=== PATIENT | male | born 1990 | race Caucasian/White ===

== ENCOUNTER 2019-09-25 18:31 | Emergency (ER) | payer MEDICAID, SELFPAY ==
[2019-09-25 19:00] VITALS: BP 118/85; PULSE 101; RESP 18; TEMP 36.9; O2SAT 97; BMI 33.3
[2019-09-25 20:00] LABS: Basophils # 0.1 10^3/uL (0.0-0.1); Basophils % 0.6 %; Eosinophils # 0.1 10^3/uL (0.0-0.8); Eosinophils % 1.3 %; Hematocrit 46.6 % (42.0-52.0); Hemoglobin 15.3 g/dL (11.7-16.6); Lymphocytes # 3.3 10^3/uL (0.8-4.8); Lymphocytes % 38.6 %; Mean Corpuscular HGB Conc 32.8 g/dL (30.0-36.0); Mean Corpuscular Hemoglobin 29.9 pg (28.0-34.0); Mean Platelet Volume 9.2 fL (7.4-10.4); Monocytes # 1.3 10^3/uL (0.2-0.9); Monocytes % 15.9 %; Neutrophils # 3.7 10^3/uL (1.8-7.7); Neutrophils % 43.2 %; Nucleated Red Blood Cells % 0 %; Platelet Count 278 10^3/cmm (130-400); Red Blood Count 5.12 10^6/uL (4.1-5.3); Red Cell Distribution Width 12.5 % (12.1-15.1); White Blood Count 8.4 10^3/uL (4.0-10.0)
[2019-09-25 20:17] LABS: Alanine Aminotransferase 39 U/L (0-41); Alkaline Phosphatase 86 IU/L (40-130); Anion Gap 18.5 (5-19); Aspartate Amino Transferase 22 U/L (0-40); Blood Urea Nitrogen 16 mg/dL (6-20); Calcium 9.8 mg/Dl (8.6-10.0); Carbon Dioxide 27 mmol/L (22-29); Chloride 94 mmol/L (98-107); Globulin 3.3 g/dL (1.3-4.6); Glomerular Filtration Rate 88.3 mL/min (90-130); Glucose 104 mg/dL (74-109); Lipase 59 U/L (13-60); Potassium 3.5 mmol/L (3.5-5.1); Sodium 136 mmol/L (136-145); Total Bilirubin 0.4 mg/dL (0.15-1.2); Total Protein 8.3 g/dL (6.6-8.7)
[2019-09-25 21:11] VITALS: BP 117/90; PULSE 103; RESP 18; O2SAT 95
[2019-09-25 21:30] VITALS: BP 119/90; PULSE 103; RESP 18; O2SAT 95
--- NOTE | 2019-09-25 21:33 | ED_ITS ---
Entered by Josette Aldana, acting as scribe for Eileen Adair MD Sep 25, 2019 18:31 HPI - Abdominal Pain General: Chief Complaint: Abdominal Pain Stated Complaint: abd pain Time Seen by Provider: 09/25/19 21:29 Source: patient and family Mode of arrival: ambulatory History of Present Illness: HPI narrative: 28 y/o male presents to the ED with complaint of abd pain. Pt states he has had an umbilical hernia for 3 months. Tonight he strained while getting into the car and felt a pop in his bel lybutton . Pt denies any previous abd sx. MD elicited complaint: abdominal pain Onset (ago): hour(s) Pain Consistency: constant Location: Periumbilical Severity: moderate Exacerbating factors: movement Relieving factors: nothing Associated Symptoms: Denies chills, diarrhea, fever(s), nausea and vomiting Review of Systems Const: Denies: fever or chills Eyes: Denies: change in vision ENMT: Denies: throat pain or mouth pain Card: Denies: chest pain Resp: Denies: shortness of breath GI: Reports: abdominal pain; Denies: nausea, vomiting or diarrhea Musc: Denies: back pain or joint pain Skin/Breast: Denies: rash Neuro: Denies: headache or behavioral changes Psych: Denies: depression Endo: Denies: excessive urination Henrik/Lymph: Denies: easy bruising All/Imm: Denies: hives PFSH ED PFSH: Statuses (acute, chronic, etc) shown below reflect problem list status as previously entered and may not be historically accurate Social History Smoking and tobacco status: never smoked Physical Exam Const: COMMON NORMALS: no apparent distress, oriented x3 and healthy appearing HENMT: COMMON NORMALS: normocephalic and external nose normal HEAD & SCALP: normocephalic NOSE: external nose normal Eye: COMMON NORMALS: PERRL PUPIL: Yes PERRL Neck/C-Spine: COMMON NORMALS: full ROM and no lymphadenopathy Chest: COMMONS NORMALS: inspection of chest normal Resp: COMMON NORMALS: normal respiratory effort, no use of accessory muscles and clear to auscultation bilaterally AUSCULTATION: clear to auscultation bilaterally Cardio: COMMON NORMALS: regular rate and regular rhythm RATE: regular rate RHYTHM: regular rhythm GI: COMMON NORMALS: negative for non-tender (pain with palpation) PALPATION: Yes guarding GI image (male): 1. umbilical pain Back/Pelvis: THORACIC SPINE/UPPER BACK: Yes normal to inspection Extremity: COMMON NORMALS: normal to inspection, full ROM and normal capillary refill Neuro: COMMON NORMALS: oriented x3 Psych: COMMON NORMALS: mental status grossly normal and cooperative Skin: COMMON NORMALS: no rashes or lesions noted GENERAL SKIN EXAM: no rashes or lesions noted Procedures Intubation Mg Given: 20 Mg Given: 200 Course Vital Signs: Vital signs: Vital Signs Temperature 99.3 F 09/25/19 23:17 Pulse Rate 98 09/25/19 23:17 Respiratory Rate 18 09/25/19 23:17 Blood Pressure 144/84 09/25/19 23:17 Pulse Oximetry 97 09/25/19 23:17 MDM - Abdominal Pain MDM Narrative: Medical decision making narrative: Patient presents with abdominal pain likely from his hernia site. He has no signs of strangulation of bowel and CT scan and lab work is normal. Patient's pain is improved at discharge and he is stable for discharge. He is to follow-up with Dr. Lema as scheduled on the . He is to return to the ER if worsening. Lab Data: Labs: Lab Results 09/25/19 09/25/19 Range/Units 19:30 19:30 WBC 8.4 (4.0-10.0) 10^3/ uL RBC 5.12 (4.1-5.3) 10^6/u L Hgb 15.3 (11.7-16.6) g/dL Hct 46.6 (42.0-52.0) % MCV 91.0 (80-94) fL MCH 29.9 (28.0-34.0) pg MCHC 32.8 (30.0-36.0) g/dL RDW 12.5 (12.1-15.1) % Plt Count 278 (130-400) 10^3/c mm MPV 9.2 (7.4-10.4) fL Neut % (Auto) 43.2 % Lymph % (Auto) 38.6 % Hood % (Auto) 15.9 % Eos % (Auto) 1.3 % Baso % (Auto) 0.6 % Neut # (Auto) 3.7 (1.8-7.7) 10^3/u L Lymph # (Auto) 3.3 (0.8-4.8) 10^3/u L Hood # (Auto) 1.3 H (0.2-0.9) 10^3/u L Eos # (Auto) 0.1 (0.0-0.8) 10^3/u L Baso # (Auto) 0.1 (0.0-0.1) 10^3/u L Nucleated RBC % (a uto) 0 % Nucleated RBCs # 0.0 /100WBC Sodium 136 (136-145) mmol/L Potassium 3.5 (3.5-5.1) mmol/L Chloride 94 L (98-107) mmol/L Carbon Dioxide 27 (22-29) mmol/L Anion Gap 18.5 (5-19) BUN 16 (6-20) mg/dL Creatinine 1.0 (0.7-1.2) mg/dL GFR Calculation 88.3 L (90-130) mL/min Glucose 104 (74-109) mg/dL Calcium 9.8 (8.6-10.0) mg/Dl Total Bilirubin 0.4 (0.15-1.2) mg/dL AST 22 (0-40) U/L ALT 39 (0-41) U/L Alkaline Phosphata se 86 (40-130) IU/L Total Protein 8.3 (6.6-8.7) g/dL Albumin 5.0 (3.5-5.2) g/dL Globulin 3.3 (1.3-4.6) g/dL Lipase 59 (13-60) U/L Imaging Data ^: CT Abd/Pel: Radiologist's impression: Ordering Physician: Eileen Adair MD Date of Service: 09/25/19 Procedure(s): CT abdomen pelvis w con* [id number] Accession Number(s): [id number] cc: Eileen Adair MD PROCEDURE INFORMATION: Exam: CT Abdomen And Pelvis With Contrast Exam date and time: 09/25/2019 9:43 PM Age: 28 years old Clinical indication: Abdominal pain; Periumbilical; Patient HX: Dx with umbilical hernia x 2 days; Additional info: Abd pain TECHNIQUE: Imaging protocol: Computed tomography of the abdomen and pelvis with intravenous contrast. Total DLP: 1703.1 mGy-cm Radiation optimization: All CT scans at this facility use at least one of these dose optimization techniques: automated exposure control; mA and/or kV adjustment per patient size (includes targeted exams where dose is matched to clinical indication); or iterative reconstruction. Contrast material: OMNI 300; Contrast volume: 95 ml; Contrast route: IV; COMPARISON: No relevant prior studies available. FINDINGS: Lungs: The lung bases are clear. Liver: There is fatty infiltration of the liver. Gallbladder and bile ducts: No definite gallbladder abnormality by CT. No biliary tree dilation. Pancreas: Unremarkable. Spleen: Unremarkable. Adrenals: Unremarkable. Kidneys and ureters: Possible very small left intrarenal calculus. No hydronephrosis of either kidney. No visible ureteral calculus. Stomach and bowel: A few proximal small bowel loops are fluid-filled and borderline prominent in size, including the distal duodenum. However, the overall appearance is not suggestive of significant small bowel obstruction at this time. This appearance could be secondary to some form of gastroenteritis. Please correlate clinically. If there is clinical suspicion for small bowel obstruction, follow-up may be helpful to exclude progression. There are no CT findings to strongly suggest diverticulitis. Appendix: The appendix is upper limit of normal in size with diameter of about 6 mm. However, there are no surrounding inflammatory changes to suggest appendicitis at this time. If appendicitis is in the differential diagnosis, follow-up scanning may be useful, as clinically directed. Appropriate clinical follow up warranted. Intraperitoneal space: No free air, or ascites. Vasculature: No evidence for abdominal aortic aneurysm. Lymph nodes: A few borderline prominent inguinal lymph nodes bilaterally. Bladder: Unremarkable as visualized. Reproductive: Essentially unremarkable for age. Bones/joints: No significant acute finding. Soft tissues: There is an umbilical region ventral hernia measuring 25 x 20 mm in diameter. There is no bowel present within the hernia. Mild increased attenuation in the fat within the hernia, which could represent edema/inflammation. This might indicate evidence for incarceration of the hernia. Please correlate clinically for pain in this region. CT/CT abdomen pelvis w con* [id number] IMPRESSION: 1. 25 x 20 mm umbilical hernia measuring, containing no bowel. Mild increased attenuation in the fat within the hernia. This might indicate evidence for incarceration of the hernia. 2. A few proximal small bowel loops are fluid-filled and borderline prominent in size, see above discussion. This appearance could be secondary to some form of gastroenteritis. 3. Borderline size of the appendix, without other suspicious findings. Please see detailed discussion above. 4. No free intraperitoneal air. 5. Other findings discussed above. Discharge Plan Discharge Patient Disposition: Home, Self-Care Clinical Impression: Hernia Abdominal pain Qualifiers: Abdominal location: generalized Qualified Code(s): R10.84 - Generalized abdominal pain Condition: Stable Prescriptions: New EC-Naprosyn 500 mg tablet,delayed release (DR/EC) 500 mg PO BID PRN (Reason: pain) Qty: 20 RF: 0 No Action lisinopril 10 mg Tablet 10 mg PO DAILY RF: 0 hydrochlorothiazide 25 mg Tablet 25 mg PO QAM RF: 0 ranitidine HCl 150 mg Tablet 150 mg PO DAILY RF: 0 Flexeril 10 mg TID RF: 0 Discharge Orders: Discharge Order (Routine); Ordered 09/25/19 Ordered By: Eileen Adair Referrals: Jack Lema MD [Physician] - 4-7 days Mitch Jimenez MD [Family Provider] - 4-7 days Discharge Diet: Advance as tolerated Discharge Activity: Resume usual activity Patient Instructions: Naproxen (By mouth), Abdominal Pain (ED) Discharge Date/Time: 09/25/19 23:26 Coding Level of Care Code ED Gut Dropper for Chg Fwd Exam Problem Focused The documentation recorded by the Jovan maravilla Ashley, accurately reflects the service I personally performed and the decisions made by Mana galicia Korby, MD Sep 25, 2019 18:31
[2019-09-25 21:55] VITALS: RESP 18
[2019-09-25] MEDS: morphine 4 mg/mL SDV 1 mL IVP (21:55)
[2019-09-25] MEDS: ondansetron 2 mg/ML SDV 2 mL 4 MG IVP (21:55)
[2019-09-25] MEDS: sodium chloride 0.9% 1,000 ML 999 ML IV (21:56)
[2019-09-25] MEDS: iohexol 300 mg/mL 100 mL Btl 95 ML IV (22:25)
[2019-09-25 23:17] VITALS: BP 144/84; PULSE 98; RESP 18; TEMP 37.4; O2SAT 97
--- NOTE | 2019-09-26 10:28 | DCPLANNER ---
brokerage office manager had message that patient is to follow up with Dr. Lema. brokerage office manager called patient to ask patient if he would like for wrapper caser to make that follow up appointment for patient. Patient stated that they already had an appointment scheduled for 10.07.[address] Lema, and that it can not be moved up at this time, patient is put on a cancellation list.
== END 2019-09-25 23:26 | disposition home or self-care (01) ==
PROVIDERS: Emergency Provider Emergency Medicine; Family Provider Family Medicine
DX: K46.9 Unspecified abdominal hernia without obstruction or gangrene (principal)
CPT/HCPCS: 36415; 74177; 80053; 83690; 85025; 96360; 96374; 96375; 99282; J2270; J2405; J7030; Q9967

== ENCOUNTER 2019-12-10 15:18 | Outpatient (CLI) | payer MEDICAID, SELFPAY ==
--- NOTE | 2019-12-10 | XR_ITS ---
WS: [id number] Chest 2 views, 12/10/2019 Clinical Data: DRY COUGH FOR A FEW MONTHS Comparison: PA and lateral chest, 02/20/2019 Findings: No nodules, masses or effusions are seen. The heart is normal. The pulmonary vascularity is not increased. No pneumonia or pneumothorax is seen. XR/XR chest 2V* [id number] Impression: Negative chest.
== END 2019-12-10 15:19 | disposition home or self-care (01) ==
PROVIDERS: Family Provider Family Medicine; PCP Family Medicine; Visit Provider Family Medicine
DX: Z76.89 Persons encountering health services in other specified circumstances (principal)

== ENCOUNTER 2020-03-11 03:00 | Emergency (ER) | payer MEDICAID, SELFPAY ==
[2020-03-11 03:07] VITALS: BP 140/93; PULSE 90; RESP 20; TEMP 36.4; O2SAT 97; BMI 33.0
--- NOTE | 2020-03-11 03:23 | W.ED.BACK ---
HPI - Back Pain/Injury General: Chief Complaint: Back Pain/Injury Stated Complaint: back pain Time Seen by Provider: 03/11/20 03:03 Source: patient Mode of arrival: ambulatory Limitations: no limitations History of Present Illness: HPI Narrative: 29-year-old male states he had left flank pain for the last 5 to 6 hours. Patient states his pain is sharp in nature and rates it an 8 out of 10. He states he is also had difficulty urinating. He denies any worsening or improving factors. He denies any vomiting or diarrhea. Associated symptoms: Deny abdominal pain, chills, fever(s), nausea or vomiting Review of Systems Const: Denies: fever(s), chills, body aches or change in appetite Eyes: Denies: blurry vision or eye discomfort ENMT: Denies: throat pain or dental pain Card: Denies: chest pain Resp: Denies: dyspnea GI: Denies: abdominal pain, nausea, vomiting or diarrhea : Reports: flank pain Musc: Denies: neck pain or back pain Skin/Breast: Denies: rash Neuro: Denies: headache(s) Psych: Denies: depression Henrik/Lymph: Denies: easy bruising All/Imm: Denies: urticaria PFSH ED PFSH: Social History Smoking and tobacco status: former smoker Physical Exam Const: COMMON NORMALS: no acute distress, patient oriented x3 and healthy appearing HENMT: COMMON NORMALS: normocephalic and atraumatic HEAD & SCALP: normocephalic and atraumatic Eye: COMMON NORMALS: Equal, round and reactive pupils present and EOMs intact bilaterally PUPIL: Yes Equal, round and reactive pupils present Neck/C-Spine: COMMON NORMALS: full ROM and supple Chest: COMMONS NORMALS: normal inspection of the chest and normal palpation of entire chest wall Resp: COMMON NORMALS: normal respiratory effort, No retractions, No use of accessory muscles and clear to auscultation bilaterally AUSCULTATION: clear to auscultation bilaterally Cardio: COMMON NORMALS: regular rate, regular rhythm and No murmurs present (Cardio) RATE: regular rate RHYTHM: regular rhythm GI: COMMON NORMALS: Normal to inspection, nondistended, normoactive bowel sounds present, Soft to palpation, non-tender and no masses PALPATION: Yes Soft to palpation Extremity: COMMON NORMALS: normal to inspection and full ROM Neuro: COMMON NORMALS: patient oriented x3, moves all extremities and no focal motor deficits Psych: COMMON NORMALS: mental status grossly normal, Normal thought process present and cooperative THOUGHT PROCESS: Normal thought process present Skin: COMMON NORMALS: no rashes or lesions noted and no wounds GENERAL SKIN EXAM: no rashes or lesions noted Course Vital Signs: Vital signs: Vital Signs Temperature 97.5 F L 03/11/20 03:07 Pulse Rate 81 03/11/20 05:22 Respiratory Rate 20 H 03/11/20 05:22 Blood Pressure 135/85 03/11/20 05:22 Pulse Oximetry 98 03/11/20 05:22 MDM - Back Pain/Injury MDM Narrative: Medical decision making narrative: Patient presents here with a kidney stone. Kidney stone is 2 mm and should pass on its own. Patient's pain is improved and he is stable for discharge. We will discharge him on [place] and he is to follow-up with Dr. Fine. Patient is return if worsening. Lab Data: Labs: Lab Results 03/11/20 Range/Units 03:30 Urine Color Yellow (Yellow) Urine Appearance Sl hazy (CLEAR) Urine pH 5 (5-7) Ur Specific Gravit y 1.030 (1.005-1.030) Urine Protein Neg (Negative) Urine Glucose (UA) Norm (Normal) Urine Ketones Negative (Negative) Urine Blood 3+ H (Negative) Urine Nitrate Negative (Negative) Urine Bilirubin Neg (NEGATIVE) Urine Urobilinogen Norm (Negative) mg/dL Ur Leukocyte Gini ase Negative (Negative) Urine RBC 15-25 H (0-2) /hpf Urine WBC 0-4 H (0-5) /hpf Ur Squamous Epith Cells 0-4 H (0-5) Urine Bacteria 1+ H (NONE) Urine Mucus 1+ Imaging Data^: CT Abd/Pel: Radiologist's impression: [address] [place] [address] CT Scan Report Signed Patient: Dominic Cazares Unit #: [id number] : 1990 Age/Sex: 29 / M ADM Date: 03/11/20 Loc: ER Room/Bed: Attending Dr: Ordering Provider/Ordering MD: Eileen Adair MD Date of Service: 03/11/20 Procedure(s): CT kidney stone 32509 Accession Number(s): [id number] Report Number: [id number] PROCEDURE INFORMATION: Exam: CT Abdomen And Pelvis Without Contrast Exam date and time: 03/11/2020 3:49 AM Age: 29 years old Clinical indication: Abdominal pain; Flank; Left; Prior surgery; Surgery date: 1-6 months; Surgery type: Hernia repair; Additional info: Flank pain TECHNIQUE: Imaging protocol: Computed tomography of the abdomen and pelvis without contrast. Radiation optimization: All CT scans at this facility use at least one of these dose optimization techniques: automated exposure control; mA and/or kV adjustment per patient size (includes targeted exams where dose is matched to clinical indication); or iterative reconstruction. COMPARISON: No relevant prior studies available. RADIATION DOSE METRICS: Total DLP (mGy-cm): 2239.63 FINDINGS: Lungs: The lung bases are clear. Liver: There is fatty infiltration of the liver. The liver appears somewhat enlarged, with right lobe length of 21 cm. No definite/significant focal hepatic abnormality. Gallbladder and bile ducts: No definite gallbladder abnormality by CT. No biliary tree dilation. Pancreas: Unremarkable. Spleen: Unremarkable. Adrenals: Unremarkable. Kidneys and ureters: Possible very small left intrarenal calculus. Mild left hydronephrosis and hydroureter. There is a 2-3 mm distal left ureteral calculus, about 1 cm from the UVJ. The right kidney appears essentially unremarkable. Stomach and bowel: There are no CT findings to strongly suggest diverticulitis. Appendix: The appendix is visualized and appears normal. Intraperitoneal space: No free air, ascites, or bowel distention. Vasculature: No evidence for abdominal aortic aneurysm. Lymph nodes: No retroperitoneal adenopathy. Bladder: Limited evaluation of the urinary bladder, as the bladder is essentially empty. Reproductive: Essentially unremarkable for age. Bones/joints: No significant acute finding. Soft tissues: No significant acute finding. CT/CT kidney stone [id number] IMPRESSION: 1. 2-3 mm distal left ureteral calculus, details above. 2. Mild left hydronephrosis and hydroureter. 3. No diverticulitis. 4. No free air or bowel distention. 5. Other findings discussed above. Discharge Plan Discharge Patient Disposition: Home, Self-Care Clinical Impression: Kidney stone Condition: Stable Prescriptions: New [place] 5-325 mg tablet 1 tab PO Q6H PRN (Reason: pain) Qty: 14 RF: 0 ondansetron 4 mg tablet,disintegrating 4 mg PO Q6H PRN (Reason: nausea and vomiting) Qty: 14 RF: 0 Flomax 0.4 mg capsule 0.4 mg PO DAILY Qty: 4 RF: 0 No Action lisinopril 10 mg Tablet 10 mg PO DAILY RF: 0 hydrochlorothiazide 25 mg Tablet 25 mg PO QAM RF: 0 ranitidine HCl 150 mg Tablet 150 mg PO DAILY RF: 0 Flexeril 10 mg TID RF: 0 EC-Naprosyn 500 mg tablet,delayed release (DR/EC) 500 mg PO BID PRN (Reason: pain) Qty: 20 RF: 0 Discharge Orders: Discharge Order (Routine); Ordered 03/11/20 Ordered By: Eileen Adair Referrals: Shamar Fine MD [Physician] - 1-3 days Mitch Jimenez MD [Primary Care Provider] - Discharge Diet: Advance as tolerated Discharge Activity: Resume usual activity Patient Instructions: Kidney Stones (ED) Coding Level of Care Code ED Sports Statistician for Chg Fwd Exam Comprehensive
[2020-03-11] MEDS: ondansetron 2 mg/ML SDV 2 mL 4 MG IVP (03:38)
[2020-03-11 03:39] VITALS: RESP 19
[2020-03-11] MEDS: morphine 4 mg/mL SDV 1 mL IVP (03:39)
[2020-03-11] MEDS: sodium chloride 0.9% 1,000 ML 999 ML IV (03:41)
[2020-03-11 04:19] VITALS: RESP 18
[2020-03-11] MEDS: ketorolac 30 mg/mL INJ IVP (04:19)
[2020-03-11] MEDS: HYDROmorphone 1 mg/mL INJ 1 mL IVP (04:19)
[2020-03-11 04:20] LABS: Add Urine Culture? Yes; Add Urine Microscopic? YES; Bacteria Urine 1+; Bilirubin Urine Neg (NEGATIVE); Blood Urine 3+ (Negative); Glucose Urine UA Norm (Normal); Ketones Urine Negative (Negative); Leukocyte Esterase Urine Negative (Negative); Mucus Urine 1+; Nitrate Urine Negative (Negative); Protein Urine Neg (Negative); RBC Urine 15-25 /hpf (0-2); Squamous Epithelial Cell Urine 0-4 (0-5); Urine Appearance SL Hazy (CLEAR); Urine Color Yellow (Yellow); Urobilinogen Urine Norm (Negative); WBC Urine 0-4 /hpf (0-5); pH Urine 5 (5-7)
[2020-03-11 04:24] VITALS: BP 149/94; PULSE 82; RESP 18; O2SAT 98
[2020-03-11 05:22] VITALS: BP 135/85; PULSE 81; RESP 20; O2SAT 98
[2020-03-11] MEDS: HYDROcodone-acetaminophen 7.5-325 mg Tablet 1 TAB PO (05:28)
--- NOTE | 2020-03-11 12:49 | DCPLANNER ---
brood station manager had message to schedule a follow up appointment for patient with Dr. Fine. brood station manager called the office of Dr. Fine, spoke with Francesca. brood station manager gave clinic patients information, was told that it would be printed and reviewed. Clinic will call patient with appointment informatiom.
--- NOTE | 2020-03-12 14:06 | DCPLANNER ---
Patient had a follow up appointment for patient with Dr. Fine scheduled for 03.12.20. Patient did attend the appointment.
== END 2020-03-11 05:44 | disposition home or self-care (01) ==
PROVIDERS: Emergency Provider Emergency Medicine; PCP Family Medicine
DX: N20.0 Calculus of kidney (principal); Z87.891 Personal history of nicotine dependence
CPT/HCPCS: 12345; 74176; 81001; 87086; 96361; 96374; 96375; 99283; J1170; J1885; J2270; J2405; J7030

== ENCOUNTER 2020-03-12 08:47 | Outpatient (CLI) | payer MEDICAID, SELFPAY ==
--- NOTE | 2020-03-12 09:30 | XRR_ITS ---
PROCEDURE INFORMATION: Exam: XR Abdomen, 1 View Exam date and time: 03/12/2020 9:01 AM Age: 29 years old Clinical indication: Other: Left flank pain x a few days; Additional info: Stone. HX of stone. C/O left flank pain x a few days TECHNIQUE: Imaging protocol: XR of the abdomen. Views: Frontal supine view of the abdomen. 1 View. COMPARISON: CT kidney stone [id number] 03/11/2020 3:43 AM FINDINGS: Gastrointestinal tract: bowel gas pattern is nonspecific. Air filled large bowel including distal rectal gas. Moderate amount stool throughout the large bowel. Organs: No calcifications are seen overlying the renal outlines or the expected course of the right or left ureters. No suspicious calcifications within the pelvis. Bones/joints: Unremarkable. XR/XR KUB [id number] IMPRESSION: 1. Bowel gas pattern is nonspecific. Air filled large bowel including distal rectal gas. 2. Moderate amount stool throughout the large bowel.
== END 2020-03-12 08:48 | disposition home or self-care (01) ==
LOC: RAD 08:49
PROVIDERS: PCP Family Medicine; Visit Provider Urology
DX: N20.0 Calculus of kidney (principal)
CPT/HCPCS: 74018; 81001

== ENCOUNTER 2020-03-26 07:56 | Outpatient (CLI) | payer MEDICAID, SELFPAY ==
--- NOTE | 2020-03-26 08:15 | XRR_ITS ---
PROCEDURE INFORMATION: Exam: XR Abdomen, 1 View Exam date and time: 03/26/2020 8:15 AM Age: 29 years old Clinical indication: Condition or disease; Kidney or ureter condition; Calculus (stone) in ureter; Patient HX: Follow up stones TECHNIQUE: Imaging protocol: XR of the abdomen. Views: Frontal supine view of the abdomen. 1 View. COMPARISON: CR XR KUB [id number] 03/12/2020 8:54 AM FINDINGS: Gastrointestinal tract: The bowel gas pattern is nonspecific. Air filled large bowel including distal rectal gas. Organs: No calcifications are seen overlying the renal outlines or the expected course of the right or left ureters. No suspicious calcifications within the pelvis. Bones/joints: Unremarkable. XR/XR KUB [id number] IMPRESSION: The bowel gas pattern is nonspecific. Air filled large bowel including distal rectal gas.
== END 2020-03-26 07:57 | disposition home or self-care (01) ==
LOC: RAD 07:57
PROVIDERS: PCP Family Medicine; Visit Provider Urology
DX: N20.1 Calculus of ureter (principal)
CPT/HCPCS: 74018; 81001

== ENCOUNTER 2020-08-25 13:06 | Emergency (ER) | payer MEDICAID, SELFPAY ==
[2020-08-25 13:08] VITALS: BP 137/76; PULSE 98; RESP 16; TEMP 36.4; O2SAT 96; BMI 32.7
--- NOTE | 2020-08-25 13:09 | XR_ITS ---
WS: [id number] XR acute abdomen series [id number] REASON FOR EXAM: swallowed metal shavings FINDINGS: CHEST: The heart and mediastinum are within normal limits. No active pulmonary parenchymal or pleural disease is noted. The bony thorax is intact. No metallic foreign body identified in the airways or within the lung parenchyma or along the course of the esophagus. ABDOMEN: Unremarkable bowel gas pattern with. No free air or retroperitoneal air. No significant calcification. No metallic foreign body identified. XR/XR acute abdomen series [id number] IMPRESSION: No significant abnormality identified.
--- NOTE | 2020-08-25 13:09 | XR_ITS ---
WS: [id number] XR soft tissue neck [id number] REASON FOR EXAM: swallowed metal shavings FINDINGS: Normal cervical spine. No soft tissue abnormality, specifically no radiopaque foreign body is identified in the soft tissues of the neck. XR/XR soft tissue neck [id number] IMPRESSION: No significant abnormality.
--- NOTE | 2020-08-25 13:17 | ED_ITS ---
HPI - Abdominal Pain General: Chief Complaint: Abdominal Pain Stated Complaint: SWALLOWED METAL SHAVINGS Time Seen by Provider: 08/25/20 13:09 History of Present Illness: HPI narrative: Patient states he ate a [place] restaurant last night and there was metal on the food. He has a picture to show me of metal on the food. He said he showed the manager agriculture the food he had a metal and then he went home and started some develop some pain. Went to the [employer] place today and he said they showed him a sponge that had metal shavings on it that from cleaning dishes. And he said he went to the dentist because he had a cut in his tongue and they told him it is going to heal naturally. But he says his stomach is hurting now. MD elicited complaint: abdominal pain Onset (ago): day(s) Pain Consistency: constant Location: Other (Generalized and) Severity: mild Quality: cramping Migration to: no migration Exacerbating factors: nothing Associated Symptoms: Denies chills, fever(s), nausea and vomiting Review of Systems Const: Denies: fever(s), chills or body aches Eyes: Denies: change in vision or blurry vision ENMT: Reports: other; Denies: throat pain or nasal congestion Card: Denies: chest pain or dyspnea on exertion Resp: Denies: dyspnea, productive cough or non-productive cough GI: Reports: abdominal pain; Denies: nausea or vomiting : Denies: difficulty urinating Musc: Denies: extremity pain Skin/Breast: Denies: rash Neuro: Denies: headache(s) Psych: Denies: anxiety or depression Henrik/Lymph: Denies: easy bruising PFS ED PFSH: Medical History Left ureteral calculus Family History Mother , 46 Diabetes Cancer CAD (coronary artery disease) Hypertension Father Cancer CAD (coronary artery disease) Hypertension Diabetes Social History (Updated 03/26/20 @ 08:47 by Gloria Amado LPN) Smoking and tobacco status: former smoker Alcohol intake: current Alcohol intake frequency: holidays/special occasions only Marital status: Current occupational status: disabled History of recent travel: No Physical Exam Const: COMMON NORMALS: no acute distress, average body habitus and patient oriented x3 HENMT: COMMON NORMALS: normocephalic HEAD & SCALP: normal to inspection and normocephalic FACE & SINUS: normal facial exam OTHER: Has what appears to be a canker sore under the tongue on the left side near the tip Eye: COMMON NORMALS: conjunctivae normal GENERAL EYE: appearance normal, both eyes and all related structures CONJUNCTIVA: Yes conjunctivae normal Neck/C-Spine: COMMON NORMALS: no JVD Chest: COMMONS NORMALS: normal inspection of the chest Resp: COMMON NORMALS: normal respiratory effort and clear to auscultation bilaterally AUSCULTATION: clear to auscultation bilaterally Cardio: COMMON NORMALS: no JVD, regular rate and regular rhythm RATE: regular rate RHYTHM: regular rhythm GI: COMMON NORMALS: Normal to inspection, nondistended, normoactive bowel sounds present Extremity: COMMON NORMALS: normal to inspection and full ROM Neuro: COMMON NORMALS: patient oriented x3 Course Vital Signs: Vital signs: Vital Signs Temperature 97.5 F L 08/25/20 13:08 Pulse Rate 98 08/25/20 13:08 Respiratory Rate 16 08/25/20 13:08 Blood Pressure 137/76 08/25/20 13:08 Pulse Oximetry 96 08/25/20 13:08 Discharge Plan Discharge Prescriptions: No Action hydrocodone-acetaminophen 10-325 mg tablet 1 tab PO Q8H PRNRF: 0 losartan 25 mg tablet 25 mg PO DAILY RF: 0 famotidine 40 mg tablet 40 mg PO DAILY RF: 0 sildenafil 100 mg tablet 100 mg PO DAILY PRNRF: 0 hydrochlorothiazide 25 mg Tablet 25 mg PO QAM RF: 0 ondansetron 4 mg tablet,disintegrating 4 mg PO Q6H PRN (Reason: nausea and vomiting) Qty: 14 RF: 0 Coding Level of Care Code ED Appeals Manager for Chg Fwd Exam Comprehensive
== END 2020-08-25 13:55 | disposition home or self-care (01) ==
PROVIDERS: Emergency Provider Nurse Practitioner Family; PCP Family Medicine
DX: R10.84 Generalized abdominal pain (principal); Z87.891 Personal history of nicotine dependence; Z79.891 Long term (current) use of opiate analgesic
CPT/HCPCS: 12345; 70360; 74022; 99281; 99283

== ENCOUNTER 2020-08-25 18:20 | Emergency (ER) | payer MEDICAID, SELFPAY ==
[2020-08-25 18:23] VITALS: BP 157/88; PULSE 88; RESP 18; TEMP 36.5; O2SAT 97; BMI 33.0
--- NOTE | 2020-08-25 18:32 | CTR_ITS ---
PROCEDURE INFORMATION: Exam: CT Abdomen And Pelvis Without Contrast Exam date and time: 08/25/2020 6:59 PM Age: 29 years old Clinical indication: Other: Possible ingestion of metal shavings; Prior surgery; Surgery type: Hernia; Additional info: Swallowed metal shavings, abd pain TECHNIQUE: Imaging protocol: Computed tomography of the abdomen and pelvis without contrast. Radiation optimization: All CT scans at this facility use at least one of these dose optimization techniques: automated exposure control; mA and/or kV adjustment per patient size (includes targeted exams where dose is matched to clinical indication); or iterative reconstruction. COMPARISON: CT kidney stone [id number] 03/11/2020 3:43 AM RADIATION DOSE METRICS: Total DLP (mGy-cm): 1780.26 FINDINGS: Lungs: Limited assessment of the lung bases fails to reveal evidence for active cardiopulmonary process. Liver: Marked diffuse fatty infiltration of the liver with hepatomegaly. Gallbladder and bile ducts: Hepatization of the gallbladder. No visible form cholelithiasis. Pancreas: Normal. No ductal dilation. Spleen: Normal. No splenomegaly. Adrenal glands: Normal. No mass. Kidneys and ureters: No hydronephrosis or perinephric fluid. Potential very tiny nonobstructing calyceal nephrolithiasis foci superior pole left kidney measuring under 2 mm. Stomach and bowel: Assessment of the hollow viscus fails to reveal evidence of active or acute pathology. Nonobstructed bowel pattern. No visible acute diverticulitis. No visible adynamic or reactive ileus. Appendix: The appendix is visualized and appears noninflamed. Intraperitoneal space: No visible evidence of mesenteric lymphadenitis or active mesenteritis/panniculitis. Vasculature: The abdominal aorta is nonaneurysmal. Minimal arterial sclerotic disease. Lymph nodes: No current visible evidence of active mesenteric or retroperitoneal lymphadenopathy. Urinary bladder: Unremarkable as visualized. Reproductive: Unremarkable as visualized. Bones/joints: No visible active or acute osseous pathology. Soft tissues: Unremarkable. Other findings: Obesity. CT/CT abdomen pelvis wo con [id number] IMPRESSION: 1. Currently no visible evidence of active or acute abdominal or pelvic pathologic process. 2. Diffuse fatty infiltration of the liver with hepatomegaly. 3. Hepatization of the gallbladder. 4. Potential very tiny focus of nephrolithiasis left kidney under 2 mm. 5. No definitive evidence of ingested foreign body. COMMENTS: Consistent with the [employer]'s Incidental Findings Committee white paper (J Am Krystian Radiol 2018): Any incidental renal lesion less than 1 cm or classified as too small to characterize, or any incidental cystic renal lesion characterized as simple-appearing, is likely benign. No follow-up imaging is recommended for these lesions per consensus recommendations based on imaging criteria. Radiation Dose CTDIVOL = (mGy): DLP = 1780.26 (mGy-cm)
--- NOTE | 2020-08-25 18:57 | ED_ITS ---
HPI - General Adult General: Chief complaint: General Medical Stated complaint: DR TOLD HIM HE NEEDS A CT SCAN Time Seen by Provider: 08/25/20 18:46 Source: patient Mode of arrival: ambulatory Limitations: no limitations History of Present Illness: HPI narrative: 29-year-old male states that he has eaten a restaurant last night and noticed metal shavings on his food. States th at it was from a stool scrub. He seen here earlier today and had x-rays that were normal. He states he has had some pain and wants a CAT scan to make sure he did not swallow anything. Associated symptoms: Deny chest pain, dyspnea, headache(s) or rash Review of Systems Const: Denies: fever(s), chills, body aches or change in appetite Eyes: Denies: blurry vision or eye discomfort ENMT: Denies: throat pain or dental pain Card: Denies: chest pain Resp: Denies: dyspnea GI: Reports: abdominal pain : Denies: dysuria Musc: Denies: neck pain or back pain Skin/Breast: Denies: rash Neuro: Denies: headache(s) Psych: Denies: depression Henrik/Lymph: Denies: easy bruising All/Imm: Denies: urticaria PFSH ED PFSH: Medical History (Updated 08/25/20 @ 19:31 by Eileen Adair MD) Left ureteral calculus Family History Mother , 46 Diabetes Cancer CAD (coronary artery disease) Hypertension Father Cancer CAD (coronary artery disease) Hypertension Diabetes Social History (Updated 03/26/20 @ 08:47 by Gloria Amado LPN) Smoking and tobacco status: former smoker Alcohol intake: current Alcohol intake frequency: holidays/special occasions only Marital status: Current occupational status: disabled History of recent travel: No Physical Exam Const: COMMON NORMALS: no acute distress, patient oriented x3 and healthy appearing HENMT: COMMON NORMALS: normocephalic and atraumatic HEAD & SCALP: normocephalic and atraumatic Eye: COMMON NORMALS: Equal, round and reactive pupils present and EOMs intact bilaterally PUPIL: Yes Equal, round and reactive pupils present Neck/C-Spine: COMMON NORMALS: full ROM and supple Chest: COMMONS NORMALS: normal inspection of the chest and normal palpation of entire chest wall Resp: COMMON NORMALS: normal respiratory effort, No retractions, No use of accessory muscles and clear to auscultation bilaterally AUSCULTATION: clear to auscultation bilaterally Cardio: COMMON NORMALS: regular rate, regular rhythm and No murmurs present (Cardio) RATE: regular rate RHYTHM: regular rhythm GI: COMMON NORMALS: Normal to inspection, nondistended, normoactive bowel sounds present, Soft to palpation, non-tender and no masses PALPATION: Yes Soft to palpation Extremity: COMMON NORMALS: normal to inspection and full ROM Neuro: COMMON NORMALS: patient oriented x3, moves all extremities and no focal motor deficits Psych: COMMON NORMALS: mental status grossly normal, Normal thought process present and cooperative THOUGHT PROCESS: Normal thought process present Skin: COMMON NORMALS: no rashes or lesions noted and no wounds GENERAL SKIN EXAM: no rashes or lesions noted Course Vital Signs: Vital signs: Vital Signs Temperature 97.7 F 08/25/20 18:23 Pulse Rate 88 08/25/20 18:23 Respiratory Rate 18 08/25/20 18:23 Blood Pressure 157/88 08/25/20 18:23 Pulse Oximetry 97 08/25/20 18:23 MDM - General Adult MDM Narrative: Medical decision making narrative: Patient presents here with abdominal pain mainly concerned that he swallowed metal shavings from his stool scrub at a restaurant. CT scan here is normal. He had x-ray of his neck chest abdomen earlier it was normal as well. He is stable for discharge. Imaging Data^: CT Abd/Pel: Attestation: I personally reviewed and interpreted this imaging study as follows: Radiologist's impression: [address] [address] [address] Scan Report Signed Patient: Dominic Cazares Unit #: [id number] : 1990 Age/Sex: 29 / M ADM Date: 08/25/20 Loc: ER Room/Bed: Attending Dr: Ordering Provider/Ordering MD: Alma Rosa Peterson Date of Service: 08/25/20 Procedure(s): CT abdomen pelvis [facility] [address] Accession Number(s): [id number] Report Number: [id number] PROCEDURE INFORMATION: Exam: CT Abdomen And Pelvis Without Contrast Exam date and time: 08/25/2020 6:59 PM Age: 29 years old Clinical indication: Other: Possible ingestion of metal shavings; Prior surgery; Surgery type: Hernia; Additional info: Swallowed metal shavings, abd pain TECHNIQUE: Imaging protocol: Computed tomography of the abdomen and pelvis without contrast. Radiation optimization: All CT scans at this facility use at least one of these dose optimization techniques: automated exposure control; mA and/or kV adjustment per patient size (includes targeted exams where dose is matched to clinical indication); or iterative reconstruction. COMPARISON: CT kidney stone [id number] 03/11/2020 3:43 AM RADIATION DOSE METRICS: Total DLP (mGy-cm): 1780.26 FINDINGS: Lungs: Limited assessment of the lung bases fails to reveal evidence for active cardiopulmonary process. Liver: Marked diffuse fatty infiltration of the liver with hepatomegaly. Gallbladder and bile ducts: Hepatization of the gallbladder. No visible form cholelithiasis. Pancreas: Normal. No ductal dilation. Spleen: Normal. No splenomegaly. Adrenal glands: Normal. No mass. Kidneys and ureters: No hydronephrosis or perinephric fluid. Potential very tiny nonobstructing calyceal nephrolithiasis foci superior pole left kidney measuring under 2 mm. Stomach and bowel: Assessment of the hollow viscus fails to reveal evidence of active or acute pathology. Nonobstructed bowel pattern. No visible acute diverticulitis. No visible adynamic or reactive ileus. Appendix: The appendix is visualized and appears noninflamed. Intraperitoneal space: No visible evidence of mesenteric lymphadenitis or active mesenteritis/panniculitis. Vasculature: The abdominal aorta is nonaneurysmal. Minimal arterial sclerotic disease. Lymph nodes: No current visible evidence of active mesenteric or retroperitoneal lymphadenopathy. Urinary bladder: Unremarkable as visualized. Reproductive: Unremarkable as visualized. Bones/joints: No visible active or acute osseous pathology. Soft tissues: Unremarkable. Other findings: Obesity. CT/CT abdomen pelvis wo con [id number] IMPRESSION: 1. Currently no visible evidence of active or acute abdominal or pelvic pathologic process. 2. Diffuse fatty infiltration of the liver with hepatomegaly. 3. Hepatization of the gallbladder. 4. Potential very tiny focus of nephrolithiasis left kidney under 2 mm. 5. No definitive evidence of ingested foreign body. COMMENTS: Consistent with the [employer]'s Incidental Findings Committee white paper (J Am Krystian Radiol 2018): Any incidental renal lesion less than 1 cm or classified as too small to characterize, or any incidental cystic renal lesion characterized as simple-appearing, is likely benign. No follow-up imaging is recommended for these lesions per consensus recommendations based on imaging criteria. Discharge Plan Discharge Patient Disposition: Home Clinical Impression: Abdominal pain Qualifiers: Abdominal location: generalized Qualified Code(s): R10.84 - Generalized abdominal pain Condition: Stable Prescriptions: No Action hydrocodone-acetaminophen 10-325 mg tablet 1 tab PO Q8H PRNRF: 0 losartan 25 mg tablet 25 mg PO DAILY RF: 0 famotidine 40 mg tablet 40 mg PO DAILY RF: 0 sildenafil 100 mg tablet 100 mg PO DAILY PRNRF: 0 hydrochlorothiazide 25 mg Tablet 25 mg PO QAM RF: 0 ondansetron 4 mg tablet,disintegrating 4 mg PO Q6H PRN (Reason: nausea and vomiting) Qty: 14 RF: 0 Discharge Orders: Discharge ED (Routine); Ordered 08/25/20 Ordered By: Eileen Adair Referrals: Mitch Jimenez MD [Primary Care Provider] - 1-3 days Discharge Diet: Advance as tolerated Discharge Activity: Resume usual activity Patient Instructions: Abdominal Pain (ED) Coding Level of Care Code ED Rigging Helper for Chg Fwd Exam Comprehensive
[2020-08-25 19:37] VITALS: BP 126/86; PULSE 94; RESP 14; O2SAT 97
== END 2020-08-25 19:37 | disposition home or self-care (01) ==
PROVIDERS: Emergency Provider Emergency Medicine; PCP Family Medicine
DX: R10.84 Generalized abdominal pain (principal); Z87.891 Personal history of nicotine dependence; Z79.891 Long term (current) use of opiate analgesic
CPT/HCPCS: 12345; 74176; 99281; 99282

== ENCOUNTER → 2021-01-23 16:59 | Outpatient (BNVA) | payer MEDICAID, SELFPAY | PROVIDERS: PCP Family Medicine; Visit Provider Nurse Practitioner | DX: J02.9 Acute pharyngitis, unspecified (principal); J06.9 Acute upper respiratory infection, unspecified | CPT/HCPCS: 87880 ==

== ENCOUNTER 2021-03-13 21:08 | Emergency (ER) | payer MEDICAID, SELFPAY ==
[2021-03-13 21:43] VITALS: BP 121/77; PULSE 100; RESP 28; TEMP 37; O2SAT 96; BMI 33.7
--- NOTE | 2021-03-13 22:02 | XRR_ITS ---
PROCEDURE INFORMATION: Exam: XR Chest Exam date and time: 03/13/2021 10:02 PM Age: 30 years old Clinical indication: Cough and dyspnea; Patient HX: Covid + TECHNIQUE: Imaging protocol: XR of the chest. Views: 1 view. COMPARISON: CR XR chest 2V* [id number] 12/10/2019 3:48 PM FINDINGS: Lungs: Hypoinflated, clear lungs. Pleural spaces: Unremarkable. No pleural effusion. No pneumothorax. Heart/Mediastinum: Unremarkable. No cardiomegaly. Bones/joints: No acute fracture. XR/XR chest 1V portable [id number] IMPRESSION: Hypoinflated, clear lungs.
[2021-03-13 22:58] LABS: Add Urine Microscopic? YES; Bilirubin Urine 1+ (Negative); Blood Urine Neg (Negative); Glucose Urine UA Norm (Normal); Ketones Urine Negative (Negative); Leukocyte Esterase Urine Negative (Negative); Nitrate Urine Negative (Negative); Protein Urine Trace (Negative); Urine Appearance Clear (CLEAR); Urine Color Yellow (Yellow); Urobilinogen Urine 1 mg/dL (Negative); pH Urine 5 (5-7)
[2021-03-13 22:59] LABS: Add Urine Culture? No; Bacteria Urine TRACE /hpf; Mucus Urine 3+ /hpf; RBC Urine 0-4 /hpf (0-2); Squamous Epithelial Cell Urine 0-4 /hpf (0-5); WBC Urine 0-4 /hpf (0-5)
[2021-03-13] MEDS: sodium chloride 0.9% 1,000 ML 999 ML IV (23:04)
[2021-03-13] MEDS: HYDROmorphone 1 mg/mL INJ 1 mL IVP (23:06)
[2021-03-13] MEDS: ondansetron 2 mg/ML SDV 2 mL 4 MG IVP (23:06)
[2021-03-13 23:09] LABS: Basophils % 0.4 %; Eosinophils % 0.1 %; Hematocrit 50.1 % (42.0-52.0); Hemoglobin 16.7 g/dL (11.7-16.6); Lymphocytes % 27.3 %; Mean Corpuscular HGB Conc 33.3 g/dL (30.0-36.0); Mean Corpuscular Hemoglobin 29.5 pg (28.0-34.0); Mean Corpuscular Volume 88.4 fL (80-94); Mean Platelet Volume 9.6 fL (7.4-10.4); Monocytes # 0.8 10^3/uL (0.2-0.9); Monocytes % 11.4 %; Neutrophils # 4.42 10^3/uL (1.8-7.7); Neutrophils % 60.5 %; Nucleated Red Blood Cells % 0 %; Platelet Count 213 10^3/cmm (130-400); Red Blood Count 5.67 10^6/uL (4.1-5.3); Red Cell Distribution Width 12.9 % (12.1-15.1); White Blood Count 7.3 10^3/uL (4.0-10.0)
[2021-03-13 23:29] LABS: Alanine Aminotransferase 56 U/L (0-41); Albumin Level 4.6 g/dL (3.5-5.2); Alkaline Phosphatase 82 IU/L (40-130); Anion Gap 18.8 (5-19); Aspartate Amino Transferase 34 U/L (0-40); Blood Urea Nitrogen 18 mg/dL (6-20); C Reactive Protein 9.3 mg/L (0.0-4.9); Calcium 9.3 mg/dL (8.5-10.5); Carbon Dioxide 26 mmol/L (22-29); Chloride 97 mmol/L (98-107); Globulin 3.1 g/dL (1.3-4.6); Glomerular Filtration Rate 78.1 mL/min (90-130); Glucose 109 mg/dL (65-115); Osmolality Calculated 288 mOsm/kg (285-295); Potassium 3.8 mmol/L (3.5-5.1); Sodium 138 mmol/L (136-145); Total Bilirubin 0.3 mg/dL (0.15-1.2); Total Protein 7.7 g/dL (6.6-8.7)
[2021-03-13 23:35] LABS: Procalcitonin 0.15 ng/mL (0-0.5)
[2021-03-14 00:32] VITALS: BP 117/64; PULSE 92; RESP 18; TEMP 36.7; O2SAT 95
[2021-03-14 00:55] VITALS: BP 117/64; PULSE 92; RESP 18; TEMP 36.7; O2SAT 95
--- NOTE | 2021-03-14 05:29 | W.ED.BACK ---
HPI - Back Pain/Injury General: Chief Complaint: Back Pain/Injury Stated Complaint: COVID (+), PAIN UP BACK OF NECK, SOB Time Seen by Provider: 03/13/21 21:38 History of Present Illness: HPI Narrative: 30-year-old male who was diagnosed with COVID-19 3 days prior to arrival here. He presents with headache, back pain (he has chronic back pain) and cough with shortness of breath. He states the pain runs from the base of his head down into his back. He denies any neck stiffness, pain with neck or head movement, or other symptoms. He states that he nearly passed out at home due to the back pain he was having. MD elicited complaint: back pain Pertinent past history: prior back pain Onset (ago): hour(s) Timing: constant and progressively worsening Severity: severe Similar Symptoms Previously: Yes Quality: stabbing Location: lumbar spine and thoracic spine Radiation: none Exacerbating factors: movement and coughing/sneezing Relieving factors: none Associated symptoms: Reports chills, fever(s), myalgias and nausea; Deny abdominal pain, tingling/numbness/burning or vomiting Review of Systems Const: Reports: fever(s) and chills Eyes: Denies: change in vision Card: Denies: chest pain or palpitations Resp: Denies: dyspnea or productive cough GI: Reports: nausea; Denies: abdominal pain or vomiting [facility] ED PFSH: Medical History (Updated 03/14/21 @ 00:09 by Tino Martinez DO) Left ureteral calculus Family History Mother , 46 Diabetes Cancer CAD (coronary artery disease) Hypertension Father Cancer CAD (coronary artery disease) Hypertension Diabetes Social History Smoking and tobacco status: former smoker Alcohol intake: current Alcohol intake frequency: holidays/special occasions only Marital status: Current occupational status: disabled History of recent travel: No Physical Exam Const: GENERAL APPEARANCE: cooperative, well developed, anxious and ill appearing ORIENTATION/CONSCIOUSNESS: Yes oriented to person, Yes oriented to place and Yes oriented to time HENMT: COMMON NORMALS: normocephalic and Normal external nose present HEAD & SCALP: normocephalic FACE & SINUS: normal facial exam NOSE: Normal external nose present and No nasal discharge present Eye: COMMON NORMALS: Equal, round and reactive pupils present, EOMs intact bilaterally and conjunctivae normal EYELID: eyelids normal CONJUNCTIVA: Yes conjunctivae normal PUPIL: Yes Equal, round and reactive pupils present Neck/C-Spine: COMMON NORMALS: full ROM and no meningeal signs GENERAL: No tracheal deviation CERVICAL SPINE: Yes normal cervical lordosis and No Cervical spine tenderness Chest: COMMONS NORMALS: normal inspection of the chest CHEST: No tenderness Resp: COMMON NORMALS: clear to auscultation bilaterally EFFORT & INSPECTION: No tachypneic, No respiratory distress, No retractions, No uses accessory muscles and No tracheal deviation AUSCULTATION: clear to auscultation bilaterally, no rhonchi, no wheezes and lung sounds not diminished Cardio: COMMON NORMALS: regular rate and regular rhythm RATE: regular rate RHYTHM: regular rhythm HEART SOUNDS: no murmurs PERIPHERAL PULSES: radial pulses present GI: INSPECTION: No abdominal distension AUSCULTATION: No Hyperactive bowel sounds present and No Hypoactive bowel sounds present PALPATION: No Guarding due to palpation present (GI) and No Rigid due to palpation PERCUSSION: no dullness to percussion and no tympanic to percussion : COMMON NORMALS: Yes no CVA tenderness BLADDER/KIDNEY EXAM: Yes no CVA tenderness Back/Pelvis: COMMON NORMALS: no CVA tenderness Neuro: SENSORIUM/ORIENTATION: Yes oriented to person, Yes oriented to place and Yes oriented to time MENINGEAL SIGNS: Yes no meningeal signs Psych: COMMON NORMALS: mental status grossly normal Skin: COMMON NORMALS: no rashes or lesions noted GENERAL SKIN EXAM: no rashes or lesions noted Course Vital Signs: Vital signs: Vital Signs Temperature 98.1 F 03/14/21 00:55 Pulse Rate 92 03/14/21 00:55 Respiratory Rate 18 03/14/21 00:55 Blood Pressure 117/64 03/14/21 00:55 Pulse Oximetry 95 03/14/21 00:55 MDM - Back Pain/Injury MDM Narrative: Medical decision making narrative: Laboratory is benign. Patient feels better after fluid and pain medication. He has no meningeal signs. Chest x-ray was clear. He will be allowed home. Lab Data: Labs: Lab Results 06/26/21 06/26/21 06/26/21 Range/Units 22:46 22:55 22:55 WBC 7.3 (4.0-10.0) 10^3/ uL RBC 5.67 H (4.1-5.3) 10^6/u L Hgb 16.7 H (11.7-16.6) g/dL Hct 50.1 (42.0-52.0) % MCV 88.4 (80-94) fL MCH 29.5 (28.0-34.0) pg MCHC 33.3 (30.0-36.0) g/dL RDW 12.9 (12.1-15.1) % Plt Count 213 (130-400) 10^3/c mm MPV 9.6 (7.4-10.4) fL Neut % (Auto) 60.5 % Lymph % (Auto) 27.3 % [place] % (Auto) 11.4 % Eos % (Auto) 0.1 % Baso % (Auto) 0.4 % Neut # (Auto) 4.42 (1.8-7.7) 10^3/u L Lymph # (Auto) 2.0 (0.8-4.8) 10^3/u L [place] # (Auto) 0.8 (0.2-0.9) 10^3/u L Eos # (Auto) 0.0 (0.0-0.8) 10^3/u L Baso # (Auto) 0.0 (0.0-0.1) 10^3/u L Nucleated RBC % (a uto) 0 % Nucleated RBCs # 0.0 /100WBC Sodium 138 (136-145) mmol/L Potassium 3.8 (3.5-5.1) mmol/L Chloride 97 L (98-107) mmol/L Carbon Dioxide 26 (22-29) mmol/L Anion Gap 18.8 (5-19) BUN 18 (6-20) mg/dL Creatinine 1.1 (0.7-1.2) mg/dL GFR Calculation 78.1 L (90-130) mL/min Glucose 109 (65-115) mg/dL Calculated Osmolal ity 288 (285-295) mOsm/k g Calcium 9.3 (8.5-10.5) mg/dL Total Bilirubin 0.3 (0.15-1.2) mg/dL AST 34 (0-40) U/L ALT 56 H (0-41) U/L Alkaline Phosphata se 82 (40-130) IU/L C-Reactive Protein 9.3 H (0.0-4.9) mg/L Total Protein 7.7 (6.6-8.7) g/dL Albumin 4.6 (3.5-5.2) g/dL Globulin 3.1 (1.3-4.6) g/dL Procalcitonin 0.15 (0-0.5) ng/mL Urine Color Yellow (Yellow) Urine Appearance Clear (CLEAR) Urine pH 5 (5-7) Ur Specific Gravit y 1.020 (1.005-1.030) Urine Protein Trace (Negative) Urine Glucose (UA) Norm (Normal) Urine Ketones Negative (Negative) Urine Blood Neg (Negative) Urine Nitrate Negative (Negative) Urine Bilirubin 1+ H (Negative) Urine Urobilinogen 1 H (Negative) mg/dL Ur Leukocyte Gini ase Negative (Negative) Urine RBC 0-4 H (0-2) /hpf Urine WBC 0-4 H (0-5) /hpf Ur Squamous Epith Cells 0-4 H (0-5) /hpf Amorphous Sediment Not Reportable Urine Bacteria Trace (NONE) /hpf Urine Mucus 3+ /hpf Discharge Plan Discharge Patient Disposition: Home Clinical Impression: COVID-19 Back pain Qualifiers: Back pain location: low back pain Chronicity: acute Back pain laterality: unspecified Sciatica presence: without sciatica Qualified Code(s): M54.5 - Low back pain Condition: Stable Prescriptions: No Action hydrocodone-acetaminophen 10-325 mg tablet 1 tab PO Q8H PRNRF: 0 losartan 25 mg tablet 25 mg PO DAILY RF: 0 famotidine 40 mg tablet 40 mg PO DAILY RF: 0 sildenafil 100 mg tablet 100 mg PO DAILY PRNRF: 0 doxycycline hyclate 100 mg capsule 100 mg PO BID 7 Days Qty: 14 RF: 0 hydrochlorothiazide 25 mg Tablet 25 mg PO QAM RF: 0 ondansetron 4 mg tablet,disintegrating 4 mg PO Q6H PRN (Reason: nausea and vomiting) Qty: 14 RF: 0 Discharge Orders: Discharge ED (Routine); Ordered 03/14/21 Ordered By: Tino Martinez Referrals: Mitch Jimenez MD [Primary Care Provider] - 4-7 days Discharge Diet: Advance as tolerated Discharge Activity: Limit activity as instructed Patient Instructions: Acute Low Back Pain (ED), Viral Syndrome (ED) Activity Restrictions/Additional Instructions: Turn for inability to control fever, vomiting liquids or medications, mental status changes, significant shortness of breath, other concerning symptoms. Coding Level of Care Code ED Recruiting Operations Consultant for Vernell Mccormack
== END 2021-03-14 00:56 | disposition home or self-care (01) ==
PROVIDERS: Emergency Provider Emergency Medicine; PCP Family Medicine
DX: U07.1 COVID-19 (principal); M54.5 Low back pain; Z87.891 Personal history of nicotine dependence
CPT/HCPCS: 71045; 80053; 81001; 84145; 85025; 86140; 96361; 96374; 96375; 99283; J1170; J2405; J7030

== ENCOUNTER 2021-03-17 11:07 | Outpatient (CLI) | payer MEDICAID, SELFPAY ==
[2021-03-17 11:34] LABS: D Dimer 1.21 ug/mIFEU (0-0.59)
== END 2021-03-17 11:08 | disposition home or self-care (01) ==
PROVIDERS: PCP Family Medicine; Visit Provider Family Medicine
DX: R06.00 Dyspnea, unspecified (principal)
CPT/HCPCS: 85378

== ENCOUNTER 2021-03-17 15:26 | Outpatient (CLI) | payer MEDICAID, SELFPAY ==
--- NOTE | 2021-03-17 | CT_ITS ---
WS: [id number] CT CHEST ANGIOGRAPHY WITH REFORMATS HISTORY: ELEVATED D-DIMER TECHNIQUE: Contiguous axial images are obtained through the chest during arterial injection of intrav enous contrast. Images are reconstructed to evaluate the pulmonary arteries. MIP imaging also reviewe d. All CT scans at [facility] use at least one of these dose optimization techniques: aut omated exposure control; mA and/or kV adjustment per patient size (includes targeted exams where dose is matched to clinical indication); or iterative reconstruction. CONTRAST: Omnipaque 300; 180 mL IV. DLP: 1262.58 mGycm COMPARISON: None available. Peripheral opacification of the pulmonary arteries. Centrally no pulmonary embolism. Normal-sized aor ta. Enlarged mediastinal and hilar reactive lymph nodes measuring up to 1.2 cm in diameter. Multifoca l areas of pulmonary opacification. Groundglass opacification and more focal consolidations bilateral ly. No pleural effusion. Mild enlargement of the LEFT heart chambers. Severe hepatic steatosis and hepatomegaly. Entire liver is not imaged. No adrenal mass. No destructiv e bone lesions. CT/CT angio chest PE protcl [id number] IMPRESSION: 1. Limited opacification of the pulmonary arteries. 2. No central pulmonary embolism. 3. Multilobar pulmonary consolidations and groundglass areas of pneumonitis. Notified Mitch Jimenez MD at 03/17/2021 4:07 PM.
[2021-03-17] MEDS: iohexol 350 mg/mL 100 mL Btl IV ×2 (16:05)
== END 2021-03-17 15:27 | disposition home or self-care (01) ==
PROVIDERS: PCP Family Medicine; Visit Provider Family Medicine
DX: R79.89 Other specified abnormal findings of blood chemistry (principal)
CPT/HCPCS: 71275; Q9967

== ENCOUNTER 2021-03-25 07:57 | Outpatient (CLI) | payer MEDICAID, SELFPAY ==
--- NOTE | 2021-03-25 07:45 | XR_ITS ---
WS: [id number] KUB, AP view, 03/25/2021 Clinical Data: URETERAL CALCULUS Comparison: Acute abdomen, 08/25/2020. Findings: No abnormal intraabdominal masses or calcifications are seen. There is no dilatated small bowel or ev idence of obstruction. There is fecal material in the ascending colon and the rectum. XR/XR KUB [id number] Impression: Negative KUB.
== END 2021-03-25 07:58 | disposition home or self-care (01) ==
LOC: RAD 08:05
PROVIDERS: PCP Family Medicine; Visit Provider Urology
DX: N20.1 Calculus of ureter (principal)
CPT/HCPCS: 74018; 81003

== ENCOUNTER 2021-05-04 11:09 | Outpatient (CLI) | payer MEDICAID, SELFPAY ==
--- NOTE | 2021-05-04 | US_ITS ---
WS: [id number] ULTRASOUND ABDOMEN LIMITED CLINICAL INFORMATION: RUQ PAIN COMPARISON: None. FINDINGS: Liver Size: Enlarged Craniocaudal length: 18.3 cm. Echogenicity: Coarse and dense Surface nodularity: None. Mass (size and location): None. Bile ducts Intrahepatic ducts: Normal. Common bile duct diameter: 3.7 mm. Gallbladder Normal. Gallstones: None. Gallbladder sludge: None. Gallbladder wall thickening: None. Pericholecystic fluid: None. Sonographic Philippe sign: Absent. Pancreas Not well seen Right kidney: Normal. Hydronephrosis: None. Size: 10.6 cm x 5.7 cm x 5.7 cm. Abdominal aorta and IVC Visualized portions are normal. Ascites: None. US/US liver [id number] IMPRESSION: 1. Hepatomegaly with diffuse fatty infiltration. 2. Normal gallbladder. 3. Normal common bile duct. 4. No hydronephrosis in right kidney.
== END 2021-05-04 11:10 | disposition home or self-care (01) ==
LOC: RADOUTREAD 11:12
PROVIDERS: PCP Family Medicine; Visit Provider Nurse Practitioner Family
DX: R10.11 Right upper quadrant pain (principal); R16.0 Hepatomegaly, not elsewhere classified; K76.0 Fatty (change of) liver, not elsewhere classified
CPT/HCPCS: 76705

== ENCOUNTER 2021-05-28 12:32 | Outpatient (CLI) | payer MEDICAID, SELFPAY ==
--- NOTE | 2021-05-28 | CT_ITS ---
WS: [id number] CT ABDOMEN AND PELVIS WITH CONTRAST HISTORY: RUQ PAIN TECHNIQUE: Imaging performed of the abdomen and pelvis with IV contrast. Single phase imaging of the abdomen. Coronal and sagittal reformats are submitted. All CT scans at [facility] use at [address] one of these dose optimization techniques: automated exposure control; mA and/or kV adjustment per patient size (includes targeted exams where dose is matched to clinical indication); or iterative re construction. IV CONTRAST: Omnipaque 300; 95 mL IV. Oral contrast: No DLP: 1193.94 mGycm COMPARISON: 08/25/2020 Lower thorax: Lung bases are clear. Mild enlarged heart. No hiatal hernia. Liver/biliary system: Moderate hepatomegaly and hepatic steatosis. No mass or bile duct dilatation. P ortal vein is patent. Gallbladder: Normal. No gallstones or wall thickening. No pericholecystic fluid. Pancreas: Normal size pancreas and pancreatic duct. No adjacent inflammation. Spleen: Normal size spleen. No mass or infarct. Adrenal glands: Normal. Right kidney: Normal. Left kidney: Normal. Aorta: Normal. Lymphadenopathy: None. Free fluid: None. GI tract: Unremarkable. Abdominal wall: Fat-containing umbilical hernia. Pelvis: No free fluid or adenopathy within the pelvis. Bones: Stable mixed sclerotic and lytic focus in the RIGHT femoral neck unchanged since 08/25/2020. Pr obably representing atypical bone island. CT/CT abdomen pelvis w con* [id number] IMPRESSION: 1. Moderate hepatomegaly and hepatic steatosis. 2. No ascites or adenopathy. 3. Normal appendix. 4. Small fat-containing umbilical hernia.
[2021-05-28] MEDS: iohexol 300 mg/mL 100 mL Btl IV (13:27)
== END 2021-05-28 12:33 | disposition home or self-care (01) ==
LOC: RADWPI 12:34
PROVIDERS: PCP Family Medicine; Visit Provider Nurse Practitioner Family
DX: R10.11 Right upper quadrant pain (principal); R16.0 Hepatomegaly, not elsewhere classified; K76.0 Fatty (change of) liver, not elsewhere classified; K42.9 Umbilical hernia without obstruction or gangrene
CPT/HCPCS: 74177; Q9967

== ENCOUNTER → 2021-06-08 11:25 | Outpatient (BNVA) | payer MEDICAID, SELFPAY | PROVIDERS: PCP Family Medicine; Visit Provider Specialist | DX: G43.011 Migraine without aura, intractable, with status migrainosus (principal); M54.9 Dorsalgia, unspecified; G89.29 Other chronic pain; K75.81 Nonalcoholic steatohepatitis (NASH); E66.9 Obesity, unspecified; Z68.34 Body mass index [BMI] 34.0-34.9, adult | CPT/HCPCS: 99204 ==

== ENCOUNTER 2021-06-22 15:50 | Outpatient (CLI) | payer MEDICAID, SELFPAY ==
--- NOTE | 2021-06-22 16:45 | MR_ITS ---
WS: [id number] MRA ANGIOGRAPHY [place] HISTORY: R51.9 - Headache, unspecified COMPARISON: None available. TECHNIQUE: 3-D MR angiography is performed of the [place]. All images are reviewed including source images. Distal vertebral and basilar arteries are intact with no significant stenosis or plaque. Posterior ce rebral arteries are normal course and caliber. Posterior communicating arteries are both patent. Intracranial portion of the internal carotid arteries are normal course and caliber. No significant a therosclerosis, stenosis or aneurysm identified. Middle and anterior cerebral arteries are both paten t with no significant disease. Anterior communicating artery is also normal. MR/MR angio head wo con [id number] IMPRESSION: Normal MRA [place].
--- NOTE | 2021-06-22 16:45 | MR_ITS ---
WS: [id number] MRI BRAIN WITHOUT CONTRAST HISTORY: G43.711 - Chronic migraine without aura, intractable. COMPARISON: None available. TECHNIQUE: Diffusion imaging, multiplanar T1, T2 and FLAIR imaging obtained. No evidence for acute infarct or hemorrhage. Cedillo-white matter differentiation is normal. No remote or acute infarcts are volume loss. Ventricles and extra-axial spaces are normal. No inferior displacement of cerebellar tonsils. The sella turcica and pituitary gland are unremarkabl e. Dural venous sinuses and [place] demonstrate no abnormality on this unenhanced studies. Paranasal sinuses: Mild mucoperiosteal thickening in the sinuses. No air-fluid levels. Mastoid air cells: Normal. Calvarium and scalp: Intact. MR/MR head wo con* [id number] IMPRESSION: 1. Unremarkable noncontrast MRI brain. 2. No prior infarcts or hemorrhage.
== END 2021-06-22 15:51 | disposition home or self-care (01) ==
LOC: RADSHAW 15:54
PROVIDERS: PCP Family Medicine; Visit Provider Specialist
DX: G43.711 Chronic migraine without aura, intractable, with status migrainosus (principal); G89.29 Other chronic pain
CPT/HCPCS: 70544; 70551

== ENCOUNTER 2021-07-06 08:01 | Outpatient (CLI) | payer MEDICAID, SELFPAY ==
[2021-07-06 08:11] VITALS: BMI 32.8
--- NOTE | 2021-07-06 08:16 | ECG_ITS ---
[facility] Test Date: 2021-07-06 Pat Name: Dominic Cazares Department: Room: Gender: Male Loom Starter: : 1990 Requested By: Mitch Childers Order Number: [id number] Kim MD: Meghan Patel M.D. Interpretive Statements NAME OF STUDY: LEXISCAN SESTAMIBI STRESS TEST INDICATION: Exertional Chest Pain, PROCEDURE: At the baseline, the EKG revealed normal sinus rhythm with incomplete right bundle branch block pattern. Some nonspecific T wave changes. The baseline blood pressure was 123/71 mm Hg with a heart rate of 62 beats/min. Lexiscan was infused over a period of 20 seconds. A total of 0.4 milligrams of Lexiscan was infused. The stress phase was continued for a total of 5 minutes. Heart rate at the end of the stress phase was 84 with a blood pressure 110/62. The EKG at the peak infusion revealed no significant changes. Sestamibi was injected 20 seconds after the Lexiscan infusion. Blood pressure at the end of the recovery phase was 112/78 with a heart rate of 68 per minute. CONCLUSION: 1. No significant EKG changes with the LexiScan infusion 2. No LexiScan induced chest pain or cardiac arrhythmia 3. Normal blood pressure and heart rate response 4. Sestamibi/sestamibi perfusion scan pending; see separate report. Electronically Signed On 07-08-2021 23:18:21 CDT by Meghan Patel M.D. [id number]
--- NOTE | 2021-07-06 08:18 | NMCV_ITS ---
NM maryjane perf SPECT r/s* [id number] Dominic Cazares Age: 30 Gender: M : 1990 Exam Date: 07/06/2021 08:47 Ordering Phys: Mitch Jimenez MD Technologist: PEARL Han Exam Location: [facility] Indications: EXERTIONAL CHEST PAIN STRESS TEST Please [facility] for [facility] IMAGE PROTOCOL Rest/Stress 1 Lexiscan Day Radiopharmaceutical Dose (mCi) Administration Site Administered by Rest: Tc-99m 10.9 IV PEARL Gaines Sestamibi Stress:Tc-99m 33.0 IV PEARL Gaines Sestamibi Rest: 06-Jul-2021 60 Discovery 630 Stress: 06-Jul-2021 30 Discovery 630 0.4mg Lexiscan. Supine position only as patient was unable to lay prone. SPECT RESULTS Technical Quality: Good Raw Data Analysis: Normal Image Corrections: No attenuation or motion correction applied Summed Stress Score: 12 Summed Rest Score: 1 Summed Difference Score: 12 PERFUSION FINDINGS Moderate area of decreases uptake was noted in the mid and apical anterior, mid anterolateral regions with a significant reversibility. Moderate area of moderately decreased tracer uptake also was noted in the basal and mid inferolateral, mid and apical inferior and LV apex with significant reversibility FUNCTIONAL RESULTS (calculated via Gated SPECT) Stress Image LV EF (%): 69 Stress EDV (mL):132 TID: 0.93 Stress ESV (mL):41 FUNCTIONAL FINDINGS: Segmental wall motion analysis revealing no gross wall motion normalities. IMPRESSIONS 1. Myocardial perfusion imaging revealing moderate areas of reversible defects in the anterior, anterolateral, inferior and inferolateral regions suggestive of ischemia in the distribution of all the 3 coronary arteries. 2. Normal LV ejection fraction 69%. 3. LV wall motion analysis revealing no gross wall motion abnormalities. 4. Normal LV volume. No similar previous studies are available for comparison. Dr. Haley was informed about this finding Dr Meghan Patel MD [facility] (Electronically Signed) Final Date: 06 July 2021 17:37 S
[2021-07-06] MEDS: regadenoson 0.4 Mg/5 ml Syringe IVP (09:30)
[2021-07-06] MEDS: aminophylline 25 mg/mL SDV 10 mL IVP (09:30)
[2021-07-06 09:53] VITALS: BP 112/78; PULSE 71
== END 2021-07-06 08:02 | disposition home or self-care (01) ==
LOC: CDL 08:02
PROVIDERS: PCP Family Medicine; Visit Provider Family Medicine
DX: R07.89 Other chest pain (principal)
CPT/HCPCS: 78452; 93017; A9500; J0280; J2785

== ENCOUNTER → 2021-08-05 12:11 | Outpatient (BNVA) | payer MEDICAID, SELFPAY | PROVIDERS: PCP Family Medicine; Visit Provider Specialist | DX: G43.711 Chronic migraine without aura, intractable, with status migrainosus (principal); M54.9 Dorsalgia, unspecified; G89.29 Other chronic pain; K75.81 Nonalcoholic steatohepatitis (NASH); E66.9 Obesity, unspecified; Z68.33 Body mass index [BMI] 33.0-33.9, adult; R94.39 Abnormal result of other cardiovascular function study; F32.A Depression, unspecified | CPT/HCPCS: 99214 ==

== ENCOUNTER → 2021-08-19 14:20 | Outpatient (BNVA) | payer MEDICAID, SELFPAY | PROVIDERS: PCP Family Medicine; Visit Provider Internal Medicine Cardiovascular Disease | DX: R06.02 Shortness of breath (principal) | CPT/HCPCS: 80048; 85025; 85610; 86850; 86900; 87635 ==

== ENCOUNTER 2021-08-20 12:39 | Outpatient (CLI) | payer MEDICAID, SELFPAY ==
--- NOTE | 2021-08-20 12:45 | USCV_ITS ---
Dominic Cazares Age: 30 Gender: M : 1990 Exam Date: 08/20/2021 12:50 Ordering Phys: Meghan Patel MD ([email or web address]) Technologist: HYUN [place] [facility]ication: DYPSNEA BP: 124 / 60 HR: 88 Rhythm: Sinus Technical Quality: Technically difficult study MEASUREMENTS (Male / Female) Normal Values 2D ECHO LV Diastolic Diameter PLAX 5.6 cm 4.2 - 5.9 / 3.9 - 5.3 cm LV Systolic Diameter PLAX 4.4 cm IVS Diastolic Thickness 1.0 cm 0.6 - 1.0 / 0.6 - 0.9 cm IVS Systolic Thickness 1.8 cm LVPW Diastolic Thickness 1.3 cm 0.6 - 1.0 / 0.6 - 0.9 cm LVPW Systolic Thickness 1.6 cm RV Chamber Size 2.9 cm LVOT Diameter 2.0 cm LV Ejection Fraction 2D Teich 43.0 % LV Ejection Fraction MOD 2C 44.7 % LV Ejection Fraction 2C AL 44.5 % LA Diameter 2.8 cm LA Width 2.6 cm LA Height 4.0 cm RA Width 2.9 cm RA Height 4.0 cm Aorta at Sinotubular Diameter 2.5 cm M-MODE Aortic Annulus Diameter 2.7 cm LA Ao Ratio MM 1.0 MV E Point Septal Separation 1.2 cm DOPPLER AV Peak Velocity 105.0 cm/s LVOT Peak Velocity 102.0 cm/s AV Area Cont Eq vti 2.9 cm squared AV Area Cont Eq pk 3.1 cm squared MV Area PHT 3.1 cm squared Mitral E to A Ratio 1.0 MV E' Velocity 36.5 cm/s Mitral E to MV E' Ratio 6.8 Mitral E to LV E' Lateral Ratio 6.5 Mitral E to LV E' Septal Ratio 7.2 TR Peak Velocity 325.0 cm/s TR Peak Gradient 42.3 mmHg TV Peak E Velocity 49.0 cm/s PV Peak Velocity 104.0 cm/s RV Acceleration Time 0.1 s RV Ejection Time 0.3 s RV AcT/ET 0.5 FINDINGS Left Ventricle Possibly normal LV size with borderline low normal ejection fraction of around 50%. Segmental wall motion analysis difficult because of poor ultrasonic window Right Ventricle The right ventricle is normal in size and function. Right Atrium The right atrium is normal in size. Left Atrium The left atrium is normal in size. Mitral Valve No gross abnormalities noted Aortic Valve No gross abnormalities noted Tricuspid Valve No gross abnormalities noted Pulmonic Valve Pulmonic valve not well visualized. Pericardium Normal pericardium without effusion. Aorta Normal ascending aorta dimension. CONCLUSIONS Possibly normal LV size with borderline low normal ejection fraction of around 50%. Segmental wall motion analysis difficult because of poor ultrasonic window. Possibly normal chamber sizes. No gross structural abnormalities were noted in the valves There is no pericardial effusion. There are no intracardiac masses. No previous study is available for comparison. Dr Meghan Patel MD [facility] (Electronically Signed) Final Date: 20 August 2021 14:29 S
== END 2021-08-20 12:40 | disposition home or self-care (01) ==
PROVIDERS: PCP Family Medicine; Visit Provider Internal Medicine Cardiovascular Disease
DX: R06.00 Dyspnea, unspecified (principal); R06.02 Shortness of breath
CPT/HCPCS: 93306

== ENCOUNTER 2021-08-25 07:24 | Outpatient (CLI) | payer MEDICAID, SELFPAY ==
[2021-08-25] VITALS (13 sets, daily range): BP systolic 101–132; BP diastolic 64–79; PULSE 63–92; RESP 16–20; TEMP 36.5; O2SAT 92–97; BMI 33.3
--- NOTE | 2021-08-25 07:30 | XACV_ITS ---
Ht: 178 cm Wt: 105 kg BSA: 2.31 m2 Gender: Male : 1990 Any Known Allergies: Penicillins Exam Priority: Routine Procedure(s): Procedure Description: Diagnostic procedure Procedure Description: Left Heart Catheterization Procedure Description: Left ventriculography Procedure Description: Coronary Angiography Jorge ROBERTS; Diagnostic Cath Status: Elective Diagnostic Findings * The left main is a medium caliber vessel with no significant stenotic lesions. * The left anterior descending artery is a medium caliber vessel which appears to wrap around the LV apex. No significant stenotic lesions were noted. * The left circumflex artery is a codominant vessel with no significant stenotic lesions. * The right coronary artery is a codominant vessel with no significant stenotic lesions. Conclusions 1. This is a 30-year-old white male with history of hypertension, dyslipidemia, erectile dysfunction, presented with complaints of chest pain off and on for the last 2 years. He started having increasing episodes of chest pain after the COVID-19 infection. He also developed pulmonary embolism. He had a myocardial perfusion imaging which he was found to be abnormal. He had areas of reversible defect in the distribution of all 3 coronary arteries. In view of his abnormal myocardial perfusion imaging, multiple risk factors for coronary disease and worsening symptoms, in order to further evaluate his coronary status, a cardiac catheterization was recommended. Patient underwent left heart catheterization with left and right coronary angiogram and LV angiogram today. The findings are as follows.. 2. Patient was found to have essentially normal coronary arteries. The right coronary artery was found to be codominant. LVEDP was 16 to 22 mmHg. LV ejection fraction was within normal limits. LV ejection fraction 55%.. Recommendations * Continue current medical management and risk factor modification. Diagnostic RX Recommendation: medical therapy and/or counseling Ventriculography Ejection Fraction: 55.0 % Left Ventriculography Findings: * The LV gram was performed in the OSEGUERA position. LV cavity appears to be normal size. LV ejection fraction was around 55%. No filling defects were noted. No significant mitral valve prolapse or mitral regurgitation. The LVEDP was 16 mmHg which went up to 22 mmHg after the LV angiogram. Pressures Phase:Rest AO : 83 / 74 ( 78 ) @ 7:50:00 AM 87 / 79 ( 81 ) @ 7:53:00 AM 120 / 80 ( 97 ) @ 8:01:00 AM LV : 123 / -1 / 16 @ 7:57:00 AM 156 / 30 / 52 @ 7:58:00 AM 127 / 3 / 23 @ 8:01:00 AM 128 / 1 / 22 @ 8:01:00 AM Valves Phase:DefaultPhase AV : 9.0 @ 10:09:59 AM AV Mean Gradient: 20.0 @ 10:09:59 AM Clinical Evaluation EBL: 5mL-10mL Procedural Details Procedure Consent Obtained. Pre-Procedure Time Out. Identified patient by full name and date of as verbalized by the patient/guarantor. Does the consent match the physician's order: Yes. Accurate & Complete Informed Consent: Yes. Inpatient/Outpatient History & Physical on Chart: Yes. If H&P is completed, is and addenduem needed: N/A; If yes, is the addendum complete: N/A. Visualize and Verify Site with Patient/Guarantor: N/A. Relevant Radiology Images available: Yes. Pre-op teaching completed and patient verbalized understanding. The risks, benefits, and alternatives of sedation and/or procedure were discussed by physician. The patient agrees to continue. Procedure started. Correct patient, site and procedure confirmed by cath team. PERRLA. Strong, equal hand feed mill supervisor bilaterally. Lungs clear x 5 lobes. IV Site on Arrival: 20 gauge in the right anticubital. IV Fluids: 0.9% NaCl at KVO. 0 mL infused prior to yard labor supervisor. Pre Procedural Pulses: bilateral dorsalis pedis was 3+. Pre Procedural Pulses: bilateral posterior tibial was 3+. Pre Procedural Pulses: bilateral radial was 3+. Oxygen started at 2liters/min via nasal canula. right groin was prepped with chloroprep then draped in the usual sterile fashion. right radial was prepped with chloroprep then draped in the usual sterile fashion. Physician notified. Baseline sample Acquired. HR: 63 BPM. Equipment: 6F - Radial. Cardiac Cath Pack. ACIST Manifold Kit Model BT 2000. Heparinized Saline (2 units/mL), 1000 mL bag. Physician arrived. Physician scrubbed in. Immediate Pre-Procedure Time Out. Correct Patient: Yes; Correct Procedure: Yes; Correct Site: Yes; Correct Patient Position: Yes; Correct Supplies: Yes; Dried Flammable Prep: Yes; Blood Products Available: No;. Lidocaine 1% infiltrated to the right radial. Arterial access obtained. A 5 taiwanese Stephen catheter in over wire. Catheter out. A 5 taiwanese TIG catheter in over wire. Multiple views taken of left coronary artery. Catheter out. A 5 taiwanese JR4 catheter in over wire. Multiple views taken of right coronary artery. Catheter out. A 5 taiwanese Angled Pig catheter in over wire. EDP Sample taken: LV 123/-2,16; HR: 88 BPM; SpO2: 93%. LV gram performed in OSEGUERA @ 10 mL/second for a total of 30 mL. EDP Sample taken: LV 156/30,52; HR: 84 BPM; SpO2: 93%. Pullback taken: LV Off; AO Off; Mean: , Peak to Peak: , SEP: ; HR: 94 BPM; SpO2: 92%. EDP Sample taken: LV 127/3,23; HR: 80 BPM; SpO2: 95%. Pullback taken: LV 128/1,22; AO 120/80(97); Mean: 20mmHg, Peak to Peak: 9mmHg, SEP: 7sec/min; HR: 82 BPM; SpO2: 95%. Catheter out. TR band placed. Hemostasis obtained. A TR Band was successful obtaining hemostatsis at the Right Radial artery insertion site. Post Procedure: Pulses reassessed and unchanged. PERRLA. Strong, equal hand feed mill supervisor bilaterally. No VTE prophylaxis required. Contrast type used: Visipaque 320 mgI/mL, 500 mL bottle. [id number]. Post-op diagnosis: normal arteries/ high edp - lv dysfunction. Complications: none. Estimated blood loss: 5mL-10mL. Responsiveness - Normal response to verbal stimuli; alert and orientedKARI. Airway - Unaffected, no intervention required; spontaneous ventilation. Circulation: W/N/L, pulses unchanged. Nausea/Vomiting: No. Procedure completed. Patient transferred by wheelchair to 1st floor. Medication's Wasted: Nitro = 49.8 mg. Medication's Wasted: Lidocaine 1% = 18 mL. Medication's Wasted: Heparin = 1000 units. Total IV fluids: 300 mL. Fluoro: 7:10. [facility] Clinical Fraility Score: 3: Managing Well. Kelp Gatherer Indications: Worsening Angina. Chest Pain Symptom Assessment: Atypical Angina. Cardiovascular Instability: No. Vital chart was stopped. Access Site Site: Right Radial artery Sheath Size: 6 Fr Hemostasis Method: TR Band Hemostasis Success: Successful Procedure Medications Start: 9:38 AM Stop: 9:38 AM Medication: Versed Amount: 2 mg Route: I.V. Start: 9:38 AM Stop: 9:38 AM Medication: Fentanyl Amount: 25 mcg Route: I.V. Start: 9:40 AM Stop: 9:40 AM Medication: Fentanyl Amount: 25 mcg Route: I.V. Start: 9:41 AM Stop: 9:41 AM Medication: 0.9% Saline Amount: 250 ml Route: I.V. bolus Start: 9:42 AM Stop: 9:42 AM Medication: Verapamil Amount: 5 mg Route: I.A. Start: 9:43 AM Stop: 9:43 AM Medication: Nitrogylcerin Amount: 200 mcg Route: I.A. Start: 9:48 AM Stop: 9:48 AM Medication: Versed Amount: 1 mg Route: I.V. I, the attending physician, have reviewed and verified all procedure medications. Yes, all medications given per verbal order History/Risk Factors Hypertension: Yes Dyslipidemia: Yes Peripheral Arterial Disease (PAD): No Obesity: No Renal Disease: No Prior Interventions PCI: No CABG: No Valve Surgery: No Report Signatures Finalized by Dr Meghan Patel MD [facility] on 08/25/2021 06:15 PM
[2021-08-25] MEDS: diphenhydrAMINE 50 mg Capsule PO (07:53)
--- NOTE | 2021-08-25 09:31 | W.PM.OPSUD ---
Surgery/Procedure H&P Update DATE OF PROCEDURE: August 25, 2021 DATE H&P PERFORMED: 08/19/21 H&P UPDATE INFORMATION: I have reviewed H&P completed within last 30 days, I have examined patient prior to procedure, No changes to prior documentation and Changes to prior documentation as noted here PREOP DIAGNOSIS: ASHD PRIMARY INDICATION FOR PROCEDURE: Chest pain with abnormal myocardial perfusion imaging/ PE PLANNED PROCEDURE: Operation Date: 08/25/21 08:30 Proposed Procedures p Cardiac Catheterization(Left) - Meghan Patel MD PATIENT REASSESSED PRIOR TO SEDATION, WITH NO CHANGE NOTED: Yes PHYSICAL EXAM: alert, clear to auscultation bilaterally and regular rate & rhythm AIRWAY EVAL/ANESTHESIA PLAN: normal airway, see other exam findings, ASA III, Monitored Anesthesia, Local Anesthesia, Risks, benefits & alternatives of sedation and/or procedure discussed and Patient agrees to continue as planned
--- NOTE | 2021-08-25 10:10 | PC.NURSE ---
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 pt alert and oriented x3. pt complains of no pain. tr band in place on right wrist with distal pulse palpable. dry and intact with no hematoma noted. pt educated on restrictions of wrist and acknowledged understanding. pt to be monitored per protocol. will continue to educate on restrictions throughout recovery.
== END 2021-08-25 13:10 | disposition home or self-care (01) ==
PROVIDERS: PCP Family Medicine; Visit Provider Internal Medicine Cardiovascular Disease
DX: R94.39 Abnormal result of other cardiovascular function study (principal); R06.02 Shortness of breath; I10 Essential (primary) hypertension; E78.00 Pure hypercholesterolemia, unspecified; R07.9 Chest pain, unspecified; Z86.16 Personal history of COVID-19; Z86.711 Personal history of pulmonary embolism
CPT/HCPCS: 36415; 93452; C1769; C1887; C1894; J1644; J2250; J3010; J3490; J7030; Q0163; Q9967

== ENCOUNTER → 2021-09-02 11:46 | Outpatient (BNVA) | payer MEDICAID, SELFPAY | PROVIDERS: PCP Family Medicine; Visit Provider Nurse Practitioner Family | DX: R07.89 Other chest pain (principal); R94.39 Abnormal result of other cardiovascular function study; Z86.711 Personal history of pulmonary embolism | CPT/HCPCS: 80048; 85379 ==

== ENCOUNTER 2021-10-06 09:21 | Outpatient (CLI) | payer MEDICAID, SELFPAY ==
--- NOTE | 2021-10-06 10:05 | NM_ITS ---
WS: [id number] NUCLEAR MEDICINE HIDA SCAN WITH GALLBLADDER EJECTION FRACTION HISTORY: RUQ PAIN COMPARISON: 05/04/2021 gallbladder ultrasound. TECHNIQUE: The patient was intravenously injected with 8.2 mCi of TC99m Mebrofenin. Immediate imaging over the right upper quadrant was followed by 5 minute image and additional images for a total of 60 minutes. Normal uptake of radiotracer throughout the liver. Activity identified in the gallbladder at 50 minutes and minimally distended by 60 minutes. Activity in the proximal small bowel was seen by 10 minutes. Good washout of the radiotracer from the liver by 60 minutes. The patient then drank 8 ounces of Ensure Plus. Ejection fraction at 60 minutes was 0%. Normal GB eje ction fraction is 35-75%. Post fatty meal symptoms: None. NM/NM hepatobiliary w phar* [id number] IMPRESSION: 1. Abnormal gallbladder ejection fracture. Gallbladder does not distend well w ith radionuclide at 60 minutes and there is no ejection fraction, consider gal lbladder dyskinesia. Chronic cholecystitis should be considered. 2. Patent common bile duct.
== END 2021-10-06 09:22 | disposition home or self-care (01) ==
PROVIDERS: PCP Family Medicine; Visit Provider Family Medicine
DX: R10.11 Right upper quadrant pain (principal)
CPT/HCPCS: 78227; A9537

== ENCOUNTER → 2021-10-11 09:14 | Outpatient (BNVA) | payer MEDICAID, SELFPAY | PROVIDERS: PCP Family Medicine; Visit Provider Specialist | DX: G43.711 Chronic migraine without aura, intractable, with status migrainosus (principal); F32.A Depression, unspecified; Z71.85 Encounter for immunization safety counseling; F40.231 Fear of injections and transfusions | CPT/HCPCS: 99213; 99214 ==

== ENCOUNTER 2021-10-12 12:35 | Emergency (ER) | payer MEDICAID, SELFPAY ==
[2021-10-12 12:38] VITALS: BP 141/85; PULSE 88; RESP 16; TEMP 36.7; O2SAT 100; BMI 33.7
--- NOTE | 2021-10-12 12:41 | XR_ITS ---
WS: [id number] Portable AP upright chest, 10/12/2021 Clinical Data: chest pain Comparison: PA and lateral chest, 03/17/2021. Findings: No nodules, masses or effusions are seen. The heart is normal. The pulmonary vascularity is not increased. No pneumothorax is seen. There is minimal patchy opacity over the lateral aspect of t he left diaphragm which could represent pneumonia and/or atelectasis. XR/XR chest 1V portable [id number] Impression: Minimal patchy opacity over lateral aspect the left diaphragm in the left lower lobe which could represent pneumonia. Recommend repeat chest x-ray in one to 2 days.
--- NOTE | 2021-10-12 12:41 | ECG_ITS ---
[facility] Test Date: 2021-10-12 Pat Name: Dominic Cazares Department: Room: Gender: Male Sericulture Teacher: : 1990 Requested By: Leelee Silva Order Number: [id number] Kim MD: Christy Landrum M.D. Measurements Intervals [place] Rate: 78 P: 18 SC: 146 QRS: 55 QRSD: 99 T: 32 QT: 364 QTc: 416 Interpretive Statements SINUS RHYTHM INCOMPLETE RIGHT BUNDLE BRANCH BLOCK [90+ ms QRS DURATION, TERMINAL R IN V1/V2, 40+ ms S IN I/aVL/V4/V5/V6] No previous ECG available for comparison Electronically Signed On 10-12-2021 17:20:29 LINE SERVER by Christy Landrum M.D. [id number]
--- NOTE | 2021-10-12 14:41 | ECG_ITS ---
[facility] Test Date: 2021-10-12 Pat Name: Dominic Cazares Department: Room: Gender: Male Perinatal Specialist: : 1990 Requested By: Leelee Silva Order Number: [id number] Kim MD: Christy Landrum M.D. Measurements Intervals [place] Rate: 94 P: 22 TX: 124 QRS: 76 QRSD: 100 T: 23 QT: 352 QTc: 442 Interpretive Statements SINUS RHYTHM INCOMPLETE RIGHT BUNDLE BRANCH BLOCK [90+ ms QRS DURATION, TERMINAL R IN V1/V2, 40+ ms S IN I/aVL/V4/V5/V6] Compared to ECG 10/12/2021 12:47:47 No significant changes Electronically Signed On 10-12-2021 22:08:05 TOXICOLOGIST by Christy Landrum M.D. [id number]
== END 2021-10-12 15:19 | disposition left against medical advice (07) ==
PROVIDERS: Emergency Provider Family Medicine; PCP Family Medicine
DX: Z53.21 Procedure and treatment not carried out due to patient leaving prior to being seen by health care provider (principal)
CPT/HCPCS: 71045; 93005

== ENCOUNTER 2021-10-12 16:51 | Emergency (ER) | payer MEDICAID, SELFPAY ==
[2021-10-12 16:53] VITALS: BP 153/78; PULSE 100; RESP 16; TEMP 36.9; O2SAT 95; BMI 33.7
--- NOTE | 2021-10-12 17:34 | CTR_ITS ---
PROCEDURE INFORMATION: Exam: CTA Chest With Contrast Exam date and time: 10/12/2021 5:34 PM Age: 31 years old Clinical indication: Sternal or substernal pain; Patient HX: C/O cp w inspiration; Additional info: Chest pain TECHNIQUE: Imaging protocol: Computed tomographic angiography of the chest with contrast. 3D rendering (Not supervised by radiologist): MIP and/or 3D reconstructed images were created by the technologist. Radiation optimization: All CT scans at this facility use at least one of these dose optimization techniques: automated exposure control; mA and/or kV adjustment per patient size (includes targeted exams where dose is matched to clinical indication); or iterative reconstruction. Contrast material: OMNI 350; Contrast volume: 61 ml; Contrast route: INTRAVENOUS (IV); COMPARISON: CT angio chest PE protcl [id number] 03/18/2021 9:35 AM RADIATION DOSE METRICS: Total DLP (mGy-cm): 546.39 FINDINGS: Pulmonary arteries: Normal. No pulmonary emboli. Aorta: Unremarkable. No aortic aneurysm. No aortic dissection. Lungs: Unremarkable. No consolidation. No masses. Pleural spaces: Unremarkable. No pneumothorax. No pleural effusion. Heart: Unremarkable. No cardiomegaly. No pericardial effusion. Lymph nodes: Several prominent nonspecific mediastinal lymph nodes measuring 6.8 mm. Liver: Hepatic steatosis. Bones/joints: Unremarkable. No acute fracture. Soft tissues: Unremarkable. CT/CT angio chest PE protcl [id number] IMPRESSION: Negative for pulmonary embolus or airspace infiltrate.
--- NOTE | 2021-10-12 17:35 | ED_ITS ---
Documented by User: Tonio Nascimento DO 10/13/21 07:17 HPI - Chest Pain General: Chief Complaint: Chest Pain Stated Complaint: Chest Pain Time Seen by Provider: 10/12/21 17:27 Source: patient Mode of arrival: ambulatory History of Present Illness: HPI narrative: 31-year-old male presents emergency room with complaint of chest pain began earlier today he came to emergency room get a chest x-ray but his symptoms seem to resolve so he left he made contact after the chest x-ray there is a question of pneumonia on the chest x-ray so he returned. He states having chest disc omfort gets worse when he takes a deep breath even any any inspiration all irritated. Chest x-ray done earlier today did show pneumonia. He also has a history of a PE that occurred shortly after COVID-19 infection in February and March of this past summer. He has no known history of coronary artery disease no radiation of the pain. He has not noted anything anything that relieves the pain other than time the only thing that exacerbates it is inspiration. MD complaint: chest pain Pertinent past history: other (Previous pulmonary embolism) Onset (ago): hour(s) Timing of current episode: episodic Prior episodes: Yes Onset: during rest Pain location: substernal Pain radiation: none Severity: moderate Quality: sharp Relieving factors: nothing Exacerbating factors: inspiration Context: recent illness (COVID with pulmonary embolism in February in March 2021) Associated symptoms: Deny abdominal pain, dyspnea, fever(s), nausea or vomiting Review of Systems Const: Denies: fever(s), chills, body aches, change in appetite, fatigue or malaise ENMT: Denies: throat pain, ear or mastoid pain, nasal discharge or nasal congestion Card: Denies: chest pain, edema, dyspnea on exertion or orthopnea Resp: Denies: dyspnea, productive cough or non-productive cough GI: Denies: abdominal pain, nausea, vomiting, hematemesis, coffee ground emesis, diarrhea, constipation, bloating, hematochezia or melena : Denies: flank pain, dysuria, urinary frequency or urinary urgency Skin/Breast: Denies: rash or pruritus PFSH ED PFSH: Medical History ADHD Anxiety COVID Erectile dysfunction Gastroenteritis GERD (gastroesophageal reflux disease) H/O coronary angiogram Hypercholesterolemia Hypertension Left ureteral calculus Pulmonary embolism Surgical History H/O hernia repair H/O neck surgery BIOPSY OF NECK SWOLLEN LYMPH NODE History of umbilical hernia repair Hx of tonsillectomy Family History Mother , 46 Diabetes Cancer CAD (coronary artery disease) Hypertension Father Cancer CAD (coronary artery disease) Hypertension Diabetes Family/Other Anesthesia complication CAD (coronary artery disease) Chronic kidney disease (CKD) Dementia Diabetes Lung disease Stroke Suicide Other Hyperlipidemia Seizure Denies family history of Clotting disorder Bleeding disorder Social History Alcohol intake: current Alcohol intake frequency: holidays/special occasions only Marital status: Current occupational status: disabled History of recent travel: No Physical Exam Const: COMMON NORMALS: no acute distress GENERAL APPEARANCE: cooperative and comfortable ORIENTATION/CONSCIOUSNESS: Yes awake, Yes oriented to person, Yes oriented to place and Yes oriented to time HENMT: COMMON NORMALS: normocephalic, atraumatic and hearing grossly normal bilaterally HEAD & SCALP: normocephalic and atraumatic Neck/C-Spine: COMMON NORMALS: no JVD Resp: COMMON NORMALS: normal respiratory effort, No retractions, No use of accessory muscles and clear to auscultation bilaterally AUSCULTATION: clear to auscultation bilaterally Cardio: COMMON NORMALS: no JVD, regular rate, regular rhythm and No murmurs present (Cardio) RATE: regular rate RHYTHM: regular rhythm GI: COMMON NORMALS: Soft to palpation and No hepatosplenomegaly present AUSCULTATION: Yes normoactive bowel sounds PALPATION: Yes Soft to palpation, No Tenderness to palpation present (GI), No Guarding due to palpation present (GI) and Yes No hepatosplenomegaly present Extremity: COMMON NORMALS: normal to inspection, capillary refill normal, no clubbing, cyanosis or edema, no calf tenderness and no pedal edema Neuro: SENSORIUM/ORIENTATION: Yes oriented to person, Yes oriented to place and Yes oriented to time Skin: COMMON NORMALS: no rashes or lesions noted GENERAL SKIN EXAM: no rashes or lesions noted Course Vital Signs: Vital signs: Vital Signs Temperature 98.4 F 10/12/21 16:53 Pulse Rate 78 10/12/21 20:32 Respiratory Rate 20 H 10/12/21 20:32 Blood Pressure 127/82 10/12/21 20:32 Pulse Oximetry 94 10/12/21 20:32 MDM - Chest Pain MDM Narrative Medical decision making narrative: Care turned over to Dr. Adair at change of see his note final diagnosis and disposition. CTA of the chest is pending Patient presents for chest pains atypical in nature likely pleuritic in nature CT shows no pneumonia or pulmonary rhythm troponins are normal patient is stable for discharge follow-up PCP and return if worsening. Differential Diagnosis Cardiac arrest differential diagnosis: Likely acute massive pulmonary embolism and acute myocardial infarction Medical Records Attestation: I reviewed the patient's medical records. Lab Data Attestation: I reviewed the patient's lab results. Result diagrams: 10/12/21 18:35 10/12/21 18:35 Labs: Radiology Impressions Chest CTA 10/12/21 17:34 IMPRESSION: Negative for pulmonary embolus or airspace infiltrate. Laboratory Results WBC 11.9 10^3/uL (4.0-10.0) H 10/12/21 18:35 RBC 5.44 10^6/uL (4.1-5.3) H 10/12/21 18:35 Hgb 16.4 g/dL (11.7-16.6) 10/12/21 18:35 Hct 49.5 % (42.0-52.0) 10/12/21 18:35 MCV 91.0 fl (80-94) 10/12/21 18:35 MCH 30.1 pg (28.0-34.0) 10/12/21 18:35 MCHC 33.1 g/dL (30.0-36.0) 10/12/21 18:35 RDW 12.3 % (12.1-15.1) 10/12/21 18:35 Plt Count 305 10^3/cmm (130-400) 10/12/21 18:35 MPV 9.2 fL (7.4-10.4) 10/12/21 18:35 Neut % (Auto) 61.2 % 10/12/21 18:35 Lymph % (Auto) 27.7 % 10/12/21 18:35 [place] % (Auto) 8.3 % 10/12/21 18:35 Eos % (Auto) 1.8 % 10/12/21 18:35 Baso % (Auto) 0.6 % 10/12/21 18:35 Neut # (Auto) 7.26 10^3/uL (1.8-7.7) 10/12/21 18:35 Lymph # (Auto) 3.3 10^3/uL (0.8-4.8) 10/12/21 18:35 [place] # (Auto) 1.0 10^3/uL (0.2-0.9) H 10/12/21 18:35 Eos # (Auto) 0.2 10^3/uL (0.0-0.8) 10/12/21 18:35 Baso # (Auto) 0.1 10^3/uL (0.0-0.1) 10/12/21 18:35 Nucleated RBC % (auto) 0 % 10/12/21 18:35 Nucleated RBCs # 0.0 /100WBC 10/12/21 18:35 Sodium 142 mmol/L (136-145) 10/12/21 18:35 Potassium 3.6 mmol/L (3.5-5.1) 10/12/21 18:35 Chloride 104 mmol/L (98-107) 10/12/21 18:35 Carbon Dioxide 22 mmol/L (22-29) 10/12/21 18:35 Anion Gap 19.6 (5-19) H 10/12/21 18:35 BUN 12 mg/dL (6-20) 10/12/21 18:35 Creatinine 0.7 mg/dL (0.7-1.2) 10/12/21 18:35 GFR Calculation 130.7 mL/min (90-130) H 10/12/21 18:35 Glucose 120 mg/dL (65-115) H 10/12/21 18:35 Calculated Osmolality 295 mOsm/kg (285-295) 10/12/21 18:35 Calcium 10.3 mg/dL (8.5-10.5) 10/12/21 18:35 Total Bilirubin 0.2 mg/dL (0.15-1.2) 10/12/21 18:35 AST 16 U/L (0-40) 10/12/21 18:35 ALT 32 U/L (0-41) 10/12/21 18:35 Alkaline Phosphatase 92 IU/L (40-130) 10/12/21 18:35 Troponin T Baseline 6 ng/L (0-15) 10/12/21 18:35 Troponin T 120 Minute 6.00 ng/L (0-15) 10/12/21 19:45 Delta Troponin T 0 ABS# (0-10) 10/12/21 19:45 Total Protein 7.5 g/dL (6.6-8.7) 10/12/21 18:35 Albumin 5.0 g/dL (3.5-5.2) 10/12/21 18:35 Globulin 2.5 g/dL (1.3-4.6) 10/12/21 18:35 Urine Color Yellow (Yellow) 10/12/21 18:15 Urine Appearance Clear (CLEAR) 10/12/21 18:15 Urine pH 5 (5-7) 10/12/21 18:15 Ur Specific [place] 1.025 (1.005-1.030) 10/12/21 18:15 Urine Protein Neg (Negative) 10/12/21 18:15 Urine Glucose (UA) Norm (Normal) 10/12/21 18:15 Urine Ketones Negative (Negative) 10/12/21 18:15 Urine Blood Neg (Negative) 10/12/21 18:15 Urine Nitrate Negative (Negative) 10/12/21 18:15 Urine Bilirubin Neg (Negative) 10/12/21 18:15 Urine Urobilinogen Neg mg/dL (Negative) 10/12/21 18:15 Ur Leukocyte Esterase Negative (Negative) 10/12/21 18:15 Discharge Plan Discharge Patient Disposition: Home Clinical Impression: Chest pain Condition: Stable Prescriptions: New Naprosyn 500 mg tablet 500 mg PO BID PRN (Reason: pain) Qty: 20 0RF No Action hydrocodone-acetaminophen 10-325 mg tablet 1 tab PO Q8H PRN (Reason: Moderate Pain (Scale Score 5-6)) 0RF sildenafil 100 mg tablet 100 mg PO DAILY PRN (Reason: Erectile Dysfunction) 0RF Rx Instructions: administer 30 minutes to 4 hours before activity nitroglycerin 0.3 mg tablet, sublingual 0.3 mg sublingual Q5M PRN (Reason: Chest Pain) 0RF Rx Instructions: do not exceed 3 doses per episode metoprolol tartrate 25 mg tablet 25 mg PO DAILY 0RF Eliquis 5 mg tablet 5 mg PO DAILY 0RF Hold Instructions: Resume on 08/26/21. May restart Eliquis on 08/26/2020 1 in the morning around 10 albuterol sulfate [ProAir HFA] 90 mcg/actuation HFA aerosol inhaler 2 puff inhalation Q6H PRN (Reason: Shortness Of Breath) 0RF venlafaxine [Effexor XR] 150 mg capsule,extended release 24hr 150 mg PO DAILY Qty: 30 3RF Emgality Pen 120 mg/mL pen injector 120 mg SUBCUT ONCE Qty: 1 2RF Rx Instructions: once monthly Emgality Pen 120 mg/mL pen injector 240 mg SUBCUT ONCE Qty: 1 0RF Rx Instructions: loading dose bupropion HCl [Wellbutrin SR] 150 mg tablet sustained-release 12 hr 150 mg PO DAILY Qty: 30 3RF sumatriptan succinate [Imitrex] 100 mg tablet See Rx Instructions PO .COMPLEX Qty: 9 3RF Rx Instructions: take 1 tab at onset of headache; if no relief, may repeat 1 tab after at least 2 hrs; max = 2 tabs/24 hrs PO pantoprazole [Protonix] 40 mg tablet,delayed release (DR/EC) 40 mg PO BID 30 Days Qty: 60 0RF Discharge Orders: Discharge ED (Routine); Ordered 10/12/21 Ordered By: Eileen Adair Referrals: Mitch Jimenez MD [Primary Care Provider] - 1-3 days Discharge Diet: Advance as tolerated Discharge Activity: Resume usual activity Patient Instructions: Chest Pain (ED) Coding Level of Care Code ED [employer] 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 Documented by User: Eileen Adair MD 10/12/21 20:23 HPI - Chest Pain General: Chief Complaint: Chest Pain Stated Complaint: Chest Pain Time Seen by Provider: 10/12/21 17:27 PFSH ED PFSH: Medical History ADHD Anxiety COVID Erectile dysfunction Gastroenteritis GERD (gastroesophageal reflux disease) H/O coronary angiogram Hypercholesterolemia Hypertension Left ureteral calculus Pulmonary embolism Surgical History H/O hernia repair H/O neck surgery BIOPSY OF NECK SWOLLEN LYMPH NODE History of umbilical hernia repair Hx of tonsillectomy Family History Mother , 46 Diabetes Cancer CAD (coronary artery disease) Hypertension Father Cancer CAD (coronary artery disease) Hypertension Diabetes Family/Other Anesthesia complication CAD (coronary artery disease) Chronic kidney disease (CKD) Dementia Diabetes Lung disease Stroke Suicide Other Hyperlipidemia Seizure Denies family history of Clotting disorder Bleeding disorder Social History Alcohol intake: current Alcohol intake frequency: holidays/special occasions only Marital status: Current occupational status: disabled History of recent travel: No Course Vital Signs: Vital signs: Vital Signs Temperature 98.4 F 10/12/21 16:53 Pulse Rate 78 10/12/21 20:32 Respiratory Rate 20 H 10/12/21 20:32 Blood Pressure 127/82 10/12/21 20:32 Pulse Oximetry 94 10/12/21 20:32 MDM - Chest Pain MDM Narrative Medical decision making narrative: Patient presents for chest pains atypical in nature likely pleuritic in nature CT shows no pneumonia or pulmonary rhythm troponins are normal patient is stable for discharge follow-up PCP and return if worsening. Lab Data Result diagrams: 10/12/21 18:35 10/12/21 18:35 Labs: Radiology Impressions Chest CTA 10/12/21 17:34 IMPRESSION: Negative for pulmonary embolus or airspace infiltrate. Laboratory Results WBC 11.9 10^3/uL (4.0-10.0) H 10/12/21 18:35 RBC 5.44 10^6/uL (4.1-5.3) H 10/12/21 18:35 Hgb 16.4 g/dL (11.7-16.6) 10/12/21 18:35 Hct 49.5 % (42.0-52.0) 10/12/21 18:35 MCV 91.0 fl (80-94) 10/12/21 18:35 MCH 30.1 pg (28.0-34.0) 10/12/21 18: MCHC 33.1 g/dL (30.0-36.0) 10/12/21 18:35 RDW 12.3 % (12.1-15.1) 10/12/21 18:35 Plt Count 305 10^3/cmm (130-400) 10/12/21 18: MPV 9.2 fL (7.4-10.4) 10/12/21 18:35 Neut % (Auto) 61.2 % 10/12/21 18:35 Lymph % (Auto) 27.7 % 10/12/21 18:35 [place] % (Auto) 8.3 % 10/12/21 18:35 Eos % (Auto) 1.8 % 10/12/21 18:35 Baso % (Auto) 0.6 % 10/12/21 18: Neut # (Auto) 7.26 10^3/uL (1.8-7.7) 10/12/21 18:35 Lymph # (Auto) 3.3 10^3/uL (0.8-4.8) 10/12/21 18:35 [place] # (Auto) 1.0 10^3/uL (0.2-0.9) H 10/12/21 18:35 Eos # (Auto) 0.2 10^3/uL (0.0-0.8) 10/12/21 18: Baso # (Auto) 0.1 10^3/uL (0.0-0.1) 10/12/21 18:35 Nucleated RBC % (auto) 0 % 10/12/21 18:35 Nucleated RBCs # 0.0 /100WBC 10/12/21 18:35 Sodium 142 mmol/L (136-145) 10/12/21 18:35 Potassium 3.6 mmol/L (3.5-5.1) 10/12/21 18:35 Chloride 104 mmol/L (98-107) 10/12/21 18:35 Carbon Dioxide 22 mmol/L (22-29) 10/12/21 18:35 Anion Gap 19.6 (5-19) H 10/12/21 18:35 BUN 12 mg/dL (6-20) 10/12/21 18:35 Creatinine 0.7 mg/dL (0.7-1.2) 10/12/21 18:35 GFR Calculation 130.7 mL/min (90-130) H 10/12/21 18:35 Glucose 120 mg/dL (65-115) H 10/12/21 18:35 Calculated Osmolality 295 mOsm/kg (285-295) 10/12/21 18:35 Calcium 10.3 mg/dL (8.5-10.5) 10/12/21 18:35 Total Bilirubin 0.2 mg/dL (0.15-1.2) 10/12/21 18:35 AST 16 U/L (0-40) 10/12/21 18:35 ALT 32 U/L (0-41) 10/12/21 18:35 Alkaline Phosphatase 92 IU/L (40-130) 10/12/21 18:35 Troponin T Baseline 6 ng/L (0-15) 10/12/21 18:35 Troponin T 120 Minute 6.00 ng/L (0-15) 10/12/21 19:45 Delta Troponin T 0 ABS# (0-10) 10/12/21 19:45 Total Protein 7.5 g/dL (6.6-8.7) 10/12/21 18:35 Albumin 5.0 g/dL (3.5-5.2) 10/12/21 18:35 Globulin 2.5 g/dL (1.3-4.6) 10/12/21 18:35 Urine Color Yellow (Yellow) 10/12/21 18:15 Urine Appearance Clear (CLEAR) 10/12/21 18:15 Urine pH 5 (5-7) 10/12/21 18:15 Ur Specific [place] 1.025 (1.005-1.030) 10/12/21 18:15 Urine Protein Neg (Negative) 10/12/21 18:15 Urine Glucose (UA) Norm (Normal) 10/12/21 18:15 Urine Ketones Negative (Negative) 10/12/21 18:15 Urine Blood Neg (Negative) 10/12/21 18:15 Urine Nitrate Negative (Negative) 10/12/21 18: Urine Bilirubin Neg (Negative) 10/12/21 18:15 Urine Urobilinogen Neg mg/dL (Negative) 10/12/21 18:15 Ur Leukocyte Esterase Negative (Negative) 10/12/21 18:[address] Chest: Radiologist's impression: Negative for pulmonary embolus or airspace infiltrate. EKG Data EKG 1: EKG interpretation date: 10/12/21 EKG interpretation time: 19:48 Interpretation: nsr hr [address] or t wave abnormalities qrs 105 qtc 389 Discharge Plan Discharge Patient Disposition: Home Clinical Impression: Chest pain Condition: Stable Prescriptions: New Naprosyn 500 mg tablet 500 mg PO BID PRN (Reason: pain) Qty: 20 0RF No Action hydrocodone-acetaminophen 10-325 mg tablet 1 tab PO Q8H PRN (Reason: Moderate Pain (Scale Score 5-6)) 0RF sildenafil 100 mg tablet 100 mg PO DAILY PRN (Reason: Erectile Dysfunction) 0RF Rx Instructions: administer 30 minutes to 4 hours before activity nitroglycerin 0.3 mg tablet, sublingual 0.3 mg sublingual Q5M PRN (Reason: Chest Pain) 0RF Rx Instructions: do not exceed 3 doses per episode metoprolol tartrate 25 mg tablet 25 mg PO DAILY 0RF Eliquis 5 mg tablet 5 mg PO DAILY 0RF Hold Instructions: Resume on 08/26/21. May restart Eliquis on 08/26/2020 1 in the morning around 10 albuterol sulfate [ProAir HFA] 90 mcg/actuation HFA aerosol inhaler 2 puff inhalation Q6H PRN (Reason: Shortness Of Breath) 0RF venlafaxine [Effexor XR] 150 mg capsule,extended release 24hr 150 mg PO DAILY Qty: 30 3RF Emgality Pen 120 mg/mL pen injector 120 mg SUBCUT ONCE Qty: 1 2RF Rx Instructions: once monthly Emgality Pen 120 mg/mL pen injector 240 mg SUBCUT ONCE Qty: 1 0RF Rx Instructions: loading dose bupropion HCl [Wellbutrin SR] 150 mg tablet sustained-release 12 hr 150 mg PO DAILY Qty: 30 3RF sumatriptan succinate [Imitrex] 100 mg tablet See Rx Instructions PO .COMPLEX Qty: 9 3RF Rx Instructions: take 1 tab at onset of headache; if no relief, may repeat 1 tab after at least 2 hrs; max = 2 tabs/24 hrs PO pantoprazole [Protonix] 40 mg tablet,delayed release (DR/EC) 40 mg PO BID 30 Days Qty: 60 0RF Discharge Orders: Discharge ED (Routine); Ordered 10/12/21 Ordered By: Eileen Adair Referrals: Mitch Jimenez MD [Primary Care Provider] - 1-3 days Discharge Diet: Advance as tolerated Discharge Activity: Resume usual activity Patient Instructions: Chest Pain (ED) Coding Level of Care Code ED [employer] [place] 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
--- NOTE | 2021-10-12 18:34 | PC.NURSE ---
PT PLACED ON CONTINUOUS SPO2, NIBP, AND CM.
[2021-10-12 18:40] LABS: Basophils # 0.1 10^3/uL (0.0-0.1); Basophils % 0.6 %; Eosinophils # 0.2 10^3/uL (0.0-0.8); Eosinophils % 1.8 %; Hematocrit 49.5 % (42.0-52.0); Hemoglobin 16.4 g/dL (11.7-16.6); Lymphocytes # 3.3 10^3/uL (0.8-4.8); Lymphocytes % 27.7 %; Mean Corpuscular HGB Conc 33.1 g/dL (30.0-36.0); Mean Corpuscular Hemoglobin 30.1 pg (28.0-34.0); Mean Platelet Volume 9.2 fL (7.4-10.4); Monocytes % 8.3 %; Neutrophils # 7.26 10^3/uL (1.8-7.7); Neutrophils % 61.2 %; Nucleated Red Blood Cells % 0 %; Platelet Count 305 10^3/cmm (130-400); Red Blood Count 5.44 10^6/uL (4.1-5.3); Red Cell Distribution Width 12.3 % (12.1-15.1); White Blood Count 11.9 10^3/uL (4.0-10.0)
[2021-10-12] MEDS: iohexol 350 mg/mL 100 mL Btl IV (18:46)
[2021-10-12 18:47] LABS: Add Urine Microscopic? NO; Charge for UA Resulting for Rev
[2021-10-12 18:51] LABS: Urine Color Yellow (Yellow)
[2021-10-12 18:52] LABS: Bilirubin Urine Neg (Negative); Blood Urine Neg (Negative); Glucose Urine UA Norm (Normal); Ketones Urine Negative (Negative); Leukocyte Esterase Urine Negative (Negative); Nitrate Urine Negative (Negative); Protein Urine Neg (Negative); Specific Gravity, Urine 1.025 (1.005-1.030); Urine Appearance Clear (CLEAR); Urobilinogen Urine Neg (Negative); pH Urine 5 (5-7)
--- NOTE | 2021-10-12 19:06 | PC.NURSE ---
REPORT GIVEN TO STEPHAN Looney RN ASSUMED CARE.
[2021-10-12 19:07] LABS: Troponin(5th) Baseline 6 ng/L (0-15)
[2021-10-12 19:09] LABS: Alanine Aminotransferase 32 U/L (0-41); Alkaline Phosphatase 92 IU/L (40-130); Anion Gap 19.6 (5-19); Aspartate Amino Transferase 16 U/L (0-40); Blood Urea Nitrogen 12 mg/dL (6-20); Calcium 10.3 mg/dL (8.5-10.5); Carbon Dioxide 22 mmol/L (22-29); Chloride 104 mmol/L (98-107); Globulin 2.5 g/dL (1.3-4.6); Glomerular Filtration Rate 130.7 mL/min (90-130); Glucose 120 mg/dL (65-115); Osmolality Calculated 295 mOsm/kg (285-295); Potassium 3.6 mmol/L (3.5-5.1); Sodium 142 mmol/L (136-145); Total Bilirubin 0.2 mg/dL (0.15-1.2); Total Protein 7.5 g/dL (6.6-8.7)
[2021-10-12 20:22] LABS: Troponin 5 2HR Delta 0 ABS# (0-10)
[2021-10-12 20:32] VITALS: BP 127/82; PULSE 78; RESP 20; O2SAT 94
--- NOTE | 2021-10-12 23:34 | ECG_ITS ---
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 Measurements Intervals [place] Rate: 81 P: 10 DC: 135 QRS: 74 QRSD: 105 T: 18 QT: 351 QTc: 410 Interpretive Statements SINUS RHYTHM INCOMPLETE RIGHT BUNDLE BRANCH BLOCK [90+ ms QRS DURATION, TERMINAL R IN V1/V2, 40+ ms S IN I/aVL/V4/V5/V6] Compared to ECG 10/12/2021 16:57:49 No significant changes Electronically Signed On 10-12-2021 22:05:02 HOUSE CARPENTER by Christy Landrum M.D. [email or web address] [email or web address] county [id number]
== END 2021-10-12 20:33 | disposition home or self-care (01) ==
PROVIDERS: Family Medicine; Emergency Provider Emergency Medicine; PCP Family Medicine
DX: R07.9 Chest pain, unspecified (principal); Z79.01 Long term (current) use of anticoagulants; I10 Essential (primary) hypertension; Z86.711 Personal history of pulmonary embolism
CPT/HCPCS: 71275; 80053; 81003; 84484; 85025; 93005; 99283; Q9967

== ENCOUNTER → 2021-10-18 10:49 | Outpatient (BNVA) | payer MEDICAID, SELFPAY | PROVIDERS: PCP Family Medicine; Visit Provider Surgery | DX: K42.9 Umbilical hernia without obstruction or gangrene (principal); Z20.822 Contact with and (suspected) exposure to COVID-19 | CPT/HCPCS: 87635 ==

== ENCOUNTER → 2021-10-27 13:59 | Outpatient (BNVA) | payer MEDICAID, SELFPAY | PROVIDERS: PCP Family Medicine; Visit Provider Surgery | DX: Z20.822 Contact with and (suspected) exposure to COVID-19 (principal) | CPT/HCPCS: 87635 ==

== ENCOUNTER 2021-11-01 05:53 | Day surgery (SDC) | payer MEDICAID, SELFPAY ==
[2021-11-01] VITALS (18 sets, daily range): BP systolic 116–165; BP diastolic 74–111; PULSE 76–112; RESP 14–30; TEMP 36.2–36.8; O2SAT 89–97; BMI 33.0
[2021-11-01] MEDS: sodium chloride 0.9% 1,000 ML 30 ML IV (06:23)
--- NOTE | 2021-11-01 06:53 | P.HP_ITS ---
Same Day Surgery H&P Indication for Procedure/HPI DATE OF PROCEDURE: November 01, 2021 CHIEF COMPLAINT/INDICATIONFOR SURGICAL PROCEDURE: lap amandeep/hernia repair PREOP DIAGNOSIS: umbilical hernia, biliary dyskinesia PLANNED PROCEDURE: Operation Date: 11/01/21 07:00 Proposed Procedures p Laparoscopic poss Open Cholecystectomy [id number] K42.9 K82.8(Not Applicable) - Cortez Monroe MD s Umbilical Hernia Repair w/ Mesh(Not Applicable) - Cortez Monroe MD Medications/Allergies* Home Medications Medication Instructions Recorded Confirmed Type hydrocodone 10 mg-acetaminophen 1 tab PO Q8H PRN 03/26/20 11/01/21 History 325 mg tablet albuterol sulfate 90 mcg/actuation 2 puff INHALATION Q6H PRN 03/25/21 10/20/21 History aerosol inhaler (ProAir HFA) metoprolol tartrate 25 mg tablet 25 mg PO DAILY 06/08/21 11/01/21 History nitroglycerin 0.3 mg sublingual 0.3 mg SUBLINGUAL Q5M PRN 06/08/21 11/01/21 History tablet Allergies/Adverse Reactions Allergy/AdvReac Type Severity Reaction Status Date / Time crab Allergy ALGY-Hives Verified 11/01/21 06:27 doxycycline Allergy RASH Verified 11/01/21 06:27 mushroom Allergy ALGY-Hives Verified 11/01/21 06:27 Penicillins Allergy ALGY-Rash Verified 11/01/21 06:27 Current Medications: Generic Name Dose Route Start Last Admin Trade Name Freq PRN Reason Stop Dose Admin Sodium Chloride 1,000 mls @ 30 mls/hr 11/01/21 06:00 11/01/21 06:23 Sodium Chloride 0.9% IV 11/02/21 05:59 30 mls/hr .Q24H KASEY Administration Pertinent History/Comorbid Conditions* Medical History (Updated 10/20/21 @ 00:01 by ) ADHD Anxiety COVID Erectile dysfunction Gastroenteritis GERD (gastroesophageal reflux disease) H/O coronary angiogram Hypercholesterolemia Hypertension Left ureteral calculus Pulmonary embolism Surgical History (Updated 09/28/21 @ 13:23 by Cortez Monroe MD) H/O hernia repair H/O neck surgery BIOPSY OF NECK SWOLLEN LYMPH NODE History of umbilical hernia repair Hx of tonsillectomy Family History (Updated 07/14/21 @ 15:05 by Margot Shane, RN) Mother, 46 Diabetes Mother Father Family/Other CAD (coronary artery disease) Mother Father Family/Other Dementia Family/Other Hyperlipidemia Chronic kidney disease (CKD) Family/Other Seizure Suicide Family/Other Anesthesia complication Family/Other Lung disease Family/Other Cancer Mother Father Hypertension Mother Father Stroke Family/Other Denies family history of Clotting disorder Bleeding disorder Social History Alcohol intake: current Alcohol intake frequency: holidays/special occasions only Marital status: Current occupational status: disabled History of recent travel: No Pertinent Exam Findings alert, oriented x 3 and regular rate & rhythm Recommendations Surgery/Procedure today Coding Level of Care Code 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
--- NOTE | 2021-11-01 06:55 | ANES.PREANE2 ---
Pre-Anesthetic Assessment Height/Weight: Height 1.78 m Weight 104.326 kg Temp Pulse Resp BP Pulse Ox 98.2 F 76 18 162/100 97 11/01/21 06:35 11/01/21 06:35 11/01/21 06:35 11/01/21 06:35 11/01/21 06:35 Preop Diagnosis: umbilical hernia, biliary dyskinesia Operation Date: 11/01/21 07:00 Proposed Procedures p Laparoscopic poss Open Cholecystectomy 11507 [id number] K42.9 K82.8(Not Applicable) - Cortez Monroe MD s Umbilical Hernia Repair w/ Mesh(Not Applicable) - Cortez Monroe MD Familial anesthetic complications: None Was Beta Wei taken within 24 hours: Yes Was Clonidine taken within 24 hours: N/A Last intake: Intake Last Liquid Date 10/31/21 Last Liquid Time 18:30 Last Solid Date 10/31/21 Last Solid Time 18:30 Social No alcohol and No tobacco Exam alert, oriented x 3, clear to auscultation bilaterally and regular rate & rhythm Airway Submandibular: within normal limits Cervical ROM: within normal limits Mallampati: Class III Dentition: full CV/HEM Hypertension GI Gastroesophageal Reflux Disease Metabolic Morbid Obesity Anesthetic Plan ASA status: 2 Anesthesia: General Risk of > 500 ml blood loss (7ml/kg in children): No Medications/Allergies Home Medications Medication Instructions Recorded Confirmed Last Taken Type hydrocodone 10 mg-acetaminophen 1 tab PO Q8H PRN 03/26/20 11/01/21 10/31/21 History 325 mg tablet albuterol sulfate 90 mcg/actuation 2 puff INHALATION Q6H PRN 03/25/21 10/20/21 10/29/21 History aerosol inhaler (ProAir HFA) metoprolol tartrate 25 mg tablet 25 mg PO DAILY 06/08/21 11/01/21 10/31/21 History nitroglycerin 0.3 mg sublingual 0.3 mg SUBLINGUAL Q5M PRN 06/08/21 11/01/21 Unknown History tablet pantoprazole 40 mg tablet,delayed 40 mg PO BID 30 Days #60 tab 09/28/21 11/01/21 Unknown Rx release (Protonix) bupropion HCl 150 mg tablet,12 hr 150 mg PO DAILY #30 tab 10/11/21 11/01/21 10/31/21 Rx sustained-release (Wellbutrin SR) Allergies Allergy/AdvReac Type Severity Reaction Status Date / Time crab Allergy ALGY-Hives Verified 11/01/21 06:27 doxycycline Allergy RASH Verified 11/01/21 06:27 mushroom Allergy ALGY-Hives Verified 11/01/21 06:27 Penicillins Allergy ALGY-Rash Verified 11/01/21 06:27 Current Medications Generic Name Dose Route Start Last Admin Trade Name Freq PRN Reason Stop Dose Admin Sodium Chloride 1,000 mls @ 30 mls/hr 11/01/21 06:00 11/01/21 06:23 Sodium Chloride 0.9% IV 11/02/21 05:59 30 mls/hr .Q24H KASEY Administration PFSH Anesthesia Medical History ADHD Anxiety COVID Erectile dysfunction Gastroenteritis GERD (gastroesophageal reflux disease) H/O coronary angiogram Hypercholesterolemia Hypertension Left ureteral calculus Pulmonary embolism Surgical History H/O hernia repair H/O neck surgery BIOPSY OF NECK SWOLLEN LYMPH NODE History of umbilical hernia repair Hx of tonsillectomy Family History Mother , 46 Diabetes Cancer CAD (coronary artery disease) Hypertension Father Cancer CAD (coronary artery disease) Hypertension Diabetes Family/Other Anesthesia complication CAD (coronary artery disease) Chronic kidney disease (CKD) Dementia Diabetes Lung disease Stroke Suicide Other Hyperlipidemia Seizure Denies family history of Clotting disorder Bleeding disorder Social History Alcohol intake: current Alcohol intake frequency: holidays/special occasions only Marital status: Current occupational status: disabled History of recent travel: No Data Anesthesia Cardiac Studies: Echocardiogram 08/20/21 Sestamibi Stress Test (Cardiology) 07/06/21 Holter Monitor 05/31/21
[2021-11-01] MEDS: ciprofloxacin 400 MG/200 ML PREMIX 200 MG IV (07:00)
--- NOTE | 2021-11-01 08:31 | PM.OP ---
Operative Report Date of procedure: November 01, 2021 Pre-op diagnosis: 1. Biliary dyskinesia 2. Recurrent umbilical hernia Post-op diagnosis: 1. Biliary dyskinesia 2. Recurrent umbilical hernia measuring 2 cm Procedure done: 1. Laparoscopic cholecystectomy 2. Open repair of recurrent umbilical hernia 3. Implantation of ultraPro mesh measuring 4 x 4 cm has an onlay mesh 4. Intraoperative cholangiogram using fluorescent indocyanine green Pathology: Gallbladder Surgeon: Cortez Monroe Anesthesia: General Condition: stable Disposition: PACU Procedure: The patient was taken to the operating room and was intubated under general anesthesia. Patient had been injected with indocyanine green prior to surgery for cholangiogram. After the antibiotic had been administered, the abdomen was prepped and draped in a sterile manner. Using a #15 blade, a 2 cm supraumbilical incision was made over the existing scar from prior hernia repair and using an open Thalia technique the peritoneal cavity was entered. A 10 millimeter port was placed and 15 millimeters of pneumoperitoneum was created. A 10 millimeter, 30 degrees scope was introduced. Three 5 millimeter ports were placed in the epigastric, midclavicular and the anterior axillary line two fingerbreadths below the costal margin on the right side under the direct visualization. Ratcheted forceps were introduced into the lateral most port and was used to retract the fundus of the gallbladder cephalad and using forceps the infundibulum of the gallbladder was retracted laterally. Using L-hook cautery the peritoneum overlying the Calot's triangle was opened medially and laterally until the cystic duct and the cystic artery were skeletonized. Dissection was carried along the body of the gallbladder and after ensuring critical view of safety, 4 clips applied on the cystic duct and cut leaving, 3 clips on the remaining portion of the duct. The cystic artery was small and was divided with electrocautery. The rest of the gallbladder was dissected off the liver using L-hook cautery. There was no bleeding or bile leaking noted from the gallbladder fossa and the clips appeared to be in place. An EndoCatch bag was introduced to remove the gallbladder. All the ports were removed under direct visualization and there was no bleeding noted from the port sites. The subcutaneous tissue was freed around the hernia defect which measured about 2 cm. The wound was copiously irrigated with saline. The fascia was approximated to close the recurrent umbilical hernia using interrupted 0 Vicryl suture. A 4 x 4 centimeter piece of ultrapro mesh was placed as an onlay mesh and sutured using 0 Vicryl sutures. The subcutaneous tissue was approximated using 3-0 Vicryl sutures. The skin at all four ports were closed using 4-0 Monocryl and Dermabond. A total of 10 millimeters of 0.5% Marcaine was infiltrated around the port sites. The patient was stable throughout the procedure.
[2021-11-01] MEDS: fentaNYL 50 mcg/mL INJ 2mL IVP (09:18)
[2021-11-01] MEDS: HYDROcodone-acetaminophen 5-325 mg Tablet 1 TAB PO (09:57)
--- NOTE | 2021-11-01 15:47 | ANE.PACU2 ---
Inpatient post-anesthesia follow up: Airway intact: Yes Vital signs: Temperature 97.3 F Pulse Rate 102 Respiratory Rate 18 Blood Pressure 125/76 Pulse Oximetry 94 Oxygen Delivery Me thod Room Air Oxygen Flow Rate 3 Fraction of Inspir ed Oxygen Hydration adequate: Yes Nausea and vomiting: No Pain level: 1 Mental status: Baseline
== END 2021-11-01 10:40 | disposition home or self-care (01) ==
PROVIDERS: PCP Family Medicine; Visit Provider Surgery
PROC: 0FT44ZZ Resection of Gallbladder, Percutaneous Endoscopic Approach (ICD-10-PCS; CPT 47562; principal; 2021-11-01 07:00)
PROC: (CPT 47562; 2021-11-01 07:00)
DX: K81.1 Chronic cholecystitis (principal); K82.8 Other specified diseases of gallbladder; K42.9 Umbilical hernia without obstruction or gangrene; I10 Essential (primary) hypertension; K21.9 Gastro-esophageal reflux disease without esophagitis; E66.01 Morbid (severe) obesity due to excess calories; Z68.33 Body mass index [BMI] 33.0-33.9, adult; F90.9 Attention-deficit hyperactivity disorder, unspecified type; F41.9 Anxiety disorder, unspecified; Z86.16 Personal history of COVID-19; E78.00 Pure hypercholesterolemia, unspecified; Z86.711 Personal history of pulmonary embolism
CPT/HCPCS: 47562; 49585; 88304; J0744; J1100; J1170; J1200; J2250; J2370; J2405; J2704; J2710; J3010; J3490; J7030

== ENCOUNTER 2021-12-02 18:47 | Emergency (ER) | payer MEDICAID, SELFPAY ==
[2021-12-02 18:55] VITALS: BP 125/80; PULSE 84; RESP 20; TEMP 36.6; O2SAT 97; BMI 33.0
--- NOTE | 2021-12-02 19:01 | W.ED.BACK ---
HPI - Back Pain/Injury General: Chief Complaint: Back Pain/Injury Stated Complaint: back pain states he has kidney stones Time Seen by Provider: 12/02/21 19:00 PFSH ED PFSH: Medical History ADHD Anxiety COVID Erectile dysfunction Gastroenteritis GERD (gastroesophageal reflux disease) H/O coronary angiogram Hypercholesterolemia Hypertension Left ureteral calculus Pulmonary embolism Surgical History H/O hernia repair H/O neck surgery BIOPSY OF NECK SWOLLEN LYMPH NODE History of umbilical hernia repair 2019 History of umbilical hernia repair (11/01/21) Recurrent repaired with with ultrapro mesh Hx of tonsillectomy Status post laparoscopic cholecystectomy (11/01/21) Family History Mother , 46 Diabetes Cancer CAD (coronary artery disease) Hypertension Father Cancer CAD (coronary artery disease) Hypertension Diabetes Family/Other Anesthesia complication CAD (coronary artery disease) Chronic kidney disease (CKD) Dementia Diabetes Lung disease Stroke Suicide Other Hyperlipidemia Seizure Denies family history of Clotting disorder Bleeding disorder Social History Smoking and tobacco status: never smoked Alcohol intake: current Alcohol intake frequency: holidays/special occasions only Marital status: Current occupational status: disabled History of recent travel: No Course Vital Signs: Vital signs: Vital Signs Temperature 97.8 F 12/02/21 18:55 Pulse Rate 84 12/02/21 18:55 Respiratory Rate 20 H 12/02/21 18:55 Blood Pressure 125/80 12/02/21 18:55 Pulse Oximetry 97 12/02/21 18:55 Discharge Plan Discharge Condition: Stable Prescriptions: No Action hydrocodone-acetaminophen 10-325 mg tablet 1 tab PO Q8H PRN (Reason: Moderate Pain (Scale Score 5-6)) 0RF nitroglycerin 0.3 mg tablet, sublingual 0.3 mg sublingual Q5M PRN (Reason: Chest Pain) 0RF Rx Instructions: do not exceed 3 doses per episode metoprolol tartrate 25 mg tablet 25 mg PO DAILY 0RF albuterol sulfate [ProAir HFA] 90 mcg/actuation HFA aerosol inhaler 2 puff inhalation Q6H PRN (Reason: Shortness Of Breath) 0RF bupropion HCl [Wellbutrin SR] 150 mg tablet sustained-release 12 hr 150 mg PO DAILY Qty: 30 3RF pantoprazole [Protonix] 40 mg tablet,delayed release (DR/EC) 40 mg PO BID 30 Days Qty: 60 0RF ketorolac 10 mg tablet 10 mg PO TID PRN (Reason: pain) 5 Days Qty: 20 0RF Referrals: Mitch Jimenez MD [Primary Care Provider] - Coding Level of Care Code ED [employer] 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
--- NOTE | 2021-12-02 19:23 | ED_ITS ---
HPI - Male Genitourinary General: Chief complaint: Back Pain/Injury Stated complaint: back pain states he has kidney stones Time Seen by Provider: 12/02/21 19:00 Source: patient Mode of arrival: ambulatory Limitations: no limitations History of Present Illness: Patient is a very nice 31-year-old male who presents to ED today with complaint of severe left-sided flank pain. Patient tells me around noon today he began developing sharp intense pain to his genitals and shortly after began developing left flank pain. Patient does have a history of nephro/ureterolithiasis and states his pain today feels identical. He is having difficulty with urination. He feels nauseous but has not had any episodes of emesis. No fevers. MD Complaint: other (flank pain, difficulty with urination) Onset (ago): hour(s) Duration: constant Location: left flank Severity: severe Quality: sharp Relieving factors: none Exacerbating factors: urination Associated symptoms: Reports no associated symptoms and nausea; Deny hematuria or vomiting Review of Systems Const: Denies: fever(s), chills, body aches, fatigue or malaise Card: Denies: chest pain Resp: Denies: dyspnea GI: Reports: nausea; Denies: abdominal pain, vomiting or diarrhea : Reports: flank pain, difficulty urinating and urinary hesitancy; Denies: urinary dribbling or hematuria Musc: Reports: back pain (L flank); Denies: neck pain, extremity pain or joint pain Skin/Breast: Denies: rash Neuro: Denies: headache(s), numbness in extremities, weakness in extremities or sensory changes PFS ED PFSH: Medical History ADHD Anxiety COVID Erectile dysfunction Gastroenteritis GERD (gastroesophageal reflux disease) H/O coronary angiogram Hypercholesterolemia Hypertension Left ureteral calculus Pulmonary embolism Surgical History H/O hernia repair H/O neck surgery BIOPSY OF NECK SWOLLEN LYMPH NODE History of umbilical hernia repair 2019 History of umbilical hernia repair (11/01/21) Recurrent repaired with with ultrapro mesh Hx of tonsillectomy Status post laparoscopic cholecystectomy (11/01/21) Family History Mother , 46 Diabetes Cancer CAD (coronary artery disease) Hypertension Father Cancer CAD (coronary artery disease) Hypertension Diabetes Family/Other Anesthesia complication CAD (coronary artery disease) Chronic kidney disease (CKD) Dementia Diabetes Lung disease Stroke Suicide Other Hyperlipidemia Seizure Denies family history of Clotting disorder Bleeding disorder Social History Smoking and tobacco status: never smoked Alcohol intake: current Alcohol intake frequency: holidays/special occasions only Marital status: Current occupational status: disabled History of recent travel: No Physical Exam Const: COMMON NORMALS: patient oriented x3, no limitations and alert GENERAL APPEARANCE: cooperative and in distress (appears uncomfortable secondary to pain) NUTRITIONAL APPEARANCE: overweight HENMT: COMMON NORMALS: normocephalic and atraumatic HEAD & SCALP: normal to inspection, normocephalic and atraumatic Chest: COMMONS NORMALS: normal inspection of the chest and normal palpation of entire chest wall Resp: COMMON NORMALS: normal respiratory effort and clear to auscultation bilaterally AUSCULTATION: clear to auscultation bilaterally Cardio: COMMON NORMALS: regular rate and regular rhythm RATE: regular rate RHYTHM: regular rhythm GI: COMMON NORMALS: Normal to inspection, nondistended, normoactive bowel sounds present, Soft to palpation, No hepatosplenomegaly present and no masses INSPECTION: Yes normal to inspection AUSCULTATION: Yes normoactive bowel sounds PALPATION: Yes Soft to palpation, Yes Tenderness to palpation present (GI) (L side of abdomen; mild periumbilical tenderness-no redness), Yes No h epatosplenomegaly present and Yes Other GI palpation findings present (recent lap amandeep and umbilical hernia repair) : BLADDER/KIDNEY EXAM: Yes CVA tenderness on the left Back/Pelvis: COMMON NORMALS: thoracic and lumbar spine normal to inspection, no thoracic nor lumbar tenderness and thoraco-lumbar ROM normal GENERAL BACK: Yes CVA tenderness PELVIS: Yes buttocks normal SACROILIAC JOINTS: Yes SI joints normal Extremity: COMMON NORMALS: normal to inspection GENERAL: Yes normal exam except as noted Neuro: GEE COMA SCALE: document GCS findings Gee coma scale eye opening: Spontaneous Gee coma scale verbal response: Orientated Gee coma scale motor response: Obey commands [place] coma scale total score: 15 COMMON NORMALS: patient oriented x3, moves all extremities, no focal motor deficits, no sensory deficits noted and gait normal SENSORIUM/ORIENTATION: Yes alert Skin: COMMON NORMALS: no rashes or lesions noted GENERAL SKIN EXAM: no rashes or lesions noted Course Consultations: Consultation #1: Dr. Sands-recommends antibiotics and follow-up with Dr. Monroe; recommends giving patient return to ED precautions Vital Signs: Vital signs: Vital Signs Temperature 97.8 F 12/02/21 18:55 Pulse Rate 84 12/02/21 18:55 Respiratory Rate 16 12/02/21 19:36 Blood Pressure 125/80 12/02/21 18:55 Pulse Oximetry 97 12/02/21 18:55 MDM - Male Medical Decision Making Patient a 31-year-old male here for left-sided flank pain and genital pain that he states is consistent with previous kidney/ureter stones. Patient is c ompletely pain free following IV medications. CT scan showing a small 2.5 mm left UVJ stone. Patient has a normal white count. Urine shows no evidence for infection. CT scan did mention a 2.0 small umbilical abscess. Patient did undergo a laparoscopic cholecystectomy and umbilical hernia repair by Dr. Monroe approximately a month ago. Patient states about 3 days ago he was getting up from a seated position and felt like he tore something near his umbilicus. This most likely is how the small fluid collection originated nevertheless radiologist called an abscess so I did speak with Dr. Sands who is on-call for general surgery who recommended antibiotics and following up with Dr. Ama brito. He will also follow-up with Dr. Fine regarding the stone. He will be placed on Flomax for this. He normally takes hydrocodone daily for chronic back pain. Recommended he continue this. Patient states he has leftover Zofran at home he feels comfortable taking. Strict return to ED precautions given regarding both conditions. Lab Data : 12/02/21 19:15 12/02/21 20:00 Radiology Impressions Abdomen/Pelvis CT 12/02/21 19:23 IMPRESSION: 1. Left UVJ 2.5 mm renal stone and mild left hydronephrosis. 2. Small umbilical abscess. 3. Mild hepatomegaly and hepatic steatosis. Laboratory Results WBC 11.1 10^3/uL (4.0-10.0) H 12/02/21 19:15 RBC 4.93 10^6/uL (4.1-5.3) 12/02/21 19:15 Hgb 14.8 g/dL (11.7-16.6) 12/02/21 19:15 Hct 45.0 % (42.0-52.0) 12/02/21 19:15 MCV 91.3 fl (80-94) 12/02/21 19:15 MCH 30.0 pg (28.0-34.0) 12/02/21 19:15 MCHC 32.9 g/dL (30.0-36.0) 12/02/21 19:15 RDW 12.4 % (12.1-15.1) 12/02/21 19:15 Plt Count 245 10^3/cmm (130-400) 12/02/21 19:15 MPV 9.7 fL (7.4-10.4) 12/02/21 19:15 Neut % (Auto) 74.2 % 12/02/21 19:15 Lymph % (Auto) 17.9 % 12/02/21 19:15 [place] % (Auto) 5.8 % 12/02/21 19:15 Eos % (Auto) 1.2 % 12/02/21 19:15 Baso % (Auto) 0.6 % 12/02/21 19:15 Neut # (Auto) 8.25 10^3/uL (1.8-7.7) H 12/02/21 19:15 Lymph # (Auto) 2.0 10^3/uL (0.8-4.8) 12/02/21 19:15 [place] # (Auto) 0.7 10^3/uL (0.2-0.9) 12/02/21 19:15 Eos # (Auto) 0.1 10^3/uL (0.0-0.8) 12/02/21 19:15 Baso # (Auto) 0.1 10^3/uL (0.0-0.1) 12/02/21 19:15 Nucleated RBC % (auto) 0 % 12/02/21 19:15 Nucleated RBCs # 0.0 /100WBC 12/02/21 19:15 Sodium 142 mmol/L (136-145) 12/02/21 20:00 Potassium 3.7 mmol/L (3.5-5.1) 12/02/21 20:00 Chloride 107 mmol/L (98-107) 12/02/21 20:00 Carbon Dioxide 21 mmol/L (22-29) L 12/02/21 20:00 Anion Gap 17.7 (5-19) 12/02/21 20:00 BUN 12 mg/dL (6-20) 12/02/21 20:00 Creatinine 0.8 mg/dL (0.7-1.2) 12/02/21 20:00 GFR Calculation 112.0 mL/min (90-130) 12/02/21 20:00 Glucose 106 mg/dL (65-115) 12/02/21 20:00 Calculated Osmolality 294 mOsm/kg (285-295) 12/02/21 20:00 Calcium 9.2 mg/dL (8.5-10.5) 12/02/21 20:00 Total Bilirubin 0.2 mg/dL (0.15-1.2) 12/02/21 20:00 AST 20 U/L (0-40) 12/02/21 20:00 ALT 40 U/L (0-41) 12/02/21 20:00 Alkaline Phosphatase 89 IU/L (40-130) 12/02/21 20:00 Total Protein 7.5 g/dL (6.6-8.7) 12/02/21 20:00 Albumin 4.6 g/dL (3.5-5.2) 12/02/21 20:00 Globulin 2.9 g/dL (1.3-4.6) 12/02/21 20:00 Urine Color Yellow (Yellow) 12/02/21 19:19 Urine Appearance Clear (CLEAR) 12/02/21 19:19 Urine pH 5 (5-7) 12/02/21 19:19 Ur Specific [place] 1.020 (1.005-1.030) 12/02/21 19:19 Urine Protein Neg (Negative) 12/02/21 19:19 Urine Glucose (UA) Norm (Normal) 12/02/21 19:19 Urine Ketones Negative (Negative) 12/02/21 19:19 Urine Blood 2+ (Negative) H 12/02/21 19:19 Urine Nitrate Negative (Negative) 12/02/21 19:19 Urine Bilirubin Neg (Negative) 12/02/21 19:19 Urine Urobilinogen Neg mg/dL (Negative) 12/02/21 19:19 Ur Leukocyte Esterase Negative (Negative) 12/02/21 19:19 Urine RBC 5-10 /hpf (0-2) H 12/02/21 19:19 Urine WBC None /hpf (0-5) 12/02/21 19:19 Ur Squamous Epith Cells None /hpf (0-5) 12/02/21 19:19 Amorphous Sediment Not Reportable 12/02/21 19:19 Urine Bacteria None /hpf (NONE) 12/02/21 19:19 Urine Mucus 2+ /hpf 12/02/21 19:19 Discharge Plan Discharge Patient Disposition: Home Clinical Impression: Calculus of ureterovesical junction (UVJ), Abscess of umbilicus Condition: Stable Prescriptions: New Flomax 0.4 mg capsule 0.4 mg PO DAILY Qty: 10 0RF clindamycin HCl 300 mg capsule 300 mg PO Q6H 7 Days Qty: 28 0RF No Action hydrocodone-acetaminophen 10-325 mg tablet 1 tab PO Q8H PRN (Reason: Moderate Pain (Scale Score 5-6)) 0RF nitroglycerin 0.3 mg tablet, sublingual 0.3 mg sublingual Q5M PRN (Reason: Chest Pain) 0RF Rx Instructions: do not exceed 3 doses per episode metoprolol tartrate 25 mg tablet 25 mg PO DAILY 0RF albuterol sulfate [ProAir HFA] 90 mcg/actuation HFA aerosol inhaler 2 puff inhalation Q6H PRN (Reason: Shortness Of Breath) 0RF bupropion HCl [Wellbutrin SR] 150 mg tablet sustained-release 12 hr 150 mg PO DAILY Qty: 30 3RF pantoprazole [Protonix] 40 mg tablet,delayed release (DR/EC) 40 mg PO BID 30 Days Qty: 60 0RF ketorolac 10 mg tablet 10 mg PO TID PRN (Reason: pain) 5 Days Qty: 20 0RF Discharge Orders: Discharge ED (Routine); Ordered 12/02/21 Ordered By: Leelee Silva Referrals: Shamar Fine MD [Physician] - Mitch Jimenez MD [Primary Care Provider] - Patient Instructions: Ureteral Stones (ED) Coding Level of Care Code ED [employer] Claims Aide for Chg Fwd Exam Comprehensive
--- NOTE | 2021-12-02 19:23 | CTR_ITS ---
PROCEDURE INFORMATION: Exam: CT Abdomen And Pelvis Without Contrast Exam date and time: 12/02/2021 7:33 PM Age: 31 years old Clinical indication: Abdominal pain; Flank; Left; Prior surgery; Surgery date: <1 month; Surgery type: Gb and hernia x 1 month ago. ; Additional info: L flank pain TECHNIQUE: Imaging protocol: Computed tomography of the abdomen and pelvis without contrast. Radiation optimization: All CT scans at this facility use at least one of these dose optimization techniques: automated exposure control; mA and/or kV adjustment per patient size (includes targeted exams where dose is matched to clinical indication); or iterative reconstruction. COMPARISON: CT abdomen pelvis w con* [id number] 05/28/2021 1:24 PM RADIATION DOSE METRICS: Total DLP (mGy-cm): 1796.92 FINDINGS: Liver: The liver is mildly enlarged and demonstrates fatty infiltration changes. No mass. Gallbladder and bile ducts: The gallbladder has been removed. No biliary ductal dilatation. Pancreas: Normal. No ductal dilation. Spleen: Normal. No splenomegaly. Adrenal glands: Normal. No mass. Kidneys and ureters: Tiny renal stones are seen in the left kidney. A 2.5 mm renal stone is present at the left UVJ. Mild left hydronephrosis is appreciated. Stomach and bowel: Unremarkable. No obstruction. No mucosal thickening. Appendix: The appendix is normal. Intraperitoneal space: Unremarkable. No free air. No significant fluid collection. Vasculature: Unremarkable. No abdominal aortic aneurysm. Lymph nodes: Unremarkable. No enlarged lymph nodes. Urinary bladder: Unremarkable as visualized. Reproductive: Unremarkable as visualized. Bones/joints: Unremarkable. No acute fracture. Soft tissues: A small 2 cm fluid collection is seen at the umbilicus. Mild surrounding fat stranding is noted. CT/CT kidney stone [id number] IMPRESSION: 1. Left UVJ 2.5 mm renal stone and mild left hydronephrosis. 2. Small umbilical abscess. 3. Mild hepatomegaly and hepatic steatosis.
[2021-12-02 19:24] LABS: Basophils # 0.1 10^3/uL (0.0-0.1); Basophils % 0.6 %; Eosinophils # 0.1 10^3/uL (0.0-0.8); Eosinophils % 1.2 %; Hemoglobin 14.8 g/dL (11.7-16.6); Lymphocytes % 17.9 %; Mean Corpuscular HGB Conc 32.9 g/dL (30.0-36.0); Mean Corpuscular Volume 91.3 fl (80-94); Mean Platelet Volume 9.7 fL (7.4-10.4); Monocytes # 0.7 10^3/uL (0.2-0.9); Monocytes % 5.8 %; Neutrophils # 8.25 10^3/uL (1.8-7.7); Neutrophils % 74.2 %; Nucleated Red Blood Cells % 0 %; Platelet Count 245 10^3/cmm (130-400); Red Blood Count 4.93 10^6/uL (4.1-5.3); Red Cell Distribution Width 12.4 % (12.1-15.1); White Blood Count 11.1 10^3/uL (4.0-10.0)
[2021-12-02 19:36] VITALS: RESP 16
[2021-12-02] MEDS: ondansetron 2 mg/ML SDV 2 mL 4 MG IVP (19:36)
[2021-12-02] MEDS: morphine 4 mg/mL SDV 1 mL IVP (19:36)
[2021-12-02] MEDS: sodium chloride 0.9% 1,000 ML 999 ML IV (19:38)
[2021-12-02 19:43] LABS: Urine Appearance Clear (CLEAR); Urine Color Yellow (Yellow); pH Urine 5 (5-7)
[2021-12-02 19:44] LABS: Add Urine Culture? No; Add Urine Microscopic? YES; Bilirubin Urine Neg (Negative); Blood Urine 2+ (Negative); Glucose Urine UA Norm (Normal); Ketones Urine Negative (Negative); Leukocyte Esterase Urine Negative (Negative); Mucus Urine 2+ /hpf; Nitrate Urine Negative (Negative); Protein Urine Neg (Negative); Urobilinogen Urine Neg (Negative)
[2021-12-02] MEDS: ketorolac 30 mg/mL INJ IVP (20:23)
--- NOTE | 2021-12-02 20:24 | PC.NURSE ---
Toradol was given IVP by TATIANA Gray.
[2021-12-02 20:38] LABS: Alanine Aminotransferase 40 U/L (0-41); Albumin Level 4.6 g/dL (3.5-5.2); Alkaline Phosphatase 89 IU/L (40-130); Anion Gap 17.7 (5-19); Aspartate Amino Transferase 20 U/L (0-40); Blood Urea Nitrogen 12 mg/dL (6-20); Calcium 9.2 mg/dL (8.5-10.5); Carbon Dioxide 21 mmol/L (22-29); Chloride 107 mmol/L (98-107); Creatinine Clr Calc Pharmacy 160.3695; Globulin 2.9 g/dL (1.3-4.6); Glucose 106 mg/dL (65-115); Osmolality Calculated 294 mOsm/kg (285-295); Potassium 3.7 mmol/L (3.5-5.1); Sodium 142 mmol/L (136-145); Total Bilirubin 0.2 mg/dL (0.15-1.2); Total Protein 7.5 g/dL (6.6-8.7)
--- NOTE | 2021-12-06 12:22 | DCPLANNER ---
Addendum entered by Clarisa Pena 12/07/21 07:55: Patient has a follow up appointment scheduled for Tuesday, December 14, 2021 at 1:[address] Monroe at [facility] General Surgery. Clinic will call patient with appointment information. Original Note: care transition manager had message to schedule a follow up appointment for patient with general surgery. care transition manager emailed patients information to both Ana and Eneida at [facility] General Surgery. Patients information will be printed and reviewed. Clinic will call patient with appointment information.
--- NOTE | 2021-12-06 12:58 | DCPLANNER ---
Addendum entered by Clarisa Pena 12/24/21 08:41: Patient had a follow up appointment scheduled with Dr. barton on 12.08.21 - patient did attend appointment. Addendum entered by Clarisa Pena 12/16/21 09:17: Patient had a follow up appointment scheduled for 12.14.[address] Monroe at general surgery - patient did attend appointment. Addendum entered by Clarisa Pena 12/07/21 07:41: Patient has a follow up appointment scheduled for Wednesday, December 08, 2021 at 1:[address] Barton. Clinic will call patient with appointment information. Original Note: water/wastewater project manager had message to schedule a follow up appointment for patient with Dr. Barton. water/wastewater project manager emailed patients information to Timothy Ma and Gloria in the office of Dr. Barton. Patients information will be printed and reviewed. Clinic will call patient [facility] appointment information.
== END 2021-12-02 21:36 | disposition home or self-care (01) ==
PROVIDERS: Emergency Provider Physician Assistant; PCP Family Medicine
DX: N20.1 Calculus of ureter (principal); L02.216 Cutaneous abscess of umbilicus; I10 Essential (primary) hypertension; Z86.711 Personal history of pulmonary embolism
CPT/HCPCS: 74176; 80053; 81001; 85025; 96361; 96374; 96375; 99283; J1885; J2270; J2405; J7030

== ENCOUNTER 2021-12-06 02:41 | Emergency (ER) | payer MEDICAID, SELFPAY ==
[2021-12-06] VITALS (7 sets, daily range): BP systolic 108–183; BP diastolic 62–97; PULSE 100–119; RESP 15–21; TEMP 36.1; O2SAT 94–98; BMI 33.7
--- NOTE | 2021-12-06 02:46 | XRR_ITS ---
PROCEDURE INFORMATION: Exam: XR Chest Exam date and time: 12/06/2021 2:34 AM Age: 31 years old Clinical indication: Shortness of breath; Patient HX: SOB w R flank pain TECHNIQUE: Imaging protocol: XR of the chest. Views: 1 view. COMPARISON: CR XR chest 1V portable [id number] 10/12/2021 12:51 PM FINDINGS: Lungs: A shallow breath is been obtained with some crowding of the pulmonary vasculature seen as result. Pleural spaces: Unremarkable. No pleural effusion. No pneumothorax. Heart/Mediastinum: Unremarkable. No cardiomegaly. Bones/joints: Unremarkable. XR/XR chest 1V portable [id number] IMPRESSION: There are no acute chest findings.
--- NOTE | 2021-12-06 02:48 | W.ED.ABDPA2 ---
HPI - Abdominal Pain General: Chief Complaint: Back Pain/Injury Stated Complaint: kidney stone pain Time Seen by Provider: 12/06/21 02:44 Source: patient Mode of arrival: ambulatory Limitations: no limitations History of Present Illness: 31-year-old male states that he started having right-sided abdominal and flank pain that began roughly 12 hours ago. States pains been sharp in nature and rates it a 9 out of 10. Does have a history of a kidney stone had a kidney stone last week to the left side. States this feels like his previous kidney stones he had nausea vomiting as well. Has had some dyspnea denies any chest pain. Denies any fever. Associated Symptoms: Denies chills, diarrhea, fever(s), nausea and vomiting Review of Systems Const: Denies: fever(s), chills, body aches or change in appetite Eyes: Denies: blurry vision or eye discomfort ENMT: Denies: throat pain or dental pain Card: Denies: chest pain Resp: Reports: dyspnea GI: Denies: abdominal pain, nausea, vomiting or diarrhea : Reports: flank pain Musc: Denies: neck pain or back pain Skin/Breast: Denies: rash Neuro: Denies: headache(s) Psych: Denies: depression Henrik/Lymph: Denies: easy bruising All/Imm: Denies: urticaria PFSH ED PFSH: Medical History ADHD Anxiety COVID Erectile dysfunction Gastroenteritis GERD (gastroesophageal reflux disease) H/O coronary angiogram Hypercholesterolemia Hypertension Left ureteral calculus Pulmonary embolism Surgical History H/O hernia repair H/O neck surgery BIOPSY OF NECK SWOLLEN LYMPH NODE History of umbilical hernia repair 2019 History of umbilical hernia repair (11/01/21) Recurrent repaired with with ultrapro mesh Hx of tonsillectomy Status post laparoscopic cholecystectomy (11/01/21) Family History Mother , 46 Diabetes Cancer CAD (coronary artery disease) Hypertension Father Cancer CAD (coronary artery disease) Hypertension Diabetes Family/Other Anesthesia complication CAD (coronary artery disease) Chronic kidney disease (CKD) Dementia Diabetes Lung disease Stroke Suicide Other Hyperlipidemia Seizure Denies family history of Clotting disorder Bleeding disorder Social History Smoking and tobacco status: never smoked Alcohol intake: current Alcohol intake frequency: holidays/special occasions only Marital status: Current occupational status: disabled History of recent travel: No Physical Exam Const: COMMON NORMALS: no acute distress, patient oriented x3 and healthy appearing HENMT: COMMON NORMALS: normocephalic and atraumatic HEAD & SCALP: normocephalic and atraumatic Eye: COMMON NORMALS: Equal, round and reactive pupils present and EOMs intact bilaterally PUPIL: Yes Equal, round and reactive pupils present Neck/C-Spine: COMMON NORMALS: full ROM and supple Chest: COMMONS NORMALS: normal inspection of the chest and normal palpation of entire chest wall Resp: COMMON NORMALS: normal respiratory effort, No retractions, No use of accessory muscles and clear to auscultation bilaterally AUSCULTATION: clear to auscultation bilaterally Cardio: COMMON NORMALS: regular rate, regular rhythm and No murmurs present (Cardio) RATE: regular rate RHYTHM: regular rhythm GI: COMMON NORMALS: Normal to inspection, nondistended, normoactive bowel sounds present, Soft to palpation, non-tender and no masses PALPATION: Yes Soft to palpation Extremity: COMMON NORMALS: normal to inspection and full ROM Neuro: COMMON NORMALS: patient oriented x3, moves all extremities and no focal motor deficits Psych: COMMON NORMALS: mental status grossly normal, Normal thought process present and cooperative THOUGHT PROCESS: Normal thought process present Skin: COMMON NORMALS: no rashes or lesions noted and no wounds GENERAL SKIN EXAM: no rashes or lesions noted Course Vital Signs: Vital signs: Vital Signs Temperature 97.0 F L 12/06/21 02:45 Pulse Rate 100 12/06/21 04:02 Respiratory Rate 18 12/06/21 04:02 Blood Pressure 108/62 12/06/21 04:02 Pulse Oximetry 97 12/06/21 04:02 MDM - Abdominal Pain Medical Decision Making Patient presents with right flank pain patient also has some right chest wall pain he has no midline back pain he does have a leukocytosis here he is not been taking the clindamycin he was prescribed today for umbiliciss abscess we will switch him over to Bactrim he is afebrile here patient CT scans here are normal of his chest and abdomen he has no spinal pain no signs of epidural abscess he is return if worsening he understands agrees to plan. Lab Data : 12/06/21 03:04 12/06/21 03:04 Labs/Radiology: Radiology Impressions Chest X-Ray 12/06/21 02:46 IMPRESSION: There are no acute chest findings. Chest/Abdomen/Pelvis CT 12/06/21 03:19 IMPRESSION: No acute findings. IMPRESSION: 1. There are nondilated fluid-filled small and large bowel loops seen compatible with diffuse ileus. 2. Fatty infiltration of the liver 3. Normal appendix 4. No evidence for ureteral obstruction Laboratory Results WBC 17.5 10^3/uL (4.0-10.0) H 12/06/21 03:04 RBC 5.51 10^6/uL (4.1-5.3) H 12/06/21 03:04 Hgb 16.3 g/dL (11.7-16.6) 12/06/21 03:04 Hct 49.6 % (42.0-52.0) 12/06/21 03:04 MCV 90.0 fl (80-94) 12/06/21 03:04 MCH 29.6 pg (28.0-34.0) 12/06/21 03:04 MCHC 32.9 g/dL (30.0-36.0) 12/06/21 03:04 RDW 12.5 % (12.1-15.1) 12/06/21 03:04 Plt Count 241 10^3/cmm (130-400) 12/06/21 03:04 MPV 9.7 fL (7.4-10.4) 12/06/21 03:04 Neut % (Auto) 93.6 % 12/06/21 03:04 Lymph % (Auto) 2.0 % 12/06/21 03:04 Charlton % (Auto) 3.7 % 12/06/21 03:04 Eos % (Auto) 0.1 % 12/06/21 03:04 Baso % (Auto) 0.3 % 12/06/21 03:04 Neut # (Auto) 16.35 10^3/uL (1.8-7.7) H 12/06/21 03:04 Lymph # (Auto) 0.4 10^3/uL (0.8-4.8) L 12/06/21 03:04 Charlton # (Auto) 0.6 10^3/uL (0.2-0.9) 12/06/21 03:04 Eos # (Auto) 0.0 10^3/uL (0.0-0.8) 12/06/21 03:04 Baso # (Auto) 0.1 10^3/uL (0.0-0.1) 12/06/21 03:04 Nucleated RBC % (auto) 0 % 12/06/21 03:04 Nucleated RBCs # 0.0 /100WBC 12/06/21 03:04 Sodium 135 mmol/L (136-145) L 12/06/21 03:04 Potassium 3.9 mmol/L (3.5-5.1) 12/06/21 03:04 Chloride 97 mmol/L (98-107) L 12/06/21 03:04 Carbon Dioxide 24 mmol/L (22-29) 12/06/21 03:04 Anion Gap 17.9 (5-19) 12/06/21 03:04 BUN 15 mg/dL (6-20) 12/06/21 03:04 Creatinine 0.9 mg/dL (0.7-1.2) 12/06/21 03:04 GFR Calculation 97.8 mL/min (90-130) 12/06/21 03:04 Glucose 158 mg/dL (65-115) H 12/06/21 03:04 Calculated Osmolality 284 mOsm/kg (285-295) L 12/06/21 03:04 Calcium 10.3 mg/dL (8.5-10.5) 12/06/21 03:04 Total Bilirubin 0.6 mg/dL (0.15-1.2) 12/06/21 03:04 AST 19 U/L (0-40) 12/06/21 03:04 ALT 50 U/L (0-41) H 12/06/21 03:04 Alkaline Phosphatase 104 IU/L (40-130) 12/06/21 03:04 Total Protein 8.4 g/dL (6.6-8.7) 12/06/21 03:04 Albumin 5.4 g/dL (3.5-5.2) H 12/06/21 03:04 Globulin 3.0 g/dL (1.3-4.6) 12/06/21 03:04 Lipase 17 U/L (13-60) 12/06/21 03:04 Urine Color Yellow (Yellow) 12/06/21 03:59 Urine Appearance Clear (CLEAR) 12/06/21 03:59 Urine pH 5 (5-7) 12/06/21 03:59 Ur Specific [place] 1.015 (1.005-1.030) 12/06/21 03:59 Urine Protein Trace (Negative) 12/06/21 03:59 Urine Glucose (UA) Norm (Normal) 12/06/21 03:59 Urine Ketones Negative (Negative) 12/06/21 03:59 Urine Blood Neg (Negative) 12/06/21 03:59 Urine Nitrate Negative (Negative) 12/06/21 03:59 Urine Bilirubin Neg (Negative) 12/06/21 03:59 Urine Urobilinogen Norm mg/dL (Negative) 12/06/21 03:59 Ur Leukocyte Esterase Negative (Negative) 12/06/21 03:59 Urine RBC 0-4 /hpf (0-2) H 12/06/21 03:59 Urine WBC 0-4 /hpf (0-5) H 12/06/21 03:59 Ur Squamous Epith Cells 0-4 /hpf (0-5) H 12/06/21 03:59 Amorphous Sediment Not Reportable 12/06/21 03:59 Urine Bacteria Trace /hpf (NONE) 12/06/21 03:59 Urine Mucus 3+ /hpf 12/06/21 03:59 Discharge Plan Discharge Patient Disposition: Home Clinical Impression: Right flank pain Condition: Stable Prescriptions: New Bactrim DS 800-160 mg tablet 1 tab PO BID 10 Days Qty: 20 0RF No Action hydrocodone-acetaminophen 10-325 mg tablet 1 tab PO Q8H PRN (Reason: Moderate Pain (Scale Score 5-6)) 0RF nitroglycerin 0.3 mg tablet, sublingual 0.3 mg sublingual Q5M PRN (Reason: Chest Pain) 0RF Rx Instructions: do not exceed 3 doses per episode metoprolol tartrate 25 mg tablet 25 mg PO DAILY 0RF albuterol sulfate [ProAir HFA] 90 mcg/actuation HFA aerosol inhaler 2 puff inhalation Q6H PRN (Reason: Shortness Of Breath) 0RF bupropion HCl [Wellbutrin SR] 150 mg tablet sustained-release 12 hr 150 mg PO DAILY Qty: 30 3RF pantoprazole [Protonix] 40 mg tablet,delayed release (DR/EC) 40 mg PO BID 30 Days Qty: 60 0RF ketorolac 10 mg tablet 10 mg PO TID PRN (Reason: pain) 5 Days Qty: 20 0RF Flomax 0.4 mg capsule 0.4 mg PO DAILY Qty: 10 0RF clindamycin HCl 300 mg capsule 300 mg PO Q6H 7 Days Qty: 28 0RF Discharge Orders: Discharge ED (Routine); Ordered 12/06/21 Ordered By: Eileen Adair Referrals: Mitch Jimenez MD [Primary Care Provider] - 1-3 days Discharge Diet: Advance as tolerated Discharge Activity: Resume usual activity Patient Instructions: Flank Pain (ED) Coding Level of Care Code ED Loading Machine Operator for Chg Fwd Exam Comprehensive
[2021-12-06] MEDS: HYDROmorphone 1 mg/mL INJ 1 mL 0.5 MG IVP (03:10)
[2021-12-06] MEDS: ondansetron 2 mg/ML SDV 2 mL 4 MG IVP (03:11)
[2021-12-06] MEDS: sodium chloride 0.9% 1,000 ML 999 ML IV (03:14)
[2021-12-06 03:16] LABS: Basophils # 0.1 10^3/uL (0.0-0.1); Basophils % 0.3 %; Eosinophils % 0.1 %; Hematocrit 49.6 % (42.0-52.0); Hemoglobin 16.3 g/dL (11.7-16.6); Lymphocytes # 0.4 10^3/uL (0.8-4.8); Mean Corpuscular HGB Conc 32.9 g/dL (30.0-36.0); Mean Corpuscular Hemoglobin 29.6 pg (28.0-34.0); Mean Platelet Volume 9.7 fL (7.4-10.4); Monocytes # 0.6 10^3/uL (0.2-0.9); Monocytes % 3.7 %; Neutrophils # 16.35 10^3/uL (1.8-7.7); Neutrophils % 93.6 %; Nucleated Red Blood Cells % 0 %; Platelet Count 241 10^3/cmm (130-400); Red Blood Count 5.51 10^6/uL (4.1-5.3); Red Cell Distribution Width 12.5 % (12.1-15.1); White Blood Count 17.5 10^3/uL (4.0-10.0)
--- NOTE | 2021-12-06 03:19 | CTR_ITS ---
PROCEDURE INFORMATION: Exam: CTA Chest With Contrast Exam date and time: 12/06/2021 3:27 AM Age: 31 years old Clinical indication: Abdominal pain; Right; Prior surgery; Surgery date: 1-6 months; Surgery type: Gb, hernia; Patient HX: C/O R flank psin and SOB TECHNIQUE: Imaging protocol: Computed tomographic angiography of the chest with contrast. 3D rendering (Not supervised by radiologist): MIP and/or 3D reconstructed images were created by the technologist. Radiation optimization: All CT scans at this facility use at least one of these dose optimization techniques: automated exposure control; mA and/or kV adjustment per patient size (includes targeted exams where dose is matched to clinical indication); or iterative reconstruction. Contrast material: OMNI 350; Contrast volume: 95 ml; Contrast route: INTRAVENOUS (IV); COMPARISON: CT angio chest PE protcl [id number] 10/12/2021 7:22 PM RADIATION DOSE METRICS: Total DLP (mGy-cm): 1779.18 FINDINGS: Pulmonary arteries: Normal. No pulmonary emboli. Aorta: Unremarkable. No aortic aneurysm. No aortic dissection. Lungs: Unremarkable. No consolidation. No masses. Pleural spaces: Unremarkable. No pneumothorax. No pleural effusion. Heart: Unremarkable. No cardiomegaly. No pericardial effusion. Lymph nodes: Unremarkable. No enlarged lymph nodes. Bones/joints: Unremarkable. No acute fracture. Soft tissues: Unremarkable. PROCEDURE INFORMATION: Exam: CT Abdomen And Pelvis With Contrast Exam date and time: 12/06/2021 3:27 AM Age: 31 years old Clinical indication: Abdominal pain; Right; Prior surgery; Surgery date: 1-6 months; Surgery type: Gb, hernia; Patient HX: C/O R flank psin and SOB TECHNIQUE: Imaging protocol: Computed tomography of the abdomen and pelvis with contrast. Radiation optimization: All CT scans at this facility use at least one of these dose optimization techniques: automated exposure control; mA and/or kV adjustment per patient size (includes targeted exams where dose is matched to clinical indication); or iterative reconstruction. Contrast material: OMNI 350; Contrast volume: 95 ml; Contrast route: INTRAVENOUS (IV); COMPARISON: CT angio chest PE protcl [id number] 10/12/2021 7:22 PM RADIATION DOSE METRICS: Total DLP (mGy-cm): 1779.18 FINDINGS: Liver: There is hypoattenuation of the hepatic parenchyma compatible with fatty infiltration. Gallbladder and bile ducts: Status post cholecystectomy. Pancreas: Normal. No ductal dilation. Spleen: Normal. No splenomegaly. Adrenal glands: Normal. No mass. Kidneys and ureters: Normal. No hydronephrosis. Stomach and bowel: There are nondilated fluid-filled small bowel loops present and nondilated fluid-filled ascending , transverse and sigmoid colon seen, findings that suggest diffuse ileus. Appendix: The appendix is visualized and is normal in configuration. Intraperitoneal space: Unremarkable. No free air. No significant fluid collection. Vasculature: Unremarkable. No abdominal aortic aneurysm. Lymph nodes: Unremarkable. No enlarged lymph nodes. Urinary bladder: Unremarkable as visualized. Reproductive: Unremarkable as visualized. Bones/joints: Unremarkable. No acute fracture. Soft tissues: Unremarkable. CT/CT angio chest w abd pel w con IMPRESSION: No acute findings. IMPRESSION: 1. There are nondilated fluid-filled small and large bowel loops seen compatible with diffuse ileus. 2. Fatty infiltration of the liver 3. Normal appendix 4. No evidence for ureteral obstruction
[2021-12-06] MEDS: iohexol 350 mg/mL 100 mL Btl IV (03:38)
[2021-12-06 03:44] LABS: Alanine Aminotransferase 50 U/L (0-41); Albumin Level 5.4 g/dL (3.5-5.2); Alkaline Phosphatase 104 IU/L (40-130); Anion Gap 17.9 (5-19); Aspartate Amino Transferase 19 U/L (0-40); Blood Urea Nitrogen 15 mg/dL (6-20); Calcium 10.3 mg/dL (8.5-10.5); Carbon Dioxide 24 mmol/L (22-29); Chloride 97 mmol/L (98-107); Glomerular Filtration Rate 97.8 mL/min (90-130); Glucose 158 mg/dL (65-115); Lipase 17 U/L (13-60); Osmolality Calculated 284 mOsm/kg (285-295); Potassium 3.9 mmol/L (3.5-5.1); Sodium 135 mmol/L (136-145); Total Bilirubin 0.6 mg/dL (0.15-1.2); Total Protein 8.4 g/dL (6.6-8.7)
[2021-12-06 04:13] LABS: Add Urine Microscopic? YES; Bilirubin Urine Neg (Negative); Blood Urine Neg (Negative); Glucose Urine UA Norm (Normal); Ketones Urine Negative (Negative); Leukocyte Esterase Urine Negative (Negative); Nitrate Urine Negative (Negative); Protein Urine Trace (Negative); Specific Gravity, Urine 1.015 (1.005-1.030); Urine Appearance Clear (CLEAR); Urine Color Yellow (Yellow); Urobilinogen Urine Norm (Negative); pH Urine 5 (5-7)
[2021-12-06 04:15] LABS: Add Urine Culture? No; Bacteria Urine TRACE /hpf; Mucus Urine 3+ /hpf; RBC Urine 0-4 /hpf (0-2); Squamous Epithelial Cell Urine 0-4 /hpf (0-5); WBC Urine 0-4 /hpf (0-5)
[2021-12-06] MEDS: HYDROmorphone 1 mg/mL INJ 1 mL IVP (05:05)
== END 2021-12-06 05:18 | disposition home or self-care (01) ==
PROVIDERS: Emergency Provider Emergency Medicine; PCP Family Medicine
DX: R10.9 Unspecified abdominal pain (principal); I10 Essential (primary) hypertension; Z86.711 Personal history of pulmonary embolism; Z87.442 Personal history of urinary calculi
CPT/HCPCS: 71045; 71275; 74177; 80053; 81001; 83690; 85025; 96361; 96374; 96375; 96376; 99284; J1170; J2405; J7030; Q9967

== ENCOUNTER 2021-12-08 11:26 | Outpatient (CLI) | payer MEDICAID, SELFPAY ==
--- NOTE | 2021-12-08 11:32 | XRR_ITS ---
PROCEDURE INFORMATION: Exam: XR Abdomen Exam date and time: 12/08/2021 11:35 AM Age: 31 years old Clinical indication: Condition or disease; Kidney or ureter condition; Calculus (stone) in ureter; Prior surgery; Surgery type: Gb, hernia; Additional info: Ureteral calculus, kub @ [facility] on 12/08/21 @ 11:45. Appt to follow TECHNIQUE: Imaging protocol: XR of the abdomen. Views: Frontal supine view of the abdomen. 1 View. COMPARISON: CT kidney stone [id number] 12/02/2021 7:33 PM FINDINGS: Gastrointestinal tract: Normal. No bowel dilation. Organs: No calcifications are seen in the projection of the kidneys ureters or urinary bladder. Bones/joints: Unremarkable. XR/XR KUB [id number] IMPRESSION: No significant abnormality.
== END 2021-12-08 11:27 | disposition home or self-care (01) ==
LOC: RAD 11:29
PROVIDERS: PCP Family Medicine; Visit Provider Nurse Practitioner Family
DX: N20.1 Calculus of ureter (principal)
CPT/HCPCS: 74018; 81003

== ENCOUNTER → 2022-04-07 07:36 | Outpatient (BNVA) | payer MEDICAID, SELFPAY | PROVIDERS: PCP Family Medicine; Visit Provider Specialist | DX: G43.711 Chronic migraine without aura, intractable, with status migrainosus (principal); F40.231 Fear of injections and transfusions; M54.9 Dorsalgia, unspecified; Z79.891 Long term (current) use of opiate analgesic | CPT/HCPCS: 99213; 99214 ==

== ENCOUNTER → 2022-04-12 10:37 | Outpatient (BNVA) | payer MEDICAID, SELFPAY | PROVIDERS: PCP Family Medicine; Visit Provider Surgery | DX: R19.7 Diarrhea, unspecified (principal); R10.13 Epigastric pain; D72.829 Elevated white blood cell count, unspecified | CPT/HCPCS: 36415; 80053; 85025; 99214 ==

== ENCOUNTER 2022-04-14 14:33 | Outpatient (CLI) | payer MEDICAID, SELFPAY | END 2022-04-14 14:34 | disposition home or self-care (01) | PROVIDERS: PCP Family Medicine; Visit Provider Surgery | DX: Z01.89 Encounter for other specified special examinations (principal) | CPT/HCPCS: 83630; 87177; 87209; 87493; 87506 ==

== ENCOUNTER 2022-04-17 04:12 | Emergency (ER) | payer MEDICAID, SELFPAY ==
[2022-04-17 04:20] VITALS: BP 150/90; PULSE 84; RESP 17; TEMP 37; O2SAT 98; BMI 33.4
[2022-04-17] MEDS: diphenhydrAMINE 50 mg/mL SDV 1mL 25 MG IVP (05:43)
[2022-04-17] MEDS: dexamethasone 4 mg/mL INJ 8 MG IVP (05:43)
[2022-04-17] MEDS: ketorolac 30 mg/mL INJ 15 MG IVP (05:43)
[2022-04-17 05:46] VITALS: RESP 18
[2022-04-17] MEDS: fentaNYL 50 mcg/mL INJ 2mL 100 MCG IVP (05:46)
[2022-04-17 05:58] VITALS: BP 112/66; PULSE 61; RESP 18; O2SAT 92
[2022-04-17] MEDS: metoclopramide 5 mg/mL SDV 2 mL 10 MG IVP (06:35)
[2022-04-17] MEDS: haloperidol inj 5 mg/mL INJ 1 mL 3 MG IVP (06:36)
[2022-04-17 07:00] VITALS: BP 108/61; PULSE 72; RESP 18; O2SAT 94
--- NOTE | 2022-04-17 19:08 | ED_ITS ---
HPI - Headache General: Chief Complaint: Headache Stated Complaint: migraine Time Seen by Provider: 04/17/22 04:22 History of Present Illness: 31-year-old male with a history of chronic migraine headache. He presents with 2 days of migraine headache. This is his usual headache only worse than usual. He has taken Tylenol and ibuprofen at home. He has vomited 3 times in the last 24 hours due to his headache. He started a new medication for migraine, and injectable 1, and experienced some injection site irritation and itching following the injection in the stomach. He began to get a headache shortly thereafter, and is wondering if he is not having an adverse reaction to the medication. No history of fever. MD elicited complaint: headache and migraine Onset (ago): day(s) Onset description: gradually Location: occipital and diffuse Quality & Timing: aching and throbbing Exacerbating factors: movement of head/neck and light Relieving factors: nothing Associated symptoms: Reports nausea, rash (Injection site stomach improved after Benadryl) and vomiting; Deny chest pain, confusion, cough, eye pain, fever(s), loss of vision, neck stiffness, seizures or weakness Treatments prior to arrival: acetaminophen, ibuprofen and other Review of Systems Const: Denies: fever(s) ENMT: Denies: throat pain Card: Denies: chest pain Resp: Denies: dyspnea GI: Reports: nausea and vomiting Skin/Breast: Reports: rash (Injection site stomach improved after Benadryl) Neuro: Denies: confusion PFSH ED PFSH: Medical History ADHD Anxiety COVID Erectile dysfunction Gastroenteritis GERD (gastroesophageal reflux disease) H/O coronary angiogram Hypercholesterolemia Hypertension Left ureteral calculus Pulmonary embolism Surgical History H/O hernia repair H/O neck surgery BIOPSY OF NECK SWOLLEN LYMPH NODE History of umbilical hernia repair 2019 History of umbilical hernia repair (11/01/21) Recurrent repaired with with ultrapro mesh Hx of tonsillectomy Status post laparoscopic cholecystectomy (11/01/21) Family History Mother , 48 Diabetes Cancer BREAST CAD (coronary artery disease) Hypertension Father Cancer CAD (coronary artery disease) Hypertension Diabetes Family/Other Anesthesia complication CAD (coronary artery disease) Chronic kidney disease (CKD) Dementia Diabetes Lung disease Stroke Suicide Other Hyperlipidemia Seizure Denies family history of Clotting disorder Bleeding disorder Social History Smoking and tobacco status: former smoker Alcohol intake: current Alcohol intake frequency: holidays/special occasions only Marital status: Current occupational status: disabled History of recent travel: No Physical Exam Const: COMMON NORMALS: alert GENERAL APPEARANCE: cooperative; not comfortable and not frail appearing NUTRITIONAL APPEARANCE: overweight HENMT: COMMON NORMALS: normocephalic, atraumatic and Normal external nose present HEAD & SCALP: normocephalic and atraumatic FACE & SINUS: normal facial exam and face symmetric NOSE: Normal external nose present Eye: COMMON NORMALS: Equal, round and reactive pupils present, EOMs intact bilaterally and conjunctivae normal CONJUNCTIVA: Yes conjunctivae normal PUPIL: Yes Equal, round and reactive pupils present Neck/C-Spine: COMMON NORMALS: full ROM GENERAL: Yes trachea midline Chest: CHEST: Yes Symmetrical chest wall rise Resp: COMMON NORMALS: normal respiratory effort, No use of accessory muscles and clear to auscultation bilaterally AUSCULTATION: clear to auscultation bilaterally Cardio: COMMON NORMALS: regular rate and regular rhythm RATE: regular rate RHYTHM: regular rhythm GI: COMMON NORMALS: Normal to inspection, nondistended, normoactive bowel sounds present and Soft to palpation PALPATION: Yes Soft to palpation Neuro: GEE COMA SCALE: document GCS findings Gee coma scale eye opening: Spontaneous [place] coma scale verbal response: Orientated [place] coma scale motor response: Obey commands [place] coma scale total score: 15 SENSORIUM/ORIENTATION: Yes alert CRANIAL NERVES: Yes CN normal except as noted COORDINATION/BALANCE: [id number] test normal and [id number] test normal SPEECH: speech normal SENSORY EXAM: Yes extremities (Intact) MOTOR EXAM: Pronator motor function not present COORDINATION: [id number] test normal and [id number] test normal Skin: NARRATIVE SKIN EXAM: Small injection site irritation, right lower quadrant. No urticaria. No drainage. Course Vital Signs: Vital signs: Vital Signs Temperature 98.6 F 04/17/22 04:20 Pulse Rate 72 04/17/22 07:00 Respiratory Rate 18 04/17/22 07:00 Blood Pressure 108/61 04/17/22 07:00 Pulse Oximetry 94 04/17/22 07:00 Oxygen Delivery Me thod 04/17/22 05:58 MDM - Headache Medical Decision Making Depacon was ordered for this patient, but we are out of stock. Instead, he received dexamethasone, Toradol, fentanyl, Benadryl, and Haldol. His pain is decreasing steadily. He will be allowed discharge. Discharge Plan Discharge Patient Disposition: Home Clinical Impression: Chronic migraine without aura, intractable, with status migrainosus Condition: Stable Prescriptions: No Action hydrocodone-acetaminophen 10-325 mg tablet 1 tab PO QID PRN (Reason: Moderate Pain (Scale Score 5-6)) nitroglycerin 0.3 mg tablet, sublingual 0.3 mg sublingual Q5M PRN (Reason: Chest Pain) Rx Instructions: do not exceed 3 doses per episode metoprolol tartrate 25 mg tablet 25 mg PO DAILY albuterol sulfate [ProAir HFA] 90 mcg/actuation HFA aerosol inhaler 2 puff inhalation Q6H PRN (Reason: Shortness Of Breath) fluoxetine [Prozac] 20 mg capsule 20 mg PO ONCE pantoprazole [Protonix] 40 mg tablet,delayed release (DR/EC) 40 mg PO BID 14 Days Qty: 28 0RF Flomax 0.4 mg capsule 0.4 mg PO DAILY Qty: 30 0RF Emgality Pen 120 mg/mL pen injector 120 mg SUBCUT ONCE Qty: 1 2RF diazepam 10 mg tablet 10 mg PO ONCE PRN (Reason: anxiety) 1 Days Qty: 2 2RF Rx Instructions: Take 1 prior to procedure and repeat if necessary Discharge Orders: Discharge ED (Routine); Ordered 04/17/22 Ordered By: Tino Martinez Referrals: Mitch Jimenez MD [Primary Care Provider] - 1-3 days Patient Instructions: Migraine Headache (ED) Activity Restrictions/Additional Instructions: Return for worsening headache, vomiting liquids or medications, fever greater than 100, weakness, mental status changes, any other concerning symptoms. Coding Level of Care Code ED Radio Assembler for Vernell Mccormack
== END 2022-04-17 06:57 | disposition home or self-care (01) ==
PROVIDERS: Emergency Provider Emergency Medicine; PCP Family Medicine
DX: G43.711 Chronic migraine without aura, intractable, with status migrainosus (principal); I10 Essential (primary) hypertension; Z87.891 Personal history of nicotine dependence
CPT/HCPCS: 96374; 96375; 99284; J1100; J1200; J1630; J1885; J2765; J3010

== ENCOUNTER 2022-04-19 10:02 | Day surgery (SDC) | payer MEDICAID, SELFPAY ==
[2022-04-18 09:07] VITALS: BMI 33.4
--- NOTE | 2022-04-19 10:11 | P.HP_ITS ---
Same Day Surgery H&P Indication for Procedure/HPI DATE OF PROCEDURE: April 19, 2022 CHIEF COMPLAINT/INDICATIONFOR SURGICAL PROCEDURE: egd PREOP DIAGNOSIS: umbilical hernia, biliary dyskinesia PLANNED PROCEDURE: Operation Date: 04/19/22 11:30 Proposed Procedures p EGD(Not Applicable) - Cortez Monroe MD Medications/Allergies* Home Medications Medication Instructions Recorded Confirmed Type albuterol sulfate 90 mcg/actuation 2 puff inhalation Q6H PRN 03/25/21 04/18/22 History aerosol inhaler (ProAir HFA) Shortness Of Breath metoprolol tartrate 25 mg tablet 25 mg PO DAILY 06/08/21 04/18/22 History nitroglycerin 0.3 mg sublingual 0.3 mg sublingual Q5M PRN Chest 06/08/21 04/18/22 History tablet Pain fluoxetine 20 mg capsule (Prozac) 20 mg PO DAILY 04/12/22 04/18/22 History hydrocodone 10 mg-acetaminophen 1 tab PO QID PRN Moderate Pain 04/12/22 04/18/22 History 325 mg tablet (Scale Score 5-6) Allergies/Adverse Reactions Allergy/AdvReac Type Severity Reaction Status Date / Time clindamycin Allergy THROAT Verified 04/12/22 10:48 SWELLING AND ITCHY crab Allergy ALGY-Hives Verified 04/12/22 10:48 doxycycline Allergy RASH Verified 04/12/22 10:48 [id number] Allergy ALGY-Rash Verified 04/18/22 09:12 [From Emgality Pen] mushroom Allergy ALGY-Hives Verified 04/12/22 10:48 Penicillins Allergy ALGY-Rash Verified 04/12/22 10:48 Pertinent History/Comorbid Conditions* Medical History (Updated 04/17/22 @ 06:32 by Tino Martinez DO) ADHD Anxiety COVID Erectile dysfunction Gastroenteritis GERD (gastroesophageal reflux disease) H/O coronary angiogram Hypercholesterolemia Hypertension Left ureteral calculus Pulmonary embolism Surgical History (Updated 11/01/21 @ 08:40 by Cortez Monroe MD) H/O hernia repair H/O neck surgery BIOPSY OF NECK SWOLLEN LYMPH NODE History of umbilical hernia repair 2019 History of umbilical hernia repair (11/01/21) Recurrent repaired with with ultrapro mesh Hx of tonsillectomy Status post laparoscopic cholecystectomy (11/01/21) Family History (Updated 12/08/21 @ 12:52 by Wendi Ohara LPN) Mother, 48 Diabetes Mother Father Family/Other CAD (coronary artery disease) Mother Father Family/Other Dementia Family/Other Hyperlipidemia Chronic kidney disease (CKD) Family/Other Seizure Suicide Family/Other Anesthesia complication Family/Other Lung disease Family/Other Cancer Mother BREAST Father Hypertension Mother Father Stroke Family/Other Denies family history of Clotting disorder Bleeding disorder Social History Smoking and tobacco status: former smoker Alcohol intake: current Alcohol intake frequency: holidays/special occasions only Marital status: Current occupational status: disabled History of recent travel: No Pertinent Exam Findings alert, oriented x 3 and regular rate & rhythm Recommendations Surgery/Procedure today Coding Level of Care Code Acute Business Analytics Faculty Member for Vernell Mccormack
[2022-04-19 10:35] VITALS: BP 132/77; PULSE 73; RESP 16; TEMP 36.3; O2SAT 97
[2022-04-19] MEDS: sodium chloride 0.9% 1,000 ML 30 ML IV (10:58)
[2022-04-19 11:39] VITALS: BP 108/54; PULSE 77; RESP 16; TEMP 36.3; O2SAT 97
[2022-04-19 11:50] VITALS: BP 125/80; PULSE 79; RESP 16; O2SAT 96
--- NOTE | 2022-04-19 12:39 | ANES.PREANE2 ---
Pre-Anesthetic Assessment Height/Weight: Height 1.78 m Weight 105.687 kg Temp Pulse Resp BP Pulse Ox O2 Del Method 97.3 F L 79 16 125/80 96 04/19/22 11:39 04/19/22 11:50 04/19/22 11:50 04/19/22 11:50 04/19/22 11:50 04/19/22 11:50 Preop Diagnosis: upper gi symptoms Operation Date: 04/19/22 11:30 Proposed Procedures p EGD(Not Applicable) - Cortez Monroe MD Familial anesthetic complications: none Was Beta Wei taken within 24 hours: N/A Was Clonidine taken within 24 hours: N/A Last intake: Intake Last Liquid Date 04/18/22 Last Liquid Time 20:00 Last Solid Date 04/18/22 Last Solid Time 18:00 Social No alcohol and No tobacco Exam alert, oriented x 3, clear to auscultation bilaterally and regular rate & rhythm Airway Submandibular: within normal limits Cervical ROM: within normal limits Mallampati: Class II Dentition: full Pulmonary Chronic Obstructive Pulmonary Disease CV/HEM Deep Vein Thrombosis (PE) and Hypertension GI Gastroesophageal Reflux Disease Metabolic Morbid Obesity [facility] [place] Lower Back Pain Anesthetic Plan ASA status: 3 Anesthesia: MAC Medications/Allergies Home Medications Medication Instructions Recorded Confirmed Last Taken Type albuterol sulfate 90 mcg/actuation 2 puff inhalation Q6H PRN 03/25/21 04/18/22 10/29/21 History aerosol inhaler (ProAir HFA) Shortness Of Breath metoprolol tartrate 25 mg tablet 25 mg PO DAILY 06/08/21 04/18/22 04/19/22 History nitroglycerin 0.3 mg sublingual 0.3 mg sublingual Q5M PRN Chest 06/08/21 04/18/22 Unknown History tablet Pain tamsulosin 0.4 mg capsule (Flomax) 0.4 mg PO DAILY #30 caps 01/27/22 04/18/22 Unknown Rx fluoxetine 20 mg capsule (Prozac) 20 mg PO DAILY 04/12/22 04/18/22 Unknown History hydrocodone 10 mg-acetaminophen 1 tab PO QID PRN Moderate Pain 04/12/22 04/18/22 04/19/22 History 325 mg tablet (Scale Score 5-6) pantoprazole 40 mg tablet,delayed 40 mg PO BID 14 days #28 tabs 04/12/22 04/18/22 Unknown Rx release (Protonix) Allergies Allergy/AdvReac Type Severity Reaction Status Date / Time clindamycin Allergy THROAT Verified 04/12/22 10:48 SWELLING AND ITCHY crab Allergy ALGY-Hives Verified 04/12/22 10:48 doxycycline Allergy RASH Verified 04/12/22 10:48 galcanezumab-gnlm Allergy ALGY-Rash Verified 04/18/22 09:12 [From Emgality Pen] mushroom Allergy ALGY-Hives Verified 04/12/22 10:48 Penicillins Allergy ALGY-Rash Verified 04/12/22 10:48 [facility] Anesthesia Medical History ADHD Anxiety COVID Erectile dysfunction Gastroenteritis GERD (gastroesophageal reflux disease) H/O coronary angiogram Hypercholesterolemia Hypertension Left ureteral calculus Pulmonary embolism Surgical History (Updated 04/19/22 @ 11:44 by Cortez Monroe MD) H/O esophagogastroduodenoscopy (04/19/22) H/O hernia repair H/O neck surgery BIOPSY OF NECK SWOLLEN LYMPH NODE History of umbilical hernia repair 2019 History of umbilical hernia repair (11/01/21) Recurrent repaired with with ultrapro mesh Hx of tonsillectomy Status post laparoscopic cholecystectomy (11/01/21) Family History Mother , 48 Diabetes Cancer BREAST CAD (coronary artery disease) Hypertension Father Cancer CAD (coronary artery disease) Hypertension Diabetes Family/Other Anesthesia complication CAD (coronary artery disease) Chronic kidney disease (CKD) Dementia Diabetes Lung disease Stroke Suicide Other Hyperlipidemia Seizure Denies family history of Clotting disorder Bleeding disorder Social History Smoking and tobacco status: former smoker Alcohol intake: current Alcohol intake frequency: holidays/special occasions only Marital status: Current occupational status: disabled History of recent travel: No Data Anesthesia Cardiac Studies: Echocardiogram 08/20/21 Sestamibi Stress Test (Cardiology) 07/06/21 Holter Monitor 05/31/21
--- NOTE | 2022-04-19 12:40 | ANE.PACU2 ---
Inpatient post-anesthesia follow up: Airway intact: Yes Vital signs: Temperature 97.3 F Pulse Rate 79 Respiratory Rate 16 Blood Pressure 125/80 Pulse Oximetry 96 Oxygen Delivery Me thod Room Air Oxygen Flow Rate Fraction of Inspir ed Oxygen Hydration adequate: Yes Nausea and vomiting: No Pain level: 1 Mental status: Baseline
== END 2022-04-19 12:07 | disposition home or self-care (01) ==
PROVIDERS: PCP Family Medicine; Visit Provider Surgery
PROC: 0DJ08ZZ Inspection of Upper Intestinal Tract, Via Natural or Artificial Opening Endoscopic (ICD-10-PCS; CPT 43235; principal; 2022-04-19 11:30)
DX: R10.13 Epigastric pain (principal); K29.50 Unspecified chronic gastritis without bleeding; J44.9 Chronic obstructive pulmonary disease, unspecified; I10 Essential (primary) hypertension; Z86.718 Personal history of other venous thrombosis and embolism; Z86.711 Personal history of pulmonary embolism; K21.9 Gastro-esophageal reflux disease without esophagitis; E66.01 Morbid (severe) obesity due to excess calories; Z68.33 Body mass index [BMI] 33.0-33.9, adult; F90.9 Attention-deficit hyperactivity disorder, unspecified type; F41.9 Anxiety disorder, unspecified; E78.00 Pure hypercholesterolemia, unspecified; Z87.891 Personal history of nicotine dependence
CPT/HCPCS: 43239; 88305; J2001; J2704; J7030

== ENCOUNTER → 2022-05-03 09:16 | Outpatient (BNVA) | payer MEDICAID, SELFPAY | PROVIDERS: PCP Family Medicine; Visit Provider Surgery | DX: Z09 Encounter for follow-up examination after completed treatment for conditions other than malignant neoplasm (principal) | CPT/HCPCS: 99212 ==

== ENCOUNTER 2022-08-12 13:59 | Emergency (ER) | payer MEDICAID, SELFPAY ==
--- NOTE | 2022-08-12 14:05 | XRR_ITS ---
PROCEDURE INFORMATION: Exam: XR Chest Exam date and time: 08/12/2022 2:21 PM Age: 31 years old Clinical indication: Shortness of breath; Additional info: SOB TECHNIQUE: Imaging protocol: Radiologic exam of the chest. Views: 1 view. COMPARISON: CR XR chest 1V portable [id number] 12/06/2021 2:34 AM FINDINGS: Lungs: The lungs are clear. Low lung volumes are seen. Pleural spaces: Unremarkable. No pleural effusion. No pneumothorax. Heart/Mediastinum: Unremarkable. No cardiomegaly. Bones/joints: Unremarkable. There has been no interval change comparing to prior examination XR/XR chest 1V portable [id number] IMPRESSION: No acute findings.
[2022-08-12 14:12] VITALS: BP 112/70; PULSE 100; RESP 24; TEMP 37.3; O2SAT 97
[2022-08-12 14:50] LABS: Influenza A by IFA Positive (Negative); Influenza B by IFA Negative (Negative); SARS Covid-2 Antigen Negative (Negative)
--- NOTE | 2022-08-12 16:06 | W.ED.URI ---
HPI - URI/Sore Throat General: Chief Complaint: Upper Respiratory Infection Stated Complaint: SOB Time Seen by Provider: 08/12/22 15:59 Source: patient Mode of arrival: ambulatory Limitations: no limitations History of Present Illness: 31-year-old male states over last 2 days he has had cough congestion along with body aches. He states that he has had fevers as well along with a mild headache. He has had no known sick contacts is mild shortness of breath he is in no distress here denies any worsening improving factors. Associated symptoms: Reports chills, fever(s) and headache(s); Deny abdominal pain, chest pain, diarrhea, nausea or vomiting Review of Systems Const: Reports: fever(s), chills and body aches Eyes: Denies: blurry vision or eye discomfort ENMT: Denies: throat pain or dental pain Card: Denies: chest pain Resp: Reports: non-productive cough GI: Denies: abdominal pain, nausea, vomiting or diarrhea : Denies: dysuria Musc: Denies: neck pain or back pain Skin/Breast: Denies: rash Neuro: Reports: headache(s) Psych: Denies: depression Henrik/Lymph: Denies: easy bruising All/Imm: Denies: urticaria PFSH ED PFSH: Medical History ADHD Anxiety COVID Erectile dysfunction Gastroenteritis GERD (gastroesophageal reflux disease) H/O coronary angiogram Hypercholesterolemia Hypertension Left ureteral calculus Pulmonary embolism Surgical History H/O esophagogastroduodenoscopy (04/19/22) H/O hernia repair H/O neck surgery BIOPSY OF NECK SWOLLEN LYMPH NODE History of umbilical hernia repair 2019 History of umbilical hernia repair (11/01/21) Recurrent repaired with with ultrapro mesh Hx of tonsillectomy Status post laparoscopic cholecystectomy (11/01/21) Family History Mother , 48 Diabetes Cancer BREAST CAD (coronary artery disease) Hypertension Father Cancer CAD (coronary artery disease) Hypertension Diabetes Family/Other Anesthesia complication CAD (coronary artery disease) Chronic kidney disease (CKD) Dementia Diabetes Lung disease Stroke Suicide Other Hyperlipidemia Seizure Denies family history of Clotting disorder Bleeding disorder Social History Smoking and tobacco status: former smoker Alcohol intake: current Alcohol intake frequency: holidays/special occasions only Marital status: Current occupational status: disabled History of recent travel: No Physical Exam Const: COMMON NORMALS: no acute distress, patient oriented x3 and healthy appearing HENMT: COMMON NORMALS: normocephalic and atraumatic HEAD & SCALP: normocephalic and atraumatic Eye: COMMON NORMALS: Equal, round and reactive pupils present and EOMs intact bilaterally PUPIL: Yes Equal, round and reactive pupils present Neck/C-Spine: COMMON NORMALS: full ROM and supple Chest: COMMONS NORMALS: normal inspection of the chest and normal palpation of entire chest wall Resp: COMMON NORMALS: normal respiratory effort, No retractions, No use of accessory muscles and clear to auscultation bilaterally AUSCULTATION: clear to auscultation bilaterally Cardio: COMMON NORMALS: regular rate, regular rhythm and No murmurs present (Cardio) RATE: regular rate RHYTHM: regular rhythm GI: COMMON NORMALS: Normal to inspection, nondistended, normoactive bowel sounds present, Soft to palpation, non-tender and no masses PALPATION: Yes Soft to palpation Extremity: COMMON NORMALS: normal to inspection and full ROM Neuro: COMMON NORMALS: patient oriented x3, moves all extremities and no focal motor deficits Psych: COMMON NORMALS: mental status grossly normal, Normal thought process present and cooperative THOUGHT PROCESS: Normal thought process present Skin: COMMON NORMALS: no rashes or lesions noted and no wounds GENERAL SKIN EXAM: no rashes or lesions noted Course Vital Signs: Vital signs: Vital Signs Temperature 99.2 F 08/12/22 14:12 Pulse Rate 100 08/12/22 14:12 Respiratory Rate 24 H 08/12/22 14:12 Blood Pressure 112/70 08/12/22 14:12 Pulse Oximetry 97 08/12/22 14:12 Oxygen Delivery Me thod 08/12/22 14:12 MDM - URI/Sore Throat Medical Decision Making Patient presents here with cough congestion body aches consistent with influenza he did test positive for flu a we will place patient on Tamiflu he is stable for discharge she is to follow-up PCP and return if worsening. Lab Data Radiology Impressions Chest X-Ray 08/12/22 14:05 IMPRESSION: No acute findings. Laboratory Results Influenza Type A Ag Positive (Negative) H 08/12/22 14:16 Influenza Type B Ag Negative (Negative) 08/12/22 14:16 SARS-CoV-2 Ag (Rapid) Negative (Negative) 08/12/22 14:16 Discharge Plan Discharge Patient Disposition: Home Clinical Impression: Influenza Condition: Stable Prescriptions: New Tamiflu 75 mg capsule 75 mg PO BID 5 Days Qty: 10 0RF No Action hydrocodone-acetaminophen 10-325 mg tablet 1 tab PO QID PRN (Reason: Moderate Pain (Scale Score 5-6)) nitroglycerin 0.3 mg tablet, sublingual 0.3 mg sublingual Q5M PRN (Reason: Chest Pain) Rx Instructions: do not exceed 3 doses per episode metoprolol tartrate 25 mg tablet 25 mg PO DAILY albuterol sulfate [ProAir HFA] 90 mcg/actuation HFA aerosol inhaler 2 puff inhalation Q6H PRN (Reason: Shortness Of Breath) pantoprazole [Protonix] 40 mg tablet,delayed release (DR/EC) 40 mg PO ONCE 30 Days Qty: 30 2RF fluoxetine [Prozac] 20 mg capsule 20 mg PO DAILY Flomax 0.4 mg capsule 0.4 mg PO DAILY Qty: 30 0RF topiramate [Topamax] 100 mg tablet 100 mg PO DAILY Qty: 90 1RF Rx Instructions: Take one tablet daily. 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
[2022-08-12] MEDS: promethazine 25 mg/mL SDV 1 mL IM (16:22)
[2022-08-12] MEDS: dexamethasone 10 mg/mL INJ IM (16:22)
[2022-08-12] MEDS: ketorolac 60 mg/2 mL INJ IM (16:24)
== END 2022-08-12 16:50 | disposition home or self-care (01) ==
PROVIDERS: Emergency Provider Emergency Medicine; PCP Family Medicine
DX: J11.1 Influenza due to unidentified influenza virus with other respiratory manifestations (principal); Z20.822 Contact with and (suspected) exposure to COVID-19; Z87.891 Personal history of nicotine dependence; I10 Essential (primary) hypertension
CPT/HCPCS: 71045; 87426; 87804; 96372; 99284; J1100; J1885; J2550

== ENCOUNTER → 2022-08-23 09:47 | Outpatient (BNVA) | payer MEDICAID, SELFPAY | PROVIDERS: PCP Family Medicine; Visit Provider Specialist | DX: G43.711 Chronic migraine without aura, intractable, with status migrainosus (principal); F40.231 Fear of injections and transfusions | CPT/HCPCS: 99214 ==

== ENCOUNTER 2022-08-24 03:59 | Emergency (ER) | payer MEDICAID, SELFPAY ==
[2022-08-24 04:03] VITALS: BP 147/92; PULSE 80; RESP 78; TEMP 36.6; O2SAT 95; BMI 33.4
--- NOTE | 2022-08-24 04:09 | ED_ITS ---
HPI - Headache General: Chief Complaint: Headache Stated Complaint: Migraine Time Seen by Provider: 08/24/22 04:02 Source: patient Mode of arrival: ambulatory Limitations: no limitations History of Present Illness: 31-year-old male has a history of migraine headaches states that he had flu last week and states he started gradually having a headache that began yesterday at noon he states gradually worsened and is in the frontal part of his head he denies any fevers denies any neck pain does have some photophobia and phonophobia. Denies any nasal discharge denies any vomiting or diarrhea. Associated symptoms: Deny chest pain, fever(s), nausea, rash or vomiting Review of Systems Const: Denies: fever(s), chills, body aches or change in appetite Eyes: Denies: blurry vision or eye discomfort ENMT: Denies: throat pain or dental pain Card: Denies: chest pain Resp: Denies: dyspnea GI: Denies: abdominal pain, nausea, vomiting or diarrhea : Denies: dysuria Musc: Denies: neck pain or back pain Skin/Breast: Denies: rash Neuro: Reports: headache(s) Psych: Denies: depression Henrik/Lymph: Denies: easy bruising All/Imm: Denies: urticaria PFSH ED PFSH: Medical History ADHD Anxiety COVID Erectile dysfunction Gastroenteritis GERD (gastroesophageal reflux disease) H/O coronary angiogram Hypercholesterolemia Hypertension Left ureteral calculus Pulmonary embolism Surgical History H/O esophagogastroduodenoscopy (04/19/22) H/O hernia repair H/O neck surgery BIOPSY OF NECK SWOLLEN LYMPH NODE History of umbilical hernia repair 2019 History of umbilical hernia repair (11/01/21) Recurrent repaired with with ultrapro mesh Hx of tonsillectomy Status post laparoscopic cholecystectomy (11/01/21) Family History Mother , 48 Diabetes Cancer BREAST CAD (coronary artery disease) Hypertension Father Cancer CAD (coronary artery disease) Hypertension Diabetes Family/Other Anesthesia complication CAD (coronary artery disease) Chronic kidney disease (CKD) Dementia Diabetes Lung disease Stroke Suicide Other Hyperlipidemia Seizure Denies family history of Clotting disorder Bleeding disorder Social History Smoking and tobacco status: former smoker Alcohol intake: current Alcohol intake frequency: holidays/special occasions only Marital status: Current occupational status: disabled History of recent travel: No Physical Exam 2 Const: COMMON NORMALS: no acute distress, patient oriented x3 and healthy appearing HENMT: COMMON NORMALS: normocephalic and atraumatic HEAD & SCALP: normocephalic and atraumatic Eye: COMMON NORMALS: Equal, round and reactive pupils present and EOMs intact bilaterally PUPIL: Yes Equal, round and reactive pupils present Neck/C-Spine: COMMON NORMALS: full ROM and supple Chest: COMMONS NORMALS: normal inspection of the chest and normal palpation of entire chest wall Resp: COMMON NORMALS: normal respiratory effort, No retractions, No use of accessory muscles and clear to auscultation bilaterally AUSCULTATION: clear to auscultation bilaterally Cardio: COMMON NORMALS: regular rate, regular rhythm and No murmurs present (Cardio) RATE: regular rate RHYTHM: regular rhythm GI: COMMON NORMALS: Normal to inspection, nondistended, normoactive bowel sounds present, Soft to palpation, non-tender and no masses PALPATION: Yes Soft to palpation Extremity: COMMON NORMALS: normal to inspection and full ROM Neuro: COMMON NORMALS: patient oriented x3, moves all extremities and no focal motor deficits Psych: COMMON NORMALS: mental status grossly normal, Normal thought process present and cooperative THOUGHT PROCESS: Normal thought process present Skin: COMMON NORMALS: no rashes or lesions noted and no wounds GENERAL SKIN EXAM: no rashes or lesions noted Course Vital Signs: Vital signs: Vital Signs Temperature 97.9 F 08/24/22 04:03 Pulse Rate 80 08/24/22 04:03 Respiratory Rate 78 H 08/24/22 04:03 Blood Pressure 147/92 08/24/22 04:03 Pulse Oximetry 95 08/24/22 04:03 Oxygen Delivery Me thod 08/24/22 04:03 MDM - Headache Medical Decision Making Patient presents with headache he does feel improved after meds he does have tenderness over the ethmoid sinuses could have a sinusitis we will place him on Naprosyn and Keflex he is stable for discharge he is to follow-up PCP and return if worsening. Discharge Plan Discharge Patient Disposition: Home Clinical Impression: Headache, Sinusitis Condition: Stable Prescriptions: New cephalexin 500 mg capsule 500 mg PO TID 7 Days Qty: 21 0RF Naprosyn 500 mg tablet 500 mg PO BID PRN (Reason: pain) Qty: 20 0RF No Action hydrocodone-acetaminophen 10-325 mg tablet 1 tab PO QID PRN (Reason: Moderate Pain (Scale Score 5-6)) nitroglycerin 0.3 mg tablet, sublingual 0.3 mg sublingual Q5M PRN (Reason: Chest Pain) Rx Instructions: do not exceed 3 doses per episode metoprolol tartrate 25 mg tablet 25 mg PO DAILY albuterol sulfate [ProAir HFA] 90 mcg/actuation HFA aerosol inhaler 2 puff inhalation Q6H PRN (Reason: Shortness Of Breath) pantoprazole [Protonix] 40 mg tablet,delayed release (DR/EC) 40 mg PO ONCE 30 Days Qty: 30 2RF fluoxetine [Prozac] 20 mg capsule 20 mg PO DAILY divalproex [Depakote] 500 mg tablet,delayed release (DR/EC) 500 mg PO ONCE 90 Days Qty: 90 0RF Flomax 0.4 mg capsule 0.4 mg PO DAILY Qty: 30 0RF topiramate [Topamax] 100 mg tablet 100 mg PO DAILY Qty: 90 1RF Rx Instructions: Take one tablet daily. 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
[2022-08-24] MEDS: metoclopramide 5 mg/mL SDV 2 mL 10 MG IVP (04:35)
[2022-08-24] MEDS: diphenhydrAMINE 50 mg/mL SDV 1mL IVP (04:35)
[2022-08-24] MEDS: ketorolac 30 mg/mL INJ IVP (04:35)
[2022-08-24 05:07] VITALS: BP 106/72; PULSE 69; RESP 15; O2SAT 94
== END 2022-08-24 05:06 | disposition home or self-care (01) ==
PROVIDERS: Emergency Provider Emergency Medicine; PCP Family Medicine
DX: R51.9 Headache, unspecified (principal); J32.9 Chronic sinusitis, unspecified; Z87.891 Personal history of nicotine dependence; I10 Essential (primary) hypertension
CPT/HCPCS: 96374; 96375; 99284; J1200; J1885; J2765

== ENCOUNTER 2022-10-22 04:22 | Emergency (ER) | payer MEDICAID, SELFPAY ==
[2022-10-22 04:33] VITALS: BP 137/81; PULSE 84; RESP 18; TEMP 36.6; O2SAT 98; BMI 33.3
--- NOTE | 2022-10-22 04:35 | CTR_ITS ---
PROCEDURE INFORMATION: Exam: CT Abdomen And Pelvis Without Contrast Exam date and time: 10/22/2022 4:52 AM Age: 32 years old Clinical indication: Abdominal pain; Flank; Left; Prior surgery; Surgery date: 6+ months; Surgery type: Hernia repair, cholecystectomy; Additional info: L flank pain TECHNIQUE: Imaging protocol: Computed tomography of the abdomen and pelvis without contrast. Radiation optimization: All CT scans at this facility use at least one of these dose optimization techniques: automated exposure control; mA and/or kV adjustment per patient size (includes targeted exams where dose is matched to clinical indication); or iterative reconstruction. Other protocol: This patient has received 2 known CTs and 0 known cardiac nuclear medicine studies in the 12 months prior to the current study. COMPARISON: CT kidney stone [id number] 12/02/2021 7:33 PM RADIATION DOSE METRICS: Total DLP (mGy-cm): 1063.74 FINDINGS: Lungs: The visualized portions of the lung bases are normal. Liver: Unchanged hepatomegaly with severe fatty infiltration of the liver. No mass. Gallbladder and bile ducts: Status post prior cholecystectomy. No biliary ductal dilatation. Pancreas: Appears unremarkable on the non-contrast CT. No ductal dilation. Spleen: Appears unremarkable on the non-contrast CT. Unchanged mild splenomegaly with the spleen measuring 13.1 cm in length. Adrenal glands: Normal. No mass. Kidneys and ureters: Unchanged left kidney upper pole and lower pole 0.1 cm calculi. Unchanged right kidney mid zone and lower pole 0.1 cm calculi. No hydronephrosis, ureterectasis or ureteral calculi. No contour deforming renal masses on the noncontrast CT. Stomach and bowel: The noncontrast opacified stomach appears unremarkable. The noncontrast opacified loops of small bowel in the abdomen and pelvis appear unremarkable. The noncontrast opacified loops of colon in the abdomen and pelvis show some unchanged sigmoid colonic diverticula, without CT evidence of diverticulitis. The lack of orally administered contrast material limits bowel assessment. Appendix: No evidence of appendicitis. Intraperitoneal space: No free air. No significant fluid collection. Vasculature: No abdominal aortic aneurysm. Lymph nodes: No enlarged lymph nodes. Urinary bladder: The bladder is not well distended with relative wall prominence. Assessment is limited. If there is clinical concern for cystitis, recommend correlation with urinalysis findings. Reproductive: Unremarkable as visualized. Bones/joints: No acute osseous abnormality seen. Soft tissues: Unchanged small umbilical hernia is seen, containing peritoneal fat. Some minimal residual fat stranding is seen in the umbilical region, which may represent scarring. CT/CT kidney stone [id number] IMPRESSION: 1. Unchanged punctate bilateral intrarenal calculi. No hydronephrosis, ureterectasis or ureteral calculi. 2. Bladder not well distended with relative wall prominence. Assessment is limited. If there is clinical concern for cystitis, recommend correlation with urinalysis findings. 3. Unchanged hepatomegaly with severe fatty infiltration of the liver. Unchanged mild splenomegaly.
--- NOTE | 2022-10-22 04:36 | W.ED.GENADLT ---
HPI - General Adult General: Chief complaint: Abdominal Pain Stated complaint: Pain in kidney area Time Seen by Provider: 10/22/22 04:25 Source: patient Mode of arrival: ambulatory Limitations: no limitations History of Present Illness: 32-year-old male states has been having left-sided flank pain since yesterday. He states sharp pain in nature rates it a 6 out of 10 denies any radiation of his pain. He denies any abdominal pain denies any fever denies any dysuria denies any nausea or vomiting he has had kidney stones in the past. Associated symptoms: Deny chest pain, dyspnea, headache(s), nausea, rash or vomiting Review of Systems Const: Denies: fever(s), chills, body aches or change in appetite Eyes: Denies: blurry vision or eye discomfort ENMT: Denies: throat pain or dental pain Card: Denies: chest pain Resp: Denies: dyspnea GI: Denies: abdominal pain, nausea, vomiting or diarrhea : Reports: flank pain Musc: Denies: neck pain or back pain Skin/Breast: Denies: rash Neuro: Denies: headache(s) Psych: Denies: depression Henrik/Lymph: Denies: easy bruising All/Imm: Denies: urticaria PFSH ED PFSH: Medical History ADHD Anxiety COVID Erectile dysfunction Gastroenteritis GERD (gastroesophageal reflux disease) H/O coronary angiogram Hypercholesterolemia Hypertension Left ureteral calculus Pulmonary embolism Surgical History H/O esophagogastroduodenoscopy (04/19/22) H/O hernia repair H/O neck surgery BIOPSY OF NECK SWOLLEN LYMPH NODE History of umbilical hernia repair 2019 History of umbilical hernia repair (11/01/21) Recurrent repaired with with ultrapro mesh Hx of tonsillectomy Status post laparoscopic cholecystectomy (11/01/21) Family History Mother , 48 Diabetes Cancer BREAST CAD (coronary artery disease) Hypertension Father Cancer CAD (coronary artery disease) Hypertension Diabetes Family/Other Anesthesia complication CAD (coronary artery disease) Chronic kidney disease (CKD) Dementia Diabetes Lung disease Stroke Suicide Other Hyperlipidemia Seizure Denies family history of Clotting disorder Bleeding disorder Social History Smoking and tobacco status: former smoker Alcohol intake: current Alcohol intake frequency: holidays/special occasions only Marital status: Current occupational status: disabled History of recent travel: No Physical Exam Const: COMMON NORMALS: no acute distress, patient oriented x3 and healthy appearing HENMT: COMMON NORMALS: normocephalic and atraumatic HEAD & SCALP: normocephalic and atraumatic Eye: COMMON NORMALS: Equal, round and reactive pupils present and EOMs intact bilaterally PUPIL: Yes Equal, round and reactive pupils present Neck/C-Spine: COMMON NORMALS: full ROM and supple Chest: COMMONS NORMALS: normal inspection of the chest and normal palpation of entire chest wall Resp: COMMON NORMALS: normal respiratory effort, No retractions, No use of accessory muscles and clear to auscultation bilaterally AUSCULTATION: clear to auscultation bilaterally Cardio: COMMON NORMALS: regular rate, regular rhythm and No murmurs present (Cardio) RATE: regular rate RHYTHM: regular rhythm GI: COMMON NORMALS: Normal to inspection, nondistended, normoactive bowel sounds present, Soft to palpation, non-tender and no masses PALPATION: Yes Soft to palpation Extremity: COMMON NORMALS: normal to inspection and full ROM Neuro: COMMON NORMALS: patient oriented x3, moves all extremities and no focal motor deficits Psych: COMMON NORMALS: mental status grossly normal, Normal thought process present and cooperative THOUGHT PROCESS: Normal thought process present Skin: COMMON NORMALS: no rashes or lesions noted and no wounds GENERAL SKIN EXAM: no rashes or lesions noted Course Vital Signs: Vital signs: Vital Signs Temperature 98 F 10/22/22 04:33 Pulse Rate 84 10/22/22 04:33 Respiratory Rate 18 10/22/22 04:33 Blood Pressure 137/81 10/22/22 04:33 Pulse Oximetry 98 10/22/22 04:33 Oxygen Delivery Me thod 10/22/22 04:33 [facility] - General Adult Medical Decision Making Patient presents here with flank pain is minimal in nature here his CT scan along with blood work are all normal he is stable for discharge is to follow-up with PCP and return if worsening. He understands agrees to plan. Lab Data 10/22/22 04:43 10/22/22 04:43 Radiology Impressions Abdomen/Pelvis CT 10/22/22 04:35 IMPRESSION: 1. Unchanged punctate bilateral intrarenal calculi. No hydronephrosis, ureterectasis or ureteral calculi. 2. Bladder not well distended with relative wall prominence. Assessment is limited. If there is clinical concern for cystitis, recommend correlation with urinalysis findings. 3. Unchanged hepatomegaly with severe fatty infiltration of the liver. Unchanged mild splenomegaly. Laboratory Results WBC 9.6 10^3/uL (4.0-10.0) 10/22/22 04:43 RBC 5.04 10^6/uL (4.1-5.3) 10/22/22 04:43 Hgb 15.1 g/dL (11.7-16.6) 10/22/22 04:43 Hct 46.1 % (42.0-52.0) 10/22/22 04:43 MCV 91.5 fl (80-94) 10/22/22 04:43 MCH 30.0 pg (28.0-34.0) 10/22/22 04:43 MCHC 32.8 g/dL (30.0-36.0) 10/22/22 04:43 RDW 12.5 % (12.1-15.1) 10/22/22 04:43 Plt Count 277 10^3/cmm (130-400) 10/22/22 04:43 MPV 9.2 fL (7.4-10.4) 10/22/22 04:43 Neut % (Auto) 58.6 % 10/22/22 04:43 Lymph % (Auto) 27.7 % 10/22/22 04:43 [place] % (Auto) 9.7 % 10/22/22 04:43 Eos % (Auto) 2.7 % 10/22/22 04:43 Baso % (Auto) 0.6 % 10/22/22 04:43 Neut # (Auto) 5.61 10^3/uL (1.8-7.7) 10/22/22 04:43 Lymph # (Auto) 2.7 10^3/uL (0.8-4.8) 10/22/22 04:43 [place] # (Auto) 0.9 10^3/uL (0.2-0.9) 10/22/22 04:43 Eos # (Auto) 0.3 10^3/uL (0.0-0.8) 10/22/22 04:43 Baso # (Auto) 0.1 10^3/uL (0.0-0.1) 10/22/22 04:43 Nucleated RBC % (auto) 0 % 10/22/22 04:43 Nucleated RBCs # 0.0 /100WBC 10/22/22 04:43 Sodium 141 mmol/L (136-145) 10/22/22 04:43 Potassium 3.7 mmol/L (3.5-5.1) 10/22/22 04:43 Chloride 103 mmol/L (98-107) 10/22/22 04:43 Carbon Dioxide 26 mmol/L (22-29) 10/22/22 04:43 Anion Gap 15.7 (5-19) 10/22/22 04:43 BUN 13 mg/dL (6-20) 10/22/22 04:43 Creatinine 0.8 mg/dL (0.7-1.2) 10/22/22 04:43 GFR Calculation 111.3 mL/min (90-130) 10/22/22 04:43 Glucose 113 mg/dL (65-115) 10/22/22 04:43 Calculated Osmolality 293 mOsm/kg (285-295) 10/22/22 04:43 Calcium 9.3 mg/dL (8.5-10.5) 10/22/22 04:43 Total Bilirubin 0.2 mg/dL (0.15-1.2) 10/22/22 04:43 AST 30 U/L (0-40) 10/22/22 04:43 ALT 68 U/L (0-41) H 10/22/22 04:43 Alkaline Phosphatase 92 U/L (40-130) 10/22/22 04:43 Total Protein 7.4 g/dL (6.6-8.7) 10/22/22 04:43 Albumin 4.6 g/dL (3.5-5.2) 10/22/22 04:43 Globulin 2.8 g/dL (1.3-4.6) 10/22/22 04:43 Lipase 33 U/L (13-60) 10/22/22 04:43 Urine Color Yellow (Yellow) 10/22/22 04:43 Urine Appearance Clear (CLEAR) 10/22/22 04:43 Urine pH 5 (5-7) 10/22/22 04:43 Ur Specific [place] 1.025 (1.005-1.030) 10/22/22 04:43 Urine Protein Neg (Negative) 10/22/22 04:43 Urine Glucose (UA) Norm (Normal) 10/22/22 04:43 Urine Ketones Negative (Negative) 10/22/22 04:43 Urine Blood Neg (Negative) 10/22/22 04:43 Urine Nitrate Negative (Negative) 10/22/22 04:43 Urine Bilirubin Neg (Negative) 10/22/22 04:43 Urine Urobilinogen Neg mg/dL (Negative) 10/22/22 04:43 Ur Leukocyte Esterase Negative (Negative) 10/22/22 04:43 Discharge Plan Discharge Patient Disposition: Home Clinical Impression: Acute flank pain Condition: Stable Prescriptions: New Naprosyn 500 mg tablet 500 mg PO BID PRN (Reason: pain) Qty: 20 0RF No Action hydrocodone-acetaminophen 10-325 mg tablet 1 tab PO QID PRN (Reason: Moderate Pain (Scale Score 5-6)) nitroglycerin 0.3 mg tablet, sublingual 0.3 mg sublingual Q5M PRN (Reason: Chest Pain) Rx Instructions: do not exceed 3 doses per episode metoprolol tartrate 25 mg tablet 25 mg PO DAILY albuterol sulfate [ProAir HFA] 90 mcg/actuation HFA aerosol inhaler 2 puff inhalation Q6H PRN (Reason: Shortness Of Breath) pantoprazole [Protonix] 40 mg tablet,delayed release (DR/EC) 40 mg PO ONCE 30 Days Qty: 30 2RF fluoxetine [Prozac] 20 mg capsule 20 mg PO DAILY divalproex [Depakote] 500 mg tablet,delayed release (DR/EC) 500 mg PO ONCE 90 Days Qty: 90 0RF Flomax 0.4 mg capsule 0.4 mg PO DAILY Qty: 30 0RF topiramate [Topamax] 100 mg tablet 100 mg PO DAILY Qty: 90 1RF Rx Instructions: Take one tablet daily. Naprosyn 500 mg tablet 500 mg PO BID PRN (Reason: pain) Qty: 20 0RF Discharge Orders: Discharge ED (Routine); Ordered 10/22/22 Ordered By: Eileen Adair Referrals: Mitch Jimenez MD [Primary Care Provider] - 1-3 days Discharge Diet: Advance as tolerated Discharge Activity: Resume usual activity Patient Instructions: Flank Pain (ED) Coding Level of Care Code ED Visual Aid Expert for Chg Fwd Exam Comprehensive
[2022-10-22] MEDS: sodium chloride 0.9% 1,000 ML 999 ML IV (04:41)
[2022-10-22] MEDS: ondansetron 2 mg/ML SDV 2 mL 4 MG IVP (04:44)
[2022-10-22] MEDS: HYDROmorphone 1 mg/mL INJ 1 mL 0.5 MG IVP (04:44)
[2022-10-22 04:49] LABS: Add Urine Microscopic? NO; Charge for UA Resulting for Rev
[2022-10-22 04:51] LABS: Basophils # 0.1 10^3/uL (0.0-0.1); Basophils % 0.6 %; Eosinophils # 0.3 10^3/uL (0.0-0.8); Eosinophils % 2.7 %; Hematocrit 46.1 % (42.0-52.0); Hemoglobin 15.1 g/dL (11.7-16.6); Lymphocytes # 2.7 10^3/uL (0.8-4.8); Lymphocytes % 27.7 %; Mean Corpuscular HGB Conc 32.8 g/dL (30.0-36.0); Mean Corpuscular Volume 91.5 fl (80-94); Mean Platelet Volume 9.2 fL (7.4-10.4); Monocytes # 0.9 10^3/uL (0.2-0.9); Monocytes % 9.7 %; Neutrophils # 5.61 10^3/uL (1.8-7.7); Neutrophils % 58.6 %; Nucleated Red Blood Cells % 0 %; Platelet Count 277 10^3/cmm (130-400); Red Blood Count 5.04 10^6/uL (4.1-5.3); Red Cell Distribution Width 12.5 % (12.1-15.1); White Blood Count 9.6 10^3/uL (4.0-10.0)
[2022-10-22 05:05] LABS: Bilirubin Urine Neg (Negative); Blood Urine Neg (Negative); Glucose Urine UA Norm (Normal); Ketones Urine Negative (Negative); Leukocyte Esterase Urine Negative (Negative); Nitrate Urine Negative (Negative); Protein Urine Neg (Negative); Specific Gravity, Urine 1.025 (1.005-1.030); Urine Appearance Clear (CLEAR); Urine Color Yellow (Yellow); Urobilinogen Urine Neg (Negative); pH Urine 5 (5-7)
[2022-10-22 05:08] LABS: Alanine Aminotransferase 68 U/L (0-41); Albumin Level 4.6 g/dL (3.5-5.2); Alkaline Phosphatase 92 U/L (40-130); Anion Gap 15.7 (5-19); Aspartate Amino Transferase 30 U/L (0-40); Blood Urea Nitrogen 13 mg/dL (6-20); Calcium 9.3 mg/dL (8.5-10.5); Carbon Dioxide 26 mmol/L (22-29); Chloride 103 mmol/L (98-107); Globulin 2.8 g/dL (1.3-4.6); Glomerular Filtration Rate 111.3 mL/min (90-130); Glucose 113 mg/dL (65-115); Lipase 33 U/L (13-60); Osmolality Calculated 293 mOsm/kg (285-295); Potassium 3.7 mmol/L (3.5-5.1); Sodium 141 mmol/L (136-145); Total Bilirubin 0.2 mg/dL (0.15-1.2); Total Protein 7.4 g/dL (6.6-8.7)
== END 2022-10-22 05:41 | disposition home or self-care (01) ==
PROVIDERS: Emergency Provider Emergency Medicine; PCP Family Medicine
DX: R10.9 Unspecified abdominal pain (principal); Z87.891 Personal history of nicotine dependence; I10 Essential (primary) hypertension
CPT/HCPCS: 74176; 80053; 81003; 83690; 85025; 96361; 96374; 96375; 99285; J1170; J2405; J7030

== ENCOUNTER 2022-12-08 10:52 | Outpatient (CLI) | payer MEDICAID, SELFPAY ==
[2022-12-08 11:14] VITALS: PULSE 82; RESP 18; O2SAT 99
[2022-12-08] MEDS: albuterol 2.5 mg/3 mL Neb INHALATION (11:14)
== END 2022-12-08 10:53 | disposition home or self-care (01) ==
LOC: RT 10:53
PROVIDERS: PCP Family Medicine; Visit Provider Family Medicine
DX: R06.00 Dyspnea, unspecified (principal)
CPT/HCPCS: 94060; 94729

== ENCOUNTER 2023-01-23 17:28 | Emergency (ER) | payer MEDICAID, SELFPAY ==
[2023-01-23 17:34] VITALS: BP 142/99; PULSE 80; RESP 16; TEMP 36.4; O2SAT 97; BMI 33.5
--- NOTE | 2023-01-23 17:37 | ED_ITS ---
HPI - Wound/Laceration General: Chief Complaint: Wound/Laceration Stated Complaint: Right thumb injury, possible Blade in thumb Time Seen by Provider: 01/23/23 17:37 History of Present Illness: 32-year-old male patient was using a box knife to trim a piece of vinyl when it slipped cutting himself on the inner aspect of his right thumb. Patient difficulty getting the bleeding controlled had wrapped a pressure dressing around the and then proceeded to the ER. Incident occurred about 1 hour prior to arrival. On exam bleeding was controlled. Patient had a light pressure dressing on it. Patient cannot recall his last tetanus. Patient appears nontoxic. Associated symptoms: Denies fever(s), nausea or vomiting Review of Systems General: Reports: 10 or more systems reviewed and unremarkable except in HPI and below Const: Denies: fever(s) Card: Denies: chest pain Resp: Denies: dyspnea GI: Denies: nausea or vomiting : Denies: difficulty urinating Musc: Reports: extremity pain Skin/Breast: Reports: new lesions PFSH ED PFSH: Medical History ADHD Anxiety COVID Erectile dysfunction Gastroenteritis GERD (gastroesophageal reflux disease) H/O coronary angiogram Hypercholesterolemia Hypertension Left ureteral calculus Pulmonary embolism Surgical History H/O esophagogastroduodenoscopy (04/19/22) H/O hernia repair H/O neck surgery BIOPSY OF NECK SWOLLEN LYMPH NODE History of umbilical hernia repair 2019 History of umbilical hernia repair (11/01/21) Recurrent repaired with with ultrapro mesh Hx of tonsillectomy Status post laparoscopic cholecystectomy (11/01/21) Family History Mother , 48 Diabetes Cancer BREAST CAD (coronary artery disease) Hypertension Father Cancer CAD (coronary artery disease) Hypertension Diabetes Family/Other Anesthesia complication CAD (coronary artery disease) Chronic kidney disease (CKD) Dementia Diabetes Lung disease Stroke Suicide Other Hyperlipidemia Seizure Denies family history of Clotting disorder Bleeding disorder Social History Smoking and tobacco status: former smoker Alcohol intake: current Alcohol intake frequency: holidays/special occasions only Substance/Drug Use: never Marital status: Current occupational status: disabled Physical Exam Const: COMMON NORMALS: alert HENMT: COMMON NORMALS: normocephalic HEAD & SCALP: normocephalic Neck/C-Spine: COMMON NORMALS: full ROM Resp: COMMON NORMALS: normal respiratory effort and clear to auscultation bilaterally AUSCULTATION: clear to auscultation bilaterally Cardio: COMMON NORMALS: regular rate and regular rhythm RATE: regular rate RHYTHM: regular rhythm GI: COMMON NORMALS: Soft to palpation and non-tender PALPATION: Yes Soft to palpation Back/Pelvis: COMMON NORMALS: thoracic and lumbar spine normal to inspection Extremity: RIGHT UPPER EXTREMITY: Yes hand & digits (Superficial flap laceration to the right thumb) Right hand and digits: Yes inspection, Yes palpation, Yes ROM exam and Yes neurovascular exam Neuro: SENSORIUM/ORIENTATION: Yes alert Skin: TRAUMA: laceration (Right thumb flap laceration proximally 1 cm) Procedures Laceration Laceration 1: Site: hand Side (If applicable): right Size (cm): 1 Description: flap Depth: simple, single layer Pre-repair: wound explored and irrigated extensively Skin layer closed with: other (Skin adhesive) Course Vital Signs: Vital signs: Vital Signs Temperature 97.6 F 01/23/23 17:34 Pulse Rate 80 01/23/23 17:34 Respiratory Rate 16 01/23/23 17:34 Blood Pressure 142/99 01/23/23 17:34 Pulse Oximetry 97 01/23/23 17:34 Oxygen Delivery Me thod Room Air 01/23/23 17:34 MDM - Wound/Laceration Medical Decision Making 32-year-old male patient comes in today with injury to the right distal thumb. On exam patient has a laceration is approximately 1 cm flap to the inner aspect of the right thumb at the base of the nail. No damage is noted to the nail. Patient has normal range of motion. Differential diagnosis foreign body, need for prophylaxis tetanus, laceration. X-ray was unremarkable for fracture or foreign body. Wound was cleaned and secured with skin adhesive. Patient was placed in a light pressure dressing to protect the wound. Strongly recommended keeping the wound clean and dry to prevent infection. Recommend follow-up with primary care for further evaluation. Patient was written a Levaquin prescription for prescription and a pocket in case infection starts. Patient reports understanding agreed to plan. Discharge Plan Discharge Patient Disposition: Home Clinical Impression: Laceration of thumb Qualifiers: Encounter type: initial encounter Damage to nail status: without damage Foreign body presence: without foreign body Laterality: right Qualified Code(s): S61.011A - Laceration without foreign body of right thumb without damage to nail, initial encounter Condition: Stable Prescriptions: New levofloxacin 500 mg tablet 500 mg PO DAILY 7 Days Qty: 7 0RF No Action hydrocodone-acetaminophen 10-325 mg tablet 1 tab PO QID PRN (Reason: Moderate Pain (Scale Score 5-6)) nitroglycerin 0.3 mg tablet, sublingual 0.3 mg sublingual Q5M PRN (Reason: Chest Pain) Rx Instructions: do not exceed 3 doses per episode metoprolol tartrate 25 mg tablet 25 mg PO DAILY albuterol sulfate [ProAir HFA] 90 mcg/actuation HFA aerosol inhaler 2 puff inhalation Q6H PRN (Reason: Shortness Of Breath) pantoprazole [Protonix] 40 mg tablet,delayed release (DR/EC) 40 mg PO ONCE 30 Days Qty: 30 2RF fluoxetine [Prozac] 20 mg capsule 20 mg PO DAILY divalproex [Depakote] 500 mg tablet,delayed release (DR/EC) 500 mg PO ONCE 90 Days Qty: 90 0RF fluticasone propionate [Flonase Allergy Relief] 50 mcg/actuation spray,suspension 1 spray intranasal BID Qty: 16 0RF Rx Instructions: administer into each nostril Flomax 0.4 mg capsule 0.4 mg PO DAILY Qty: 30 0RF topiramate [Topamax] 100 mg tablet 100 mg PO DAILY Qty: 90 1RF Rx Instructions: Take one tablet daily. Naprosyn 500 mg tablet 500 mg PO BID PRN (Reason: pain) Qty: 20 0RF Naprosyn 500 mg tablet 500 mg PO BID PRN (Reason: pain) Qty: 20 0RF Discharge Orders: Discharge ED (Routine); Ordered 01/23/23 Ordered By: Florin Last Referrals: Mitch Jimenez MD [Primary Care Provider] - Discharge Diet: Usual diet Discharge Activity: Increase activity as tolerated Patient Instructions: Skin Adhesive Care (ED) Activity Restrictions/Additional Instructions: Keep wound clean and dry as much as possible. Use acetaminophen ibuprofen for pain. Dress wound with elastic bandage to protect site. Use antibiotics as needed for infection. Follow-up with primary care for further evaluation and treatment. Return to ED for new concerns. Coding Level of Care Code ED Sustainable Communities Designer for Vernell Mccormack
--- NOTE | 2023-01-23 17:37 | XRR_ITS ---
PROCEDURE INFORMATION: Exam: XR Right Hand Exam date and time: 01/23/2023 5:47 PM Age: 32 years old Clinical indication: Injury or trauma; Other: Laceration; Hand; Right; Injury details: RT thumb lac; Additional info: Injury, R/O foreign body TECHNIQUE: Imaging protocol: Radiologic exam of the right hand. Views: 3 or more views. COMPARISON: No relevant prior studies available. FINDINGS: Bones/joints: Normal. Soft tissues: Normal. XR/XR hand RT min 3V* [id number] IMPRESSION: No acute findings. Negative for radiodense foreign body.
[2023-01-23] MEDS: tetanus-dipt-pertussis 0.5 mL SDV IM (18:14)
== END 2023-01-23 18:22 | disposition home or self-care (01) ==
PROVIDERS: Emergency Provider Nurse Practitioner Family; PCP Family Medicine
DX: S61.011A Laceration without foreign body of right thumb without damage to nail, initial encounter (principal); Z87.891 Personal history of nicotine dependence; I10 Essential (primary) hypertension; W26.0XXA Contact with knife, initial encounter; Z23 Encounter for immunization
CPT/HCPCS: 12001; 73130; 90471; 90715; 99283

== ENCOUNTER 2023-01-24 21:43 | Emergency (ER) | payer MEDICAID, SELFPAY ==
[2023-01-24 21:46] VITALS: BP 125/73; PULSE 81; RESP 14; O2SAT 99
--- NOTE | 2023-01-24 22:30 | ED_ITS ---
HPI - Wound/Laceration General: Chief Complaint: Wound/Laceration Stated Complaint: hand lac Time Seen by Provider: 01/24/23 22:30 History of Present Illness: 32-year-old male patient comes back today for concerns of bleeding from wound site. Patient yesterday had cut his thumb with a ammonia box operator. Patient has superficial wound to the outside aspect of his thumb at the base of the nail not injuring the nail. Wound was cleaned and secured with adhesive and covered with a clear dressing. Patient reports he was in the shower and had gotten it wet and changed it and when removing the dressing the adhesive and dressing came off. Wound is approximated with no bleeding at this time. No significant redness or abnormality is noted. Review of Systems General: Reports: 10 or more systems reviewed and unremarkable except in HPI and below Card: Denies: chest pain Resp: Denies: dyspnea Skin/Breast: Reports: new lesions PFS ED PFSH: Medical History ADHD Anxiety COVID Erectile dysfunction Gastroenteritis GERD (gastroesophageal reflux disease) H/O coronary angiogram Hypercholesterolemia Hypertension Left ureteral calculus Pulmonary embolism Surgical History H/O esophagogastroduodenoscopy (04/19/22) H/O hernia repair H/O neck surgery BIOPSY OF NECK SWOLLEN LYMPH NODE History of umbilical hernia repair 2019 History of umbilical hernia repair (11/01/21) Recurrent repaired with with ultrapro mesh Hx of tonsillectomy Status post laparoscopic cholecystectomy (11/01/21) Family History Mother , 48 Diabetes Cancer BREAST CAD (coronary artery disease) Hypertension Father Cancer CAD (coronary artery disease) Hypertension Diabetes Family/Other Anesthesia complication CAD (coronary artery disease) Chronic kidney disease (CKD) Dementia Diabetes Lung disease Stroke Suicide Other Hyperlipidemia Seizure Denies family history of Clotting disorder Bleeding disorder Social History Smoking and tobacco status: former smoker Alcohol intake: current Alcohol intake frequency: holidays/special occasions only Substance/Drug Use: never Marital status: Current occupational status: disabled Physical Exam Const: COMMON NORMALS: no acute distress HENMT: COMMON NORMALS: normocephalic HEAD & SCALP: normocephalic Neck/C-Spine: COMMON NORMALS: full ROM Resp: COMMON NORMALS: normal respiratory effort Cardio: COMMON NORMALS: regular rate and regular rhythm RATE: regular rate RHYTHM: regular rhythm Extremity: RIGHT UPPER EXTREMITY: Yes hand & digits (Well approximated wound to the thumb, no redness no swelling) Skin: COMMON NORMALS: turgor normal GENERAL SKIN EXAM: turgor normal Course Vital Signs: Vital signs: Vital Signs Pulse Rate 81 01/24/23 21:46 Respiratory Rate 14 01/24/23 21:46 Blood Pressure 125/73 01/24/23 21:46 Pulse Oximetry 99 01/24/23 21:46 Oxygen Delivery Me thod Room Air 01/24/23 21:46 MDM - Wound/Laceration Medical Decision Making Patient comes in for reevaluation of wound. Patient lost the dressing and adhesive off the wound during a shower. Patient was instructed to keep the wound clean and dry for 48 hours. On exam is no redness and a well approximated wound site. No active bleeding. Differential diagnosis includes dehiscence of wound, wound infection, bleeding of wound. Reviewed exam with patient recommended dressing with a dry dressing and leaving it intact for 3 days. Recommend follow-up with primary care in 3 days for recheck. Recommend return to the ER for new concerns. Discharge Plan Discharge Condition: Stable Prescriptions: No Action hydrocodone-acetaminophen 10-325 mg tablet 1 tab PO QID PRN (Reason: Moderate Pain (Scale Score 5-6)) nitroglycerin 0.3 mg tablet, sublingual 0.3 mg sublingual Q5M PRN (Reason: Chest Pain) Rx Instructions: do not exceed 3 doses per episode metoprolol tartrate 25 mg tablet 25 mg PO DAILY albuterol sulfate [ProAir HFA] 90 mcg/actuation HFA aerosol inhaler 2 puff inhalation Q6H PRN (Reason: Shortness Of Breath) pantoprazole [Protonix] 40 mg tablet,delayed release (DR/EC) 40 mg PO ONCE 30 Days Qty: 30 2RF fluoxetine [Prozac] 20 mg capsule 20 mg PO DAILY divalproex [Depakote] 500 mg tablet,delayed release (DR/EC) 500 mg PO ONCE 90 Days Qty: 90 0RF fluticasone propionate [Flonase Allergy Relief] 50 mcg/actuation spray,suspension 1 spray intranasal BID Qty: 16 0RF Rx Instructions: administer into each nostril Flomax 0.4 mg capsule 0.4 mg PO DAILY Qty: 30 0RF topiramate [Topamax] 100 mg tablet 100 mg PO DAILY Qty: 90 1RF Rx Instructions: Take one tablet daily. Naprosyn 500 mg tablet 500 mg PO BID PRN (Reason: pain) Qty: 20 0RF Naprosyn 500 mg tablet 500 mg PO BID PRN (Reason: pain) Qty: 20 0RF levofloxacin 500 mg tablet 500 mg PO DAILY 7 Days Qty: 7 0RF Referrals: Mitch Jimenez MD [Primary Care Provider] - Coding Level of Care Code ED Labeling Associate for Vernell Mccormack
== END 2023-01-24 22:57 | disposition home or self-care (01) ==
PROVIDERS: Emergency Provider Nurse Practitioner Family; PCP Family Medicine
DX: Z48.00 Encounter for change or removal of nonsurgical wound dressing (principal); Z87.891 Personal history of nicotine dependence; I10 Essential (primary) hypertension
CPT/HCPCS: 99282

== ENCOUNTER 2023-02-28 20:24 | Emergency (ER) | payer MEDICAID, SELFPAY ==
[2023-02-28 20:29] VITALS: BP 123/80; PULSE 89; RESP 16; TEMP 36.7; O2SAT 96; BMI 34.4
[2023-02-28 20:32] VITALS: BP 134/70; PULSE 89; RESP 18; O2SAT 97
[2023-02-28] MEDS: sodium chloride 0.9% 1,000 ML 999 ML IV (20:44)
[2023-02-28] MEDS: ondansetron 2 mg/ML SDV 2 mL 4 MG IVP ×2 (20:44→22:16)
[2023-02-28 20:55] LABS: Basophils # 0.1 10^3/uL (0.0-0.1); Basophils % 0.5 %; Eosinophils # 0.2 10^3/uL (0.0-0.8); Eosinophils % 0.9 %; Hematocrit 49.3 % (42.0-52.0); Hemoglobin 16.9 g/dL (11.7-16.6); Lymphocytes # 1.8 10^3/uL (0.8-4.8); Lymphocytes % 10.4 %; Mean Corpuscular HGB Conc 34.3 g/dL (30.0-36.0); Mean Corpuscular Hemoglobin 31.1 pg (28.0-34.0); Mean Corpuscular Volume 90.8 fl (80-94); Mean Platelet Volume 9.1 fL (7.4-10.4); Monocytes # 1.2 10^3/uL (0.2-0.9); Monocytes % 6.7 %; Neutrophils % 81.2 %; Nucleated Red Blood Cells % 0 %; Platelet Count 271 10^3/cmm (130-400); Red Blood Count 5.43 10^6/uL (4.1-5.3); Red Cell Distribution Width 12.8 % (12.1-15.1); White Blood Count 17.6 10^3/uL (4.0-10.0)
--- NOTE | 2023-02-28 21:02 | W.ED.ABDPA2 ---
HPI - Abdominal Pain General: Chief Complaint: Abdominal Pain Stated Complaint: n/v Time Seen by Provider: 02/28/23 20:44 History of Present Illness: This 32-year-old male presents with abdominal pain that started sometime this afternoon. Pain is mainly in the left lower quadrant. It is associated with nausea, vomiting and diarrhea. He has no fever, chest pain or shortness of breath. He appears clinically stable. Associated Symptoms: Reports nausea and vomiting; Denies chills and dysuria Review of Systems Const: Denies: chills, body aches or change in appetite Eyes: Denies: change in vision or eye discharge ENMT: Denies: throat pain, dental pain or nasal discharge Card: Denies: chest pain or lightheadedness GI: Reports: abdominal pain, nausea and vomiting : Denies: dysuria Musc: Denies: neck pain or back pain Neuro: Denies: headache(s) or weakness in extremities Psych: Denies: depression Henrik/Lymph: Denies: easy bruising All/Imm: Denies: urticaria, tongue swelling or facial swelling PFSH ED PFSH: Medical History ADHD Anxiety COVID Erectile dysfunction Gastroenteritis GERD (gastroesophageal reflux disease) H/O coronary angiogram Hypercholesterolemia Hypertension Left ureteral calculus Pulmonary embolism Surgical History H/O esophagogastroduodenoscopy (04/19/22) H/O hernia repair H/O neck surgery BIOPSY OF NECK SWOLLEN LYMPH NODE History of umbilical hernia repair 2019 History of umbilical hernia repair (11/01/21) Recurrent repaired with with ultrapro mesh Hx of tonsillectomy Status post laparoscopic cholecystectomy (11/01/21) Family History Mother , 48 Diabetes Cancer BREAST CAD (coronary artery disease) Hypertension Father Cancer CAD (coronary artery disease) Hypertension Diabetes Family/Other Anesthesia complication CAD (coronary artery disease) Chronic kidney disease (CKD) Dementia Diabetes Lung disease Stroke Suicide Other Hyperlipidemia Seizure Denies family history of Clotting disorder Bleeding disorder Social History Smoking and tobacco status: former smoker Alcohol intake: current Alcohol intake frequency: holidays/special occasions only Substance/Drug Use: never Marital status: Current occupational status: disabled Physical Exam Const: COMMON NORMALS: no acute distress, patient oriented x3, no limitations and alert HENMT: COMMON NORMALS: normocephalic HEAD & SCALP: normocephalic Eye: COMMON NORMALS: EOMs intact bilaterally Neck/C-Spine: COMMON NORMALS: full ROM and supple Chest: COMMONS NORMALS: normal inspection of the chest Resp: COMMON NORMALS: normal respiratory effort, No retractions, No use of accessory muscles and clear to auscultation bilaterally AUSCULTATION: clear to auscultation bilaterally Cardio: COMMON NORMALS: regular rate, regular rhythm and No murmurs present (Cardio) RATE: regular rate RHYTHM: regular rhythm GI: COMMON NORMALS: Normal to inspection, nondistended, normoactive bowel sounds present PALPATION: Yes Tenderness to palpation present (GI) (lower half of the abdomen) Details: LLQ and RLQ : COMMON NORMALS: Yes no CVA tenderness BLADDER/KIDNEY EXAM: Yes no CVA tenderness Back/Pelvis: COMMON NORMALS: no CVA tenderness and no thoracic nor lumbar tenderness Extremity: GENERAL: Yes normal exam except as noted Neuro: COMMON NORMALS: patient oriented x3 and no focal motor deficits SENSORIUM/ORIENTATION: Yes alert Psych: COMMON NORMALS: mental status grossly normal and cooperative Course Vital Signs: Vital signs: Vital Signs Temperature 98.0 F 02/28/23 20:29 Pulse Rate 105 H 02/28/23 22:00 Respiratory Rate 18 02/28/23 23:09 Blood Pressure 145/85 02/28/23 23:09 Pulse Oximetry 96 02/28/23 23:09 Oxygen Delivery Me thod Room Air 02/28/23 22:00 MDM - Abdominal Pain Medical Decision Making Medical decision making: Patient presents with abdominal pain, nausea and vomiting that started earlier in the day. On exam, abdomen is tender to palpation. CT abdomen/pelvis is indicative of colitis. He will be treated with antibiotics and antiemetics. He will follow-up with his primary care physician for reevaluation. Reasons to return were discussed. Lab Data 02/28/23 20:41 02/28/23 20:41 Labs/Radiology: Radiology Impressions Abdomen/Pelvis CT 02/28/23 21:03 IMPRESSION: 1. Air-fluid levels are seen throughout the colon. There is mild mucosal enhancement of the colon. Impression findings suggest mild nonspecific colitis. This finding is new when compared to CT abdomen and pelvis of 10/22/2022. 2. Decreased hepatic density is noted, consistent with hepatic steatosis. Laboratory Results WBC 17.6 10^3/uL (4.0-10.0) H 02/28/23 20:41 RBC 5.43 10^6/uL (4.1-5.3) H 02/28/23 20:41 Hgb 16.9 g/dL (11.7-16.6) H 02/28/23 20:41 Hct 49.3 % (42.0-52.0) 02/28/23 20: MCV 90.8 fl (80-94) 02/28/23 20: MCH 31.1 pg (28.0-34.0) 02/28/23 20: MCHC 34.3 g/dL (30.0-36.0) 02/28/23: RDW 12.8 % (12.1-15.1) 02/28/23 20:41 Plt Count 271 10^3/cmm (130-400) 02/28/23 20: MPV 9.1 fL (7.4-10.4) 02/28/23 20: Neut % (Auto) 81.2 % 02/28/23 20: Lymph % (Auto) 10.4 % 02/28/23 20: [place] % (Auto) 6.7 % 02/28/23 20: Eos % (Auto) 0.9 % 02/28/23: Baso % (Auto) 0.5 % 02/28/23 20: Neut # (Auto) 14.30 10^3/uL (1.8-7.7) H 02/28/23 20: Lymph # (Auto) 1.8 10^3/uL (0.8-4.8) 02/28/23 20: [place] # (Auto) 1.2 10^3/uL (0.2-0.9) H 02/28/23 20:41 Eos # (Auto) 0.2 10^3/uL (0.0-0.8) 02/28/23 20: Baso # (Auto) 0.1 10^3/uL (0.0-0.1) 02/28/23 20:41 Nucleated RBC % (auto) 0 % 02/28/23 20:41 Nucleated RBCs # 0.0 /100WBC 02/28/23 20:41 Sodium 140 mmol/L (136-145) 02/28/23 20:41 Potassium 3.8 mmol/L (3.5-5.1) 02/28/23 20:41 Chloride 102 mmol/L (98-107) 02/28/23 20:41 Carbon Dioxide 23 mmol/L (22-29) 02/28/23 20:41 Anion Gap 18.8 (5-19) 02/28/23 20:41 BUN 12 mg/dL (6-20) 02/28/23 20:41 Creatinine 0.9 mg/dL (0.7-1.2) 02/28/23 20:41 GFR Calculation 97.2 mL/min (90-130) 02/28/23 20:41 Glucose 108 mg/dL (65-115) 02/28/23 20:41 Calculated Osmolality 290 mOsm/kg (285-295) 02/28/23 20:41 Calcium 9.8 mg/dL (8.5-10.5) 02/28/23 20:41 Total Bilirubin 0.4 mg/dL (0.15-1.2) 02/28/23 20:41 AST 71 U/L (0-40) H 02/28/23 20:41 ALT 149 U/L (0-41) H 02/28/23 20:41 Alkaline Phosphatase 107 U/L (40-130) 02/28/23 20:41 Total Protein 8.1 g/dL (6.6-8.7) 02/28/23 20:41 Albumin 4.9 g/dL (3.5-5.2) 02/28/23 20:41 Globulin 3.2 g/dL (1.3-4.6) 02/28/23 20:41 Lipase 36 U/L (13-60) 02/28/23 20:41 Discharge Plan Discharge Patient Disposition: Home Clinical Impression: Colitis Condition: Stable Prescriptions: New Cipro 500 mg tablet 500 mg PO BID 7 Days Qty: 14 0RF metronidazole 500 mg tablet 500 mg PO Q8H 7 Days Qty: 21 0RF Reglan 10 mg tablet 10 mg PO Q6H PRN (Reason: nausea and vomiting) Qty: 20 0RF No Action hydrocodone-acetaminophen 10-325 mg tablet 1 tab PO QID PRN (Reason: Moderate Pain (Scale Score 5-6)) nitroglycerin 0.3 mg tablet, sublingual 0.3 mg sublingual Q5M PRN (Reason: Chest Pain) Rx Instructions: do not exceed 3 doses per episode metoprolol tartrate 25 mg tablet 25 mg PO DAILY albuterol sulfate [ProAir HFA] 90 mcg/actuation HFA aerosol inhaler 2 puff inhalation Q6H PRN (Reason: Shortness Of Breath) pantoprazole [Protonix] 40 mg tablet,delayed release (DR/EC) 40 mg PO ONCE 30 Days Qty: 30 2RF fluoxetine [Prozac] 20 mg capsule 20 mg PO DAILY divalproex [Depakote] 500 mg tablet,delayed release (DR/EC) 500 mg PO ONCE 90 Days Qty: 90 0RF fluticasone propionate [Flonase Allergy Relief] 50 mcg/actuation spray,suspension 1 spray intranasal BID Qty: 16 0RF Rx Instructions: administer into each nostril Flomax 0.4 mg capsule 0.4 mg PO DAILY Qty: 30 0RF topiramate [Topamax] 100 mg tablet 100 mg PO DAILY Qty: 90 1RF Rx Instructions: Take one tablet daily. Naprosyn 500 mg tablet 500 mg PO BID PRN (Reason: pain) Qty: 20 0RF Naprosyn 500 mg tablet 500 mg PO BID PRN (Reason: pain) Qty: 20 0RF Discharge Orders: Discharge ED (Routine); Ordered 02/28/23 Ordered By: Richard Ren Referrals: Mitch Jimenez MD [Primary Care Provider] - Discharge Diet: Usual diet Discharge Activity: Increase activity as tolerated Patient Instructions: Opioid Safety, Pain Management Activity Restrictions/Additional Instructions: Maintain adequate fluid intake. Take ciprofloxacin and Flagyl as prescribed. Take Reglan as needed for nausea/vomiting. Follow-up with your primary care physician in 3 to 5 days for reevaluation. Return with new or worsening symptoms. Coding Level of Care Code ED [employer] Developer for Vernell Mccormack
--- NOTE | 2023-02-28 21:03 | CTR_ITS ---
PROCEDURE INFORMATION: Exam: CT Abdomen And Pelvis With Contrast Exam date and time: 02/28/2023 9:16 PM Age: 32 years old Clinical indication: Nausea and vomiting; Abdominal pain; Localized; Left lower quadrant (llq); Prior surgery; Surgery date: 6+ months; Surgery type: Gb. Hernia repair; Patient HX: Llq pain with n/v/d after eating fish at 1500 this afternoon. ; Additional info: Lower abdominal pain TECHNIQUE: Imaging protocol: Computed tomography of the abdomen and pelvis with contrast. Radiation optimization: All CT scans at this facility use at least one of these dose optimization techniques: automated exposure control; mA and/or kV adjustment per patient size (includes targeted exams where dose is matched to clinical indication); or iterative reconstruction. Contrast material: OMNI 350; Contrast volume: 100 ml; Contrast route: INTRAVENOUS (IV); REPORTING DATA: Count of CT and Cardiac NM exams in prior 12 months: This patient has received [address] and 0 known cardiac nuclear medicine studies in the 12 months prior to the current study. COMPARISON: CT kidney stone [id number] 10/22/2022 4:52 AM RADIATION DOSE METRICS: Total DLP (mGy-cm): 1116.23 FINDINGS: Lungs: The lung bases appear unremarkable. Liver: Decreased hepatic density is noted, consistent with hepatic steatosis. Gallbladder and bile ducts: Status post cholecystectomy. No biliary dilatation. Pancreas: The pancreas is normal in appearance. No pancreatic duct dilatation. Spleen: No focal splenic lesion. No splenomegaly. Adrenal glands: The adrenal glands appear within normal limits. Kidneys and ureters: The kidneys are normal in morphology. No hydronephrosis. No solid mass. Stomach and bowel: No acute gastric abnormality demonstrated. The small bowel is unremarkable as demonstrated. Air-fluid levels are seen throughout the colon. There is mild mucosal enhancement of the colon. Impression findings suggest mild nonspecific colitis. Appendix: The appendix is normal in appearance. No evidence of appendicitis. Intraperitoneal space: No pneumoperitoneum. No significant fluid collection. Vasculature: No abdominal aortic aneurysm. Lymph nodes: No pathologically enlarged lymph nodes. Urinary bladder: Unremarkable as visualized. Reproductive: Unremarkable as visualized. Bones/joints: No acute fracture or other acute osseous abnormality. Soft tissues: Unremarkable. CT/CT abdomen pelvis w con* [id number] IMPRESSION: 1. Air-fluid levels are seen throughout the colon. There is mild mucosal enhancement of the colon. Impression findings suggest mild nonspecific colitis. This finding is new when compared to CT abdomen and pelvis of 10/22/2022. 2. Decreased hepatic density is noted, consistent with hepatic steatosis.
[2023-02-28] MEDS: ketorolac 30 mg/mL INJ IVP (21:09)
[2023-02-28 21:11] VITALS: BP 124/71; PULSE 93; RESP 16; O2SAT 97
[2023-02-28 21:17] LABS: Alanine Aminotransferase 149 U/L (0-41); Albumin Level 4.9 g/dL (3.5-5.2); Alkaline Phosphatase 107 U/L (40-130); Anion Gap 18.8 (5-19); Aspartate Amino Transferase 71 U/L (0-40); Blood Urea Nitrogen 12 mg/dL (6-20); Calcium 9.8 mg/dL (8.5-10.5); Carbon Dioxide 23 mmol/L (22-29); Chloride 102 mmol/L (98-107); Globulin 3.2 g/dL (1.3-4.6); Glomerular Filtration Rate 97.2 mL/min (90-130); Glucose 108 mg/dL (65-115); Lipase 36 U/L (13-60); Osmolality Calculated 290 mOsm/kg (285-295); Potassium 3.8 mmol/L (3.5-5.1); Sodium 140 mmol/L (136-145); Total Bilirubin 0.4 mg/dL (0.15-1.2); Total Protein 8.1 g/dL (6.6-8.7)
[2023-02-28] MEDS: iohexol 350 mg/mL 500 mL Btl (per mL) IV (21:20)
[2023-02-28 22:00] VITALS: BP 129/74; PULSE 105; RESP 20; O2SAT 94
[2023-02-28] MEDS: ciprofloxacin 500 mg Tablet PO (22:34)
[2023-02-28] MEDS: metroNIDAZOLE 500 MG Tablet PO (22:34)
[2023-02-28] MEDS: metoclopramide 5 mg/mL SDV 2 mL 10 MG IVP (22:42)
[2023-02-28 23:00] VITALS: BP 132/65; RESP 20
[2023-02-28 23:09] VITALS: BP 145/85; RESP 18; O2SAT 96
== END 2023-02-28 23:14 | disposition home or self-care (01) ==
PROVIDERS: Emergency Medicine; Emergency Provider Family Medicine; PCP Family Medicine
DX: K52.9 Noninfective gastroenteritis and colitis, unspecified (principal)
CPT/HCPCS: 74177; 80053; 83690; 85025; 96361; 96374; 96375; 96376; 99285; J1885; J2405; J2765; J7030; Q9967

== ENCOUNTER → 2023-03-20 12:40 | Outpatient (BNVA) | payer MEDICAID, SELFPAY | PROVIDERS: PCP Family Medicine; Visit Provider Internal Medicine Pulmonary Disease | DX: R06.02 Shortness of breath (principal); J98.4 Other disorders of lung | CPT/HCPCS: 82785; 86003; 86200; 86225; 86235; 86331; 86431; 86606; 86609; 99204 ==

== ENCOUNTER 2023-04-17 18:30 | Emergency (ER) | payer MEDICAID, SELFPAY ==
[2023-04-17 18:51] VITALS: BP 137/86; PULSE 92; RESP 16; TEMP 36.7; O2SAT 95; BMI 33.4
--- NOTE | 2023-04-17 19:52 | W.ED.EYEPROB ---
HPI - Eye Problem General: Chief complaint: Eye Problems Stated complaint: Splinter in Eye Time Seen by Provider: 04/17/23 19:49 History of Present Illness: 32-year-old male patient states that he was mowing today when something got into his left eye. Patient feels like he continues to have a foreign body in his left eye. Patient appears nontoxic. Patient appears in mild pain. Associated symptoms: Denies fever(s) Review of Systems Const: Denies: fever(s) Eyes: Reports: eye discomfort and eye redness PFSH ED PFSH: Medical History ADHD Anxiety COVID Erectile dysfunction Gastroenteritis GERD (gastroesophageal reflux disease) H/O coronary angiogram Hypercholesterolemia Hypertension Left ureteral calculus Pulmonary embolism Surgical History H/O esophagogastroduodenoscopy (04/19/22) H/O hernia repair H/O neck surgery BIOPSY OF NECK SWOLLEN LYMPH NODE History of umbilical hernia repair 2019 History of umbilical hernia repair (11/01/21) Recurrent repaired with with ultrapro mesh Hx of tonsillectomy Status post laparoscopic cholecystectomy (11/01/21) Family History Mother , 48 Diabetes Cancer BREAST CAD (coronary artery disease) Hypertension Father Cancer CAD (coronary artery disease) Hypertension Diabetes Family/Other Anesthesia complication CAD (coronary artery disease) Chronic kidney disease (CKD) Dementia Diabetes Lung disease Stroke Suicide Other Hyperlipidemia Seizure Denies family history of Clotting disorder Bleeding disorder Social History Smoking and tobacco status: former smoker Alcohol intake: current Alcohol intake frequency: holidays/special occasions only Substance/Drug Use: never Marital status: Current occupational status: disabled Physical Exam Const: COMMON NORMALS: alert HENMT: COMMON NORMALS: normocephalic HEAD & SCALP: normocephalic Eye: COMMON NORMALS: Equal, round and reactive pupils present CONJUNCTIVA: Yes conjunctival abnormal positive left conjunctival injection SCLERA: sclerae normal CORNEA: Yes fluorescein used (Abrasion noted to the left lower eye approximately 5:00 outside the iris.) PUPIL: Yes Equal, round and reactive pupils present EOM: Yes EOM abnormal Resp: COMMON NORMALS: normal respiratory effort Cardio: COMMON NORMALS: regular rate RATE: regular rate Back/Pelvis: COMMON NORMALS: thoracic and lumbar spine normal to inspection Extremity: COMMON NORMALS: full ROM Neuro: SENSORIUM/ORIENTATION: Yes alert Skin: COMMON NORMALS: turgor normal GENERAL SKIN EXAM: turgor normal Course Vital Signs: Vital signs: Vital Signs Temperature 98.1 F 04/17/23 18:51 Pulse Rate 92 04/17/23 18:51 Respiratory Rate 16 04/17/23 18:51 Blood Pressure 137/86 04/17/23 18:51 Pulse Oximetry 95 04/17/23 18:51 Oxygen Delivery Me thod Room Air 04/17/23 18:51 MDM - Eye Problem Medical Decision Making 32-year-old male patient comes in today for possible foreign body in the left eye. On exam no foreign body is noted. Under fluorescein staining there was a small abrasion noted of the cornea at the 5 o'clock position outside the iris. Pupils are equal and reactive. Patient has some cobblestoning of the conjunctiva. Differential diagnosis includes but not limited to conjunctivitis, foreign body, corneal abrasion, allergic conjunctivitis. Believe the patient probably has a superficial corneal abrasion no signs of significant ulceration or injury is noted. Patient was placed on some Maxitrol eyedrops for the next 7 days. Recommend follow-up with eye healthcare manager in 2 to 3 days. Patient reports understanding and agrees to plan. Discharge Plan Discharge Patient Disposition: Home Clinical Impression: Corneal abrasion Qualifiers: Encounter type: initial encounter Laterality: left Qualified Code(s): S05.02XA - Injury of conjunctiva and corneal abrasion without foreign body, left eye, initial encounter Condition: Stable Prescriptions: No Action hydrocodone-acetaminophen 10-325 mg tablet 1 tab PO QID PRN (Reason: Moderate Pain (Scale Score 5-6)) nitroglycerin 0.3 mg tablet, sublingual 0.3 mg sublingual Q5M PRN (Reason: Chest Pain) Rx Instructions: do not exceed 3 doses per episode metoprolol tartrate 25 mg tablet 25 mg PO DAILY albuterol sulfate [ProAir HFA] 90 mcg/actuation HFA aerosol inhaler 2 puff inhalation Q6H PRN (Reason: Shortness Of Breath) pantoprazole [Protonix] 40 mg tablet,delayed release (DR/EC) 40 mg PO ONCE 30 Days Qty: 30 2RF budesonide-formoterol [Symbicort] 160-4.5 mcg/actuation HFA aerosol inhaler 2 puff inhalation BID Qty: 10.2 3RF fluoxetine [Prozac] 20 mg capsule 20 mg PO DAILY divalproex [Depakote] 500 mg tablet,delayed release (DR/EC) 500 mg PO ONCE 90 Days Qty: 90 0RF fluticasone propionate [Flonase Allergy Relief] 50 mcg/actuation spray,suspension 1 spray intranasal BID Qty: 16 0RF Rx Instructions: administer into each nostril Flomax 0.4 mg capsule 0.4 mg PO DAILY Qty: 30 0RF topiramate [Topamax] 100 mg tablet 100 mg PO DAILY Qty: 90 1RF Rx Instructions: Take one tablet daily. Naprosyn 500 mg tablet 500 mg PO BID PRN (Reason: pain) Qty: 20 0RF Naprosyn 500 mg tablet 500 mg PO BID PRN (Reason: pain) Qty: 20 0RF Reglan 10 mg tablet 10 mg PO Q6H PRN (Reason: nausea and vomiting) Qty: 20 0RF Discharge Orders: Discharge ED (Routine); Ordered 04/17/23 Ordered By: Florin Last Referrals: Mitch Jimenez MD [Primary Care Provider] - Patient Instructions: Corneal Abrasion (ED) Activity Restrictions/Additional Instructions: Home and rest. Use tetracaine, pain eyedrops, 1 drop every 3 hours as needed for pain or discomfort. Do not use eyedrops for longer than 48 hours. Use antibiotic eyedrops 2 drops to the affected eye 4 times a day while awake for the next 7 days. Follow-up with eye healthcare manager in 2 to 3 days for recheck. Return to ED for new concerns. Coding Level of Care Code ED [employer] for Vernell Mccormack
[2023-04-17] MEDS: fluorescein 1 mg Strip EYE-LEFT (20:08)
[2023-04-17] MEDS: eye irrigation 30 mL Btl EYE-LEFT (20:08)
[2023-04-17] MEDS: tetracaine 0.5% Op Soln 4 mL Btl 1 DROP EYE-LEFT (20:09)
[2023-04-17] MEDS: neomycin-poly-dex Op 5 mL Btl 2 DROP EYE-LEFT (20:39)
== END 2023-04-17 20:43 | disposition home or self-care (01) ==
PROVIDERS: Emergency Provider Nurse Practitioner Family; PCP Family Medicine
DX: S05.02XA Injury of conjunctiva and corneal abrasion without foreign body, left eye, initial encounter (principal); Z87.891 Personal history of nicotine dependence; I10 Essential (primary) hypertension; X58.XXXA Exposure to other specified factors, initial encounter
CPT/HCPCS: 99283

== ENCOUNTER 2023-05-10 20:29 | Observation (INO) | payer MEDICAID, SELFPAY ==
[2023-05-10 20:36] VITALS: BP 156/97; PULSE 93; RESP 25; TEMP 36.4; O2SAT 93; BMI 34.2
--- NOTE | 2023-05-10 20:44 | ECG_ITS ---
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 Measurements Intervals [place] Rate: 81 P: 53 OR: 145 QRS: -23 QRSD: 107 T: 25 QT: 367 QTc: 426 Interpretive Statements SINUS RHYTHM BORDERLINE LEFT AXIS DEVIATION [QRS AXIS < -20] INCOMPLETE RIGHT BUNDLE BRANCH BLOCK [90+ ms QRS DURATION, TERMINAL R IN V1/V2, 40+ ms S IN I/aVL/V4/V5/V6] Compared to ECG 10/12/2021 19:48:29 No significant changes Electronically Signed On 05-11-2023 7:51:11 CDT by Drew Howell M.D. [email or web address]
[2023-05-10 22:06] LABS: Basophils # 0.1 10^3/uL (0.0-0.1); Basophils % 0.5 %; Eosinophils # 0.3 10^3/uL (0.0-0.8); Eosinophils % 1.9 %; Hematocrit 47.2 % (37-53); Lymphocytes # 4.4 10^3/uL (0.8-4.8); Lymphocytes % 27.7 %; Mean Corpuscular HGB Conc 32.8 g/dL (30-55); Mean Corpuscular Hemoglobin 29.5 pg (27-33); Mean Corpuscular Volume 89.9 fl (82-101); Mean Platelet Volume 9.2 fL (7.4-10.4); Monocytes # 1.3 10^3/uL (0.2-0.9); Monocytes % 7.9 %; Neutrophils # 9.83 10^3/uL (1.8-7.7); Neutrophils % 61.7 %; Nucleated Red Blood Cells % 0 %; Platelet Count 288 10^3/cmm (157-399); Red Blood Count 5.25 10^6/uL (3.85-5.65); Red Cell Distribution Width 12.3 % (12.1-15.1); White Blood Count 15.94 10^3/uL (3.29-11.43)
[2023-05-10 22:27] LABS: Alanine Aminotransferase 143 U/L (0-41); Alkaline Phosphatase 99 U/L (40-130); Anion Gap 15.1 (5-19); Aspartate Amino Transferase 68 U/L (0-40); Blood Urea Nitrogen 11 mg/dL (6-20); Calcium 9.2 mg/dL (8.5-10.5); Carbon Dioxide 28 mmol/L (22-29); Chloride 103 mmol/L (98-107); Globulin 2.7 g/dL (1.3-4.6); Glomerular Filtration Rate 97.2 mL/min (90-130); Glucose 108 mg/dL (65-115); Lipase 35 U/L (13-60); Osmolality Calculated 294 mOsm/kg (285-295); Potassium 4.1 mmol/L (3.5-5.1); Sodium 142 mmol/L (136-145); Total Bilirubin 0.3 mg/dL (0.15-1.2); Total Protein 7.7 g/dL (6.6-8.7)
[2023-05-11] VITALS (20 sets, daily range): BP systolic 112–151; BP diastolic 69–88; PULSE 67–110; RESP 15–19; TEMP 36.2–36.8; O2SAT 91–98
--- NOTE | 2023-05-11 00:30 | CTR_ITS ---
PROCEDURE INFORMATION: Exam: CT Abdomen And Pelvis With Contrast Exam date and time: 05/11/2023 12:59 AM Age: 32 years old Clinical indication: Abdominal pain; Localized; Right lower quadrant (rlq); Prior surgery; Surgery date: 6+ months; Surgery type: Gb. Ventral hernia repair x 2; Patient HX: Rlq pain TECHNIQUE: Imaging protocol: Computed tomography of the abdomen and pelvis with contrast. Radiation optimization: All CT scans at this facility use at least one of these dose optimization techniques: automated exposure control; mA and/or kV adjustment per patient size (includes targeted exams where dose is matched to clinical indication); or iterative reconstruction. Contrast material: OMNI 350; Contrast volume: 100 ml; Contrast route: INTRAVENOUS (IV); REPORTING DATA: Count of CT and Cardiac NM exams in prior 12 months: This patient has received 2 known CTs and 0 known cardiac nuclear medicine studies in the 12 months prior to the current study. COMPARISON: CT kidney stone [id number] 10/22/2022 4:52 AM RADIATION DOSE METRICS: Total DLP (mGy-cm): 1075.21 FINDINGS: Lungs: Clear basilar lung parenchyma. Pleural spaces: No pleural fluid. Heart: Normal heart size. Liver: Homogeneous low attenuation throughout the liver is compatible with fatty infiltration. Liver measures 20.8 cm in length. Gallbladder and bile ducts: No regional inflammation. No calcified stones. No ductal dilation. Pancreas: Normal. No ductal dilation. Spleen: Spleen measures 13.9 cm in length. Adrenal glands: Normal configuration. Kidneys and ureters: Punctate left intrarenal stone. No evidence of renal obstruction, inflammation, or mass. Stomach and bowel: Unremarkable. No obstruction. No mural thickening. Appendix: Retrocecal appendix is dilated and enhancing compatible with acute appendicitis. Intraperitoneal space: No free air. No significant fluid collection. Vasculature: Normal caliber arterial structures. Lymph nodes: No enlarged lymph nodes. Urinary bladder: Unremarkable as visualized. Reproductive: Physiologic appearance for age. Bones/joints: No fracture or destructive lesion. Soft tissues: Unremarkable. CT/CT abdomen pelvis w con* [id number] IMPRESSION: 1. Exam is positive for acute retrocecal appendicitis. No evidence of abscess or perforation. 2. Large fatty liver. Mild splenomegaly.
--- NOTE | 2023-05-11 00:31 | ED_ITS ---
HPI - Abdominal Pain General: Chief Complaint: Abdominal Pain Stated Complaint: abdomin pain, mid back pain Time Seen by Provider: 05/11/23 00:24 Source: patient Mode of arrival: ambulatory Limitations: no limitations History of Present Illness: 32-year-old male states been having right-sided flank and right lower quadrant abdominal pain since afternoon. He states pain is sharp in nature rates the p ain a 6 out of 10 currently denies any dysuria denies any nausea or vomiting. He denies any fevers. Associated Symptoms: Denies chills, dysuria and fever(s) Review of Systems Const: Denies: fever(s), chills, body aches or change in appetite Eyes: Denies: blurry vision or eye discomfort ENMT: Denies: throat pain or dental pain Card: Denies: chest pain Resp: Denies: dyspnea GI: Reports: abdominal pain : Denies: dysuria Musc: Denies: neck pain or back pain Skin/Breast: Denies: rash Neuro: Denies: headache(s) PFSH ED PFSH: Medical History ADHD Anxiety COVID Erectile dysfunction Gastroenteritis GERD (gastroesophageal reflux disease) H/O coronary angiogram Hypercholesterolemia Hypertension Left ureteral calculus Pulmonary embolism Surgical History H/O esophagogastroduodenoscopy (04/19/22) H/O hernia repair H/O neck surgery BIOPSY OF NECK SWOLLEN LYMPH NODE History of umbilical hernia repair 2019 History of umbilical hernia repair (11/01/21) Recurrent repaired with with ultrapro mesh Hx of tonsillectomy Status post laparoscopic cholecystectomy (11/01/21) Family History Mother , 48 Diabetes Cancer BREAST CAD (coronary artery disease) Hypertension Father Cancer CAD (coronary artery disease) Hypertension Diabetes Family/Other Anesthesia complication CAD (coronary artery disease) Chronic kidney disease (CKD) Dementia Diabetes Lung disease Stroke Suicide Other Hyperlipidemia Seizure Denies family history of Clotting disorder Bleeding disorder Social History Smoking and tobacco status: former smoker Alcohol intake: current Alcohol intake frequency: holidays/special occasions only Substance/Drug Use: never Marital status: Current occupational status: disabled Physical Exam Const: COMMON NORMALS: no acute distress, patient oriented x3 and healthy appearing HENMT: COMMON NORMALS: normocephalic and atraumatic HEAD & SCALP: normocephalic and atraumatic Neck/C-Spine: COMMON NORMALS: full ROM and supple Chest: COMMONS NORMALS: normal inspection of the chest Resp: COMMON NORMALS: normal respiratory effort, No retractions, No use of accessory muscles and clear to auscultation bilaterally AUSCULTATION: clear to auscultation bilaterally Cardio: COMMON NORMALS: regular rate, regular rhythm and No murmurs present (Cardio) RATE: regular rate RHYTHM: regular rhythm GI: COMMON NORMALS: Normal to inspection, nondistended, normoactive bowel sounds present, Soft to palpation and no masses PALPATION: Yes Soft to palpation and Yes Tenderness to palpation present (GI) Details: RLQ Extremity: COMMON NORMALS: normal to inspection and full ROM Neuro: COMMON NORMALS: patient oriented x3, moves all extremities and no focal motor deficits Psych: COMMON NORMALS: mental status grossly normal, Normal thought process present and cooperative THOUGHT PROCESS: Normal thought process present Skin: COMMON NORMALS: no rashes or lesions noted and no wounds GENERAL SKIN EXAM: no rashes or lesions noted Course Vital Signs: Vital signs: Vital Signs Temperature 97.6 F 05/10/23 20:36 Pulse Rate 96 05/11/23 01:05 Respiratory Rate 17 05/11/23 01:05 Blood Pressure 156/97 05/10/23 20:36 Pulse Oximetry 97 05/11/23 01:05 Oxygen Delivery Me thod Room Air 05/11/23 01:05 MDM - Abdominal Pain Medical Decision Making Patient presents with abdominal pain CT is positive for appendicitis spoke to surgeon on-call will start IV antibiotics and admit at this time. Medical Records I reviewed the patient's medical records. Lab Data I reviewed the patient's lab results. 05/10/23 22:00 05/10/23 22:00 Labs/Radiology: Radiology Impressions Abdomen/Pelvis CT 05/11/23 00:30 IMPRESSION: 1. Exam is positive for acute retrocecal appendicitis. No evidence of abscess or perforation. 2. Large fatty liver. Mild splenomegaly. Laboratory Results WBC 15.94 10^3/uL (3.29-11.43) H 05/10/23 22:00 RBC 5.25 10^6/uL (3.85-5.65) 05/10/23 22:00 Hgb 15.50 g/dL (11.27-16.99) 05/10/23 22:00 Hct 47.2 % (37-53) 05/10/23 22:00 MCV 89.9 fl (82-101) 05/10/23 22:00 MCH 29.5 pg (27-33) 05/10/23 22:00 MCHC 32.8 g/dL (30-55) 05/10/23 22:00 RDW 12.3 % (12.1-15.1) 05/10/23 22:00 Plt Count 288 10^3/cmm (157-399) 05/10/23 22:00 MPV 9.2 fL (7.4-10.4) 05/10/23 22:00 Neut % (Auto) 61.7 % 05/10/23 22:00 Lymph % (Auto) 27.7 % 05/10/23 22:00 [place] % (Auto) 7.9 % 05/10/23 22:00 Eos % (Auto) 1.9 % 05/10/23 22:00 Baso % (Auto) 0.5 % 05/10/23 22:00 Neut # (Auto) 9.83 10^3/uL (1.8-7.7) H 05/10/23 22:00 Lymph # (Auto) 4.4 10^3/uL (0.8-4.8) 05/10/23 22:00 [place] # (Auto) 1.3 10^3/uL (0.2-0.9) H 05/10/23 22:00 Eos # (Auto) 0.3 10^3/uL (0.0-0.8) 05/10/23 22:00 Baso # (Auto) 0.1 10^3/uL (0.0-0.1) 05/10/23 22:00 Nucleated RBC % (auto) 0 % 05/10/23 22:00 Nucleated RBCs # 0.0 /100WBC 05/10/23 22:00 Sodium 142 mmol/L (136-145) 05/10/23 22:00 Potassium 4.1 mmol/L (3.5-5.1) 05/10/23 22:00 Chloride 103 mmol/L (98-107) 05/10/23 22:00 Carbon Dioxide 28 mmol/L (22-29) 05/10/23 22:00 Anion Gap 15.1 (5-19) 05/10/23 22:00 BUN 11 mg/dL (6-20) 05/10/23 22:00 Creatinine 0.9 mg/dL (0.7-1.2) 05/10/23 22:00 GFR Calculation 97.2 mL/min (90-130) 05/10/23 22:00 Glucose 108 mg/dL (65-115) 05/10/23 22:00 Calculated Osmolality 294 mOsm/kg (285-295) 05/10/23 22:00 Calcium 9.2 mg/dL (8.5-10.5) 05/10/23 22:00 Total Bilirubin 0.3 mg/dL (0.15-1.2) 05/10/23 22:00 AST 68 U/L (0-40) H 05/10/23 22:00 ALT 143 U/L (0-41) H 05/10/23 22:00 Alkaline Phosphatase 99 U/L (40-130) 05/10/23 22:00 Total Protein 7.7 g/dL (6.6-8.7) 05/10/23 22:00 Albumin 5.0 g/dL (3.5-5.2) 05/10/23 22:00 Globulin 2.7 g/dL (1.3-4.6) 05/10/23 22:00 Lipase 35 U/L (13-60) 05/10/23 22:00 Urine Color Yellow (Yellow) 05/11/23 00:26 Urine Appearance Clear (CLEAR) 05/11/23 00:26 Urine pH 5 (5-7) 05/11/23 00:26 Ur Specific [place] 1.025 (1.005-1.030) 05/11/23 00:26 Urine Protein Neg (Negative) 05/11/23 00:26 Urine Glucose (UA) Norm (Normal) 05/11/23 00:26 Urine Ketones Negative (Negative) 05/11/23 00:26 Urine Blood Neg (Negative) 05/11/23 00:26 Urine Nitrate Negative (Negative) 05/11/23 00:26 Urine Bilirubin Neg (Negative) 05/11/23 00:26 Urine Urobilinogen Neg mg/dL (Negative) 05/11/23 00:26 Ur Leukocyte Esterase Negative (Negative) 05/11/23 00:26 Discharge Plan Discharge Patient Disposition: Placed in Observation Clinical Impression: Acute appendicitis Condition: Stable Prescriptions: No Action hydrocodone-acetaminophen 10-325 mg tablet 1 tab PO QID PRN (Reason: Moderate Pain (Scale Score 5-6)) nitroglycerin 0.3 mg tablet, sublingual 0.3 mg sublingual Q5M PRN (Reason: Chest Pain) Rx Instructions: do not exceed 3 doses per episode metoprolol tartrate 25 mg tablet 25 mg PO DAILY albuterol sulfate [ProAir HFA] 90 mcg/actuation HFA aerosol inhaler 2 puff inhalation Q6H PRN (Reason: Shortness Of Breath) pantoprazole [Protonix] 40 mg tablet,delayed release (DR/EC) 40 mg PO ONCE 30 Days Qty: 30 2RF budesonide-formoterol [Symbicort] 160-4.5 mcg/actuation HFA aerosol inhaler 2 puff inhalation BID Qty: 10.2 3RF fluoxetine [Prozac] 20 mg capsule 20 mg PO DAILY divalproex [Depakote] 500 mg tablet,delayed release (DR/EC) 500 mg PO ONCE 90 Days Qty: 90 0RF fluticasone propionate [Flonase Allergy Relief] 50 mcg/actuation spr ay,suspension 1 spray intranasal BID Qty: 16 0RF Rx Instructions: administer into each nostril Flomax 0.4 mg capsule 0.4 mg PO DAILY Qty: 30 0RF topiramate [Topamax] 100 mg tablet 100 mg PO DAILY Qty: 90 1RF Rx Instructions: Take one tablet daily. Naprosyn 500 mg tablet 500 mg PO BID PRN (Reason: pain) Qty: 20 0RF Naprosyn 500 mg tablet 500 mg PO BID PRN (Reason: pain) Qty: 20 0RF Reglan 10 mg tablet 10 mg PO Q6H PRN (Reason: nausea and vomiting) Qty: 20 0RF Referrals: Mitch Jimenez MD [Primary Care Provider] - Coding Level of Care Code ED Technical Support Specialist for [facility]
[2023-05-11 00:34] LABS: Add Urine Microscopic? NO; Charge for UA Resulting for Rev
[2023-05-11] MEDS: ondansetron 2 mg/ML SDV 2 mL 4 MG IVP (00:47)
[2023-05-11] MEDS: HYDROmorphone 1 mg/mL INJ 1 mL IVP (00:51)
[2023-05-11] MEDS: sodium chloride 0.9% 1,000 ML 999 ML IV (00:52)
[2023-05-11] MEDS: iohexol 350 mg/mL 500 mL Btl (per mL) IV (01:00)
[2023-05-11 01:06] LABS: Bilirubin Urine Neg (Negative); Blood Urine Neg (Negative); Glucose Urine UA Norm (Normal); Ketones Urine Negative (Negative); Leukocyte Esterase Urine Negative (Negative); Nitrate Urine Negative (Negative); Protein Urine Neg (Negative); Specific Gravity, Urine 1.025 (1.005-1.030); Urine Appearance Clear (CLEAR); Urine Color Yellow (Yellow); Urobilinogen Urine Neg (Negative); pH Urine 5 (5-7)
[2023-05-11] MEDS: ciprofloxacin 400 MG/200 ML PREMIX 200 MG IV (02:08)
[2023-05-11] MEDS: morphine 4 mg/mL SDV 1 mL IVP (03:42)
[2023-05-11] MEDS: metroNIDAZOLE IV 500 MG/100 ML PREMIX 100 MG IV ×3 (04:21→23:30)
[2023-05-11] MEDS: sodium chloride 0.9% 1,000 ML 100 ML IV (04:21)
--- NOTE | 2023-05-11 06:54 | PM.HP ---
Providers/Chief Complaint Admitting Physician: Wilfrid Maya MD Primary Care Provider: Mitch Jimenez MD Chief Complaint: abdomin pain, mid back pain History of Present Illness Dominic Cazares is a 32 year old male with past medical history of previous laparoscopic cholecystectomy and umbilical hernia repair with mesh who presents for evaluation of right lower quadrant abdominal pain for [address] scan done in the emergency room was consistent with acute appendicitis and retrocecal configuration. White count was 15. I was requested to evaluate the patient due to his findings. Review of Systems Narrative: 10 point review of system was done and is negative otherwise noted in HPI. Medications/Allergies Home Medications Medication Instructions Recorded Confirmed Last Taken Type albuterol sulfate 90 mcg/actuation 2 puff inhalation Q6H PRN 03/25/21 03/20/23 10/29/21 History aerosol inhaler (ProAir HFA) Shortness Of Breath metoprolol tartrate 25 mg tablet 25 mg PO DAILY 06/08/21 03/20/23 04/19/22 History nitroglycerin 0.3 mg sublingual 0.3 mg sublingual Q5M PRN Chest 06/08/21 03/20/23 Unknown History tablet Pain tamsulosin 0.4 mg capsule (Flomax) 0.4 mg PO DAILY #30 caps 01/27/22 11/11/22 Unknown Rx fluoxetine 20 mg capsule (Prozac) 20 mg PO DAILY 04/12/22 11/11/22 Unknown History hydrocodone 10 mg-acetaminophen 1 tab PO QID PRN Moderate Pain 04/12/22 11/11/22 04/19/22 History 325 mg tablet (Scale Score 5-6) pantoprazole 40 mg tablet,delayed 40 mg PO ONCE 30 days #30 tabs 05/03/22 03/20/23 Unknown Rx release (Protonix) topiramate 100 mg tablet (Topamax) 100 mg PO DAILY #90 tabs 05/11/22 11/11/22 Unknown Rx divalproex 500 mg tablet,delayed 500 mg PO ONCE 90 days #90 tabs 08/23/22 03/20/23 Unknown Rx release (Depakote) naproxen 500 mg tablet (Naprosyn) 500 mg PO BID PRN pain #20 tabs 08/24/22 11/11/22 Unknown Rx naproxen 500 mg tablet (Naprosyn) 500 mg PO BID PRN pain #20 tabs 10/22/22 11/11/22 Unknown Rx fluticasone propionate 50 1 spray intranasal BID #16 grams 11/11/22 03/20/23 Unknown Rx mcg/actuation nasal spray,suspension (Flonase Allergy Relief) metoclopramide HCl 10 mg tablet 10 mg PO Q6H PRN nausea and 02/28/23 03/20/23 Unknown Rx (Reglan) vomiting #20 tabs budesonide-formoterol HFA 160 2 puff inhalation BID #10.2 grams 03/20/23 03/20/23 Unknown Rx mcg-4.5 mcg/actuation aerosol inhaler (Symbicort) Allergies Allergy/AdvReac Type Severity Reaction Status Date / Time clindamycin Allergy THROAT Verified 04/17/23 18:51 SWELLING AND ITCHY crab Allergy ALGY-Hives Verified 04/17/23 18:51 doxycycline Allergy RASH Verified 04/17/23 18:51 galcanezumab-gnlm Allergy ALGY-Rash Verified 04/17/23 18:51 [From Emgality Pen] mushroom Allergy ALGY-Hives Verified 04/17/23 18:51 Penicillins Allergy ALGY-Rash Verified 04/17/23 18:51 PFSH Acute PFSH: Medical History ADHD Anxiety COVID Erectile dysfunction Gastroenteritis GERD (gastroesophageal reflux disease) H/O coronary angiogram Hypercholesterolemia Hypertension Left ureteral calculus Pulmonary embolism Surgical History H/O esophagogastroduodenoscopy (04/19/22) H/O hernia repair H/O neck surgery BIOPSY OF NECK SWOLLEN LYMPH NODE History of umbilical hernia repair 2019 History of umbilical hernia repair (11/01/21) Recurrent repaired with with ultrapro mesh Hx of tonsillectomy Status post laparoscopic cholecystectomy (11/01/21) Family History Mother , 48 Diabetes Cancer BREAST CAD (coronary artery disease) Hypertension Father Cancer CAD (coronary artery disease) Hypertension Diabetes Family/Other Anesthesia complication CAD (coronary artery disease) Chronic kidney disease (CKD) Dementia Diabetes Lung disease Stroke Suicide Other Hyperlipidemia Seizure Denies family history of Clotting disorder Bleeding disorder Social History Smoking and tobacco status: former smoker Alcohol intake: current Alcohol intake frequency: holidays/special occasions only Substance/Drug Use: never Marital status: Current occupational status: disabled Vitals/I&O/Wt Last Vital Signs Temp 98.3 F 05/11/23 04:57 Pulse 85 05/11/23 04:57 Resp 17 05/11/23 04:57 BP 121/69 05/11/23 04:57 Pulse Ox 95 05/11/23 04:57 O2 Del Method Room Air 05/11/23 04:57 05/10/23 05/10/23 05/11/23 14:59 22:59 06:59 Intake Total 1300 / 1300 Balance 1300 / 1300 Weight last 48 hrs Weight 232 lb Physical Exam Narrative: General : Patient is well developed , no acute distress, oriented x3 Head : Normal cephalic, a-traumatic. Nose : Mucous membranes are without erythema. Lungs : Equal chest rise bilaterally, no use of accessory muscles, trachea is midline. CV : Rate and rhythm are normal. Abdomen : Soft, there is tenderness in the right lower quadrant. McBurney sign positive. Extremities : No edema. Upper extremities are normal bilaterally. Back : non-tender to palpation, no CVA tenderness. Data 05/10/23 22:00 05/10/23 22:00 A&P Assessment and plan (1) Acute appendicitis: Plan After complete history, physical examination and review of all available clinical data the following is my assessment. Clinical picture is consistent with acute appendicitis, I have explained the patient treatment options including nonoperative management with antibiotics versus surgery. We discussed ALL the risk and benefits of the operation including the risks of bleeding, infection, need for additional procedures, damage to surrounding structures including the colon, Explained to the patient that the risk is higher in his case due to the retrocecal configuration of the appendix, I have also Splane that there is a very high risk of a recurrent hernia, due to the history of previous hernia, I have explained that we will probably need to go through his mesh in order to access the abdomen, which may result in recurrence of his hernia. I have explained the results of higher risk to conversion to open procedure due to the location of the appendix. Patient acknowledges the risks and wishes to proceed. Procedure to be booked for next available OR block schedule. Patient to remain n.p.o. and on IV fluids and antibiotics in the meantime. Attestations Medical Necessity Statement*: Patient with acute appendicitis will require laparoscopic appendectomy probable length of stay 24 more hours Coding Level of Care Code Acute Code for [facility] Diagnoses Acute appendicitis K35.80
[2023-05-11] MEDS: ketorolac 30 mg/mL INJ 15 MG IVP ×3 (07:23→23:29)
[2023-05-11] MEDS: sodium chloride 0.9% 1,000 ML 30 ML IV (11:08)
--- NOTE | 2023-05-11 11:09 | ANES.PREANE2 ---
Pre-Anesthetic Assessment Height/Weight: Height 1.75 m Weight 105.233 kg Temp Pulse Resp BP Pulse Ox O2 Del Method 97.6 F 72 17 139/84 96 Room Air 05/11/23 08:57 05/11/23 08:57 05/11/23 08:57 05/11/23 08:57 05/11/23 08:57 05/11/23 04:57 Operation Date: 05/11/23 11:30 Proposed Procedures p Laparoscopic Appendectomy possible open and related procedures(Not Applicable) - Wilfrid Maya MD Familial anesthetic complications: none Was Beta Wei taken within 24 hours: Yes Was Clonidine taken within 24 hours: N/A Last intake: Intake Last Liquid Date 05/10/23 Last Liquid Time 15:00 Last Solid Date 05/10/23 Last Solid Time 14:00 Social No alcohol and No tobacco Exam alert, oriented x 3, clear to auscultation bilaterally and regular rate & rhythm Airway Submandibular: within normal limits Cervical ROM: within normal limits Mallampati: Class III Dentition: full Pulmonary Restrictive lung dz CV/HEM Coronary Artery Disease and Hypertension Stable angina GI Gastroesophageal Reflux Disease Metabolic Morbid Obesity [facility] Lower Back Pain and Osteoarthritis/DJD Neuropsych Headache Anesthetic Plan ASA status: 3 Anesthesia: General Medications/Allergies Home Medications Medication Instructions Recorded Confirmed Last Taken Type albuterol sulfate 90 mcg/actuation 2 puff inhalation Q6H PRN 03/25/21 05/11/23 10/29/21 History aerosol inhaler (ProAir HFA) Shortness Of Breath metoprolol tartrate 25 mg tablet 25 mg PO DAILY 06/08/21 05/11/23 05/10/23 History nitroglycerin 0.3 mg sublingual 0.3 mg sublingual Q5M PRN Chest 06/08/21 05/11/23 Unknown History tablet Pain pantoprazole 40 mg tablet,delayed 40 mg PO ONCE 30 days #30 tabs 05/03/22 05/11/23 05/10/23 Rx release (Protonix) naproxen 500 mg tablet (Naprosyn) 500 mg PO BID PRN pain #20 tabs 08/24/22 05/11/23 Unknown Rx fluticasone propionate 50 1 spray intranasal BID #16 grams 11/11/22 05/11/23 05/10/23 Rx mcg/actuation nasal spray,suspension (Flonase Allergy Relief) metoclopramide HCl 10 mg tablet 10 mg PO Q6H PRN nausea and 02/28/23 05/11/23 Unknown Rx (Reglan) vomiting #20 tabs budesonide-formoterol HFA 160 2 puff inhalation BID #10.2 grams 03/20/23 05/11/23 05/10/23 Rx mcg-4.5 mcg/actuation aerosol inhaler (Symbicort) acetaminophen 500 mg tablet 1,000 mg PO Q6H PRN Pain 05/11/23 05/11/23 Unknown History ibuprofen 200 mg tablet 800 mg PO Q6H PRN Pain 05/11/23 05/11/23 Unknown History oxycodone-acetaminophen 10 mg-325 See Rx Instructions .Route .COMPLEX 05/11/23 05/11/23 Unknown History mg tablet Allergies Allergy/AdvReac Type Severity Reaction Status Date / Time clindamycin Allergy THROAT Verified 04/17/23 18:51 SWELLING AND ITCHY crab Allergy ALGY-Hives Verified 04/17/23 18:51 doxycycline Allergy RASH Verified 04/17/23 18:51 galcanezumab-gnlm Allergy ALGY-Rash Verified 04/17/23 18:51 [From Emgality Pen] mushroom Allergy ALGY-Hives Verified 04/17/23 18:51 Penicillins Allergy ALGY-Rash Verified 04/17/23 18:51 Current Medications Generic Name Dose Route Start Last Admin Trade Name Freq PRN Reason Stop Dose Admin Sodium Chloride 1,000 mls @ 100 mls/hr 05/11/23 02:42 05/11/23 04:21 Sodium Chloride 0.9% IV 100 mls/hr .Q10H KASEY Administration Sodium Chloride 1,000 mls @ 30 mls/hr 05/11/23 11:00 05/11/23 11:08 Sodium Chloride 0.9% IV 05/12/23 10:59 30 mls/hr .Q24H KASEY Administration Ketorolac Tromethamine 15 mg 05/11/23 06:15 05/11/23 07:23 Ketorolac 30 Mg/Ml Inj IVP 05/16/23 06:14 15 mg Q6H KASEY Administration Morphine Sulfate 4 mg 05/11/23 02:42 05/11/23 03:42 Morphine 4 Mg/Ml Sdv 1 Ml IVP 4 mg Q4H PRN Administration SEVERE PAIN PFSH Anesthesia Medical History ADHD Anxiety COVID Erectile dysfunction Gastroenteritis GERD (gastroesophageal reflux disease) H/O coronary angiogram Hypercholesterolemia Hypertension Left ureteral calculus Pulmonary embolism Surgical History H/O esophagogastroduodenoscopy (04/19/22) H/O hernia repair H/O neck surgery BIOPSY OF NECK SWOLLEN LYMPH NODE History of umbilical hernia repair 2019 History of umbilical hernia repair (11/01/21) Recurrent repaired with with ultrapro mesh Hx of tonsillectomy Status post laparoscopic cholecystectomy (11/01/21) Family History Mother , 48 Diabetes Cancer BREAST CAD (coronary artery disease) Hypertension Father Cancer CAD (coronary artery disease) Hypertension Diabetes Family/Other Anesthesia complication CAD (coronary artery disease) Chronic kidney disease (CKD) Dementia Diabetes Lung disease Stroke Suicide Other Hyperlipidemia Seizure Denies family history of Clotting disorder Bleeding disorder Social History Smoking and tobacco status: former smoker Alcohol intake: current Alcohol intake frequency: holidays/special occasions only Substance/Drug Use: never Marital status: Current occupational status: disabled Data Anesthesia 05/10/23 22:00 05/10/23 22:00 Short CBC 05/10/23 Range/Units 22:00 WBC 15.94 H (3.29-11.43) 10^3/uL Hgb 15.50 (11.27-16.99) g/dL Hct 47.2 (37-53) % MCV 89.9 (82-101) fl Plt Count 288 (157-399) 10^3/cmm Neut % (Auto) 61.7 % Neut # (Auto) 9.83 H (1.8-7.7) 10^3/uL BMP 05/10/23 22:00 Sodium 142 Potassium 4.1 Chloride 103 Carbon Dioxide 28 BUN 11 Creatinine 0.9 Glucose 108 Calcium 9.2 Liver Function 05/10/23 Range/Units 22:00 Total Bilirubin 0.3 (0.15-1.2) mg/dL AST 68 H (0-40) U/L ALT 143 H (0-41) U/L Alkaline Phosphatase 99 (40-130) U/L Albumin 5.0 (3.5-5.2) g/dL Urine 05/11/23 Range/Units 00:26 Urine Color Yellow (Yellow) Urine Appearance Clear (CLEAR) Urine pH 5 (5-7) Ur Specific [place] 1.025 (1.005-1.030) Urine Protein Neg (Negative) Urine Glucose (UA) Norm (Normal) Urine Ketones Negative (Negative) Urine Nitrate Negative (Negative) Urine Bilirubin Neg (Negative) Ur Leukocyte Esterase Negative (Negative) Cardiac Studies: Echocardiogram 08/20/21 Sestamibi Stress Test (Cardiology) 07/06/21 Holter Monitor 05/31/21
[2023-05-11] MEDS: BUPivacaine 0.25% INJ 10 mL 5 ML INJECTION (12:41)
[2023-05-11] MEDS: lidocaine-epi 1% 20 mL INJ 5 ML INJECTION (12:41)
--- NOTE | 2023-05-11 12:56 | P.OP_ITS ---
Operative Report Date of procedure: May 11, 2023 Pre-op diagnosis: Acute appendicitis Post-op diagnosis: Acute appendicitis Procedure done: Laparoscopic appendectomy Specimens removed/disposition: Appendix Surgeon: Wilfrid Maya MD Estimated blood loss: 5 cc Complications: None Findings: Acute appendicitis, appendix in a retrocecal configuration. In addition there is a supraumbilical hernia containing omentum. Brief History: Is a 32-year-old male who presents to the hospital with abdominal pain in the right lower quadrant. He had a elevated white count to 15,[address] scan showing evidence of acute, uncomplicated appendicitis. In addition patient has history of previous laparoscopic cholecystectomy and open umbilical hernia repair with onlay mesh. After discussion of all the risk and benefits of the operation as documented on my consult note patient has decided to undergo laparoscopic appendectomy. Of note, recommended to the patient that we will not be fixing his umbilical hernia during this hospital admission as Appendicitis makes to field clean contaminated that would not allow us to implant a mesh to repair the hernia. Patient is aware and wishes to proceed. Procedure: Patient was brought into the OR. He was placed in a supine position, general anesthesia was given, the abdomen was prepped and draped in the usual sterile fashion. A timeout was conducted. The abdomen was accessed in an infraumbilic al position with an open technique to avoid entering the previous umbilical hernia and prevent injury of any of the underlying structures. A Powers trocar was placed at the level of the umbilicus. Additional 5 mm trocars were placed in the supraumbilical and left lower quadrant positions. The camera was then switched to the left lower quadrant trocar site to evaluate the umbilical hernia. A supraumbilical hernia was noted containing omentum, trocar entry site of the umbilical trocar was below the area of the hernia. We then proceeded to identify the cecum at the level of the right lower quadrant. The appendix was noted to be laying in the retrocecal configuration, the base of the appendix was identified and elevated. I then proceeded to create a window at the level of the base of the appendix using [place] dissector. Once a window was created the base of the appendix was transected using a 45 mm blue load Endo MELODY stapler. I then took down the mesoappendix in a retrograde fashion from the base to the tip using Enseal. The specimen was retrieved through the umbilical trocar site in an Endo Catch bag. The staple line was evaluated and noted to be intact. I then removed the umbilical trocar and closed the fascia of the umbilical trocar site using 0 Vicryl with a suture passer under direct visualization, this to ensure safety to all the intra-abdominal contents and to prevent entrapment no further material from the supraumbilical hernia. The suprapubic trocar site was removed, pneumoperitoneum was evacuated and then the left lower quadrant trocar was removed. At the level of the umbilical trocar site the dysuria Vicryl used to fix the Powers trocar to the fascia was tied around to provide an extra layer of reinforcement. Local anesthesia was administered in the wounds, hemostasis was achieved and the wounds were closed with 4 Monocryl and Dermabond was applied. At the end of the procedure all the instrument counts were correct, the patient was extubated and transferred to the PACU in stable condition.
--- NOTE | 2023-05-11 14:23 | PC.NURSE ---
Pt returned to floor via stretcher complaining of feeling hot and wanting air. Requesting apple juice and tolerating well. Vital signs stable with supplemental oxygen. Pivoted from stretcher to bed with no complications. Room clean, clutter free with call light in reach.
[2023-05-11] MEDS: ciprofloxacin 200 MG/100 ML PREMIX 100 MG IV (14:45)
[2023-05-11 15:33] LABS: Glucose Point of Care 119 mg/dL (70-110)
[2023-05-11] MEDS: albuterol 2.5 mg/3 mL Neb INHALATION ×2 (16:12→20:22)
--- NOTE | 2023-05-11 16:12 | ANE.PACU2 ---
Inpatient post-anesthesia follow up: Airway intact: Yes Vital signs: Temperature 97.2 F Pulse Rate 110 Respiratory Rate 16 Blood Pressure 124/88 Pulse Oximetry 91 Oxygen Delivery Me thod Room Air Oxygen Flow Rate 6 Fraction of Inspir ed Oxygen Hydration adequate: Yes Nausea and vomiting: No Pain level: 3 Mental status: Baseline
[2023-05-11] MEDS: budesonide 0.5 mg/2 mL Neb INHALATION (20:22)
[2023-05-11] MEDS: acetaminophen 325 mg Tablet PO (22:21)
[2023-05-12] MEDS: ciprofloxacin 200 MG/100 ML PREMIX 100 MG IV (01:37)
[2023-05-12 04:00] VITALS: BP 122/78; PULSE 74; RESP 18; TEMP 36.6; O2SAT 95
[2023-05-12 05:33] LABS: Basophils % 0.1 %; Hematocrit 44.7 % (37-53); Lymphocytes # 1.2 10^3/uL (0.8-4.8); Lymphocytes % 9.1 %; Mean Corpuscular HGB Conc 32.4 g/dL (30-55); Mean Corpuscular Hemoglobin 29.8 pg (27-33); Mean Corpuscular Volume 91.8 fl (82-101); Mean Platelet Volume 9.6 fL (7.4-10.4); Monocytes # 0.9 10^3/uL (0.2-0.9); Monocytes % 7.2 %; Neutrophils # 10.81 10^3/uL (1.8-7.7); Neutrophils % 83.1 %; Nucleated Red Blood Cells % 0 %; Platelet Count 251 10^3/cmm (157-399); Red Blood Count 4.87 10^6/uL (3.85-5.65); Red Cell Distribution Width 12.2 % (12.1-15.1)
[2023-05-12 05:51] LABS: Anion Gap 15.2 (5-19); Blood Urea Nitrogen 13 mg/dL (6-20); Calcium 9.4 mg/dL (8.5-10.5); Carbon Dioxide 23 mmol/L (22-29); Chloride 105 mmol/L (98-107); Glomerular Filtration Rate 129.9 mL/min (90-130); Glucose 131 mg/dL (65-115); Osmolality Calculated 290 mOsm/kg (285-295); Potassium 4.2 mmol/L (3.5-5.1); Sodium 139 mmol/L (136-145)
[2023-05-12] MEDS: ketorolac 30 mg/mL INJ 15 MG IVP (06:50)
[2023-05-12 08:00] VITALS: PULSE 80; RESP 18; O2SAT 93
--- NOTE | 2023-05-12 08:18 | PM.DCS ---
Discharge Providers Date of Admission: 05/11/23 01:45 Date of Discharge: May 12, 2023 Attending Provider at Admission: Wilfrid Maya MD Attending Provider at Discharge: Wilfrid Maya MD Primary Care Provider: Mitch Jimenez MD Diagnoses at Discharge Discharge Diagnosis (1) Acute appendicitis: Details from hospital stay: 32-year-old male who presented to the hospital with acute appendicitis, elevated white count of 15,[address] scan showed evidence of retrocecal appendix. Patient was admitted for IV antibiotics and laparoscopic appendectomy. Procedure was done without complications. Patient is tolerating diet ambulating passing gas on postoperative day 1 she is ready for discharge. Status: Acute Reason for Visit Reason for Visit: abdomin pain, mid back pain Physical Exam Narrative: General : Patient is well developed , no acute distress, oriented x3 Head : Normal cephalic, a-traumatic. Nose : Mucous membranes are without erythema. Lungs : Equal chest rise bilaterally, no use of accessory muscles, trachea is midline. CV : Rate and rhythm are normal. Abdomen : Soft, appropriately tender to palpation, surgical incisions healing well. Extremities : No edema. Upper extremities are normal bilaterally. Back : non-tender to palpation, no CVA tenderness. Discharge Data Studies Completed and Pending Completed Studies During Hospitalization Category Date Time Status CT abdomen pelvis w con* [id number] Stat Cat Scan 05/11/23 00:30 Completed Pending at discharge Category Date Time Status Pathology: Surgical [PTH] Routine Pth 05/11/23 12:39 Received Radiology Impressions Abdomen/Pelvis CT 05/11/23 00:30 IMPRESSION: 1. Exam is positive for acute retrocecal appendicitis. No evidence of abscess or perforation. 2. Large fatty liver. Mild splenomegaly. ADDENDUM: 05/11/23 0144 THIS REPORT CONTAINS FINDINGS THAT MAY BE CRITICAL TO PATIENT CARE. The findings were verbally communicated via telephone conference with EBEN MENDES at 1:42 AM CDT on 05/11/2023. The findings were acknowledged and understood. Laboratory Results WBC 13.00 10^3/uL (3.29-11.43) H 05/12/23 05:12 RBC 4.87 10^6/uL (3.85-5.65) 05/12/23 05:12 Hgb 14.50 g/dL (11.27-16.99) 05/12/23 05:12 Hct 44.7 % (37-53) 05/12/23 05:12 MCV 91.8 fl (82-101) 05/12/23 05:12 MCH 29.8 pg (27-33) 05/12/23 05:12 MCHC 32.4 g/dL (30-55) 05/12/23 05:12 RDW 12.2 % (12.1-15.1) 05/12/23 05:12 Plt Count 251 10^3/cmm (157-399) 05/12/23 05:12 MPV 9.6 fL (7.4-10.4) 05/12/23 05:12 Neut % (Auto) 83.1 % 05/12/23 05:12 Lymph % (Auto) 9.1 % 05/12/23 05:12 [place] % (Auto) 7.2 % 05/12/23 05:12 Eos % (Auto) 0.0 % 05/12/23 05:12 Baso % (Auto) 0.1 % 05/12/23 05:12 Neut # (Auto) 10.81 10^3/uL (1.8-7.7) H 05/12/23 05:12 Lymph # (Auto) 1.2 10^3/uL (0.8-4.8) 05/12/23 05:12 [place] # (Auto) 0.9 10^3/uL (0.2-0.9) 05/12/23 05:12 Eos # (Auto) 0.0 10^3/uL (0.0-0.8) 05/12/23 05:12 Baso # (Auto) 0.0 10^3/uL (0.0-0.1) 05/12/23 05:12 Nucleated RBC % (auto) 0 % 05/12/23 05:12 Nucleated RBCs # 0.0 /100WBC 05/12/23 05:12 Sodium 139 mmol/L (136-145) 05/12/23 05:12 Potassium 4.2 mmol/L (3.5-5.1) 05/12/23 05:12 Chloride 105 mmol/L (98-107) 05/12/23 05:12 Carbon Dioxide 23 mmol/L (22-29) 05/12/23 05:12 Anion Gap 15.2 (5-19) 05/12/23 05:12 BUN 13 mg/dL (6-20) 05/12/23 05:12 Creatinine 0.7 mg/dL (0.7-1.2) 05/12/23 05:12 GFR Calculation 129.9 mL/min (90-130) 05/12/23 05:12 Glucose 131 mg/dL (65-115) H 05/12/23 05:12 POC Glucose 119 mg/dL (70-110) H 05/11/23 13:55 Calculated Osmolality 290 mOsm/kg (285-295) 05/12/23 05:12 Calcium 9.4 mg/dL (8.5-10.5) 05/12/23 05:12 Total Bilirubin 0.3 mg/dL (0.15-1.2) 05/10/23 22:00 AST 68 U/L (0-40) H 05/10/23 22:00 ALT 143 U/L (0-41) H 05/10/23 22:00 Alkaline Phosphatase 99 U/L (40-130) 05/10/23 22:00 Total Protein 7.7 g/dL (6.6-8.7) 05/10/23 22:00 Albumin 5.0 g/dL (3.5-5.2) 05/10/23 22:00 Globulin 2.7 g/dL (1.3-4.6) 05/10/23 22:00 Lipase 35 U/L (13-60) 05/10/23 22:00 Urine Color Yellow (Yellow) 05/11/23 00:26 Urine Appearance Clear (CLEAR) 05/11/23 00:26 Urine pH 5 (5-7) 05/11/23 00:26 Ur Specific [place] 1.025 (1.005-1.030) 05/11/23 00:26 Urine Protein Neg (Negative) 05/11/23 00:26 Urine Glucose (UA) Norm (Normal) 05/11/23 00:26 Urine Ketones Negative (Negative) 05/11/23 00:26 Urine Blood Neg (Negative) 05/11/23 00:26 Urine Nitrate Negative (Negative) 05/11/23 00:26 Urine Bilirubin Neg (Negative) 05/11/23 00:26 Urine Urobilinogen Neg mg/dL (Negative) 05/11/23 00:26 Ur Leukocyte Esterase Negative (Negative) 05/11/23 00:26 Procedures Performed Laparoscopic appendectomy Vitals Last Vital Signs Temp 97.8 F 05/12/23 04:00 Pulse 74 05/12/23 04:00 Resp 18 05/12/23 04:00 BP 122/78 05/12/23 04:00 Pulse Ox 95 05/12/23 04:00 O2 Del Method Room Air 05/12/23 04:00 O2 Flow Rate 6 05/11/23 13:25 FiO2 21 05/11/23 20:22 Discharge Plan Discharge Patient Disposition: Home Condition: Stable Prescriptions: New metronidazole [Flagyl] 375 mg capsule 375 mg PO BID 4 Days Qty: 8 0RF ciprofloxacin HCl [Cipro] 250 mg tablet 250 mg PO BID 4 Days Qty: 8 0RF meloxicam 7.5 mg tablet 7.5 mg PO DAILY Qty: 7 0RF Continued nitroglycerin 0.3 mg tablet, sublingual 0.3 mg sublingual Q5M PRN (Reason: Chest Pain) Rx Instructions: do not exceed 3 doses per episode metoprolol tartrate 25 mg tablet 25 mg PO DAILY albuterol sulfate [ProAir HFA] 90 mcg/actuation HFA aerosol inhaler 2 puff inhalation Q6H PRN (Reason: Shortness Of Breath) pantoprazole [Protonix] 40 mg tablet,delayed release (DR/EC) 40 mg PO ONCE 30 Days Qty: 30 2RF budesonide-formoterol [Symbicort] 160-4.5 mcg/actuation HFA aerosol inhaler 2 puff inhalation BID Qty: 10.2 3RF fluticasone propionate [Flonase Allergy Relief] 50 mcg/actuation spray,suspension 1 spray intranasal BID Qty: 16 0RF Rx Instructions: administer into each nostril metoclopramide HCl [Reglan] 10 mg tablet 10 mg PO Q6H PRN (Reason: nausea and vomiting) Qty: 20 0RF acetaminophen 500 mg Tablet 1,000 mg PO Q6H PRN (Reason: Pain) oxycodone-acetaminophen 10-325 mg tablet See Rx Instructions .ROUTE .COMPLEX Rx Instructions: TAKE 1 TABLET BY MOUTH EVERY 4 TO 6 HOURS NEEDED FOR PAIN. Discontinued naproxen [Naprosyn] 500 mg tablet 500 mg PO BID PRN (Reason: pain) Qty: 20 0RF ibuprofen 200 mg Tablet 800 mg PO Q6H PRN (Reason: Pain) Discharge Orders: Discharge Order (Routine); Ordered 05/12/23 Ordered By: Wilfrid Maya Referrals: Mitch Jimenez MD [Primary Care Provider] - Wilfrid Maya MD [Physician] - (2 weeks in person) Discharge Diet: Usual diet Discharge Activity: Limit activity as instructed Patient Instructions: Opioid Safety, Post Anesthesia Care Activity Restrictions/Additional Instructions: Walk as much as possible to improve healing. no heavy lifting, no more than 10 pounds over the next 6 weeks. return to the hospital if you have fever, chills or increasing abdominal pain and distension. Discharge Attestations Time Spent in Discharge Care*: less than 30 min Quality Metrics Clinical Quality Measures [ No reported AMI, CVA or VTE this stay] Coding Level of Care Code Acute Code for [employer] Diagnoses Acute appendicitis K35.80
--- NOTE | 2023-05-12 08:43 | PC.NURSE ---
pt advised me that he coughed up a blood clot, approx size of half dollar. Photo and message sent to Dr. Ramirez who advised pt that this may continue for 2-3 days and he is ok to continue with dc orders
[2023-05-12] MEDS: albuterol 2.5 mg/3 mL Neb INHALATION (08:45)
[2023-05-12] MEDS: budesonide 0.5 mg/2 mL Neb INHALATION (08:45)
[2023-05-12 08:51] VITALS: PULSE 109
--- NOTE | 2023-05-12 09:00 | PC.CHAP ---
Pastoral Care Encounter/Spiritual Assessment Type of Contact [] Declined academic dean visit [] Patient/Family/Request visit [] Outpatient visit [] Follow-up visit [] Physician referral [] Code/Alert [x] Routine visit [] Staff referral [] Actively dying [] Patient sleeping [] Family support [] [] Out of room [] Palliative care [] [] Receiving care in room [] Pre-surgical visit [] Trauma [] Long length of stay [] ICU visit [] Other: Relational/Emotional Strength [] Patient feels connected with others/family/visitors/staff [] Distress [] Loneliness/isolation [] Abandonment Spirituality of Patient [x] Person of Chloe [] Attends Tenriism of their Chloe [x] Believes in Prayer [] Reads Bible or Yazdanism materials [] There are Spiritual issues to be addressed Media Marketing Coordinator Interventions [x] Prayer [x] Active listening [] Non-anxious presence [x] Spiritual/emotional support [] Crisis/trauma care [] Spiritual counseling [] Bereavement support [] Provided bereavement packet [] Provided Bible/devotional materials [] Provided toy/stuffed animal, coloring book to patient or family member [] Provided Communion [] Anointing/[place] [] Salvation [x] Completed spiritual assessment [] Other: Impact on Illness or Injury [] Angry [] Fearful [] Anxious [] Often cries [] Exhaustion [] Unable to work [] Unable to attend gnosticist [] Unable to walk/stand [] Unable to read [] Unable to drive [] Unable to eat/drink [] Unable to sleep [] Unable to be with family [] Patient intubated [] Other: Summary Time spent with patient 5 min
[2023-05-12 09:32] VITALS: BP 142/77; PULSE 103; RESP 17; TEMP 36.8; O2SAT 96
[2023-05-12 09:40] VITALS: RESP 17
[2023-05-12] MEDS: HYDROmorphone 1 mg/mL INJ 1 mL 0.4 MG IVP (09:40)
[2023-05-12] MEDS: metoprolol tartrate 25 mg Tablet PO (09:40)
--- NOTE | 2023-05-12 09:57 | PC.NURSE ---
dc pending appt with outpatient surgery
[2023-05-12 10:30] VITALS: BP 130/72; PULSE 89; RESP 17; TEMP 36.8; O2SAT 96
== END 2023-05-12 10:30 | disposition home or self-care (01) ==
LOC: ER 05-11 01:39 → MEDSURG 05-11 01:46
PROVIDERS: Nurse Practitioner Family; Admitting Provider Surgery; Emergency Provider Emergency Medicine; PCP Family Medicine; Visit Provider Surgery
PROC: 0DTJ4ZZ Resection of Appendix, Percutaneous Endoscopic Approach (ICD-10-PCS; CPT 44970; principal; 2023-05-11 11:30)
DX: K37 Unspecified appendicitis (principal); Z87.891 Personal history of nicotine dependence
CPT/HCPCS: 44970; 36415; 36416; 74177; 80048; 80053; 81003; 82962; 83690; 85025; 88304; 93005; 94640; 96365; 96366; 96367; 96375; 99285; G0378; J0744; J1100; J1170; J1885; J2250; J2270; J2405; J2704; J3010; J3490; J7030; J7613; J7626; Q9967

== ENCOUNTER → 2023-05-18 08:51 | Outpatient (BNVA) | payer MEDICAID, SELFPAY | PROVIDERS: PCP Family Medicine; Visit Provider Nurse Practitioner Family | DX: I10 Essential (primary) hypertension (principal); Z87.891 Personal history of nicotine dependence; R07.89 Other chest pain | CPT/HCPCS: 99213 ==

== ENCOUNTER 2023-05-20 21:00 | Emergency (ER) | payer MEDICAID, SELFPAY ==
[2023-05-20 21:28] VITALS: BP 130/81; PULSE 95; RESP 20; TEMP 36.7; O2SAT 95; BMI 34.2
[2023-05-20 21:51] LABS: Basophils # 0.1 10^3/uL (0.0-0.1); Basophils % 0.7 %; Eosinophils # 0.3 10^3/uL (0.0-0.8); Hematocrit 46.7 % (37-53); Lymphocytes % 27.1 %; Mean Corpuscular HGB Conc 33.4 g/dL (30-55); Mean Corpuscular Hemoglobin 30.1 pg (27-33); Mean Platelet Volume 9.2 fL (7.4-10.4); Monocytes # 1.2 10^3/uL (0.2-0.9); Monocytes % 8.2 %; Neutrophils # 9.05 10^3/uL (1.8-7.7); Neutrophils % 61.6 %; Nucleated Red Blood Cells % 0 %; Platelet Count 301 10^3/cmm (157-399); Red Blood Count 5.19 10^6/uL (3.85-5.65); Red Cell Distribution Width 12.6 % (12.1-15.1)
[2023-05-20 22:28] LABS: Alanine Aminotransferase 107 U/L (0-41); Albumin Level 4.7 g/dL (3.5-5.2); Alkaline Phosphatase 110 U/L (40-130); Anion Gap 14.1 (5-19); Aspartate Amino Transferase 62 U/L (0-40); Blood Urea Nitrogen 14 mg/dL (6-20); Calcium 9.6 mg/dL (8.5-10.5); Carbon Dioxide 27 mmol/L (22-29); Chloride 102 mmol/L (98-107); Globulin 3.2 g/dL (1.3-4.6); Glomerular Filtration Rate 53.9 mL/min (90-130); Glucose 108 mg/dL (65-115); Lipase 36 U/L (13-60); Osmolality Calculated 289 mOsm/kg (285-295); Potassium 4.1 mmol/L (3.5-5.1); Sodium 139 mmol/L (136-145); Total Bilirubin 0.4 mg/dL (0.15-1.2); Total Protein 7.9 g/dL (6.6-8.7)
--- NOTE | 2023-05-20 22:45 | CTR_ITS ---
PROCEDURE INFORMATION: Exam: CT Abdomen And Pelvis With Contrast Exam date and time: 05/20/2023 10:59 PM Age: 32 years old Clinical indication: Abdominal pain; Prior surgery; Surgery date: <1 month; Surgery type: Appy on 05/11/2023. Gb. Hernia repair; Patient HX: C/O severe periumbilical pain. ; Additional info: Abd pain TECHNIQUE: Imaging protocol: Computed tomography of the abdomen and pelvis with contrast. Radiation optimization: All CT scans at this facility use at least one of these dose optimization techniques: automated exposure control; mA and/or kV adjustment per patient size (includes targeted exams where dose is matched to clinical indication); or iterative reconstruction. Contrast material: OMNI 350; Contrast volume: 100 ml; Contrast route: INTRAVENOUS (IV); REPORTING DATA: Count of CT and Cardiac NM exams in prior 12 months: This patient has received 3 known CTs and 0 known cardiac nuclear medicine studies in the 12 months prior to the current study. COMPARISON: CT abdomen pelvis w con* [id number] 05/11/2023 12:59 AM RADIATION DOSE METRICS: Total DLP (mGy-cm): 1067.37 FINDINGS: Liver: Hepatic steatosis. Gallbladder and bile ducts: Cholecystectomy. Pancreas: Normal. No ductal dilation. Spleen: Normal. No splenomegaly. Adrenal glands: Normal. No mass. Kidneys and ureters: Left kidney punctate nonobstructing calyceal stone. Left kidney cyst, negative for follow-up advised. Stomach and bowel: Constipation. Appendix: No evidence of appendicitis. Intraperitoneal space: Unremarkable. No free air. No significant fluid collection. Vasculature: Unremarkable. No abdominal aortic aneurysm. Lymph nodes: Unremarkable. No enlarged lymph nodes. Urinary bladder: Unremarkable as visualized. Reproductive: Unremarkable as visualized. Bones/joints: Unremarkable. No acute fracture. Soft tissues: Periumbilical subcutaneous edema may related to provided history of surgery, negative for focal fluid collection. CT/CT abdomen pelvis w con* [id number] IMPRESSION: 1. Periumbilical subcutaneous edema may related to provided history of surgery, negative for focal fluid collection. 2. Hepatic steatosis. 3. Cholecystectomy. 4. Left kidney punctate nonobstructing calyceal stone. 5. Left kidney cyst, negative for follow-up advised. 6. Constipation.
[2023-05-20 22:51] VITALS: BP 124/86; PULSE 91; RESP 18; O2SAT 96
--- NOTE | 2023-05-20 22:55 | W.ED.ABDPA2 ---
HPI - Abdominal Pain General: Chief Complaint: Abdominal Pain Stated Complaint: abd pain Time Seen by Provider: 05/20/23 22:34 Source: patient Mode of arrival: ambulatory Limitations: no limitations History of Present Illness: 32-year-old male who had an appendectomy roughly a week ago he states has been having some burning pain in his lower abdomen feeling like his abdomen is bloated he rates pain a 5 out of 10 currently he denies any fever he denies any nausea vomiting or diarrhea. Denies any worsening proving factors Associated Symptoms: Denies chills, diarrhea, dysuria, fever(s), nausea and vomiting Review of Systems Const: Denies: fever(s) or chills ENMT: Denies: throat pain or dental pain Card: Denies: chest pain Resp: Denies: dyspnea GI: Reports: abdominal pain; Denies: nausea, vomiting or diarrhea : Denies: dysuria Musc: Denies: neck pain or back pain Skin/Breast: Denies: rash PFSH ED PFSH: Medical History ADHD Anxiety COVID Erectile dysfunction Gastroenteritis GERD (gastroesophageal reflux disease) H/O coronary angiogram Hypercholesterolemia Hypertension Left ureteral calculus Pulmonary embolism Surgical History H/O esophagogastroduodenoscopy (04/19/22) H/O hernia repair H/O neck surgery BIOPSY OF NECK SWOLLEN LYMPH NODE History of umbilical hernia repair 2019 History of umbilical hernia repair (11/01/21) Recurrent repaired with with ultrapro mesh Hx of tonsillectomy Status post laparoscopic cholecystectomy (11/01/21) Family History Mother , 48 Diabetes Cancer BREAST CAD (coronary artery disease) Hypertension Father Cancer CAD (coronary artery disease) Hypertension Diabetes Family/Other Anesthesia complication CAD (coronary artery disease) Chronic kidney disease (CKD) Dementia Diabetes Lung disease Stroke Suicide Other Hyperlipidemia Seizure Denies family history of Clotting disorder Bleeding disorder Social History Smoking and tobacco status: former smoker Alcohol intake: current Alcohol intake frequency: holidays/special occasions only Substance/Drug Use: never Marital status: Current occupational status: disabled Physical Exam Const: COMMON NORMALS: no acute distress, patient oriented x3 and healthy appearing HENMT: COMMON NORMALS: normocephalic and atraumatic HEAD & SCALP: normocephalic and atraumatic Neck/C-Spine: COMMON NORMALS: full ROM and supple Chest: COMMONS NORMALS: normal inspection of the chest Resp: COMMON NORMALS: normal respiratory effort and No use of accessory muscles Cardio: COMMON NORMALS: regular rate, regular rhythm and No murmurs present (Cardio) RATE: regular rate RHYTHM: regular rhythm GI: COMMON NORMALS: Normal to inspection, nondistended, normoactive bowel sounds present, Soft to palpation and no masses PALPATION: Yes Soft to palpation OTHER: Mild tenderness incisions clean and dry intact Extremity: COMMON NORMALS: normal to inspection and full ROM Neuro: COMMON NORMALS: patient oriented x3, moves all extremities and no focal motor deficits Psych: COMMON NORMALS: mental status grossly normal, Normal thought process present and cooperative THOUGHT PROCESS: Normal thought process present Skin: COMMON NORMALS: no rashes or lesions noted and no wounds GENERAL SKIN EXAM: no rashes or lesions noted Course Vital Signs: Vital signs: Vital Signs Temperature 98.0 F 05/20/23 21:28 Pulse Rate 95 05/20/23 23:28 Respiratory Rate 20 H 05/20/23 23:28 Blood Pressure 130/79 05/20/23 23:28 Pulse Oximetry 94 05/20/23 23:28 Oxygen Delivery Me thod Room Air 05/20/23 23:28 MDM - Abdominal Pain Medical Decision Making Patient presents here with abdominal pain CT scan here is negative blood works normal patient is stable for discharge she is to follow-up with PCP and return if worsening I did inform of little edema on the CT scan informed he has any worsening pain or fever he is to return he understands agrees to plan. Medical Records I reviewed the patient's medical records. Lab Data I reviewed the patient's lab results. 05/20/23 21:45 05/20/23 21:45 Labs/Radiology: Radiology Impressions Abdomen/Pelvis CT 05/20/23 22:45 IMPRESSION: 1. Periumbilical subcutaneous edema may related to provided history of surgery, negative for focal fluid collection. 2. Hepatic steatosis. 3. Cholecystectomy. 4. Left kidney punctate nonobstructing calyceal stone. 5. Left kidney cyst, negative for follow-up advised. 6. Constipation. Laboratory Results WBC 14.70 10^3/uL (3.29-11.43) H 05/20/23 21:45 RBC 5.19 10^6/uL (3.85-5.65) 05/20/23 21:45 Hgb 15.60 g/dL (11.27-16.99) 05/20/23 21:45 Hct 46.7 % (37-53) 05/20/23 21:45 MCV 90.0 fl (82-101) 05/20/23 21:45 MCH 30.1 pg (27-33) 05/20/23 21:45 MCHC 33.4 g/dL (30-55) 05/20/23 21:45 RDW 12.6 % (12.1-15.1) 05/20/23 21:45 Plt Count 301 10^3/cmm (157-399) 05/20/23 21:45 MPV 9.2 fL (7.4-10.4) 05/20/23 21:45 Neut % (Auto) 61.6 % 05/20/23 21:45 Lymph % (Auto) 27.1 % 05/20/23 21:45 [place] % (Auto) 8.2 % 05/20/23 21:45 Eos % (Auto) 2.0 % 05/20/23 21:45 Baso % (Auto) 0.7 % 05/20/23 21:45 Neut # (Auto) 9.05 10^3/uL (1.8-7.7) H 05/20/23 21:45 Lymph # (Auto) 4.0 10^3/uL (0.8-4.8) 05/20/23 21:45 [place] # (Auto) 1.2 10^3/uL (0.2-0.9) H 05/20/23 21:45 Eos # (Auto) 0.3 10^3/uL (0.0-0.8) 05/20/23 21:45 Baso # (Auto) 0.1 10^3/uL (0.0-0.1) 05/20/23 21:45 Nucleated RBC % (auto) 0 % 05/20/23 21:45 Nucleated RBCs # 0.0 /100WBC 05/20/23 21:45 Sodium 139 mmol/L (136-145) 05/20/23 21:45 Potassium 4.1 mmol/L (3.5-5.1) 05/20/23 21:45 Chloride 102 mmol/L (98-107) 05/20/23 21:45 Carbon Dioxide 27 mmol/L (22-29) 05/20/23 21:45 Anion Gap 14.1 (5-19) 05/20/23 21:45 BUN 14 mg/dL (6-20) 05/20/23 21:45 Creatinine 1.5 mg/dL (0.7-1.2) H 05/20/23 21:45 GFR Calculation 53.9 mL/min (90-130) L 05/20/23 21:45 Glucose 108 mg/dL (65-115) 05/20/23 21:45 Calculated Osmolality 289 mOsm/kg (285-295) 05/20/23 21:45 Calcium 9.6 mg/dL (8.5-10.5) 05/20/23 21:45 Total Bilirubin 0.4 mg/dL (0.15-1.2) 05/20/23 21:45 AST 62 U/L (0-40) H 05/20/23 21:45 ALT 107 U/L (0-41) H 05/20/23 21:45 Alkaline Phosphatase 110 U/L (40-130) 05/20/23 21:45 Total Protein 7.9 g/dL (6.6-8.7) 05/20/23 21:45 Albumin 4.7 g/dL (3.5-5.2) 05/20/23 21:45 Globulin 3.2 g/dL (1.3-4.6) 05/20/23 21:45 Lipase 36 U/L (13-60) 05/20/23 21:45 Urine Color Yellow (Yellow) 05/20/23 23:25 Urine Appearance Clear (CLEAR) 05/20/23 23:25 Urine pH 5 (5-7) 05/20/23 23:25 Ur Specific [place] 1.015 (1.005-1.030) 05/20/23 23:25 Urine Protein Trace (Negative) 05/20/23 23:25 Urine Glucose (UA) Norm (Normal) 05/20/23 23:25 Urine Ketones Negative (Negative) 05/20/23 23:25 Urine Blood Neg (Negative) 05/20/23 23:25 Urine Nitrate Negative (Negative) 05/20/23 23:25 Urine Bilirubin Neg (Negative) 05/20/23 23:25 Urine Urobilinogen Neg mg/dL (Negative) 05/20/23 23:25 Ur Leukocyte Esterase Negative (Negative) 05/20/23 23:25 Urine RBC 0-4 /hpf (0-2) H 05/20/23 23:25 Urine WBC 0-4 /hpf (0-5) H 05/20/23 23:25 Ur Squamous Epith Cells 0-4 /hpf (0-5) H 05/20/23 23:25 Amorphous Sediment 1+ /hpf 05/20/23 23:25 Urine Bacteria None /hpf (NONE) 05/20/23 23:25 Urine Mucus 3+ /hpf 05/20/23 23:25 Discharge Plan Discharge Patient Disposition: Home Clinical Impression: Abdominal pain Condition: Stable Prescriptions: No Action nitroglycerin 0.3 mg tablet, sublingual 0.3 mg sublingual Q5M PRN (Reason: Chest Pain) Rx Instructions: do not exceed 3 doses per episode metoprolol tartrate 25 mg tablet 25 mg PO DAILY albuterol sulfate [ProAir HFA] 90 mcg/actuation HFA aerosol inhaler 2 puff inhalation Q6H PRN (Reason: Shortness Of Breath) pantoprazole [Protonix] 40 mg tablet,delayed release (DR/EC) 40 mg PO ONCE 30 Days Qty: 30 2RF budesonide-formoterol [Symbicort] 160-4.5 mcg/actuation HFA aerosol inhaler 2 puff inhalation BID Qty: 10.2 3RF meloxicam 7.5 mg tablet 7.5 mg PO DAILY Qty: 7 0RF fluticasone propionate [Flonase Allergy Relief] 50 mcg/actuation spray,suspension 1 spray intranasal BID Qty: 16 0RF Rx Instructions: administer into each nostril polyethylene glycol 3350 [Miralax] 17 gram/dose powder 17 g PO DAILY Qty: 238 0RF metoclopramide HCl [Reglan] 10 mg tablet 10 mg PO Q6H PRN (Reason: nausea and vomiting) Qty: 20 0RF acetaminophen 500 mg Tablet 1,000 mg PO Q6H PRN (Reason: Pain) oxycodone-acetaminophen 10-325 mg tablet See Rx Instructions .ROUTE .COMPLEX Rx Instructions: TAKE 1 TABLET BY MOUTH EVERY 4 TO 6 HOURS NEEDED FOR PAIN. Discharge Orders: Discharge ED (Routine); Ordered 05/21/23 Ordered By: Eileen Adair Referrals: Wilfrid Maya MD [Physician] - 1-3 days Mitch Jimenez MD [Primary Care Provider] - 1-3 days Discharge Diet: Advance as tolerated Discharge Activity: Resume usual activity Patient Instructions: Abdominal Pain (ED) Coding Level of Care Code ED Senior Nuclear Medicine Technologist for Vernell Mccormack
[2023-05-20] MEDS: iohexol 350 mg/mL 500 mL Btl (per mL) IV (23:02)
[2023-05-20] MEDS: ondansetron 2 mg/ML SDV 2 mL 4 MG IVP (23:18)
[2023-05-20 23:19] VITALS: RESP 18; O2SAT 98
[2023-05-20] MEDS: morphine 4 mg/mL SDV 1 mL IVP (23:19)
[2023-05-20 23:28] VITALS: BP 130/79; PULSE 95; RESP 20; O2SAT 94
[2023-05-20 23:40] LABS: Add Urine Microscopic? YES; Bilirubin Urine Neg (Negative); Blood Urine Neg (Negative); Glucose Urine UA Norm (Normal); Ketones Urine Negative (Negative); Leukocyte Esterase Urine Negative (Negative); Nitrate Urine Negative (Negative); Protein Urine Trace (Negative); Specific Gravity, Urine 1.015 (1.005-1.030); Urine Appearance Clear (CLEAR); Urine Color Yellow (Yellow); Urobilinogen Urine Neg (Negative); pH Urine 5 (5-7)
[2023-05-20 23:41] LABS: Add Urine Culture? No; Amorphous Sediment Urine 1+ /hpf; Mucus Urine 3+ /hpf; RBC Urine 0-4 /hpf (0-2); Squamous Epithelial Cell Urine 0-4 /hpf (0-5); WBC Urine 0-4 /hpf (0-5)
[2023-05-21 00:36] VITALS: BP 130/79; PULSE 87; RESP 16; O2SAT 98
== END 2023-05-21 00:39 | disposition home or self-care (01) ==
PROVIDERS: Emergency Provider Emergency Medicine; PCP Family Medicine
DX: R10.30 Lower abdominal pain, unspecified (principal); Z87.891 Personal history of nicotine dependence; I10 Essential (primary) hypertension; Z86.711 Personal history of pulmonary embolism; K59.00 Constipation, unspecified; N20.0 Calculus of kidney
CPT/HCPCS: 36415; 74177; 80053; 81001; 83690; 85025; 96374; 96375; 99285; J2270; J2405; Q9967

== ENCOUNTER 2023-05-22 20:49 | Emergency (ER) | payer MEDICAID, SELFPAY ==
[2023-05-22 21:06] VITALS: BP 121/73; PULSE 74; RESP 14; TEMP 36.3; O2SAT 94; BMI 34.2
--- NOTE | 2023-05-22 21:12 | ED_ITS ---
HPI - Abdominal Pain General: Chief Complaint: Abdominal Pain Stated Complaint: Drainage around incison, fever Time Seen by Provider: 05/22/23 21:12 History of Present Illness: 42-year-old male patient comes in today with drainage from a wound site for his appendicitis he had with appendectomy done on May 12. Patient reports it was a little red but now has had a little bit of drainage from it the redness has been resolved. Patient is concerned due to noticing the drainage still. Patient reports having normal bowel movements. Patient has been taking medication for pain and has to use MiraLAX to help with his constipation. Patient reports fever up to 101. Review of Systems General: Reports: 10 or more systems reviewed and unremarkable except in HPI and below GI: Reports: abdominal pain Skin/Breast: Reports: other (Clear drainage from surgical wound) PFSH ED PFSH: Medical History ADHD Anxiety COVID Erectile dysfunction Gastroenteritis GERD (gastroesophageal reflux disease) H/O coronary angiogram Hypercholesterolemia Hypertension Left ureteral calculus Pulmonary embolism Surgical History H/O esophagogastroduodenoscopy (04/19/22) H/O hernia repair H/O neck surgery BIOPSY OF NECK SWOLLEN LYMPH NODE History of umbilical hernia repair 2019 History of umbilical hernia repair (11/01/21) Recurrent repaired with with ultrapro mesh Hx of tonsillectomy Status post laparoscopic cholecystectomy (11/01/21) Family History Mother , 48 Diabetes Cancer BREAST CAD (coronary artery disease) Hypertension Father Cancer CAD (coronary artery disease) Hypertension Diabetes Family/Other Anesthesia complication CAD (coronary artery disease) Chronic kidney disease (CKD) Dementia Diabetes Lung disease Stroke Suicide Other Hyperlipidemia Seizure Denies family history of Clotting disorder Bleeding disorder Social History Smoking and tobacco status: former smoker Alcohol intake: current Alcohol intake frequency: holidays/special occasions only Substance/Drug Use: never Marital status: Current occupational status: disabled Physical Exam Const: COMMON NORMALS: alert HENMT: COMMON NORMALS: normocephalic HEAD & SCALP: normocephalic Neck/C-Spine: COMMON NORMALS: full ROM Resp: COMMON NORMALS: normal respiratory effort and clear to auscultation bilaterally AUSCULTATION: clear to auscultation bilaterally Cardio: COMMON NORMALS: regular rate and regular rhythm RATE: regular rate RHYTHM: regular rhythm GI: COMMON NORMALS: Soft to palpation AUSCULTATION: Yes normoactive bowel sounds PALPATION: Yes Soft to palpation and Yes Other GI palpation findings present (Healing wounds) Extremity: COMMON NORMALS: full ROM Neuro: SENSORIUM/ORIENTATION: Yes alert Skin: NARRATIVE SKIN EXAM: Intact surgical wound, no surrounding redness or significant swelling. Course Vital Signs: Vital signs: Vital Signs Temperature 97.4 F L 05/22/23 21:06 Pulse Rate 74 05/22/23 21:06 Respiratory Rate 14 05/22/23 21:06 Blood Pressure 121/73 05/22/23 21:06 Pulse Oximetry 94 05/22/23 21:06 Oxygen Delivery Me thod Room Air 05/22/23 21:06 MDM - Abdominal Pain Medical Decision Making Patient comes in today for concerns of drainage from wound site from a recent appendectomy done on May 12. On exam abdomen soft with some tenderness in the area of surgical incisions. Wounds are well-healing. No significant redness. There is some dried drainage to the periumbilical wounds. Differential diagnosis includes wound infection, abscess, seroma, malingering. KUB was performed and no noted bowel obstruction was noted. Reviewed record from prior exam done on 20 May that showed a CT scan that was unremarkable. Laboratory values at that time noted a white count that was slightly elevated a t 14,000, and a creatinine that was elevated at 1.5. Patient was concerned about a blood culture but no blood culture was performed at that time. CBC showed decreasing white blood cell count down to 12,000, CMP was back to normal. Believe patient might just have a little seroma at the surgical incision site I do not believe this is a wound infection. Patient has several antibiotic allergies and I did not recommend placing him on antibiotics at this time. Recommend monitoring the site for fever and redness and follow-up with primary care surgeon. Patient then should also return to the ER as needed. Patient reported understanding agreed to plan. Lab Data 05/22/23 22:50 05/22/23 22:50 Labs/Radiology: Radiology Impressions KUB X-Ray 05/22/23 21:19 IMPRESSION: No acute findings. Laboratory Results WBC 12.87 10^3/uL (3.29-11.43) H 05/22/23 22:50 RBC 5.36 10^6/uL (3.85-5.65) 05/22/23 22:50 Hgb 16.10 g/dL (11.27-16.99) 05/22/23 22:50 Hct 48.7 % (37-53) 05/22/23 22:50 MCV 90.9 fl (82-101) 05/22/23 22:50 MCH 30.0 pg (27-33) 05/22/23 22:50 MCHC 33.1 g/dL (30-55) 05/22/23 22:50 RDW 12.4 % (12.1-15.1) 05/22/23 22:50 Plt Count 283 10^3/cmm (157-399) 05/22/23 22:50 MPV 9.1 fL (7.4-10.4) 05/22/23 22:50 Neut % (Auto) 60.9 % 05/22/23 22:50 Lymph % (Auto) 29.1 % 05/22/23 22:50 [place] % (Auto) 6.7 % 05/22/23 22:50 Eos % (Auto) 2.2 % 05/22/23 22:50 Baso % (Auto) 0.7 % 05/22/23 22:50 Neut # (Auto) 7.85 10^3/uL (1.8-7.7) H 05/22/23 22:50 Lymph # (Auto) 3.7 10^3/uL (0.8-4.8) 05/22/23 22:50 [place] # (Auto) 0.9 10^3/uL (0.2-0.9) 05/22/23 22:50 Eos # (Auto) 0.3 10^3/uL (0.0-0.8) 05/22/23 22:50 Baso # (Auto) 0.1 10^3/uL (0.0-0.1) 05/22/23 22:50 Nucleated RBC % (auto) 0 % 05/22/23 22:50 Nucleated RBCs # 0.0 /100WBC 05/22/23 22:50 Sodium 141 mmol/L (136-145) 05/22/23 22:50 Potassium 4.0 mmol/L (3.5-5.1) 05/22/23 22:50 Chloride 103 mmol/L (98-107) 05/22/23 22:50 Carbon Dioxide 28 mmol/L (22-29) 05/22/23 22:50 Anion Gap 14.0 (5-19) 05/22/23 22:50 BUN 11 mg/dL (6-20) 05/22/23 22:50 Creatinine 0.9 mg/dL (0.7-1.2) 05/22/23 22:50 GFR Calculation 97.2 mL/min (90-130) 05/22/23 22:50 Glucose 100 mg/dL (65-115) 05/22/23 22:50 Calculated Osmolality 291 mOsm/kg (285-295) 05/22/23 22:50 Calcium 9.7 mg/dL (8.5-10.5) 05/22/23 22:50 Total Bilirubin 0.4 mg/dL (0.15-1.2) 05/22/23 22:50 AST 62 U/L (0-40) H 05/22/23 22:50 ALT 120 U/L (0-41) H 05/22/23 22:50 Alkaline Phosphatase 113 U/L (40-130) 05/22/23 22:50 Total Protein 8.2 g/dL (6.6-8.7) 05/22/23 22:50 Albumin 5.1 g/dL (3.5-5.2) 05/22/23 22:50 Globulin 3.1 g/dL (1.3-4.6) 05/22/23 22:50 Discharge Plan Discharge Patient Disposition: Home Clinical Impression: Seroma after procedure Condition: Stable Prescriptions: No Action nitroglycerin 0.3 mg tablet, sublingual 0.3 mg sublingual Q5M PRN (Reason: Chest Pain) Rx Instructions: do not exceed 3 doses per episode metoprolol tartrate 25 mg tablet 25 mg PO DAILY albuterol sulfate [ProAir HFA] 90 mcg/actuation HFA aerosol inhaler 2 puff inhalation Q6H PRN (Reason: Shortness Of Breath) pantoprazole [Protonix] 40 mg tablet,delayed release (DR/EC) 40 mg PO ONCE 30 Days Qty: 30 2RF budesonide-formoterol [Symbicort] 160-4.5 mcg/actuation HFA aerosol inhaler 2 puff inhalation BID Qty: 10.2 3RF meloxicam 7.5 mg tablet 7.5 mg PO DAILY Qty: 7 0RF fluticasone propionate [Flonase Allergy Relief] 50 mcg/actuation spray,suspension 1 spray intranasal BID Qty: 16 0RF Rx Instructions: administer into each nostril polyethylene glycol 3350 [Miralax] 17 gram/dose powder 17 g PO DAILY Qty: 238 0RF metoclopramide HCl [Reglan] 10 mg tablet 10 mg PO Q6H PRN (Reason: nausea and vomiting) Qty: 20 0RF acetaminophen 500 mg Tablet 1,000 mg PO Q6H PRN (Reason: Pain) oxycodone-acetaminophen 10-325 mg tablet See Rx Instructions .ROUTE .COMPLEX Rx Instructions: TAKE 1 TABLET BY MOUTH EVERY 4 TO 6 HOURS NEEDED FOR PAIN. Discharge Orders: Discharge ED (Routine); Ordered 05/22/23 Ordered By: lForin Last Referrals: Mitch Jimenez MD [Primary Care Provider] - Discharge Diet: Usual diet Discharge Activity: Increase activity as tolerated Activity Restrictions/Additional Instructions: Continue medications as directed. Follow-up with primary care for further instructions. Return to surgeon as needed. Come back to the ER for worsening symptoms such as fever persisting greater than 100.4, increasing redness and tenderness around the surgical site, or new concerns. 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
--- NOTE | 2023-05-22 21:19 | XRR_ITS ---
PROCEDURE INFORMATION: Exam: XR Abdomen Exam date and time: 05/22/2023 9:26 PM Age: 32 years old Clinical indication: Abdominal pain; Acute; Prior surgery; Surgery date: <1 month; Surgery type: Appy; Additional info: Abd pain TECHNIQUE: Imaging protocol: Radiologic exam of the abdomen. Views: Frontal supine view of the abdomen. 1 View. COMPARISON: CT abdomen pelvis w con* [id number] 05/20/2023 10:59 PM FINDINGS: Gastrointestinal tract: Normal. No bowel dilation. Clips are present in the right upper quadrant consistent with prior cholecystectomy. Bones/joints: Unremarkable. XR/XR KUB [id number] IMPRESSION: No acute findings.
[2023-05-22 22:58] LABS: Basophils # 0.1 10^3/uL (0.0-0.1); Basophils % 0.7 %; Eosinophils # 0.3 10^3/uL (0.0-0.8); Eosinophils % 2.2 %; Hematocrit 48.7 % (37-53); Lymphocytes # 3.7 10^3/uL (0.8-4.8); Lymphocytes % 29.1 %; Mean Corpuscular HGB Conc 33.1 g/dL (30-55); Mean Corpuscular Volume 90.9 fl (82-101); Mean Platelet Volume 9.1 fL (7.4-10.4); Monocytes # 0.9 10^3/uL (0.2-0.9); Monocytes % 6.7 %; Neutrophils # 7.85 10^3/uL (1.8-7.7); Neutrophils % 60.9 %; Nucleated Red Blood Cells % 0 %; Platelet Count 283 10^3/cmm (157-399); Red Blood Count 5.36 10^6/uL (3.85-5.65); Red Cell Distribution Width 12.4 % (12.1-15.1); White Blood Count 12.87 10^3/uL (3.29-11.43)
[2023-05-22 23:21] LABS: Alanine Aminotransferase 120 U/L (0-41); Albumin Level 5.1 g/dL (3.5-5.2); Alkaline Phosphatase 113 U/L (40-130); Aspartate Amino Transferase 62 U/L (0-40); Blood Urea Nitrogen 11 mg/dL (6-20); Calcium 9.7 mg/dL (8.5-10.5); Carbon Dioxide 28 mmol/L (22-29); Chloride 103 mmol/L (98-107); Globulin 3.1 g/dL (1.3-4.6); Glomerular Filtration Rate 97.2 mL/min (90-130); Glucose 100 mg/dL (65-115); Osmolality Calculated 291 mOsm/kg (285-295); Sodium 141 mmol/L (136-145); Total Bilirubin 0.4 mg/dL (0.15-1.2); Total Protein 8.2 g/dL (6.6-8.7)
[2023-05-22 23:33] VITALS: BP 133/89; PULSE 94; O2SAT 93
== END 2023-05-22 23:37 | disposition home or self-care (01) ==
PROVIDERS: Emergency Provider Nurse Practitioner Family; PCP Family Medicine
DX: K91.872 Postprocedural seroma of a digestive system organ or structure following a digestive system procedure (principal); I10 Essential (primary) hypertension; Z86.711 Personal history of pulmonary embolism
CPT/HCPCS: 36415; 74018; 80053; 85025; 99284

== ENCOUNTER → 2023-05-26 09:28 | Outpatient (BNVA) | payer MEDICAID, SELFPAY | PROVIDERS: PCP Family Medicine; Visit Provider Surgery | DX: Z90.49 Acquired absence of other specified parts of digestive tract (principal); Z98.890 Other specified postprocedural states | CPT/HCPCS: 99024 ==

== ENCOUNTER 2023-05-29 20:59 | Emergency (ER) | payer MEDICAID, SELFPAY ==
[2023-05-29 21:03] VITALS: BP 141/77; PULSE 80; RESP 18; TEMP 36.3; O2SAT 98; BMI 34.2
[2023-05-29 22:27] LABS: Basophils # 0.1 10^3/uL (0.0-0.1); Basophils % 0.9 %; Eosinophils # 0.4 10^3/uL (0.0-0.8); Hematocrit 45.2 % (37-53); Lymphocytes # 4.2 10^3/uL (0.8-4.8); Lymphocytes % 35.8 %; Mean Corpuscular HGB Conc 33.4 g/dL (30-55); Mean Corpuscular Hemoglobin 30.3 pg (27-33); Mean Corpuscular Volume 90.8 fl (82-101); Mean Platelet Volume 9.4 fL (7.4-10.4); Monocytes % 8.9 %; Neutrophils # 5.94 10^3/uL (1.8-7.7); Neutrophils % 51.1 %; Nucleated Red Blood Cells % 0 %; Platelet Count 279 10^3/cmm (157-399); Red Blood Count 4.98 10^6/uL (3.85-5.65); Red Cell Distribution Width 12.4 % (12.1-15.1); White Blood Count 11.64 10^3/uL (3.29-11.43)
[2023-05-29 23:01] LABS: Alanine Aminotransferase 122 U/L (0-41); Albumin Level 4.6 g/dL (3.5-5.2); Alkaline Phosphatase 99 U/L (40-130); Anion Gap 13.8 (5-19); Aspartate Amino Transferase 53 U/L (0-40); Blood Urea Nitrogen 17 mg/dL (6-20); Calcium 9.8 mg/dL (8.5-10.5); Carbon Dioxide 27 mmol/L (22-29); Chloride 104 mmol/L (98-107); Globulin 3.2 g/dL (1.3-4.6); Glomerular Filtration Rate 86.1 mL/min (90-130); Glucose 122 mg/dL (65-115); Osmolality Calculated 295 mOsm/kg (285-295); Potassium 3.8 mmol/L (3.5-5.1); Sodium 141 mmol/L (136-145); Total Bilirubin 0.3 mg/dL (0.15-1.2); Total Protein 7.8 g/dL (6.6-8.7)
[2023-05-29 23:05] LABS: Add Urine Microscopic? NO; Charge for UA Resulting for Rev
[2023-05-29 23:07] LABS: Bilirubin Urine Neg (Negative); Blood Urine Neg (Negative); Glucose Urine UA Norm (Normal); Ketones Urine Negative (Negative); Leukocyte Esterase Urine Negative (Negative); Nitrate Urine Negative (Negative); Protein Urine Neg (Negative); Specific Gravity, Urine 1.025 (1.005-1.030); Urine Appearance Clear (CLEAR); Urine Color Yellow (Yellow); Urobilinogen Urine Neg (Negative); pH Urine 5 (5-7)
--- NOTE | 2023-05-29 23:10 | W.ED.SKABFB ---
HPI - Skin/Abscess/Foreign Bdy General: Chief complaint: Abdominal Pain Stated complaint: abd pain Time Seen by Provider: 05/29/23 22:49 History of Present Illness: Patient presents to the ER with complaints of an itchy skin rash on his abdomen since surgery. Approximately 3 weeks ago patient had laparoscopic appendectomy and is complained of a rash on his abdomen ever since then. Patient says this rash itches. Patient has been to the ER twice for abdominal pain since surgery and wants to his surgeon who performed surgery. He says the surgeon has told him to put steroid cream on it. Patient said he is using prescription triamcinolone cream on it and is not working. Patient says it itches and it does not burn except when he scratches on it. Review of Systems General: Reports: 10 or more systems reviewed and unremarkable except in HPI and below PFSH ED PFSH: Medical History ADHD Anxiety COVID Erectile dysfunction Gastroenteritis GERD (gastroesophageal reflux disease) H/O coronary angiogram Hypercholesterolemia Hypertension Left ureteral calculus Pulmonary embolism Surgical History H/O esophagogastroduodenoscopy (04/19/22) H/O hernia repair H/O neck surgery BIOPSY OF NECK SWOLLEN LYMPH NODE History of laparoscopic appendectomy 05/11/23 Dr. Maya History of umbilical hernia repair 2019 History of umbilical hernia repair (11/01/21) Recurrent repaired with with ultrapro mesh Hx of tonsillectomy Status post laparoscopic cholecystectomy (11/01/21) Family History Mother , 48 Diabetes Cancer BREAST CAD (coronary artery disease) Hypertension Father Cancer CAD (coronary artery disease) Hypertension Diabetes Family/Other Anesthesia complication CAD (coronary artery disease) Chronic kidney disease (CKD) Dementia Diabetes Lung disease Stroke Suicide Other Hyperlipidemia Seizure Denies family history of Clotting disorder Bleeding disorder Social History Smoking and tobacco status: former smoker Alcohol intake: current Alcohol intake frequency: holidays/special occasions only Substance/Drug Use: never Marital status: Current occupational status: disabled Physical Exam Const: COMMON NORMALS: no acute distress, average body habitus, patient oriented x3, no limitations, healthy appearing, alert and well nourished HENMT: COMMON NORMALS: normocephalic, atraumatic, external ears normal, Normal external nose present and moist oral mucous membranes HEAD & SCALP: normocephalic and atraumatic NOSE: Normal external nose present EXTERNAL EAR: Yes external ears normal Eye: COMMON NORMALS: Equal, round and reactive pupils present, EOMs intact bilaterally, conjunctivae normal and no scleral icterus CONJUNCTIVA: Yes conjunctivae normal PUPIL: Yes Equal, round and reactive pupils present Neck/C-Spine: COMMON NORMALS: no JVD Chest: COMMONS NORMALS: normal inspection of the chest Resp: COMMON NORMALS: normal respiratory effort, No retractions and No use of accessory muscles Cardio: COMMON NORMALS: no JVD, regular rate and regular rhythm RATE: regular rate RHYTHM: regular rhythm GI: COMMON NORMALS: Normal to inspection, nondistended, normoactive bowel sounds present (Mild the rash on lower abdomen possibly due to shaving from surgery.), Soft to palpation, non-tender, No hepatosplenomegaly present and no masses PALPATION: Yes Soft to palpation and Yes No hepatosplenomegaly present Neuro: COMMON NORMALS: patient oriented x3 SENSORIUM/ORIENTATION: Yes alert Course Vital Signs: Vital signs: Vital Signs Temperature 97.4 F L 05/29/23 21:03 Pulse Rate 80 05/29/23 21:03 Respiratory Rate 18 05/29/23 21:03 Blood Pressure 141/77 05/29/23 21:03 Pulse Oximetry 98 05/29/23 21:03 Oxygen Delivery Me thod Room Air 05/29/23 21:03 MDM - Skin/Abscess/Foreign Bdy Medicial Decision Making Patient has been to the ER twice and been back to his surgeon for his postsurgical abdominal pain/rash with no relief. Patient has tried [id number] and prescription steroid cream. Patient has not tried any antibiotics or antibiotic cream noted. This could be just a standard folliculitis with a hair growing in however patient will be prescribed an antibiotic cream to see if this helps. Patient is to follow back up with his surgeon and/or primary care doctor on an as-needed basis. Differential Diagnosis Unlikely abscess of skin or subcutaneous tissue, viral exanthem, dermatophytosis, urticaria, herpes zoster, allergic reaction to drug, cellulitis, eczema, insect bites, impetigo or contact dermatitis Medical Records I reviewed the patient's medical records. Lab Data I reviewed the patient's lab results. 05/29/23 22:17 05/29/23 22:17 Laboratory Results WBC 11.64 10^3/uL (3.29-11.43) H 05/29/23 22:17 RBC 4.98 10^6/uL (3.85-5.65) 05/29/23 22:17 Hgb 15.10 g/dL (11.27-16.99) 05/29/23 22:17 Hct 45.2 % (37-53) 05/29/23 22: MCV 90.8 fl (82-101) 05/29/23 22: MCH 30.3 pg (27-33) 05/29/23 22: MCHC 33.4 g/dL (30-55) 05/29/23 22: RDW 12.4 % (12.1-15.1) 05/29/23 22:17 Plt Count 279 10^3/cmm (157-399) 05/29/23 22:17 MPV 9.4 fL (7.4-10.4) 05/29/23 22:17 Neut % (Auto) 51.1 % 05/29/23 22:17 Lymph % (Auto) 35.8 % 05/29/23 22:17 [place] % (Auto) 8.9 % 05/29/23 22:17 Eos % (Auto) 3.0 % 05/29/23 22:17 Baso % (Auto) 0.9 % 05/29/23 22:17 Neut # (Auto) 5.94 10^3/uL (1.8-7.7) 05/29/23 22:17 Lymph # (Auto) 4.2 10^3/uL (0.8-4.8) 05/29/23 22:17 [place] # (Auto) 1.0 10^3/uL (0.2-0.9) H 05/29/23 22:17 Eos # (Auto) 0.4 10^3/uL (0.0-0.8) 05/29/23 22:17 Baso # (Auto) 0.1 10^3/uL (0.0-0.1) 05/29/23 22:17 Nucleated RBC % (auto) 0 % 05/29/23 22:17 Nucleated RBCs # 0.0 /100WBC 05/29/23 22:17 Sodium 141 mmol/L (136-145) 05/29/23 22:17 Potassium 3.8 mmol/L (3.5-5.1) 05/29/23 22:17 Chloride 104 mmol/L (98-107) 05/29/23 22:17 Carbon Dioxide 27 mmol/L (22-29) 05/29/23 22:17 Anion Gap 13.8 (5-19) 05/29/23 22:17 BUN 17 mg/dL (6-20) 05/29/23 22:17 Creatinine 1.0 mg/dL (0.7-1.2) 05/29/23 22:17 GFR Calculation 86.1 mL/min (90-130) L 05/29/23 22:17 Glucose 122 mg/dL (65-115) H 05/29/23 22:17 Calculated Osmolality 295 mOsm/kg (285-295) 05/29/23 22:17 Calcium 9.8 mg/dL (8.5-10.5) 05/29/23 22:17 Total Bilirubin 0.3 mg/dL (0.15-1.2) 05/29/23 22:17 AST 53 U/L (0-40) H 05/29/23 22:17 ALT 122 U/L (0-41) H 05/29/23 22:17 Alkaline Phosphatase 99 U/L (40-130) 05/29/23 22:17 Total Protein 7.8 g/dL (6.6-8.7) 05/29/23 22:17 Albumin 4.6 g/dL (3.5-5.2) 05/29/23 22:17 Globulin 3.2 g/dL (1.3-4.6) 05/29/23 22:17 Urine Color Yellow (Yellow) 05/29/23 22:49 Urine Appearance Clear (CLEAR) 05/29/23 22:49 Urine pH 5 (5-7) 05/29/23 22:49 Ur Specific [place] 1.025 (1.005-1.030) 05/29/23 22:49 Urine Protein Neg (Negative) 05/29/23 22:49 Urine Glucose (UA) Norm (Normal) 05/29/23 22:49 Urine Ketones Negative (Negative) 05/29/23 22:49 Urine Blood Neg (Negative) 05/29/23 22:49 Urine Nitrate Negative (Negative) 05/29/23 22:49 Urine Bilirubin Neg (Negative) 05/29/23 22:49 Urine Urobilinogen Neg mg/dL (Negative) 05/29/23 22:49 Ur Leukocyte Esterase Negative (Negative) 05/29/23 22:49 Discharge Plan Discharge Patient Disposition: Home Clinical Impression: Rash, Folliculitis Condition: Stable Prescriptions: New mupirocin 2 % ointment 1 applic topical BID Qty: 50 0RF No Action nitroglycerin 0.3 mg tablet, sublingual 0.3 mg sublingual Q5M PRN (Reason: Chest Pain) Rx Instructions: do not exceed 3 doses per episode metoprolol tartrate 25 mg tablet 25 mg PO DAILY albuterol sulfate [ProAir HFA] 90 mcg/actuation HFA aerosol inhaler 2 puff inhalation Q6H PRN (Reason: Shortness Of Breath) pantoprazole [Protonix] 40 mg tablet,delayed release (DR/EC) 40 mg PO ONCE 30 Days Qty: 30 2RF budesonide-formoterol [Symbicort] 160-4.5 mcg/actuation HFA aerosol inhaler 2 puff inhalation BID Qty: 10.2 3RF meloxicam 7.5 mg tablet 7.5 mg PO DAILY Qty: 7 0RF fluticasone propionate [Flonase Allergy Relief] 50 mcg/actuation spray,suspension 1 spray intranasal BID Qty: 16 0RF Rx Instructions: administer into each nostril polyethylene glycol 3350 [Miralax] 17 gram/dose powder 17 g PO DAILY Qty: 238 0RF metoclopramide HCl [Reglan] 10 mg tablet 10 mg PO Q6H PRN (Reason: nausea and vomiting) Qty: 20 0RF acetaminophen 500 mg Tablet 1,000 mg PO Q6H PRN (Reason: Pain) oxycodone-acetaminophen 10-325 mg tablet See Rx Instructions .ROUTE .COMPLEX Rx Instructions: TAKE 1 TABLET BY MOUTH EVERY 4 TO 6 HOURS NEEDED FOR PAIN. Discharge Orders: Discharge ED (Routine); Ordered 05/29/23 Ordered By: Davie Ramirez Referrals: Mitch Jimenez MD [Primary Care Provider] - 1 week Patient Instructions: Folliculitis, Acute Rash (ED) Activity Restrictions/Additional Instructions: Keep the area clean and dry. Please apply antibiotic ointment 2 times daily until resolved. Please follow-up with the surgeon and family practice doctor as needed. 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
[2023-05-29 23:28] VITALS: BP 128/79; PULSE 90; RESP 14
== END 2023-05-29 23:29 | disposition home or self-care (01) ==
PROVIDERS: Emergency Provider Emergency Medicine; PCP Family Medicine
DX: R21 Rash and other nonspecific skin eruption (principal); L73.9 Follicular disorder, unspecified; Z87.891 Personal history of nicotine dependence; I10 Essential (primary) hypertension
CPT/HCPCS: 36415; 80053; 81003; 85025; 99283

== ENCOUNTER 2023-07-14 22:51 | Emergency (ER) | payer MEDICAID, SELFPAY ==
[2023-07-14 22:57] VITALS: BP 130/85; PULSE 79; RESP 18; TEMP 36.4; O2SAT 96; BMI 34.2
[2023-07-15 00:15] LABS: Basophils # 0.1 10^3/uL (0.0-0.1); Basophils % 0.7 %; Eosinophils # 0.1 10^3/uL (0.0-0.8); Eosinophils % 0.7 %; Hematocrit 47.7 % (37-53); Lymphocytes # 2.5 10^3/uL (0.8-4.8); Lymphocytes % 20.5 %; Mean Corpuscular HGB Conc 32.9 g/dL (30-55); Mean Corpuscular Hemoglobin 30.2 pg (27-33); Mean Corpuscular Volume 91.7 fl (82-101); Mean Platelet Volume 9.2 fL (7.4-10.4); Monocytes # 0.9 10^3/uL (0.2-0.9); Monocytes % 7.6 %; Neutrophils # 8.69 10^3/uL (1.8-7.7); Neutrophils % 70.3 %; Nucleated Red Blood Cells % 0 %; Platelet Count 265 10^3/cmm (157-399); Red Cell Distribution Width 12.5 % (12.1-15.1); White Blood Count 12.37 10^3/uL (3.29-11.43)
--- NOTE | 2023-07-15 00:23 | W.ED.GIBLEED ---
HPI - GI Bleed General: Chief complaint: GI Bleed Stated complaint: throwing up blood Time Seen by Provider: 07/15/23 00:13 History of Present Illness: 32-year-old male presents emergency department with complaints of having a single episode of vomiting which she thought might contain small amount of blood. He states he does drink nereida every other week mixed in with his tea. He states that 1 month ago he had his appendix removed by Dr. Ponce and has not had difficulty since then. He states that in 2016 he had the lining of his intestine rupture but states he did not have any surgical intervention at that time. He has not had any additional episodes of nausea and vomiting while in the waiting room. He is describes a single episode of what appears to be coffee-ground looking emesis per the patient. He states he does have a metallic blood type taste in his mouth. I did have him protrude his tongue and it does not appear that there is any dried blood or discoloration to his tongue. He denies any additional dizziness after his initial episode of vomiting. Associated symptoms: Reports nausea Review of Systems General: Reports: 10 or more systems reviewed and unremarkable except in HPI and below GI: Reports: nausea and coffee ground emesis PFSH ED PFSH: Medical History ADHD Anxiety COVID Erectile dysfunction Gastroenteritis GERD (gastroesophageal reflux disease) H/O coronary angiogram Hypercholesterolemia Hypertension Left ureteral calculus Pulmonary embolism Surgical History H/O esophagogastroduodenoscopy (04/19/22) H/O hernia repair H/O neck surgery BIOPSY OF NECK SWOLLEN LYMPH NODE History of laparoscopic appendectomy 05/11/23 Dr. Maya History of umbilical hernia repair 2019 History of umbilical hernia repair (11/01/21) Recurrent repaired with with ultrapro mesh Hx of tonsillectomy Status post laparoscopic cholecystectomy (11/01/21) Family History Mother , 48 Diabetes Cancer BREAST CAD (coronary artery disease) Hypertension Father Cancer CAD (coronary artery disease) Hypertension Diabetes Family/Other Anesthesia complication CAD (coronary artery disease) Chronic kidney disease (CKD) Dementia Diabetes Lung disease Stroke Suicide Other Hyperlipidemia Seizure Denies family history of Clotting disorder Bleeding disorder Social History Smoking and tobacco/nicotine status: former use of tobacco/nicotine Alcohol intake: current Alcohol intake frequency: holidays/special occasions only Substance/Drug Use: never Marital status: Current occupational status: disabled Physical Exam Const: COMMON NORMALS: no acute distress, average body habitus, patient oriented x3 and alert HENMT: COMMON NORMALS: normocephalic, atraumatic, Normal nasal mucous membranes and turbinates present and moist oral mucous membranes HEAD & SCALP: normocephalic and atraumatic NOSE: Normal nasal mucous membranes and turbinates present Eye: COMMON NORMALS: Equal, round and reactive pupils present, EOMs intact bilaterally and normal visual rondon by confrontation PUPIL: Yes Equal, round and reactive pupils present Neck/C-Spine: COMMON NORMALS: full ROM and supple Resp: COMMON NORMALS: normal respiratory effort, No retractions and clear to auscultation bilaterally AUSCULTATION: clear to auscultation bilaterally Cardio: COMMON NORMALS: regular rate, regular rhythm, S1 normal heart sound present, S2 normal heart sound present and Peripheral pulses 2+ throughout RATE: regular rate RHYTHM: regular rhythm HEART SOUNDS: S1 normal heart sound present and S2 normal heart sound present PERIPHERAL PULSES: Peripheral pulses 2+ throughout GI: COMMON NORMALS: Normal to inspection, nondistended, normoactive bowel sounds present, Soft to palpation and non-tender PALPATION: Yes Soft to palpation : COMMON NORMALS: Yes no CVA tenderness BLADDER/KIDNEY EXAM: Yes no CVA tenderness Back/Pelvis: COMMON NORMALS: no CVA tenderness and thoracic and lumbar spine normal to inspection Extremity: COMMON NORMALS: normal to inspection and capillary refill normal Neuro: COMMON NORMALS: patient oriented x3, moves all extremities, no focal motor deficits and no sensory deficits noted SENSORIUM/ORIENTATION: Yes alert Psych: COMMON NORMALS: mental status grossly normal, Normal thought process present, cooperative and normal affect THOUGHT PROCESS: Normal thought process present Skin: COMMON NORMALS: no rashes or lesions noted GENERAL SKIN EXAM: no rashes or lesions noted Course Vital Signs: Vital signs: Vital Signs Temperature 97.5 F L 07/14/23 22:57 Pulse Rate 79 07/14/23 22:57 Respiratory Rate 18 07/14/23 22:57 Blood Pressure 130/85 07/14/23 22:57 Pulse Oximetry 96 07/14/23 22:57 Oxygen Delivery Me thod Room Air 07/14/23 22:57 MDM - GI Bleed Medical Decision Making Physical exam completed and documented I discussed the patient's laboratory findings and lack of clinical findings I did advise him I would prescribe him pantoprazole and Carafate and have him follow-up with his primary care provider in 2 days. He was advised if his symptoms worsen or return that he may return to emergency department at any time for any reason. Patient stated that he felt comfortable with that plan of care and was provided discharge instructions and discharged home in stable condition. The patient was advised to abstain from alcohol use and any tobacco product use. Medical Records I reviewed the patient's medical records. Lab Data I reviewed the patient's lab results. 07/15/23 00:09 07/15/23 00:09 Laboratory Results WBC 12.37 10^3/uL (3.29-11.43) H 07/15/23 00:09 RBC 5.20 10^6/uL (3.85-5.65) 07/15/23 00:09 Hgb 15.70 g/dL (11.27-16.99) 07/15/23 00:09 Hct 47.7 % (37-53) 07/15/23 00:09 MCV 91.7 fl (82-101) 07/15/23 00:09 MCH 30.2 pg (27-33) 07/15/23 00:09 MCHC 32.9 g/dL (30-55) 07/15/23 00:09 RDW 12.5 % (12.1-15.1) 07/15/23 00:09 Plt Count 265 10^3/cmm (157-399) 07/15/23 00:09 MPV 9.2 fL (7.4-10.4) 07/15/23 00:09 Neut % (Auto) 70.3 % 07/15/23 00:09 Lymph % (Auto) 20.5 % 07/15/23 00:09 [place] % (Auto) 7.6 % 07/15/23 00:09 Eos % (Auto) 0.7 % 07/15/23 00:09 Baso % (Auto) 0.7 % 07/15/23 00:09 Neut # (Auto) 8.69 10^3/uL (1.8-7.7) H 07/15/23 00:09 Lymph # (Auto) 2.5 10^3/uL (0.8-4.8) 07/15/23 00:09 [place] # (Auto) 0.9 10^3/uL (0.2-0.9) 07/15/23 00:09 Eos # (Auto) 0.1 10^3/uL (0.0-0.8) 07/15/23 00:09 Baso # (Auto) 0.1 10^3/uL (0.0-0.1) 07/15/23 00:09 Nucleated RBC % (auto) 0 % 07/15/23 00:09 Nucleated RBCs # 0.0 /100WBC 07/15/23 00:09 Sodium 143 mmol/L (136-145) 07/15/23 00:09 Potassium 4.9 mmol/L (3.5-5.1) 07/15/23 00:09 Chloride 105 mmol/L (98-107) 07/15/23 00:09 Carbon Dioxide 27 mmol/L (22-29) 07/15/23 00:09 Anion Gap 15.9 (5-19) 07/15/23 00:09 BUN 11 mg/dL (6-20) 07/15/23 00:09 Creatinine 0.8 mg/dL (0.7-1.2) 07/15/23 00:09 GFR Calculation 111.3 mL/min (90-130) 07/15/23 00:09 Glucose 125 mg/dL (65-115) H 07/15/23 00:09 Calculated Osmolality 297 mOsm/kg (285-295) H 07/15/23 00:09 Calcium 9.9 mg/dL (8.5-10.5) 07/15/23 00:09 Total Bilirubin 0.4 mg/dL (0.15-1.2) 07/15/23 00:09 AST 67 U/L (0-40) H 07/15/23 00:09 ALT 133 U/L (0-41) H 07/15/23 00:09 Alkaline Phosphatase 111 U/L (40-130) 07/15/23 00:09 Total Protein 7.9 g/dL (6.6-8.7) 07/15/23 00:09 Albumin 5.0 g/dL (3.5-5.2) 07/15/23 00:09 Globulin 2.9 g/dL (1.3-4.6) 07/15/23 00:09 No radiology studies performed this visit Discharge Plan Discharge Patient Disposition: Home Clinical Impression: Gastritis Condition: Stable Prescriptions: New pantoprazole 20 mg tablet,delayed release (DR/EC) 20 mg PO DAILY 28 Days Qty: 30 0RF Carafate 1 gram tablet 1 g PO TID 28 Days Qty: 84 0RF No Action nitroglycerin 0.3 mg tablet, sublingual 0.3 mg sublingual Q5M PRN (Reason: Chest Pain) Rx Instructions: do not exceed 3 doses per episode metoprolol tartrate 25 mg tablet 25 mg PO DAILY albuterol sulfate [ProAir HFA] 90 mcg/actuation HFA aerosol inhaler 2 puff inhalation Q6H PRN (Reason: Shortness Of Breath) pantoprazole [Protonix] 40 mg tablet,delayed release (DR/EC) 40 mg PO ONCE 30 Days Qty: 30 2RF budesonide-formoterol [Symbicort] 160-4.5 mcg/actuation HFA aerosol inhaler 2 puff inhalation BID Qty: 10.2 3RF meloxicam 7.5 mg tablet 7.5 mg PO DAILY Qty: 7 0RF fluticasone propionate [Flonase Allergy Relief] 50 mcg/actuation spray,suspension 1 spray intranasal BID Qty: 16 0RF Rx Instructions: administer into each nostril polyethylene glycol 3350 [Miralax] 17 gram/dose powder 17 g PO DAILY Qty: 238 0RF metoclopramide HCl [Reglan] 10 mg tablet 10 mg PO Q6H PRN (Reason: nausea and vomiting) Qty: 20 0RF acetaminophen 500 mg Tablet 1,000 mg PO Q6H PRN (Reason: Pain) oxycodone-acetaminophen 10-325 mg tablet See Rx Instructions .ROUTE .COMPLEX Rx Instructions: TAKE 1 TABLET BY MOUTH EVERY 4 TO 6 HOURS NEEDED FOR PAIN. 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
[2023-07-15 00:32] LABS: Alanine Aminotransferase 133 U/L (0-41); Alkaline Phosphatase 111 U/L (40-130); Anion Gap 15.9 (5-19); Aspartate Amino Transferase 67 U/L (0-40); Blood Urea Nitrogen 11 mg/dL (6-20); Calcium 9.9 mg/dL (8.5-10.5); Carbon Dioxide 27 mmol/L (22-29); Chloride 105 mmol/L (98-107); Globulin 2.9 g/dL (1.3-4.6); Glomerular Filtration Rate 111.3 mL/min (90-130); Glucose 125 mg/dL (65-115); Osmolality Calculated 297 mOsm/kg (285-295); Potassium 4.9 mmol/L (3.5-5.1); Sodium 143 mmol/L (136-145); Total Bilirubin 0.4 mg/dL (0.15-1.2); Total Protein 7.9 g/dL (6.6-8.7)
[2023-07-15 01:30] VITALS: BP 125/89; PULSE 69; O2SAT 95
[2023-07-15 01:58] VITALS: BP 131/90; PULSE 78; O2SAT 94
== END 2023-07-15 01:58 | disposition home or self-care (01) ==
PROVIDERS: Nurse Practitioner Family; Emergency Provider Internal Medicine; PCP Family Medicine
DX: K29.70 Gastritis, unspecified, without bleeding (principal); Z87.891 Personal history of nicotine dependence; I10 Essential (primary) hypertension
CPT/HCPCS: 36415; 80053; 85025; 99283

== ENCOUNTER 2023-08-20 04:34 | Emergency (ER) | payer MEDICAID, SELFPAY ==
[2023-08-20 04:37] VITALS: BP 146/87; PULSE 91; RESP 18; TEMP 36.7; O2SAT 95; BMI 33.3
[2023-08-20 04:43] VITALS: PULSE 90; RESP 16; O2SAT 92
[2023-08-20] MEDS: dexamethasone 4 mg Tablet 10 MG PO (05:20)
[2023-08-20] MEDS: cephALEXin 500 mg Capsule 1000 MG PO (05:20)
[2023-08-20] MEDS: ketorolac 60 mg/2 mL INJ IM (05:20)
[2023-08-20 05:38] VITALS: PULSE 96; O2SAT 92
--- NOTE | 2023-08-20 07:17 | W.ED.DENTAL ---
HPI - Dental/Oral General: Chief complaint: Dental/Oral Stated complaint: dental pain Time Seen by Provider: 08/20/23 04:57 History of Present Illness: 32yo male complaining of ongoing tooth pain to the left upper and lower jaw for the last3 months or so. Has been on cefdinir, zithrmax and clindamycin (to which he has an allergy) with relapsing symptoms with all. No fever. Cheek is swollen. has pain medication but it only helps sometimes. Associated symptoms: Denies fever(s) Review of Systems Const: Denies: fever(s) Eyes: Denies: blurry vision ENMT: Reports: dental pain and halitosis; Denies: throat pain, hoarseness, swelling of lips/tongue, bleeding gums or nasal congestion Card: Denies: chest pain Resp: Denies: dyspnea GI: Denies: vomiting PFSH ED PFSH: Medical History ADHD Anxiety COVID Erectile dysfunction Gastroenteritis GERD (gastroesophageal reflux disease) H/O coronary angiogram Hypercholesterolemia Hypertension Left ureteral calculus Pulmonary embolism Surgical History H/O esophagogastroduodenoscopy (04/19/22) H/O hernia repair H/O neck surgery BIOPSY OF NECK SWOLLEN LYMPH NODE History of laparoscopic appendectomy 05/11/23 Dr. Maya History of umbilical hernia repair 2019 History of umbilical hernia repair (11/01/21) Recurrent repaired with with ultrapro mesh Hx of tonsillectomy Status post laparoscopic cholecystectomy (11/01/21) Family History Mother , 48 Diabetes Cancer BREAST CAD (coronary artery disease) Hypertension Father Cancer CAD (coronary artery disease) Hypertension Diabetes Family/Other Anesthesia complication CAD (coronary artery disease) Chronic kidney disease (CKD) Dementia Diabetes Lung disease Stroke Suicide Other Hyperlipidemia Seizure Denies family history of Clotting disorder Bleeding disorder Social History Smoking and tobacco/nicotine status: former use of tobacco/nicotine Alcohol intake: current Alcohol intake frequency: holidays/special occasions only Substance/Drug Use: never Marital status: Current occupational status: disabled Physical Exam Const: COMMON NORMALS: no acute distress GENERAL APPEARANCE: cooperative; not ill appearing and not frail appearing HENMT: COMMON NORMALS: normocephalic, atraumatic and Normal external nose present HEAD & SCALP: normocephalic and atraumatic NOSE: Normal external nose present OTHER: buccal swelling left upper/maxillary. broken tooth, small gingival abscess. lower broken tooth present without abscess. Eye: COMMON NORMALS: Equal, round and reactive pupils present and EOMs intact bilaterally PUPIL: Yes Equal, round and reactive pupils present Neck/C-Spine: GENERAL: Yes trachea midline Chest: CHEST: Yes Symmetrical chest wall rise Resp: COMMON NORMALS: normal respiratory effort, No retractions, No use of accessory muscles and clear to auscultation bilaterally AUSCULTATION: clear to auscultation bilaterally Cardio: COMMON NORMALS: regular rate and regular rhythm RATE: regular rate RHYTHM: regular rhythm GI: COMMON NORMALS: Normal to inspection, nondistended, normoactive bowel sounds present Extremity: COMMON NORMALS: no pedal edema Neuro: GEE COMA SCALE: document GCS findings [place] coma scale eye opening: Spontaneous [place] coma scale verbal response: Orientated Gee coma scale motor response: Obey commands [place] coma scale total score: 15 SENSORY EXAM: Yes extremities (intact) Psych: COMMON NORMALS: speech normal SPEECH: Yes normal speech Skin: COMMON NORMALS: no rashes or lesions noted GENERAL SKIN EXAM: no rashes or lesions noted Course Vital Signs: Vital signs: Vital Signs Temperature 98.0 F 08/20/23 04:37 Pulse Rate 96 08/20/23 05:38 Respiratory Rate 16 08/20/23 04:43 Blood Pressure 146/87 08/20/23 04:37 Pulse Oximetry 92 08/20/23 05:38 Oxygen Delivery Me thod Room Air 08/20/23 04:37 MDM - Dental/Oral Medical Decision Making Clear dental abscess of upper with buccal swelling. Dexamethasone for this, cephalexin for 2 weeks. Encouraged to fu with a dentist to get taken care of. No radiology studies performed this visit Discharge Plan Discharge Patient Disposition: Home Clinical Impression: Dental abscess Condition: Stable Prescriptions: No Action nitroglycerin 0.3 mg tablet, sublingual 0.3 mg sublingual Q5M PRN (Reason: Chest Pain) Rx Instructions: do not exceed 3 doses per episode metoprolol tartrate 25 mg tablet 25 mg PO DAILY albuterol sulfate [ProAir HFA] 90 mcg/actuation HFA aerosol inhaler 2 puff inhalation Q6H PRN (Reason: Shortness Of Breath) pantoprazole [Protonix] 40 mg tablet,delayed release (DR/EC) 40 mg PO ONCE 30 Days Qty: 30 2RF budesonide-formoterol [Symbicort] 160-4.5 mcg/actuation HFA aerosol inhaler 2 puff inhalation BID Qty: 10.2 3RF meloxicam 7.5 mg tablet 7.5 mg PO DAILY Qty: 7 0RF fluticasone propionate [Flonase Allergy Relief] 50 mcg/actuation spray,suspension 1 spray intranasal BID Qty: 16 0RF Rx Instructions: administer into each nostril cefdinir 300 mg capsule 300 mg PO BID 7 Days Qty: 14 0RF polyethylene glycol 3350 [Miralax] 17 gram/dose powder 17 g PO DAILY Qty: 238 0RF metoclopramide HCl [Reglan] 10 mg tablet 10 mg PO Q6H PRN (Reason: nausea and vomiting) Qty: 20 0RF acetaminophen 500 mg Tablet 1,000 mg PO Q6H PRN (Reason: Pain) oxycodone-acetaminophen 10-325 mg tablet See Rx Instructions .ROUTE .COMPLEX Rx Instructions: TAKE 1 TABLET BY MOUTH EVERY 4 TO 6 HOURS NEEDED FOR PAIN. 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
== END 2023-08-20 05:44 | disposition home or self-care (01) ==
PROVIDERS: Emergency Provider Emergency Medicine; PCP Family Medicine
DX: K04.7 Periapical abscess without sinus (principal); Z87.891 Personal history of nicotine dependence; I10 Essential (primary) hypertension
CPT/HCPCS: 96372; 99284; J1885; J8540

== ENCOUNTER 2023-11-03 22:01 | Emergency (ER) | payer MEDICAID, SELFPAY ==
[2023-11-03 22:13] VITALS: BP 156/77; PULSE 91; RESP 14; TEMP 36.3; O2SAT 95
--- NOTE | 2023-11-03 22:30 | ED_ITS ---
HPI - Back Pain/Injury 2 General: Chief Complaint: Back Pain/Injury Stated Complaint: left flank pain Time Seen by Provider: 11/03/23 22:18 History of Present Illness: 33-year-old male presents emergency depa rtment complaints of left flank pain. He states the pain started about an hour ago he did take Flomax at home prior to coming in. He has a history of kidney stones in the past and his last kidney stone was approximately a year ago. He states the pain was a sharp stabbing type pain that did cause intermittent nausea he states that he had a strainer from when he had kidney stones previously and thinks he may have urinated one of the kidney stones out. He states that he still has discomfort that is a 3 out of 10. He does endorse urinary frequency. Associated symptoms: Reports dysuria Review of Systems 2 General: Reports: 10 or more systems reviewed and unremarkable except in HPI and below : Reports: dysuria and urinary frequency Musc: Reports: back pain PFSH ED 2 PFSH: Medical History ADHD Anxiety COVID Erectile dysfunction Gastroenteritis GERD (gastroesophageal reflux disease) H/O coronary angiogram Hypercholesterolemia Hypertension Left ureteral calculus Pulmonary embolism Surgical History H/O esophagogastroduodenoscopy (04/19/22) H/O hernia repair H/O neck surgery BIOPSY OF NECK SWOLLEN LYMPH NODE History of laparoscopic appendectomy 05/11/23 Dr. Maya History of umbilical hernia repair 2019 History of umbilical hernia repair (11/01/21) Recurrent repaired with with ultrapro mesh Hx of tonsillectomy Status post laparoscopic cholecystectomy (11/01/21) Family History Mother , 48 Diabetes Cancer BREAST CAD (coronary artery disease) Hypertension Father Cancer CAD (coronary artery disease) Hypertension Diabetes Family/Other Anesthesia complication CAD (coronary artery disease) Chronic kidney disease (CKD) Dementia Diabetes Lung disease Stroke Suicide Other Hyperlipidemia Seizure Denies family history of Clotting disorder Bleeding disorder Social History Smoking and tobacco/nicotine status: former use of tobacco/nicotine Alcohol intake: current Alcohol intake frequency: holidays/special occasions only Substance/Drug Use: never Marital status: Current occupational status: disabled Physical Exam 2 Narrative: EXAM NARRATIVE: Constitutional: the patient appears well nourished and of normal development. Vital signs as documented. No acute distress at present. Alert and oriented-to person, place, time and situation. Head, eyes, ears, nose, mouth, throat: Normocephalic, atraumatic. Pupils-equal, round, reactive to light. No scleral icterus. Normal-appearing external ears. Normal appearing nasal turbinates, no drainage. No obvious oral lesions, posterior oropharynx without erythema or exudates. Neck: Supple, trachea is midline, no lymphadenopathy, no jugular venous distension, thyromegaly, or carotid bruits. Carotid upstrokes are brisk bilaterally. Lungs: clear to auscultation to all lung rondon. Symmetrical rise and fall of chest, no obvious signs of increased work of breathing at present. Cardiac: Regular rate and rhythm, positive S1, S2. No murmurs, rubs or gallops that I can appreciate Abdomen: Soft, non-tender to palpation, normal active bowel sounds to all quadrants. No palpable masses, no organomegaly and abdominal bruits. Extremities: 2+ pulses in the upper extremities that are equal bilaterally, 2+ pulses in the lower extremities that are equal bilaterally. Non-edematous. Moves all extremities well, sensation to all extremities are noted. Skin: Warm, dry, intact. Back: Positive left CVA tenderness, normal alignment, no obvious deformity. Course 2 Vital Signs: Vital signs: Vital Signs Temperature 97.4 F L 11/03/23 22:13 Pulse Rate 91 11/03/23 22:13 Respiratory Rate 14 11/03/23 22:13 Blood Pressure 156/77 11/03/23 22:13 Pulse Oximetry 95 11/03/23 22:13 Oxygen Delivery Me thod Room Air 11/03/23 22:13 MDM - Back Pain/Injury Medical Decision Making I will obtain a CBC, CMP urinalysis provide IV fluid rehydration as well as Toradol for pain control and Zofran for nausea. Will obtain a CT scan to evaluate for renal calculi. Medical Records I reviewed the patient's medical records. Labs 11/03/23 22:50 11/03/23 22:50 Radiology Impressions Abdomen/Pelvis CT 11/03/23 23:15 IMPRESSION: 1. Left distal ureter 2.9 mm calculus with mild left hydronephrosis and hydroureter. 2. Bilateral punctate non-obstructing calyceal stones. 3. Bibasilar atelectasis. 4. Hepatic steatosis suspected. 5. Cholecystectomy. Laboratory Results WBC 9.39 10^3/uL (3.29-11.43) 11/03/23 22:50 RBC 5.00 10^6/uL (3.85-5.65) 11/03/23 22:50 Hgb 15.20 g/dL (11.27-16.99) 11/03/23 22:50 Hct 45.1 % (37-53) 11/03/23 22:50 MCV 90.2 fl (82-101) 11/03/23 22:50 MCH 30.4 pg (27-33) 11/03/23 22:50 MCHC 33.7 g/dL (30-55) 11/03/23 22:50 RDW 12.4 % (12.1-15.1) 11/03/23 22:50 Plt Count 248 10^3/cmm (157-399) 11/03/23 22:50 MPV 9.2 fL (7.4-10.4) 11/03/23 22:50 Neut % (Auto) 53.0 % 11/03/23 22:50 Lymph % (Auto) 33.4 % 11/03/23 22:50 Prentiss % (Auto) 9.3 % 11/03/23 22:50 Eos % (Auto) 3.4 % 11/03/23 22:50 Baso % (Auto) 0.7 % 11/03/23 22:50 Neut # (Auto) 4.97 10^3/uL (1.8-7.7) 11/03/23 22:50 Lymph # (Auto) 3.1 10^3/uL (0.8-4.8) 11/03/23 22:50 Prentiss # (Auto) 0.9 10^3/uL (0.2-0.9) 11/03/23 22:50 Eos # (Auto) 0.3 10^3/uL (0.0-0.8) 11/03/23 22:50 Baso # (Auto) 0.1 10^3/uL (0.0-0.1) 11/03/23 22:50 Nucleated RBC % (auto) 0 % 11/03/23 22:50 Nucleated RBCs # 0.0 /100WBC 11/03/23 22:50 Sodium 140 mmol/L (136-145) 11/03/23 22:50 Potassium 3.7 mmol/L (3.5-5.1) 11/03/23 22:50 Chloride 103 mmol/L (98-107) 11/03/23 22:50 Carbon Dioxide 25 mmol/L (22-29) 11/03/23 22:50 Anion Gap 15.7 (5-19) 11/03/23 22:50 BUN 12 mg/dL (6-20) 11/03/23 22:50 Creatinine 0.9 mg/dL (0.7-1.2) 11/03/23 22:50 GFR Calculation 96.6 mL/min (90-130) 11/03/23 22:50 Glucose 167 mg/dL (65-115) H 11/03/23 22:50 Calculated Osmolality 294 mOsm/kg (285-295) 11/03/23 22:50 Calcium 9.5 mg/dL (8.5-10.5) 11/03/23 22:50 Total Bilirubin 0.2 mg/dL (0.15-1.2) 11/03/23 22:50 AST 82 U/L (0-40) H 11/03/23 22:50 ALT 164 U/L (0-41) H 11/03/23 22:50 Alkaline Phosphatase 106 U/L (40-130) 11/03/23 22:50 Total Protein 7.2 g/dL (6.6-8.7) 11/03/23 22:50 Albumin 4.5 g/dL (3.5-5.2) 11/03/23 22:50 Globulin 2.7 g/dL (1.3-4.6) 11/03/23 22:50 Urine Color Yellow (Yellow) 11/03/23 22:15 Urine Appearance Clear (CLEAR) 11/03/23 22:15 Urine pH 5 (5-7) 11/03/23 22:15 Ur Specific Fleming 1.025 (1.005-1.030) 11/03/23 22:15 Urine Protein Trace (Negative) 11/03/23 22:15 Urine Glucose (UA) Norm (Normal) 11/03/23 22:15 Urine Ketones 1+ (Negative) H 11/03/23 22:15 Urine Blood 3+ (Negative) H 11/03/23 22:15 Urine Nitrate Negative (Negative) 11/03/23 22:15 Urine Bilirubin Neg (Negative) 11/03/23 22:15 Urine Urobilinogen Norm mg/dL (Negative) 11/03/23 22:15 Ur Leukocyte Esterase Negative (Negative) 11/03/23 22:15 Urine RBC 25-40 /hpf (0-2) H 11/03/23 22:15 Urine WBC 0-4 /hpf (0-5) H 11/03/23 22:15 Ur Squamous Epith Cells 0-4 /hpf (0-5) H 11/03/23 22:15 Amorphous Sediment Not Reportable 11/03/23 22:15 Urine Bacteria Trace /hpf (NONE) 11/03/23 22:15 All radiology interpretation(s) finalized by discharge Discharge Plan Discharge Patient Disposition: Home Clinical Impression: Calculus of left kidney, Left flank pain Condition: Stable Prescriptions: New hydrocodone-acetaminophen 5-325 mg tablet 1 tab PO Q8H PRN (Reason: pain) Qty: 14 0RF ondansetron HCl 4 mg tablet 4 mg PO Q12H 5 Days Qty: 10 0RF No Action nitroglycerin 0.3 mg tablet, sublingual 0.3 mg sublingual Q5M PRN (Reason: Chest Pain) Rx Instructions: do not exceed 3 doses per episode metoprolol tartrate 25 mg tablet 25 mg PO DAILY albuterol sulfate [ProAir HFA] 90 mcg/actuation HFA aerosol inhaler 2 puff inhalation Q6H PRN (Reason: Shortness Of Breath) pantoprazole [Protonix] 40 mg tablet,delayed release (DR/EC) 40 mg PO ONCE 30 Days Qty: 30 2RF budesonide-formoterol [Symbicort] 160-4.5 mcg/actuation HFA aerosol inhaler 2 puff inhalation BID Qty: 10.2 3RF meloxicam 7.5 mg tablet 7.5 mg PO DAILY Qty: 7 0RF fluticasone propionate [Flonase Allergy Relief] 50 mcg/actuation spray,suspension 1 spray intranasal BID Qty: 16 0RF Rx Instructions: administer into each nostril cefdinir 300 mg capsule 300 mg PO BID 7 Days Qty: 14 0RF polyethylene glycol 3350 [Miralax] 17 gram/dose powder 17 g PO DAILY Qty: 238 0RF metoclopramide HCl [Reglan] 10 mg tablet 10 mg PO Q6H PRN (Reason: nausea and vomiting) Qty: 20 0RF acetaminophen 500 mg Tablet 1,000 mg PO Q6H PRN (Reason: Pain) oxycodone-acetaminophen 10-325 mg tablet See Rx Instructions .ROUTE .COMPLEX Rx Instructions: TAKE 1 TABLET BY MOUTH EVERY 4 TO 6 HOURS NEEDED FOR PAIN. mupirocin 2 % ointment 1 applic topical BID Qty: 50 0RF Discharge Orders: Discharge ED (Routine); Ordered 11/04/23 Ordered By: Beni Moses Referrals: Mitch Jimenez MD [Primary Care Provider] - Discharge Diet: Usual diet Discharge Activity: Resume usual activity Patient Instructions: Opioid Safety, Pain Management Activity Restrictions/Additional Instructions: Activity Restrictions/Additional Instructions: Thank you for choosing [facility] for your healthcare needs today. Please realize that you were seen in the Emergency Department and that we are providing you with an emergency medical screening exam and this may not be a complete and all inclusive of all the testing and or medical work-up that you may need to determine your ailment or severity of your illness. It is very important that you follow-up as instructed with your Primary care provider or Specialist for additional evaluation and to discuss your medical treatment plan. You may return to the Emergency Department should you have concerns or if your condition changes or worsens in any way. Call to make a Follow-up appointment: [facility] [address] [place] [address] [facility] [address] [place] [address] Dr.ive Beebe [place] [address] Phone--[phone] Coding Level of Care Code ED Weigh Tank Operator for Vernell Mccormack
[2023-11-03 22:46] LABS: Add Urine Microscopic? YES; Bilirubin Urine Neg (Negative); Blood Urine 3+ (Negative); Glucose Urine UA Norm (Normal); Ketones Urine 1+ (Negative); Leukocyte Esterase Urine Negative (Negative); Nitrate Urine Negative (Negative); Protein Urine Trace (Negative); Specific Gravity, Urine 1.025 (1.005-1.030); Urine Appearance Clear (CLEAR); Urine Color Yellow (Yellow); Urobilinogen Urine Norm (Negative); pH Urine 5 (5-7)
[2023-11-03] MEDS: ketorolac 30 mg/mL INJ IVP (22:46)
[2023-11-03] MEDS: ondansetron 2 mg/ML SDV 2 mL 4 MG IVP (22:46)
[2023-11-03] MEDS: sodium chloride 0.9% 1,000 ML 999 ML IV (22:46)
[2023-11-03 22:52] LABS: Add Urine Culture? Yes; Bacteria Urine TRACE /hpf; RBC Urine 25-40 /hpf (0-2); Squamous Epithelial Cell Urine 0-4 /hpf (0-5); WBC Urine 0-4 /hpf (0-5)
[2023-11-03 22:55] LABS: Basophils # 0.1 10^3/uL (0.0-0.1); Basophils % 0.7 %; Eosinophils # 0.3 10^3/uL (0.0-0.8); Eosinophils % 3.4 %; Hematocrit 45.1 % (37-53); Lymphocytes # 3.1 10^3/uL (0.8-4.8); Lymphocytes % 33.4 %; Mean Corpuscular HGB Conc 33.7 g/dL (30-55); Mean Corpuscular Hemoglobin 30.4 pg (27-33); Mean Corpuscular Volume 90.2 fl (82-101); Mean Platelet Volume 9.2 fL (7.4-10.4); Monocytes # 0.9 10^3/uL (0.2-0.9); Monocytes % 9.3 %; Neutrophils # 4.97 10^3/uL (1.8-7.7); Nucleated Red Blood Cells % 0 %; Platelet Count 248 10^3/cmm (157-399); Red Cell Distribution Width 12.4 % (12.1-15.1); White Blood Count 9.39 10^3/uL (3.29-11.43)
[2023-11-03 23:15] LABS: Alanine Aminotransferase 164 U/L (0-41); Albumin Level 4.5 g/dL (3.5-5.2); Alkaline Phosphatase 106 U/L (40-130); Anion Gap 15.7 (5-19); Aspartate Amino Transferase 82 U/L (0-40); Blood Urea Nitrogen 12 mg/dL (6-20); Calcium 9.5 mg/dL (8.5-10.5); Carbon Dioxide 25 mmol/L (22-29); Chloride 103 mmol/L (98-107); Globulin 2.7 g/dL (1.3-4.6); Glomerular Filtration Rate 96.6 mL/min (90-130); Glucose 167 mg/dL (65-115); Osmolality Calculated 294 mOsm/kg (285-295); Potassium 3.7 mmol/L (3.5-5.1); Sodium 140 mmol/L (136-145); Total Bilirubin 0.2 mg/dL (0.15-1.2); Total Protein 7.2 g/dL (6.6-8.7)
--- NOTE | 2023-11-03 23:15 | CTR_ITS ---
PROCEDURE INFORMATION: Exam: CT Abdomen And Pelvis Without Contrast Exam date and time: 11/03/2023 11:36 PM Age: 33 years old Clinical indication: Abdominal pain; Localized; Left; Additional info: Left flank pain TECHNIQUE: Imaging protocol: Computed tomography of the abdomen and pelvis without contrast. Radiation optimization: All CT scans at this facility use at least one of these dose optimization techniques: automated exposure control; mA and/or kV adjustment per patient size (includes targeted exams where dose is matched to clinical indication); or iterative reconstruction. COMPARISON: CT abdomen pelvis w con* [id number] 05/20/2023 10:59 PM RADIATION DOSE METRICS: Total DLP (mGy-cm): 1192.33 FINDINGS: Lungs: Bibasilar atelectasis. Liver: Hepatic steatosis suspected. Gallbladder and bile ducts: Cholecystectomy. Pancreas: Normal. No ductal dilation. Spleen: Normal. No splenomegaly. Adrenal glands: Normal. No mass. Kidneys and ureters: Left distal ureter 2.9 mm calculus with mild left hydronephrosis and hydroureter. Stomach and bowel: Unremarkable. No obstruction. No mucosal thickening. Appendix: No evidence of appendicitis. Intraperitoneal space: Unremarkable. No free air. No significant fluid collection. Vasculature: Unremarkable. No abdominal aortic aneurysm. Lymph nodes: Unremarkable. No enlarged lymph nodes. Urinary bladder: Unremarkable as visualized. Reproductive: Unremarkable as visualized. Bones/joints: Unremarkable. No acute fracture. Soft tissues: Unremarkable. Other findings: Bilateral punctate non-obstructing calyceal stones. CT/CT kidney stone [id number] IMPRESSION: 1. Left distal ureter 2.9 mm calculus with mild left hydronephrosis and hydroureter. 2. Bilateral punctate non-obstructing calyceal stones. 3. Bibasilar atelectasis. 4. Hepatic steatosis suspected. 5. Cholecystectomy.
== END 2023-11-04 00:52 | disposition home or self-care (01) ==
PROVIDERS: Emergency Provider Internal Medicine; PCP Family Medicine
DX: N13.2 Hydronephrosis with renal and ureteral calculous obstruction (principal); Z87.891 Personal history of nicotine dependence; I10 Essential (primary) hypertension
CPT/HCPCS: 74176; 80053; 81001; 85025; 87086; 96374; 96375; 99285; J1885; J2405; J7030

== ENCOUNTER → 2023-11-28 09:56 | Outpatient (BNVA) | payer MEDICAID, SELFPAY | PROVIDERS: PCP Family Medicine; Visit Provider Surgery | DX: K46.9 Unspecified abdominal hernia without obstruction or gangrene (principal) | CPT/HCPCS: 99214 ==

== ENCOUNTER 2023-12-08 18:03 | Emergency (ER) | payer MEDICAID, SELFPAY ==
[2023-12-08 18:06] VITALS: BP 115/73; PULSE 96; RESP 18; TEMP 36.4; O2SAT 97
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
[2023-12-08] MEDS: acetaminophen 500 mg Tablet 1000 MG PO (19:18)
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
[2023-12-08 20:19] VITALS: BP 135/95; PULSE 89; RESP 18; O2SAT 93
== END 2023-12-08 21:25 | disposition home or self-care (01) ==
PROVIDERS: Emergency Provider Physician Assistant; PCP Family Medicine
DX: S16.1XXA Strain of muscle, fascia and tendon at neck level, initial encounter (principal); Z87.891 Personal history of nicotine dependence; I10 Essential (primary) hypertension; V49.40XA Driver injured in collision with unspecified motor vehicles in traffic accident, initial encounter
CPT/HCPCS: 72040; 99283

== ENCOUNTER 2024-01-25 06:56 | Outpatient (CLI) | payer MEDICAID, SELFPAY ==
--- NOTE | 2024-01-25 07:05 | MR_ITS ---
WS: [id number] MRI CERVICAL SPINE NONCONTRAST TECHNIQUE: Sagittal T1, T2 and STIR imaging. Axial T2, gradient, and fiesta imaging. CLINICAL INFORMATION: NECK PAIN COMPARISON: None. FINDINGS: Straightening with slight reversal normal cervical lordosis. Mild disc bulging worse at C2-C3 C3-C4 a nd C4-C5. C2-C3: Mild facet arthropathy. Mild LEFT foraminal narrowing. Mild facet arthropathy. C3-C4: Mild disc bulging with slight contact of the cervical cord. Mild facet arthropathy. Mild LEFT and no significant RIGHT foraminal narrowing. C4-C5: Mild disc bulging with slight indentation on the ventral cervical cord. Mild facet arthropathy . Mild bilateral bony foraminal narrowing. C5-C6: Mild disc bulging with slight indentation on the cervical cord. Mild LEFT and no significant R IGHT foraminal narrowing. Mild facet arthropathy. C6-C7: Mild disc osteophytic ridging. Mild LEFT and no significant RIGHT foraminal narrowing. Spinal canal is patent. C7-T1: No significant disc bulging. Spinal canal and foramen are patent. Visualized brain stem structures: Normal. Prevertebral soft tissues: Normal. There are few prominent cervical lymph nodes likely reactive. MR/MR cervical spin wo con* [id number] IMPRESSION: 1. Straightening with slight reversal normal cervical lordosis. Cord signal is normal. 2. Mild spondylitic changes. 3. Tiny central disc osteophyte protrusions C4-C5 C5-C6 and C6-C7 with slight contact and indentation of the cervical cord. No significant central canal sten osis. 4. Otherwise mild bony foraminal narrowing described above. 5. No evidence of ligamentous injury or cord contusion.
== END 2024-01-25 06:57 | disposition home or self-care (01) ==
LOC: RAD 06:57
PROVIDERS: PCP Family Medicine; Visit Provider Anesthesiology Pain Medicine
DX: M50.221 Other cervical disc displacement at C4-C5 level (principal); M50.223 Other cervical disc displacement at C6-C7 level
CPT/HCPCS: 72141

== ENCOUNTER → 2024-02-13 08:25 | Outpatient (BNVA) | payer MEDICAID, SELFPAY | PROVIDERS: PCP Family Medicine; Referring Provider Anesthesiology Pain Medicine; Visit Provider Orthopaedic Surgery | DX: M54.2 Cervicalgia (principal) | CPT/HCPCS: 99204 ==

== ENCOUNTER 2024-04-13 17:49 | Emergency (ER) | payer MEDICAID, SELFPAY ==
[2024-04-13 18:05] VITALS: BP 124/74; PULSE 83; RESP 16; TEMP 36.8; O2SAT 98
--- NOTE | 2024-04-13 18:34 | W.ED.EXTPRO ---
HPI - Extremity Problem General: Chief complaint: Extremity Problem,Nontraumatic Stated complaint: cramping in both legs Time Seen by Provider: 04/13/24 18:30 Source: patient Mode of arrival: ambulatory Limitations: no limitations History of Present Illness: Patient is a nice 33-year-old male who presents to ED today with a complaint of a cramping sensation to his bilateral lower extremities. He states earlier today he noticed cramping to his anterior left lower leg and then shortly after states his right anterior lower leg began cramping. He states symptoms lasted for approximately an hour before subsiding. He states he was only concerned as he had similar symptoms back in 2018 when he was diagnosed with a DVT. He states DVT was following a COVID infection. He was on anticoagulation for a year following this. He has not had any issues since. He has not noticed any lower extremity swelling or calf pain. No new medications. He feels like he has been drinking adequate amounts of fluid. No known recent injury or trauma or overuse. MD Complaint: extremity pain Onset (ago): hour(s) Pain Consistency: now resolved Location: left, right and lower extremity Quality: other (cramping) Radiation: none Relieving factors: nothing Exacerbating factors: nothing Associated symptoms: Reports no associated symptoms; Deny chest pain, fever(s) or rash Review of Systems Const: Denies: fever(s), chills, body aches, fatigue or malaise Card: Denies: chest pain Resp: Denies: dyspnea GI: Denies: abdominal pain Musc: Reports: back pain (chronic-at baseline), extremity pain and muscle cramps; Denies: extremity swelling, joint pain, joint swelling, joint redness, joint warmth, joint stiffness, limited range of motion, muscle weakness, decrease in muscle mass, loss of height or deformity Skin/Breast: Denies: rash Neuro: Denies: numbness in extremities, weakness in extremities, sensory changes or difficulty walking PFSH ED PFSH: Medical History H/O coronary angiogram GERD (gastroesophageal reflux disease) Erectile dysfunction ADHD COVID Anxiety Hypercholesterolemia Pulmonary embolism Gastroenteritis Hypertension Left ureteral calculus Surgical History History of laparoscopic appendectomy 05/11/23 Dr. Benalcazar H/O esophagogastroduodenoscopy (04/19/22) History of umbilical hernia repair (11/01/21) Recurrent repaired with with ultrapro mesh Status post laparoscopic cholecystectomy (11/01/21) History of umbilical hernia repair 2019 H/O neck surgery BIOPSY OF NECK SWOLLEN LYMPH NODE H/O hernia repair Hx of tonsillectomy Family History Mother , 48 Diabetes Cancer BREAST CAD (coronary artery disease) Hypertension Father Cancer CAD (coronary artery disease) Hypertension Diabetes Family/Other Anesthesia complication CAD (coronary artery disease) Chronic kidney disease (CKD) Dementia Diabetes Lung disease Stroke Suicide Other Hyperlipidemia Seizure Denies family history of Clotting disorder Bleeding disorder Social History Smoking and tobacco/nicotine status: former use of tobacco/nicotine Alcohol intake: current Alcohol intake frequency: holidays/special occasions only Substance/Drug Use: never Marital status: Current occupational status: disabled Physical Exam Const: COMMON NORMALS: no acute distress, patient oriented x3, no limitations, alert and well nourished GENERAL APPEARANCE: cooperative Extremity: COMMON NORMALS: normal to inspection, full ROM, capillary refill normal, no joint enlargement, no clubbing, cyanosis or edema, no calf tenderness and no pedal edema NARRATIVE EXTREMITY EXAM: patient is not having any pain, cramping, or other symptoms to LEs currently GENERAL: Yes normal exam except as noted RIGHT LOWER EXTREMITY: Yes lower leg LEFT LOWER EXTREMITY: Yes lower leg OTHER: NV intact bilateral LEs, no calf pain/swelling/negative Nena's Neuro: COMMON NORMALS: patient oriented x3, moves all extremities, no focal motor deficits, no sensory deficits noted and gait normal SENSORIUM/ORIENTATION: Yes alert Skin: COMMON NORMALS: no rashes or lesions noted GENERAL SKIN EXAM: no rashes or lesions noted Course Vital Signs: Vital signs: Vital Signs Temperature 98.3 F 04/13/24 18:05 Pulse Rate 83 04/13/24 18:05 Respiratory Rate 16 04/13/24 18:05 Blood Pressure 124/74 04/13/24 18:05 Pulse Oximetry 98 04/13/24 18:05 MDM - Extremity (Nontraumatic) Medical Decision Making History is not consistent with a DVT. He is here for for episode of muscle cramp-like sensations to the anterior aspect of his bilateral lower extremities. Episode lasted for approximately an hour before subsiding. He has not had any symptoms since. He arrives in no acute distress. His physical exam is unremarkable. Blood work apart from chronically elevated LFTs is unremarkable. He will be allowed discharge. Return ED precautions given. Otherwise can follow-up with primary care if symptoms persist. Medical Records I reviewed the patient's medical records. Lab Data I reviewed the patient's lab results. 04/13/24 18:25 04/13/24 18:25 Laboratory Results WBC 12.07 10^3/uL (3.29-11.43) H 04/13/24 18: RBC 5.02 10^6/uL (3.85-5.65) 04/13/24 18: Hgb 15.40 g/dL (11.27-16.99) 04/13/24 18: Hct 46.9 % (37-53) 04/13/24 18: MCV 93.4 fl (82-101) 04/13/24 18: MCH 30.7 pg (27-33) 04/13/24 18: MCHC 32.8 g/dL (30-55) 04/13/24 18: RDW 12.7 % (12.1-15.1) 04/13/24 18: Plt Count 271 10^3/cmm (157-399) 04/13/24 18: MPV 9.4 fL (7.4-10.4) 04/13/24 18: Neut % (Auto) 59.0 % 04/13/24 18: Lymph % (Auto) 28.7 % 04/13/24 18: [place] % (Auto) 8.1 % 04/13/24 18: Eos % (Auto) 3.1 % 04/13/24 18: Baso % (Auto) 0.7 % 04/13/24 18: Neut # (Auto) 7.13 10^3/uL (1.8-7.7) 04/13/24 18: Lymph # (Auto) 3.5 10^3/uL (0.8-4.8) 04/13/24 18:25 [place] # (Auto) 1.0 10^3/uL (0.2-0.9) H 04/13/24 18:25 Eos # (Auto) 0.4 10^3/uL (0.0-0.8) 04/13/24 18:25 Baso # (Auto) 0.1 10^3/uL (0.0-0.1) 04/13/24 18:25 Nucleated RBC % (auto) 0 % 04/13/24 18:25 Nucleated RBCs # 0.0 /100WBC 04/13/24 18:25 Sodium 141 mmol/L (136-145) 04/13/24 18:25 Potassium 3.9 mmol/L (3.5-5.1) 04/13/24 18:25 Chloride 103 mmol/L (98-107) 04/13/24 18:25 Carbon Dioxide 27 mmol/L (22-29) 04/13/24 18:25 Anion Gap 14.9 (5-19) 04/13/24 18:25 BUN 12 mg/dL (6-20) 04/13/24 18:25 Creatinine 0.9 mg/dL (0.7-1.2) 04/13/24 18:25 GFR Calculation 96.6 mL/min (90-130) 04/13/24 18:25 Glucose 121 mg/dL (65-115) H 04/13/24 18:25 Calculated Osmolality 293 mOsm/kg (285-295) 04/13/24 18:25 Calcium 9.5 mg/dL (8.5-10.5) 04/13/24 18: Magnesium 2.1 mg/dL (1.7-2.3) 04/13/24 18:25 Total Bilirubin 0.3 mg/dL (0.15-1.2) 04/13/24 18:25 AST 132 U/L (0-40) H 04/13/24 18:25 ALT 216 U/L (0-41) H 04/13/24 18:25 Alkaline Phosphatase 100 U/L (40-130) 04/13/24 18:25 Creatine Kinase 83 U/L (39-308) 04/13/24 18:25 Total Protein 7.6 g/dL (6.6-8.7) 04/13/24 18:25 Albumin 4.6 g/dL (3.5-5.2) 04/13/24 18:25 Globulin 3.0 g/dL (1.3-4.6) 04/13/24 18:25 No radiology studies performed this visit Discharge Plan Discharge Patient Disposition: Home Clinical Impression: Cramp in lower leg Condition: Stable Prescriptions: No Action nitroglycerin 0.3 mg tablet, sublingual 0.3 mg sublingual Q5M PRN (Reason: Chest Pain) Rx Instructions: do not exceed 3 doses per episode metoprolol tartrate 25 mg tablet 25 mg PO DAILY albuterol sulfate [ProAir HFA] 90 mcg/actuation HFA aerosol inhaler 2 puff inhalation Q6H PRN (Reason: Shortness Of Breath) pantoprazole [Protonix] 40 mg tablet,delayed release (DR/EC) 40 mg PO ONCE 30 Days Qty: 30 2RF budesonide-formoterol [Symbicort] 160-4.5 mcg/actuation HFA aerosol inhaler 2 puff inhalation BID Qty: 10.2 3RF meloxicam 7.5 mg tablet 7.5 mg PO DAILY PRN fluticasone propionate [Flonase Allergy Relief] 50 mcg/actuation spray,suspension 1 spray intranasal BID Qty: 16 0RF Rx Instructions: administer into each nostril polyethylene glycol 3350 [Miralax] 17 gram/dose powder 17 g PO DAILY Qty: 238 0RF metoclopramide HCl [Reglan] 10 mg tablet 10 mg PO Q6H PRN (Reason: nausea and vomiting) Qty: 20 0RF acetaminophen 500 mg Tablet 1,000 mg PO Q6H PRN (Reason: Pain) oxycodone-acetaminophen 10-325 mg tablet See Rx Instructions .ROUTE .COMPLEX Rx Instructions: TAKE 1 TABLET BY MOUTH EVERY 4 TO 6 HOURS NEEDED FOR PAIN. mupirocin 2 % ointment 1 applic topical BID Qty: 50 0RF hydrocodone-acetaminophen 5-325 mg tablet 1 tab PO Q8H PRN (Reason: pain) Qty: 14 0RF Flomax 0.4 mg capsule 0.4 mg PO DAILY Qty: 30 0RF Discharge Orders: Discharge ED (Routine); Ordered 04/13/24 Ordered By: Leelee Silva Referrals: Mitch Jimenez MD [Primary Care Provider] - Coding Level of Care Code ED Sliver Lap Machine Tender for Vernell Mccormack
[2024-04-13 18:46] LABS: Basophils # 0.1 10^3/uL (0.0-0.1); Basophils % 0.7 %; Eosinophils # 0.4 10^3/uL (0.0-0.8); Eosinophils % 3.1 %; Hematocrit 46.9 % (37-53); Lymphocytes # 3.5 10^3/uL (0.8-4.8); Lymphocytes % 28.7 %; Mean Corpuscular HGB Conc 32.8 g/dL (30-55); Mean Corpuscular Hemoglobin 30.7 pg (27-33); Mean Corpuscular Volume 93.4 fl (82-101); Mean Platelet Volume 9.4 fL (7.4-10.4); Monocytes % 8.1 %; Neutrophils # 7.13 10^3/uL (1.8-7.7); Nucleated Red Blood Cells % 0 %; Platelet Count 271 10^3/cmm (157-399); Red Blood Count 5.02 10^6/uL (3.85-5.65); Red Cell Distribution Width 12.7 % (12.1-15.1); White Blood Count 12.07 10^3/uL (3.29-11.43)
[2024-04-13 19:05] LABS: Alanine Aminotransferase 216 U/L (0-41); Albumin Level 4.6 g/dL (3.5-5.2); Alkaline Phosphatase 100 U/L (40-130); Anion Gap 14.9 (5-19); Aspartate Amino Transferase 132 U/L (0-40); Blood Urea Nitrogen 12 mg/dL (6-20); Calcium 9.5 mg/dL (8.5-10.5); Carbon Dioxide 27 mmol/L (22-29); Chloride 103 mmol/L (98-107); Creatine Phosphokinase 83 U/L (39-308); Creatinine Clr Calc Pharmacy 142.2854; Glomerular Filtration Rate 96.6 mL/min (90-130); Glucose 121 mg/dL (65-115); Magnesium 2.1 mg/dL (1.7-2.3); Osmolality Calculated 293 mOsm/kg (285-295); Potassium 3.9 mmol/L (3.5-5.1); Sodium 141 mmol/L (136-145); Total Bilirubin 0.3 mg/dL (0.15-1.2); Total Protein 7.6 g/dL (6.6-8.7)
[2024-04-13 19:30] VITALS: BP 130/76; PULSE 75; RESP 17; O2SAT 95
== END 2024-04-13 19:21 | disposition home or self-care (01) ==
PROVIDERS: Emergency Provider Physician Assistant; PCP Family Medicine
DX: R25.2 Cramp and spasm (principal); Z87.891 Personal history of nicotine dependence; I10 Essential (primary) hypertension
CPT/HCPCS: 36415; 80053; 82550; 83735; 85025; 99283

== ENCOUNTER → 2024-04-16 12:56 | Outpatient (BNVA) | payer MEDICAID, SELFPAY | PROVIDERS: PCP Family Medicine; Visit Provider Orthopaedic Surgery | DX: Z09 Encounter for follow-up examination after completed treatment for conditions other than malignant neoplasm (principal); M47.22 Other spondylosis with radiculopathy, cervical region | CPT/HCPCS: 36415; 80053; 81003; 81015; 85025; 99214 ==

== ENCOUNTER 2024-04-30 19:14 | Emergency (ER) | payer MEDICAID, SELFPAY ==
[2024-04-30 19:17] VITALS: BP 132/86; PULSE 99; RESP 18; TEMP 36.7; O2SAT 96; BMI 33.3
[2024-04-30 19:35] VITALS: BP 142/87; PULSE 74; O2SAT 95
[2024-04-30] MEDS: ketorolac 60 mg/2 mL INJ IM (19:55)
[2024-04-30] MEDS: dexamethasone 10 mg/mL INJ IM (19:55)
[2024-04-30] MEDS: orphenadrine 30 mg/mL Inj 2 mL 60 MG IM (19:56)
[2024-04-30 20:00] VITALS: BP 146/89; PULSE 75; O2SAT 96
--- NOTE | 2024-04-30 20:01 | PC.NURSE ---
ICE WATER PROVIDED TO PT PER REQUEST AND PROVIDER APPROVAL
[2024-04-30 20:30] VITALS: BP 137/82; PULSE 70; O2SAT 95
--- NOTE | 2024-04-30 20:57 | ED_ITS ---
HPI - Neck Pain/Injury General: Chief Complaint: Neck Pain/Injury Stated Complaint: neck stiff. pain. has disc surgery upcoming Time Seen by Provider: 04/30/24 19:19 Source: patient Mode of arrival: ambulatory Limitations: no limitations History of Present Illness: Patient is a 33-year-old male presenting to the emergency department complaining of acute on chronic neck pain. He is set to have surgery with Dr. Delgado in a couple of weeks, however states that the pain has been uncontrolled over the past few days. No recent trauma or injury, stating that his neck feels stiff and he has pain with range of motion in any direction. He has been taking oxycodone for pain, though this has not been helping. No other concerning symptoms reported at this time. MD complaint: neck pain Severity: severe, constant and similar to prior neck pain Duration: constant Relieving factors: none Exacerbating factors: movement of neck Associated symptoms: Denies headache(s) or nausea Treatments prior to arrival: prescription analgesic Related Data Home Medications Medication Instructions Recorded Confirmed albuterol sulfate 90 mcg/actuation 2 puff inhalation Q6H PRN 03/25/21 04/16/24 aerosol inhaler (ProAir HFA) Shortness Of Breath metoprolol tartrate 25 mg tablet 25 mg PO DAILY 06/08/21 04/16/24 nitroglycerin 0.3 mg sublingual 0.3 mg sublingual Q5M PRN Chest 06/08/21 04/16/24 tablet Pain acetaminophen 500 mg tablet 1,000 mg PO Q6H PRN Pain 05/11/23 04/16/24 oxycodone-acetaminophen 10 mg-325 See Rx Instructions .Route .COMPLEX 05/11/23 04/16/24 mg tablet meloxicam 7.5 mg tablet 7.5 mg PO DAILY PRN 11/28/23 04/16/24 Previous Rx's Medication Instructions Recorded pantoprazole 40 mg tablet,delayed 40 mg PO ONCE 30 days #30 tabs 05/03/22 release (Protonix) fluticasone propionate 50 1 spray intranasal BID #16 grams 11/11/22 mcg/actuation nasal spray,suspension (Flonase Allergy Relief) metoclopramide HCl 10 mg tablet 10 mg PO Q6H PRN nausea and 02/28/23 (Reglan) vomiting #20 tabs budesonide-formoterol HFA 160 2 puff inhalation BID #10.2 grams 03/20/23 mcg-4.5 mcg/actuation aerosol inhaler (Symbicort) polyethylene glycol 3350 17 17 g PO DAILY #238 grams 05/16/23 gram/dose oral powder (Miralax) mupirocin 2 % topical ointment 1 applic topical BID #50 grams 05/29/23 hydrocodone 5 mg-acetaminophen 325 1 tab PO Q8H PRN pain #14 tabs 11/04/23 mg tablet tamsulosin 0.4 mg capsule (Flomax) 0.4 mg PO DAILY #30 caps 11/04/23 methocarbamol 750 mg tablet 750 mg PO Q8H 5 days #15 tabs 04/30/24 prednisone 20 mg tablet 60 mg (3 x 20 mg) PO ONCE 5 days 04/30/24 #15 tabs Allergies Allergy/AdvReac Type Severity Reaction Status Date / Time clindamycin Allergy THROAT Verified 04/16/24 13:05 SWELLING AND ITCHY crab Allergy ALGY-Hives Verified 04/16/24 13:05 doxycycline Allergy RASH Verified 04/16/24 13:05 galcanezumab-gnlm Allergy ALGY-Rash Verified 04/16/24 13:05 [From Emgality Pen] mushroom Allergy ALGY-Hives Verified 04/16/24 13:05 Penicillins Allergy ALGY-Rash Verified 04/16/24 13:05 Review of Systems General: Reports: 10 or more systems reviewed and unremarkable except in HPI and below Const: Denies: fever(s) or chills Card: Denies: chest pain Resp: Denies: dyspnea or productive cough GI: Denies: abdominal pain, nausea, vomiting or diarrhea : Denies: flank pain Musc: Reports: neck pain; Denies: back pain, extremity pain, extremity swelling, joint pain, joint swelling, joint redness, joint warmth, limited range of motion or muscle weakness Skin/Breast: Denies: rash Neuro: Denies: headache(s), numbness in extremities or weakness in extremities PFSH ED PFSH: Medical History H/O coronary angiogram GERD (gastroesophageal reflux disease) Erectile dysfunction ADHD COVID Anxiety Hypercholesterolemia Pulmonary embolism Gastroenteritis Hypertension Left ureteral calculus Surgical History History of laparoscopic appendectomy 05/11/23 Dr. Maya H/O esophagogastroduodenoscopy (04/19/22) History of umbilical hernia repair (11/01/21) Recurrent repaired with with ultrapro mesh Status post laparoscopic cholecystectomy (11/01/21) History of umbilical hernia repair 2019 H/O neck surgery BIOPSY OF NECK SWOLLEN LYMPH NODE H/O hernia repair Hx of tonsillectomy Family History Mother , 48 Diabetes Cancer BREAST CAD (coronary artery disease) Hypertension Father Cancer CAD (coronary artery disease) Hypertension Diabetes Family/Other Anesthesia complication CAD (coronary artery disease) Chronic kidney disease (CKD) Dementia Diabetes Lung disease Stroke Suicide Other Hyperlipidemia Seizure Denies family history of Clotting disorder Bleeding disorder Social History Smoking and tobacco/nicotine status: never used tobacco/nicotine Alcohol intake: current Alcohol intake frequency: holidays/special occasions only Substance/Drug Use: never Marital status: Current occupational status: disabled Physical Exam Const: COMMON NORMALS: patient oriented x3, no limitations, healthy appearing, alert and well nourished GENERAL APPEARANCE: in distress (From pain) HENMT: COMMON NORMALS: normocephalic and atraumatic HEAD & SCALP: normoce phalic and atraumatic Neck/C-Spine: COMMON NORMALS: no meningeal signs OTHER: Tender to palpation of the paracervical muscles as well as to the midline cervical spine. No step-off deformity. No bruising. Range of motion limited due to the pain. Resp: COMMON NORMALS: normal respiratory effort, No use of accessory muscles and clear to auscultation bilaterally AUSCULTATION: clear to auscultation bilaterally Cardio: COMMON NORMALS: regular rate and regular rhythm RATE: regular rate RHYTHM: regular rhythm Extremity: COMMON NORMALS: normal to inspection, full ROM, capillary refill normal, no joint enlargement and no clubbing, cyanosis or edema Neuro: COMMON NORMALS: patient oriented x3, moves all extremities, no focal motor deficits and no sensory deficits noted SENSORIUM/ORIENTATION: Yes alert MENINGEAL SIGNS: Yes no meningeal signs Skin: COMMON NORMALS: no rashes or lesions noted GENERAL SKIN EXAM: no rashes or lesions noted Course Vital Signs: Vital signs: Vital Signs Temperature 98.0 F 04/30/24 19:17 Pulse Rate 99 04/30/24 19:17 Respiratory Rate 18 04/30/24 19:17 Blood Pressure 132/86 04/30/24 19:17 Pulse Oximetry 96 04/30/24 19:17 Oxygen Delivery Me thod Room Air 04/30/24 19:17 MDM - Neck Pain/Injury Medical Decision Making Patient presents with acute on chronic atraumatic neck pain, set to have surgery later this month. Has been taking oxycodone at home but this has not been helping. Exam revealed tenderness to palpation diffusely of the cervical region, however he had no neurological symptoms to report. No reason for imaging at this time due to the atraumatic nature of the pain. He is given shots of Toradol, a steroid, and muscle relaxer, and upon recheck states the pain feels much better and manageable. Will send prescriptions to pharmacy and he will continue follow-up later this month for surgery. No radiology studies performed this visit Discharge Plan Discharge Patient Disposition: Home Clinical Impression: Chronic neck pain Condition: Stable Prescriptions: New prednisone 20 mg tablet 60 mg PO ONCE 5 Days Qty: 15 0RF methocarbamol 750 mg tablet 750 mg PO Q8H 5 Days Qty: 15 0RF No Action nitroglycerin 0.3 mg tablet, sublingual 0.3 mg sublingual Q5M PRN (Reason: Chest Pain) Rx Instructions: do not exceed 3 doses per episode metoprolol tartrate 25 mg tablet 25 mg PO DAILY albuterol sulfate [ProAir HFA] 90 mcg/actuation HFA aerosol inhaler 2 puff inhalation Q6H PRN (Reason: Shortness Of Breath) pantoprazole [Protonix] 40 mg tablet,delayed release (DR/EC) 40 mg PO ONCE 30 Days Qty: 30 2RF budesonide-formoterol [Symbicort] 160-4.5 mcg/actuation HFA aerosol inhaler 2 puff inhalation BID Qty: 10.2 3RF meloxicam 7.5 mg tablet 7.5 mg PO DAILY PRN fluticasone propionate [Flonase Allergy Relief] 50 mcg/actuation spray,suspension 1 spray intranasal BID Qty: 16 0RF Rx Instructions: administer into each nostril polyethylene glycol 3350 [Miralax] 17 gram/dose powder 17 g PO DAILY Qty: 238 0RF metoclopramide HCl [Reglan] 10 mg tablet 10 mg PO Q6H PRN (Reason: nausea and vomiting) Qty: 20 0RF acetaminophen 500 mg Tablet 1,000 mg PO Q6H PRN (Reason: Pain) oxycodone-acetaminophen 10-325 mg tablet See Rx Instructions .ROUTE .COMPLEX Rx Instructions: TAKE 1 TABLET BY MOUTH EVERY 4 TO 6 HOURS NEEDED FOR PAIN. mupirocin 2 % ointment 1 applic topical BID Qty: 50 0RF hydrocodone-acetaminophen 5-325 mg tablet 1 tab PO Q8H PRN (Reason: pain) Qty: 14 0RF Flomax 0.4 mg capsule 0.4 mg PO DAILY Qty: 30 0RF Discharge Orders: Discharge ED (Routine); Ordered 04/30/24 Ordered By: Wilfrid Clark Referrals: Mitch Jimenez MD [Primary Care Provider] - Discharge Diet: Usual diet Discharge Activity: Increase activity as tolerated Patient Instructions: Neck Pain (ED) Activity Restrictions/Additional Instructions: Medications as prescribed. Continue follow-up with orthopedic spine surgery. Return with any new or concerning symptoms. Coding Level of Care Code ED [employer] Consult[employer] for Vernell Mccormack
== END 2024-04-30 21:26 | disposition home or self-care (01) ==
PROVIDERS: Emergency Provider Physician Assistant; PCP Family Medicine
DX: G89.29 Other chronic pain (principal); M54.2 Cervicalgia; I10 Essential (primary) hypertension
CPT/HCPCS: 96372; 99284; J1100; J1885; J2360

== ENCOUNTER 2024-05-06 17:22 | Observation (INO) | payer MEDICAID, SELFPAY ==
[2024-05-06] VITALS (17 sets, daily range): BP systolic 118–143; BP diastolic 20–97; PULSE 78–122; RESP 16–23; TEMP 36.6–36.9; O2SAT 86–97; BMI 33.7
--- NOTE | 2024-05-06 14:03 | ANES.PREANE2 ---
Pre-Anesthetic Assessment Height/Weight: Height 1.78 m Weight 106.594 kg Temp Pulse Resp BP Pulse Ox O2 Del Method 97.9 F 78 18 142/88 97 Room Air 05/06/24 13:06 05/06/24 13:06 05/06/24 13:06 05/06/24 13:06 05/06/24 13:06 05/06/24 13:19 Preop Diagnosis: Cervical spondylosis with radiculopathy Operation Date: 05/06/24 14:40 Proposed Procedures p Anterior Cervical Discectomy & Fusion ACDF w/ Anterior Interbody Fusion w/ Cage w/ Instrumentation w/ Allograft w/ Navigation(Not Applicable) - Hao Delgado, DO Familial anesthetic complications: Wakes up confused, disoriented, thrashing Alpha gal + Was Beta Wei taken within 24 hours: Yes Was Clonidine taken within 24 hours: N/A Last intake: Intake Last Liquid Date 05/05/24 Last Liquid Time 21:30 Last Solid Date 05/05/24 Last Solid Time 21:30 Social No alcohol and No tobacco Exam alert, oriented x 3, clear to auscultation bilaterally and regular rate & rhythm Airway Mallampati: Class IV Dentition: other (multiple missing) Comments: Comments: Noted difficult to mask with a previous surgery, but two prior surgeries with grade I airway using MAC 3.5 Pulmonary restrictive lung disease CV/HEM Hypertension HX PE from COVID - no longer on blood thinners Angina with reversible ischemia noted on perfusion scan, this was followed with cardiac cath which revealed normal coronary arteries Hepatic COUGHLIN Anesthetic Plan ASA status: 3 Anesthesia: General Risk of > 500 ml blood loss (7ml/kg in children): No Medications/Allergies Home Medications Medication Instructions Recorded Confirmed Last Taken Type albuterol sulfate 90 mcg/actuation 2 puff inhalation Q6H PRN 03/25/21 05/03/24 05/03/24 History aerosol inhaler (ProAir HFA) Shortness Of Breath metoprolol tartrate 25 mg tablet 25 mg PO DAILY 06/08/21 05/03/24 05/06/24 History nitroglycerin 0.3 mg sublingual 0.3 mg sublingual Q5M PRN Chest 06/08/21 05/03/24 04/19/23 History tablet Pain fluticasone propionate 50 1 spray intranasal BID #16 grams 11/11/22 05/03/2424 Rx mcg/actuation nasal spray,suspension (Flonase Allergy Relief) metoclopramide HCl 10 mg tablet 10 mg PO Q6H PRN nausea and 02/28/23 05/03/24 02/28/24 Rx (Reglan) vomiting #20 tabs budesonide-formoterol HFA 160 2 puff inhalation BID #10.2 grams 03/20/23 05/03/24 04/29/24 Rx mcg-4.5 mcg/actuation aerosol inhaler (Symbicort) acetaminophen 500 mg tablet 1,000 mg PO Q6H PRN Pain 05/11/23 05/03/24 05/06/24 History oxycodone-acetaminophen 10 mg-325 1 tab PO Q4-5H PRN Pain 05/11/23 05/03/24 05/05/24 History mg tablet pantoprazole 40 mg tablet,delayed 40 mg PO PRN PRN Pain 05/03/24 05/03/24 05/05/24 History release (Protonix) Allergies Allergy/AdvReac Type Severity Reaction Status Date / Time clindamycin Allergy THROAT Verified 05/03/24 09:42 SWELLING AND ITCHY crab Allergy ALGY-Hives Verified 05/03/24 09:42 doxycycline Allergy RASH Verified 05/03/24 09:42 galcanezumab-gnlm Allergy ALGY-Rash Verified 05/03/24 09:42 [From Emgality Pen] mushroom Allergy ALGY-Hives Verified 05/03/24 09:42 Penicillins Allergy ALGY-Rash Verified 05/03/24 09:42 [facility] Anesthesia Medical History H/O coronary angiogram GERD (gastroesophageal reflux disease) Erectile dysfunction ADHD COVID Anxiety Hypercholesterolemia Pulmonary embolism Gastroenteritis Hypertension Left ureteral calculus Surgical History History of laparoscopic appendectomy 05/11/23 Dr. Maya H/O esophagogastroduodenoscopy (04/19/22) History of umbilical hernia repair (11/01/21) Recurrent repaired with with ultrapro mesh Status post laparoscopic cholecystectomy (11/01/21) History of umbilical hernia repair 2019 H/O neck surgery BIOPSY OF NECK SWOLLEN LYMPH NODE H/O hernia repair Hx of tonsillectomy Family History Mother , 48 Diabetes Cancer BREAST CAD (coronary artery disease) Hypertension Father Cancer CAD (coronary artery disease) Hypertension Diabetes Family/Other Anesthesia complication CAD (coronary artery disease) Chronic kidney disease (CKD) Dementia Diabetes Lung disease Stroke Suicide Other Hyperlipidemia Seizure Denies family history of Clotting disorder Bleeding disorder Social History Smoking and tobacco/nicotine status: never used tobacco/nicotine Alcohol intake: current Alcohol intake frequency: holidays/special occasions only Substance/Drug Use: never Marital status: Current occupational status: disabled Data Anesthesia Cardiac Studies: Echocardiogram 08/20/21 Sestamibi Stress Test (Cardiology) 07/06/21 Holter Monitor 05/31/21
--- NOTE | 2024-05-06 14:05 | W.PM.OPSUD ---
Surgery/Procedure H&P Update DATE OF PROCEDURE: May 06, 2024 DATE H&P PERFORMED: 04/16/24 H&P UPDATE INFORMATION: I have reviewed H&P completed within last 30 days, I have examined patient prior to procedure and No changes to prior documentation PREOP DIAGNOSIS: Cervical spondylosis with radiculopathy PLANNED PROCEDURE: Operation Date: 05/06/24 14:40 Proposed Procedures p Anterior Cervical Discectomy & Fusion ACDF w/ Anterior Interbody Fusion w/ Cage w/ Instrumentation w/ Allograft w/ Navigation(Not Applicable) - Hao Delgado DO
[2024-05-06] MEDS: sodium chloride 0.9% 1,000 ML 30 ML IV (14:07)
[2024-05-06] MEDS: ondansetron 2 mg/ML SDV 2 mL 4 MG IVP (14:07)
[2024-05-06] MEDS: fentaNYL 50 mcg/mL INJ 2mL IVP ×2 (14:12→17:41)
[2024-05-06] MEDS: lidocaine-epi 1% 20 mL INJ INJECTION (15:34)
--- NOTE | 2024-05-06 16:08 | SUR.OPER ---
Surgiflo to sterile field per Dr. Delgado. Dr. Delgado aware that patient has alpha gal.
--- NOTE | 2024-05-06 17:09 | P.OP_ITS ---
Operative Report Date of procedure: May 06, 2024 Pre-op diagnosis: Cervical spondylosis with radiculopathy Post-op diagnosis: same Procedure done: 1. Anterior diskectomy C4/5 2. Anterior discectomy C5/6 3. Insertion of cage C4/5 4. Insertion of Cage C5/6 5. Instrumentation with anterior plate from C4-C6 6. Use of allograft Surgeon: Hao Delgado DO Estimated blood loss (mL): 25 Procedure: 1. Anterior diskectomy C4/5 2. Anterior discectomy C5/6 3. Insertion of cage C4-5 4. Insertion of Cage C5/6 5. Instrumentation with anterior plate from C4-C6 6. Use of allograft The patient was taken to the operating room, where he underwent general endotracheal anesthesia without complications. He was then positioned supine on the operating table, and all areas of impingement were well padded. The arms were carefully padded and tucked at his sides. A roll was placed between the shoulder blades.. An x-ray was done to determine the appropriate level for the skin incision. The entire neck was then sterilely prepped and draped in the usual fashion. Neuromonitoring was attached prior to prepping. A transverse skin incision was made and carried down to the platysma muscle. This was then split in line with its fibers. Blunt dissection was carried down medial to the carotid sheath and lateral to the trachea and esophagus until the anterior cervical spine was visualized. A needle was placed into a disc and an x-ray was done to determine its location. The longus colli muscles were then elevated bilaterally with the electrocautery unit. Self-retaining retractors were placed deep to the longus colli muscle. Attention was brought to the C4-5 level that was confirmed on x-ray. A caspar pin was placed into the C4 vertebrae and the C5 vertebrae. The disk space was then distracted. The microscope was then brought in. A radical anterior discectomies were performed at C4/5. This included complete removal of the anterior annulus, nucleus, and posterior annulus. The posterior longitudinal ligament was removed as were the posterior osteophytes. Foraminotomies were then accomplished bilaterally. This was done using a high speed kamila, kerrison rongeurs and curretes Once all of this was accomplished, the curved currette was used to check for any residual compression. The central canal was wide open as were the foramen. A high-speed bur was used to remove the cartilaginous endplates above and below the interspace. Bleeding cancellous bone was exposed. The disc space were measured and appropriate size cage were placed sterilely onto the field. Allograft graft was packed into the cages. The cage was then placed and there was good juxtaposition against the bleeding decorticated surfaces and good distraction of each interspace. Attention was brought to the next interspace. The [place] pins were removed. Bone wax was used to prevent any bleeding from occurring at the pin sites. Attention was brought to the C5/6 level that was confirmed on x-ray. A caspar pin was placed into the C5 vertebrae and the C6 vertebrae. The disk space was then distracted. The microscope was then brought in. A radical anterior discectomies were performed at C5/6. This included complete removal of the anterior annulus, nucleus, and posterior annulus. The posterior longitudinal ligament was removed as were the posterior osteophytes. Foraminotomies were then accomplished bilaterally. This was done using a high speed kamila, kerrison rongeurs and curretes Once all of this was accomplished, the curved currette was used to check for any residual compression. The central canal was wide open as were the foramen. A high-speed bur was used to remove the cartilaginous endplates above and below the interspace. Bleeding cancellous bone was exposed. The disc space were measured and appropriate size cage were placed sterilely onto the field. Allograft graft was packed into the cages. The cage was then placed and there was good juxtaposition against the bleeding decorticated surfaces and good distraction of each interspace. The [place] pins were removed. Bone wax was used to prevent any bleeding from occurring at the pin sites. The appropriate size anterior cervical locking plate was chosen and bent into gentle lordosis. Two screws were then placed into each of the vertebral bodies at C5, C6 and C7. There was excellent purchase. A final x-ray was done confirming good position of the hardware and Cages. The locking screws were then applied, also with excellent purchase. Following a final copious irrigation, there was good hemostasis and no dural leaks. The carotid pulse was strong. The wounds were then closed in layers using 2-0 Vicryl suture for the platysma muscle, 2-0 Vicryl suture for the subcutaneous tissue, and 4-0 monocryl suture in a subcuticular skin closure. Glue was placed followed by application of a sterile dressing. The drain was hooked to bulb suction. A soft collar was applied. The patient was then carefully returned to the supine position on his hospital bed where he was reversed and extubated and taken to the recovery room having t olerated the procedure well.
--- NOTE | 2024-05-06 17:25 | SUR.PHASEI ---
Patient had oral airway on arrival to pacu, oral airway out now. patient has O2 sat of 94% with simple mask in place at 10L. Patient wakes and requests juice repeatedly. Placed NC on patient at 6L. Patients dressing is dry and intact, no sign of drainage. Patient awake but drowsy.
--- NOTE | 2024-05-06 18:01 | SUR.PHASEI ---
PAtient awake and fairly alert. Patient states he is hot. oral temp ia 98.1, Cool rags and ice pack placed on patient. He is taking fluid orally with no issues. Patient medicated for pain per orders at 1741. Patient remains on NC 5L with sats at 94%
--- NOTE | 2024-05-06 18:15 | ANE.PACU2 ---
Inpatient post-anesthesia follow up: Airway intact: Yes Vital signs: Temperature 97.7 F Pulse Rate 93 Respiratory Rate 16 Blood Pressure 120/75 Pulse Oximetry 95 Oxygen Delivery Me thod Room Air Oxygen Flow Rate 5 Fraction of Inspir ed Oxygen Hydration adequate: Yes Nausea and vomiting: No Pain level: 1 Mental status: Baseline
--- NOTE | 2024-05-06 18:41 | SUR.PHASEI ---
PAtient taken to room 264. Patient awake and alert on arrival to floor. c collar in place with dressing clean and dry. has NC in place at 4L with sats in room at 94%. PAtient has ice packs in place, still stating he is hot. Temp 98.1. Patient positioned sitting up in bed. call light in reach. Patient taking ice chips. nurse vin in room on arrival.
[2024-05-06] MEDS: docusate sodium 100 mg Capsule PO (21:27)
[2024-05-06] MEDS: oxyCODONE-APAP 10-325 mg Tablet PO (21:27)
[2024-05-06] MEDS: lactated ringers 1,000 ML 90 ML IV (21:28)
[2024-05-06] MEDS: ketorolac 30 mg/mL INJ IVP (23:22)
[2024-05-07] VITALS: BP 134/80; PULSE 111; RESP 19; TEMP 36.9; O2SAT 92
[2024-05-07 04:37] VITALS: BP 120/75; PULSE 93; RESP 18; TEMP 36.5; O2SAT 95
[2024-05-07] MEDS: ketorolac 30 mg/mL INJ IVP (06:44)
[2024-05-07 07:39] VITALS: RESP 16
[2024-05-07] MEDS: oxyCODONE-APAP 10-325 mg Tablet PO (07:39)
[2024-05-07] MEDS: metoprolol tartrate 25 mg Tablet PO (07:40)
[2024-05-07] MEDS: docusate sodium 100 mg Capsule PO (07:40)
[2024-05-07] MEDS: fluticasone nasal spray 16gm Btl 1 SPRAY INTRANASAL (07:40)
--- NOTE | 2024-05-07 07:47 | PC.NURSE ---
At roughly 0230 Amaris, DEEPA came and told this nurse that the patient was in pain and requesting pain medications. This nurse pulled two percocet 10-325 pills as ordered shortly after and went to the room to assess and treat the patient. Upon entering the room, the patient was found sleeping with snoring respirations. This nurse left the room quietly and proceeded to round on the patient again at approximately 0330, 0415, and 0500 and the patient was sleeping at these times. This nurse returned to the room at 0644 to offer the patient a dose of toradol before the day's activities began. The patient was sitting in the chair, and stated I'm very upset this morning. This nurse inquired why the patient was upset, and he replied I've been asking since 2:30 in the morning for pain medicine or even tylenol and no one has brought me anything! This nurse explained that she had rounded on the patient multiple times and each time found the patient resting quietly and snoring, and that staff do not wake patients for meds that are not scheduled by the doctor. The patient then said Well I had to get myself up to the bathroom! This nurse explained that independent ambulation is one of the goals of his care. The patient then stated Well I want to take this collar off! This nurse explained the purpose of the collar and that it would not be able to come off until Dr. Delgado said it is okay to remove it.
--- NOTE | 2024-05-07 08:13 | PM.DCS ---
Discharge Providers Date of Admission: 05/06/24 17:22 Date of Discharge: May 07, 2024 Attending Provider at Discharge: Hao Delgado DO Primary Care Provider: Mitch Jimenez MD Reason for Visit Reason for Visit: M47.22 Physical Exam Narrative: Patient sitting up out of 5 strength bilateral upper extremities. Splint, be entirely loosened up forearm. At this point will discharge home today. Urinary Catheter Management: Turner: Cath Placed During This Visit: yes, but has since been removed by the nurse Reason for Continuing Indwelling Catheter: Decision to DC Catheter Urinary Catheter Date of Insertion: 05/06/24 Urinary Catheter Time of Insertion: 15:25 Date Urinary Catheter Removed: 05/06/24 Time Urinary Catheter Discontinued: 18:00 Discharge Data Studies Completed and Pending Pending at discharge Category Date Time Status C-arm Fluoroscopy 07094 Routine Exams 05/06/24 12:50 Ordered Vitals Last Vital Signs Temp 97.7 F 05/07/24 04:37 Pulse 93 05/07/24 04:37 Resp 16 05/07/24 07:39 BP 120/75 05/07/24 04:37 Pulse Ox 95 05/07/24 04:37 O2 Del Method Room Air 05/07/24 04:37 O2 Flow Rate 5 05/06/24 18:10 Discharge Plan Discharge Patient Disposition: Home Prescriptions: New oxycodone-acetaminophen 10-325 mg tablet 1 - 2 tab PO Q4H PRN (Reason: pain) 7 Days Qty: 40 0RF Continued nitroglycerin 0.3 mg tablet, sublingual 0.3 mg sublingual Q5M PRN (Reason: Chest Pain) Rx Instructions: do not exceed 3 doses per episode metoprolol tartrate 25 mg tablet 25 mg PO DAILY albuterol sulfate [ProAir HFA] 90 mcg/actuation HFA aerosol inhaler 2 puff inhalation Q6H PRN (Reason: Shortness Of Breath) budesonide-formoterol [Symbicort] 160-4.5 mcg/actuation HFA aerosol inhaler 2 puff inhalation BID Qty: 10.2 3RF fluticasone propionate [Flonase Allergy Relief] 50 mcg/actuation spray,suspension 1 spray intranasal BID Qty: 16 0RF Rx Instructions: administer into each nostril pantoprazole [Protonix] 40 mg tablet,delayed release (DR/EC) 40 mg PO PRN PRN (Reason: Pain) metoclopramide HCl [Reglan] 10 mg tablet 10 mg PO Q6H PRN (Reason: nausea and vomiting) Qty: 20 0RF acetaminophen 500 mg Tablet 1,000 mg PO Q6H PRN (Reason: Pain) Discontinued oxycodone-acetaminophen 10-325 mg tablet 1 tab PO Q4-5H PRN (Reason: Pain) Rx Instructions: TAKE 1 TABLET BY MOUTH EVERY 4 TO 6 HOURS NEEDED FOR PAIN. Discharge Orders: Discharge Order (Routine); Ordered 05/07/24 Ordered By: Hao Delgado Discharge Diet: Advance as tolerated Discharge Activity: Limit activity as instructed Patient Instructions: Acute Wound Care (DC), Opioid Safety, Post Anesthesia Care Activity Restrictions/Additional Instructions: Thank you for choosing [facility] for your care! The following is a list of instructions, from your provider, to follow upon your discharge to ensure you have the optimal recovery from your recent injury or surgery. Anterior Cervical Discectomy and Fusion: What to Expect at Home Your Recovery Follow-up care is a del cid part of your treatment and safety. Be sure to make and go to all appointments, and call your doctor if you are having problems. If you do not already have a follow-up appointment made, call office in the next 1-3 days to make follow up appointment for 2 weeks at [phone]. It is also a good idea to know your test results and keep a list of the medicines you take. You can expect your neck to feel stiff or sore after surgery. This should improve in the weeks after surgery. But it may take 4 to 6 months for you to get better completely. You may have trouble sitting or standing in one position for very long and may need pain medicine in the weeks after your surgery. It may take 4 to 6 weeks to get back to your usual activities, but it may depend on what kind of surgery you had. Your throat will feel sore and it may be difficult to swallow for the first 3 days after your surgery. As long as you can get liquids down without difficulty, this should slowly improve, otherwise call our office or seek medical attention if it becomes increasingly difficult to get anything down including liquids. Avoid hot liquids for first 3-5 days. Soothing foods/liquids such as jello, pudding, and luke warm soups are recommended until swallowing improves. Staying elevated will also help, it's advised you keep propped up at while sleeping to help reduce the swelling. You may use an ice pack directly on your incision or around it on the front of your neck, using a cloth to protect your skin; and a heating pad to the back of your neck as needed. Do not use over the counter anti-inflammatory medications (Ibuprofen, Motrin, Aleve, Advil, etc) Taking these meds after having a fusion can delay fusion rates, we recommend you avoid them for the first 3 months after your surgery[address] Dr. Delgado may advise you to work with a physical therapist to strengthen the muscles around your neck and back - this will be discussed at your follow - up appointments. The pain or numbness you were having in your arms before surgery should get better or go away completely. This care sheet gives you a general idea about how long it will take for you to recover. But each person recovers at a different pace. Follow the steps below to get better as quickly as possible. How can you care for yourself at home? Activity ? Rest when you feel tired. Getting enough sleep will help you recover. ? Try to walk each day. Start by walking a little more than you did the day before. Bit by bit, increase the amount you walk. Walking boosts blood flow and helps prevent pneumonia and constipation. Walking may also decrease your muscle soreness after surgery. ? No lifting anything that is more that 5 pounds. This may include heavy grocery bags and milk containers, a heavy briefcase or backpack, cat litter or dog food bags, a child, or a vacuum carbonating stone cleaner. ? Avoid strenuous activities, such as bicycle riding, jogging, weightlifting, or aerobic exercise, until your doctor says it is okay. ? Do not drive until your follow-up visit after your surgery, or until your doctor says it isokay. ? Avoid taking long car trips for 2 to 4 weeks after surgery. Your neck may become tired and painful from sitting too long in one position. ? You will probably need to take 4 to 6 weeks off from work. It depends on the type of work you do and how you feel. ? You may have sex as soon as you feel able, but avoid positions that put stress on your neck or cause pain. Diet ? You can eat your normal diet. If your stomach is upset, try bland, low-fat foods like plain rice, broiled chicken, toast, and yogurt ? Drink plenty of fluids. If you have kidney, heart, or liver disease and have to limit fluids, talk with your doctor before you increase the amount of fluids you drink. ? You may notice that your bowel movements are not regular right after your surgery. This is common. Try to avoid constipation and straining with bowel movements. You may want to take a fiber supplement every day. If you have not had a bowel movement after a couple of days, ask your doctor about taking a mild laxative. Medicines ? Take pain medicines exactly as directed. 1. If Dr. Delgado gave you a prescription medicine for pain, take lt as prescribed. 2. Do not take two or more pain medicines at the same time unless the doctor told you to. Many pain medicines have acetaminophen, which is Tylenol. Too much acetaminophen {Tylenol) can be harmful. 3. If you think your pain pill is making you sick to your stomach: 4. Take your pills after meals (unless your doctor has told you not to). 5. Ask your Dr. for a different pain pill. Incisioncare ? Remove your dressing 48hours after your surgery. Ok to shower and get the incision wet. Do not overtly wash your incision. When done, pad dry, leave open to air thereafter. Avoid creams and ointments directly on your incision. ? Your sutures in the incision will dissolve and fall out on their own. ? Keep the area clean and dry. You may cover it with a gauze bandage if it weeps or rubs against clothing; if you choose to do this, change the dressing everyday. Other instructions ? Use a heating pad, hot water bottle, or gentle massage on your back to reduce stiffness. Avoid putting heat on your incision When should you call for help? ? Call 911 anytime you think you may need emergency care. For example, call if: ? You pass out (lose consciousness). ? You have sudden chest pain and shortness of breath, or you cough upblood. ? You cannot swallow. ? You have severe pain in your neck or back. ? Call your Dr. or seek immediate medical care if: ? You have pain that does not get better after you take pain pills. ? You have loose stitches, or your incision comes open. ? You have blood or fluid draining from the incision. ? You have signs of infection, such as: 1. Increased pain, swelling, warmth, or redness. 2. Red streaks leading from the site. 3. Pus draining from the site. 4. Swollen lymph nodes in your neck or armpits. 5. A fever. ? You have severe pain in your arms. ? You have new or increased weakness or numbness in your arms. ? Watch closely for any changes in your health, and be sure to contact your doctor if: ? You do not have a bowel movement after taking a laxative. Discharge Attestations Time Spent in Discharge Care*: less than 30 min Quality Metrics Clinical Quality Measures [ No reported AMI, CVA or VTE this stay] Coding Level of Care Code Acute Code for Chg Fwd
[2024-05-07 08:49] VITALS: BP 153/73; PULSE 78; RESP 18; TEMP 36.7; O2SAT 96
--- NOTE | 2024-05-07 09:07 | PC.CHAP ---
Pastoral Care Encounter/Spiritual Assessment Type of Contact [] Declined back sizer visit [] Patient/Family/Request visit [] Outpatient visit [] Follow-up visit [] Physician referral [] Code/Alert [x] Routine visit [] Staff referral [] Actively dying [] Patient sleeping [] Family support [] [] Out of room [] Palliative care [] [] Receiving care in room [] Pre-surgical visit [] Trauma [] Long length of stay [] ICU visit [] Other: Relational/Emotional Strength [x] Patient feels connected with others/family/visitors/staff [] Distress [] Loneliness/isolation [] Abandonment Spirituality of Patient [x] Person of Chloe [] Attends Confucianism of their Chloe [x] Believes in Prayer [] Reads Bible or Faith materials [] There are Spiritual issues to be addressed 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 [x] Prayer [x] Active listening [] Non-anxious presence [x] Spiritual/emotional support [] Crisis/trauma care [] Spiritual counseling [] Bereavement support [] Provided bereavement packet [] Provided Bible/devotional materials [] Provided toy/stuffed animal, coloring book to patient or family member [] Provided Communion [] Anointing/Almond [] Salvation [x] Completed spiritual assessment [] Other: Impact on Illness or Injury [] Angry [] Fearful [] Anxious [] Often cries [] Exhaustion [] Unable to work [] Unable to attend roman catholic [] Unable to walk/stand [] Unable to read [] Unable to drive [] Unable to eat/drink [] Unable to sleep [] Unable to be with family [] Patient intubated [] Other: Summary Time spent with patient 5 min
--- NOTE | 2024-05-07 09:37 | XR_ITS ---
WS: [id number] Cervical spine, C-arm fluoroscopy views, 05/06/2024 Clinical Data: acdf, or pic Comparison: Cervical spine, 12/18/2023 Findings: Dr. Delgado performed an anterior cervical disc fusion. XR/XR cervical spine 3V* [id number] Impression: Anterior cervical disc fusion.
[2024-05-07 09:40] VITALS: BP 153/73; PULSE 78; RESP 18; TEMP 36.7; O2SAT 96
== END 2024-05-07 09:40 | disposition home or self-care (01) ==
LOC: MEDSURG 17:23
PROVIDERS: Admitting Provider Orthopaedic Surgery; PCP Family Medicine; Visit Provider Orthopaedic Surgery
PROC: 0RB30ZZ Excision of Cervical Vertebral Disc, Open Approach (ICD-10-PCS; CPT 22551; principal; 2024-05-06 14:20)
DX: M47.22 Other spondylosis with radiculopathy, cervical region (principal); I10 Essential (primary) hypertension; Z86.711 Personal history of pulmonary embolism
CPT/HCPCS: 20930; 22551; 22552; 22845; 22853 ×2; 36415; 51702; 72040; 76000; 97161; C1713; C1763; C9359; G0378; J0330; J1100; J1170; J1885; J2250; J2405; J2704; J3010; J3370; J3490; J7030; J7120

== ENCOUNTER 2024-05-11 11:48 | Emergency (ER) | payer MEDICAID, SELFPAY ==
[2024-05-11] VITALS (11 sets, daily range): BP systolic 134–146; BP diastolic 76–80; PULSE 68–91; RESP 14–28; TEMP 36.8; O2SAT 96–100
--- NOTE | 2024-05-11 11:52 | ECG_ITS ---
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 Measurements Intervals Marshall Rate: 74 P: 29 RI: 153 QRS: 54 QRSD: 108 T: 25 QT: 376 QTc: 420 Interpretive Statements SINUS RHYTHM INCOMPLETE RIGHT BUNDLE BRANCH BLOCK [90+ ms QRS DURATION, TERMINAL R IN V1/V2, 40+ ms S IN I/aVL/V4/V5/V6] Compared to ECG 05/10/2023 20:43:35 No significant changes Electronically Signed On 05-11-2024 18:48:09 CDT by Meghan Patel M.D. [id number]
--- NOTE | 2024-05-11 15:12 | ECG_ITS ---
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 Measurements Intervals Rebecca Rate: 86 P: 37 VA: 141 QRS: 60 QRSD: 106 T: 28 QT: 369 QTc: 441 Interpretive Statements SINUS RHYTHM INCOMPLETE RIGHT BUNDLE BRANCH BLOCK [90+ ms QRS DURATION, TERMINAL R IN V1/V2, 40+ ms S IN I/aVL/V4/V5/V6] Compared to ECG 05/11/2024 11:51:00 No significant changes Electronically Signed On 05-11-2024 18:48:43 CDT by Meghan Patel M.D. [id number]
[2024-05-11 15:26] LABS: Basophils # 0.1 10^3/uL (0.0-0.1); Basophils % 0.2 %; Eosinophils % 0.1 %; Hematocrit 48.8 % (37-53); Lymphocytes # 3.1 10^3/uL (0.8-4.8); Lymphocytes % 15.2 %; Mean Corpuscular HGB Conc 32.8 g/dL (30-55); Mean Corpuscular Hemoglobin 30.7 pg (27-33); Mean Corpuscular Volume 93.5 fl (82-101); Mean Platelet Volume 9.2 fL (7.4-10.4); Monocytes # 1.2 10^3/uL (0.2-0.9); Monocytes % 5.7 %; Neutrophils # 16.09 10^3/uL (1.8-7.7); Neutrophils % 77.7 %; Nucleated Red Blood Cells % 0 %; Platelet Count 313 10^3/cmm (157-399); Red Blood Count 5.22 10^6/uL (3.85-5.65); Red Cell Distribution Width 12.9 % (12.1-15.1); White Blood Count 20.71 10^3/uL (3.29-11.43)
[2024-05-11 15:48] LABS: Alanine Aminotransferase 117 U/L (0-41); Albumin Level 4.5 g/dL (3.5-5.2); Alkaline Phosphatase 108 U/L (40-130); Anion Gap 16.6 (5-19); Aspartate Amino Transferase 50 U/L (0-40); Blood Urea Nitrogen 15 mg/dL (6-20); Calcium 9.8 mg/dL (8.5-10.5); Carbon Dioxide 28 mmol/L (22-29); Chloride 98 mmol/L (98-107); Creatinine Clr Calc Pharmacy 159.0692; Globulin 2.6 g/dL (1.3-4.6); Glomerular Filtration Rate 110.7 mL/min (90-130); Glucose 155 mg/dL (65-115); Osmolality Calculated 292 mOsm/kg (285-295); Potassium 3.6 mmol/L (3.5-5.1); Sodium 139 mmol/L (136-145); Total Bilirubin 0.4 mg/dL (0.15-1.2); Total Protein 7.1 g/dL (6.6-8.7)
[2024-05-11 15:49] LABS: Troponin(5th) Baseline < 6 ng/L (0-15)
[2024-05-11] MEDS: orphenadrine 30 mg/mL Inj 2 mL 60 MG IVP (16:08)
[2024-05-11] MEDS: HYDROmorphone 1 mg/mL INJ 1 mL 0.5 MG IVP (16:08)
[2024-05-11 16:43] LABS: Charge for UA Resulting for Rev
[2024-05-11 16:51] LABS: Bilirubin Urine Negative (Negative); Blood Urine Negative (Negative); Glucose Urine UA Negative (Normal); Ketones Urine Negative (Negative); Leukocyte Esterase Urine Negative (Negative); Nitrate Urine Negative (Negative); Protein Urine Negative (Negative); Urine Appearance Clear (CLEAR); Urine Color Yellow (Yellow)
[2024-05-11 16:55] LABS: Bacteria Urine None Seen /hpf; Hyaline Casts Urine 0-4 /lpf; RBC Urine 0-2 /hpf (0-2); Squamous Epithelial Cell Urine 0-5 /hpf (0-5); WBC Urine 0-5 /hpf (0-5)
[2024-05-11 17:16] LABS: Troponin 5 2HR Delta 0.00001 ABS# (0-10)
--- NOTE | 2024-05-11 17:16 | ED_ITS ---
HPI - Headache 2 General: Chief Complaint: Headache Stated Complaint: surgery Monday, high Bloodpressure, neck pain Time Seen by Provider: 05/11/24 13:46 Source: patient Mode of arrival: ambulatory Limitations: no limitations History of Present Illness: Patient presents emergency department today accompanied by family for evaluation and treatment of left upper back pain, headache, and hypertension. Patient is status post cervical fusion by anterior approach from Dr. Delgado approximately 5 days ago. Patient states he has had a headache since his discharge. He also complains of muscle spasming in his left upper back and discomfort wearing his neck brace. Patient states that he is allowed to take his neck brace off to bathe but states he wanted a softer neck brace as this 1 was uncomfortable for him. He states he is still wearing it as he is supposed to be. He has taken all of his narcotic pain medication that he got after surgery with his last dose being approximately 7:00 this morning. Patient denies any anterior neck pain or incisional pain. He has not had any draining. Has not been running fever. He denies any visual changes. No vomiting. He states at home his blood pressure readings were 180s over 120s and states during this time he had a 20-minute episode of chest pain which spontaneously resolved. He is pain-free at this time from chest pain. He does take blood pressure medications states he took his medication this morning. His blood pressure monitor is a wrist cuff which he states he uses as directed. Related Data Home Medications Medication Instructions Recorded Confirmed albuterol sulfate 90 mcg/actuation 2 puff inhalation Q6H PRN 03/25/21 05/03/24 aerosol inhaler (ProAir HFA) Shortness Of Breath metoprolol tartrate 25 mg tablet 25 mg PO DAILY 06/08/21 05/03/24 nitroglycerin 0.3 mg sublingual 0.3 mg sublingual Q5M PRN Chest 06/08/21 05/03/24 tablet Pain acetaminophen 500 mg tablet 1,000 mg PO Q6H PRN Pain 05/11/23 05/03/24 pantoprazole 40 mg tablet,delayed 40 mg PO PRN PRN Pain 05/03/24 05/03/24 release (Protonix) Previous Rx's Medication Instructions Recorded fluticasone propionate 50 1 spray intranasal BID #16 grams 11/11/22 mcg/actuation nasal spray,suspension (Flonase Allergy Relief) metoclopramide HCl 10 mg tablet 10 mg PO Q6H PRN nausea and 02/28/23 (Reglan) vomiting #20 tabs budesonide-formoterol HFA 160 2 puff inhalation BID #10.2 grams 03/20/23 mcg-4.5 mcg/actuation aerosol inhaler (Symbicort) oxycodone-acetaminophen 10 mg-325 1 - 2 tab PO Q4H PRN pain 7 days 05/07/24 mg tablet #40 tabs methocarbamol 750 mg tablet 750 mg PO Q8H PRN muscle spasm 7 05/08/24 days #21 tabs hydroxyzine HCl 25 mg tablet 25 mg PO Q8H PRN anxiety #15 tabs 05/11/24 oxycodone 5 mg tablet 5 mg PO Q8H PRN pain #20 tabs 05/11/24 Allergies Allergy/AdvReac Type Severity Reaction Status Date / Time Alpha-Gal Allergy ADR-Diarrhe Verified 05/11/24 12:00 (Fbifpthry-Avvyh-0,3-Gala a clindamycin Allergy THROAT Verified 05/11/24 12:00 SWELLING AND ITCHY crab Allergy ALGY-Hives Verified 05/11/24 12:00 doxycycline Allergy RASH Verified 05/11/24 12:00 [id number]-gnlm Allergy ALGY-Rash Verified 05/11/24 12:00 [From Emgality Pen] mushroom Allergy ALGY-Hives Verified 05/11/24 12:00 Penicillins Allergy ALGY-Rash Verified 05/11/24 12:00 Review of Systems 2 General: Reports: 10 or more systems reviewed and unremarkable except in HPI and below PFSH ED 2 PFSH: Medical History H/O coronary angiogram GERD (gastroesophageal reflux disease) Erectile dysfunction ADHD COVID Anxiety Hypercholesterolemia Pulmonary embolism Gastroenteritis Hypertension Left ureteral calculus Surgical History History of laparoscopic appendectomy 05/11/23 Dr. Maya H/O esophagogastroduodenoscopy (04/19/22) History of umbilical hernia repair (11/01/21) Recurrent repaired with with ultrapro mesh Status post laparoscopic cholecystectomy (11/01/21) History of umbilical hernia repair 2019 H/O neck surgery BIOPSY OF NECK SWOLLEN LYMPH NODE H/O hernia repair Hx of tonsillectomy Family History Mother , 48 Diabetes Cancer BREAST CAD (coronary artery disease) Hypertension Father Cancer CAD (coronary artery disease) Hypertension Diabetes Family/Other Anesthesia complication CAD (coronary artery disease) Chronic kidney disease (CKD) Dementia Diabetes Lung disease Stroke Suicide Other Hyperlipidemia Seizure Denies family history of Clotting disorder Bleeding disorder Social History Smoking and tobacco/nicotine status: never used tobacco/nicotine Alcohol intake: current Alcohol intake frequency: holidays/special occasions only Substance/Drug Use: never Marital status: Current occupational status: disabled Physical Exam 2 Const: COMMON NORMALS: patient oriented x3 and alert OTHER: Seems very anxious. HENMT: COMMON NORMALS: normocephalic, atraumatic and hearing grossly normal bilaterally HEAD & SCALP: normocephalic and atraumatic Eye: COMMON NORMALS: Equal, round and reactive pupils present, EOMs intact bilaterally and conjunctivae normal CONJUNCTIVA: Yes conjunctivae normal P UPIL: Yes Equal, round and reactive pupils present Neck/C-Spine: OTHER: Limited range of motion due to application of neck brace. Patient has a well- healing surgical incision in the anterior mid neck without erythema or draining. Steri-Strips still in place. Lymph: LYMPHATIC: no lymphadenopathy noted Resp: COMMON NORMALS: normal respiratory effort, No retractions and No use of accessory muscles Cardio: COMMON NORMALS: regular rate RATE: regular rate Back/Pelvis: OTHER: Patient has reproducible tenderness with even light touch to the paravertebral musculature in the left upper back. BACK IMAGE (MALE): 1. area of pain Extremity: NARRATIVE EXTREMITY EXAM: Full range of motion to the upper extremities with ability to grasp and hold items. OTHER: Independently ambulatory and weightbearing in the emergency department. Able to get in and out of the bed independently. Neuro: COMMON NORMALS: patient oriented x3 SENSORIUM/ORIENTATION: Yes alert Psych: COMMON NORMALS: mental status grossly normal, Normal thought process present, cooperative and normal affect THOUGHT PROCESS: Normal thought process present Skin: COMMON NORMALS: no rashes or lesions noted and turgor normal GENERAL SKIN EXAM: no rashes or lesions noted and turgor normal Course 2 Vital Signs: Vital signs: Vital Signs Temperature 98.2 F 05/11/24 11:56 Pulse Rate 68 05/11/24 17:30 Respiratory Rate 23 H 05/11/24 17:30 Blood Pressure 134/76 05/11/24 17:30 Pulse Oximetry 99 05/11/24 17:30 Oxygen Delivery Me thod Room Air 05/11/24 17:30 MDM - Headache Medical Decision Making Patient presented to the emergency department today complaining of continued left-sided headache since his surgery. Patient indicates headache starting in his upper back and wrapping across the top of his head and side of his head. He has not been running fevers and has not had any visual changes. Has not been vomiting. Patient has reproducible tenderness to the musculature in his left upper back-actually pulling away and got out of bed when the nurse was doing her assessment and exam in this area. Patient also jumped for me on palpation. His surgical incision appears clean and intact. Lab work shows no concerns of any elevated white blood cell count. Troponins and EKG were negative given his reports of chest pain earlier today with elevated blood pressure readings. Patient's blood pressure readings have been extremely stable here in the emergency department with his discharge blood pressure at 134/76. Discussed an otherwise negative workup with the patient. He was treated acutely for pain here in the emergency department. I discussed this case with Dr. Swift due to the postoperative status of this patient and complaints of headache/chest pain/hypertension. After reviewing the past medical history and patient's evaluation today, believes we can treat patient with short course of continued pain medication for his postoperative status and have him follow-up outpatient. Discussed all this with the patient. He then asked several other questions somewhat unrelated to his evaluation today. He wanted to know about medications he could take for sleep. Wanted to talk about his concerns for anxiety and his blood pressure. Explained to him that his blood pressure is stable but, if he has elevated readings at home, could do a trial of low-dose hydroxyzine which could also help him with building anxiety. We cannot provide sleeping medication out of the emergency department but went over [id number] options he can try as well. He is to carefully monitor for any new onset fever or vomiting. If these occur he needs to be seen and reevaluated in the ER. Patient verbalizes understanding and agreement to treatment plan. Differential Diagnosis Likely tension headache; Unlikely migraine, subarachnoid hemorrhage, meningitis or postconcussion syndrome Lab Data 05/11/24 15:20 05/11/24 15:20 Laboratory Results WBC 20.71 10^3/uL (3.29-11.43) H 05/11/24 15:20 RBC 5.22 10^6/uL (3.85-5.65) 05/11/24 15:20 Hgb 16.00 g/dL (11.27-16.99) 05/11/24 15:20 Hct 48.8 % (37-53) 05/11/24 15:20 MCV 93.5 fl (82-101) 05/11/24 15:20 MCH 30.7 pg (27-33) 05/11/24 15:20 MCHC 32.8 g/dL (30-55) 05/11/24 15:20 RDW 12.9 % (12.1-15.1) 05/11/24 15:20 Plt Count 313 10^3/cmm (157-399) 05/11/24 15:20 MPV 9.2 fL (7.4-10.4) 05/11/24 15:20 Neut % (Auto) 77.7 % 05/11/24 15:20 Lymph % (Auto) 15.2 % 05/11/24 15:20 [place] % (Auto) 5.7 % 05/11/24 15:20 Eos % (Auto) 0.1 % 05/11/24 15:20 Baso % (Auto) 0.2 % 05/11/24 15:20 Neut # (Auto) 16.09 10^3/uL (1.8-7.7) H 05/11/24 15:20 Lymph # (Auto) 3.1 10^3/uL (0.8-4.8) 05/11/24 15:20 [place] # (Auto) 1.2 10^3/uL (0.2-0.9) H 05/11/24 15:20 Eos # (Auto) 0.0 10^3/uL (0.0-0.8) 05/11/24 15:20 Baso # (Auto) 0.1 10^3/uL (0.0-0.1) 05/11/24 15:20 Nucleated RBC % (auto) 0 % 05/11/24 15:20 Nucleated RBCs # 0.0 /100WBC 05/11/24 15:20 Sodium 139 mmol/L (136-145) 05/11/24 15:20 Potassium 3.6 mmol/L (3.5-5.1) 05/11/24 15:20 Chloride 98 mmol/L (98-107) 05/11/24 15:20 Carbon Dioxide 28 mmol/L (22-29) 05/11/24 15:20 Anion Gap 16.6 (5-19) 05/11/24 15:20 BUN 15 mg/dL (6-20) 05/11/24 15:20 Creatinine 0.8 mg/dL (0.7-1.2) 05/11/24 15:20 GFR Calculation 110.7 mL/min (90-130) 05/11/24 15:20 Glucose 155 mg/dL (65-115) H 05/11/24 15:20 Calculated Osmolality 292 mOsm/kg (285-295) 05/11/24 15:20 Calcium 9.8 mg/dL (8.5-10.5) 05/11/24 15:20 Total Bilirubin 0.4 mg/dL (0.15-1.2) 05/11/24 15:20 AST 50 U/L (0-40) H 05/11/24 15:20 ALT 117 U/L (0-41) H 05/11/24 15:20 Alkaline Phosphatase 108 U/L (40-130) 05/11/24 15:20 Troponin T Baseline < 6 ng/L (0-15) 05/11/24 15:20 Troponin T 120 Minute 6.00 ng/L (0-15) 05/11/24 16:55 Delta Troponin T 0.27951 ABS# (0-10) 05/11/24 16:55 Total Protein 7.1 g/dL (6.6-8.7) 05/11/24 15:20 Albumin 4.5 g/dL (3.5-5.2) 05/11/24 15:20 Globulin 2.6 g/dL (1.3-4.6) 05/11/24 15:20 Urine Color Yellow (Yellow) 05/11/24 16:37 Urine Appearance Clear (CLEAR) 05/11/24 16:37 Urine pH 6.0 (5-7) 05/11/24 16:37 Ur Specific [place] 1.020 (1.005-1.030) 05/11/24 16:37 Urine Protein Negative (Negative) 05/11/24 16:37 Urine Glucose (UA) Negative (Normal) 05/11/24 16:37 Urine Ketones Negative (Negative) 05/11/24 16:37 Urine Blood Negative (Negative) 05/11/24 16:37 Urine Nitrate Negative (Negative) 05/11/24 16:37 Urine Bilirubin Negative (Negative) 05/11/24 16:37 Urine Urobilinogen 1.0 mg/dL (Negative) 05/11/24 16:37 Ur Leukocyte Esterase Negative (Negative) 05/11/24 16:37 Urine RBC 0-2 /hpf (0-2) 05/11/24 16:37 Urine WBC 0-5 /hpf (0-5) 05/11/24 16:37 Ur Squamous Epith Cells 0-5 /hpf (0-5) 05/11/24 16:37 Amorphous Sediment Not Reportable 05/11/24 16:37 Urine Bacteria None seen /hpf (NONE) 05/11/24 16:37 Hyaline Casts 0-4 /lpf H 05/11/24 16:37 No radiology studies performed this visit Discharge Plan Discharge Patient Disposition: Home Clinical Impression: Tension headache, Strain of thoracic back region, S/P cervical spinal fusion Condition: Stable Prescriptions: New oxycodone 5 mg tablet 5 mg PO Q8H PRN (Reason: pain) Qty: 20 0RF hydroxyzine HCl 25 mg tablet 25 mg PO Q8H PRN (Reason: anxiety) Qty: 15 0RF No Action nitroglycerin 0.3 mg tablet, sublingual 0.3 mg sublingual Q5M PRN (Reason: Chest Pain) Rx Instructions: do not exceed 3 doses per episode metoprolol tartrate 25 mg tablet 25 mg PO DAILY albuterol sulfate [ProAir HFA] 90 mcg/actuation HFA aerosol inhaler 2 puff inhalation Q6H PRN (Reason: Shortness Of Breath) budesonide-formoterol [Symbicort] 160-4.5 mcg/actuation HFA aerosol inhaler 2 puff inhalation BID Qty: 10.2 3RF fluticasone propionate [Flonase Allergy Relief] 50 mcg/actuation spray,suspension 1 spray intranasal BID Qty: 16 0RF Rx Instructions: administer into each nostril methocarbamol 750 mg tablet 750 mg PO Q8H PRN (Reason: muscle spasm) 7 Days Qty: 21 0RF pantoprazole [Protonix] 40 mg tablet,delayed release (DR/EC) 40 mg PO PRN PRN (Reason: Pain) oxycodone-acetaminophen 10-325 mg tablet 1 - 2 tab PO Q4H PRN (Reason: pain) 7 Days Qty: 40 0RF metoclopramide HCl [Reglan] 10 mg tablet 10 mg PO Q6H PRN (Reason: nausea and vomiting) Qty: 20 0RF acetaminophen 500 mg Tablet 1,000 mg PO Q6H PRN (Reason: Pain) Discharge Orders: Discharge ED (Routine); Ordered 05/11/24 Ordered By: Miriam Simpson Referrals: Mitch Jimenez MD [Primary Care Provider] - Discharge Diet: Usual diet Discharge Activity: Limit activity as instructed Patient Instructions: Tension Headache (ED), Opioid Safety, Pain Management Activity Restrictions/Additional Instructions: Examination and evaluation here today show no acute concerns regarding your symptoms. Your blood pressure has remained stable here in the emergency department. We do not necessarily want to change your blood pressure regimen as increasing your blood pressure with otherwise normal readings could cause blood pressure to drop too low. Instead, I am giving you a medication called hydroxyzine. You can take this medication when you feel your blood pressure is going up. This can help you relax and help stabilize your blood pressure. They can make you a little drowsy so do not drive after taking that medication. As you are also out of your pain medication we have provided you a short course of narcotic pain medication to continue taking to treat your postoperative pain. We encourage you to keep any upcoming follow-up appointments with your surgeon or, if you feel you need to be seen sooner, to let them know first thing on Monday to schedule an appointment. If you develop slurred speech, visual change or loss, vomiting, or fever he need to be seen and reevaluated back in the ER. Melatonin is an [id number] sleep aid. It comes in various forms including Gummies or pills. You may wish to try this [id number] medication to help you with sleep if needed. Coding Level of Care Code ED [employer] Sales Associate for Vernell Mccormack
== END 2024-05-11 17:43 | disposition home or self-care (01) ==
PROVIDERS: Emergency Provider Physician Assistant; PCP Family Medicine
DX: S29.012A Strain of muscle and tendon of back wall of thorax, initial encounter (principal); G44.209 Tension-type headache, unspecified, not intractable; Z98.890 Other specified postprocedural states; I10 Essential (primary) hypertension; X58.XXXA Exposure to other specified factors, initial encounter
CPT/HCPCS: 36415; 80053; 81003; 81015; 84484; 85025; 93005; 96374; 96375; 99284; J1170; J2360

== ENCOUNTER → 2024-05-21 10:45 | Outpatient (BNVA) | payer MEDICAID, SELFPAY | PROVIDERS: PCP Family Medicine; Visit Provider Orthopaedic Surgery | DX: Z98.1 Arthrodesis status (principal) | CPT/HCPCS: 99024 ==

== ENCOUNTER → 2024-06-18 10:38 | Outpatient (BNVA) | payer MEDICAID, SELFPAY | PROVIDERS: PCP Family Medicine; Visit Provider Orthopaedic Surgery | DX: Z98.1 Arthrodesis status (principal) | CPT/HCPCS: 72040; 99024 ==

== ENCOUNTER → 2024-07-11 15:13 | Outpatient (BNVA) | payer MEDICAID, SELFPAY | PROVIDERS: PCP Family Medicine; Visit Provider Orthopaedic Surgery | DX: M54.9 Dorsalgia, unspecified (principal) | CPT/HCPCS: 72072; 99024 ==

== ENCOUNTER → 2024-07-30 08:44 | Outpatient (BNVA) | payer MEDICAID, SELFPAY | PROVIDERS: PCP Family Medicine; Visit Provider Orthopaedic Surgery | DX: Z98.1 Arthrodesis status (principal) | CPT/HCPCS: 72040; 99024 ==

== ENCOUNTER 2024-08-01 11:55 | Emergency (ER) | payer MEDICAID, SELFPAY ==
[2024-08-01 12:03] VITALS: BP 141/91; PULSE 90; RESP 18; TEMP 36.5; O2SAT 97; BMI 34.4
--- NOTE | 2024-08-01 13:30 | CT_ITS ---
WS: [id number] CT ABDOMEN AND PELVIS NONCONTRAST HISTORY: L flank pain TECHNIQUE: Imaging performed through the abdomen and pelvis. Coronal and sagittal reformats are submi tted. All CT scans at [facility] use at least one of these dose optimization techniques: auto mated exposure control; mA and/or kV adjustment per patient size (includes targeted exams where dose is matched to clinical indication); or iterative reconstruction. DLP: 1120.66 mGy.cm COMPARISON: 11/03/2023 Lower thorax: Lung bases are clear. Visualized heart is normal. No hiatal hernia. Liver: Marked diffuse hepatic steatosis. Mild hepatomegaly. Gallbladder: Prior cholecystectomy. Pancreas: Normal size and attenuation. Normal pancreatic duct. No pancreatitis or mass. Spleen: Normal. Adrenal glands: Normal. No mass. Right kidney: Normal size kidney with no mass or hydronephrosis. Left kidney: Normal size kidney. Several nonobstructing renal calcifications. Mild dilatation of the LEFT renal pelvis and LEFT ureter secondary to a 3 mm calcification at the UV junction. Aorta: Normal abdominal aorta, no aneurysm or atherosclerosis. No free fluid, intraperitoneal air or significant lymphadenopathy. GI tract: No obstruction. Prior appendectomy. Abdominal wall: Mild diastases rectus at the umbilicus. Pelvis: Nondistended urinary bladder. Osseous structures: Unremarkable. CT/CT kidney stone [id number] IMPRESSION: 1. Minimal LEFT hydroureteronephrosis secondary to 3 mm calcification at the U V junction. 2. Additional nonobstructing LEFT renal calcifications. 3. Hepatic steatosis. 4. Prior cholecystectomy and appendectomy.
--- NOTE | 2024-08-01 13:31 | W.ED.ABDPA2 ---
HPI - Abdominal Pain General: Chief Complaint: Abdominal Pain Stated Complaint: Low back pain Time Seen by Provider: 08/01/24 13:15 Source: patient Mode of arrival: ambulatory Limitations: no limitations History of Present Illness: 33-year-old male states he is had left-sided flank pain this morning states pain sharp in nature rates an 8 out of 10 said some nausea he denies any worse improving factors denies any fever or dysuria states has had kidney stones in the past and this feels the same. Associated Symptoms: Reports nausea; Denies chills, diarrhea, dysuria and fever(s) Related Data Home Medications Medication Instructions Recorded Confirmed nitroglycerin 0.3 mg sublingual 0.3 mg sublingual Q5M PRN Chest 06/08/21 08/01/24 tablet Pain acetaminophen 500 mg tablet 1,000 mg PO Q6H PRN Pain 05/11/23 08/01/24 pantoprazole 40 mg tablet,delayed 40 mg PO PRN PRN Pain 05/03/24 08/01/24 release (Protonix) albuterol sulfate 90 mcg/actuation 1 puff inhalation QID PRN 08/01/24 08/01/24 aerosol inhaler Shortness Of Breath Or Wheezing ibuprofen 600 mg tablet 600 mg PO Q12H PRN Pain 08/01/24 08/01/24 metoprolol succinate 25 mg 25 mg PO DAILY 08/01/24 08/01/24 tablet,extended release 24 hr oxycodone-acetaminophen 7.5 mg-325 1 tab PO Q4H PRN Pain 08/01/24 08/01/24 mg tablet Previous Rx's Medication Instructions Recorded metoclopramide HCl 10 mg tablet 10 mg PO Q6H PRN nausea and 02/28/23 (Reglan) vomiting #20 tabs budesonide-formoterol HFA 160 2 puff inhalation BID #10.2 grams 03/20/23 mcg-4.5 mcg/actuation aerosol inhaler (Symbicort) methocarbamol 750 mg tablet 750 mg PO Q8H PRN muscle spasm 7 05/08/24 days #21 tabs hydroxyzine HCl 25 mg tablet 25 mg PO Q8H PRN anxiety #15 tabs 05/11/24 Soft collar #1 ea 05/21/24 hydrocodone 5 mg-acetaminophen 325 1 tab PO Q6H PRN pain #14 tabs 08/01/24 mg tablet ondansetron 4 mg disintegrating 4 mg PO Q6H PRN nausea and 08/01/24 tablet vomiting #14 tabs Allergies Allergy/AdvReac Type Severity Reaction Status Date / Time Alpha-Gal Allergy ADR-Diarrhe Verified 08/01/24 12:06 (Loxecxopu-Spycs-8,3-Gala a clindamycin Allergy THROAT Verified 08/01/24 12:06 SWELLING AND ITCHY crab Allergy ALGY-Hives Verified 08/01/24 12:06 doxycycline Allergy RASH Verified 08/01/24 12:06 galcanezumab-gnlm Allergy ALGY-Rash Verified 08/01/24 12:06 [From Emgality Pen] mushroom Allergy ALGY-Hives Verified 08/01/24 12:06 Penicillins Allergy ALGY-Rash Verified 08/01/24 12:06 Review of Systems Const: Denies: fever(s), chills, body aches or change in appetite ENMT: Denies: throat pain or dental pain Card: Denies: chest pain Resp: Denies: dyspnea GI: Reports: nausea; Denies: abdominal pain or diarrhea : Reports: flank pain; Denies: dysuria Musc: Denies: neck pain or back pain Skin/Breast: Denies: rash Neuro: Denies: headache(s) PFSH ED PFSH: Medical History H/O coronary angiogram GERD (gastroesophageal reflux disease) Erectile dysfunction ADHD COVID Anxiety Hypercholesterolemia Pulmonary embolism Gastroenteritis Hypertension Left ureteral calculus Surgical History History of laparoscopic appendectomy 05/11/23 Dr. Maya H/O esophagogastroduodenoscopy (04/19/22) History of umbilical hernia repair (11/01/21) Recurrent repaired with with ultrapro mesh Status post laparoscopic cholecystectomy (11/01/21) History of umbilical hernia repair 2019 H/O neck surgery BIOPSY OF NECK SWOLLEN LYMPH NODE H/O hernia repair Hx of tonsillectomy Family History Mother , 48 Diabetes Cancer BREAST CAD (coronary artery disease) Hypertension Father Cancer CAD (coronary artery disease) Hypertension Diabetes Family/Other Anesthesia complication CAD (coronary artery disease) Chronic kidney disease (CKD) Dementia Diabetes Lung disease Stroke Suicide Other Hyperlipidemia Seizure Denies family history of Clotting disorder Bleeding disorder Social History Smoking and tobacco/nicotine status: never used tobacco/nicotine Alcohol intake: current Alcohol intake frequency: holidays/special occasions only Substance/Drug Use: never Marital status: Current occupational status: disabled Physical Exam Const: COMMON NORMALS: no acute distress, patient oriented x3 and healthy appearing HENMT: COMMON NORMALS: normocephalic and atraumatic HEAD & SCALP: normocephalic and atraumatic Eye: COMMON NORMALS: Equal, round and reactive pupils present and EOMs intact bilaterally PUPIL: Yes Equal, round and reactive pupils present Neck/C-Spine: COMMON NORMALS: full ROM and supple Chest: COMMONS NORMALS: normal inspection of the chest Resp: COMMON NORMALS: normal respiratory effort Cardio: COMMON NORMALS: regular rate, regular rhythm and No murmurs present (Cardio) RATE: regular rate RHYTHM: regular rhythm GI: COMMON NORMALS: Normal to inspection, nondistended, normoactive bowel sounds present, Soft to palpation, non-tender and no masses PALPATION: Yes Soft to palpation Extremity: COMMON NORMALS: normal to inspection and full ROM Neuro: COMMON NORMALS: patient oriented x3, moves all extremities and no focal motor deficits Psych: COMMON NORMALS: mental status grossly normal, Normal thought process present and cooperative THOUGHT PROCESS: Normal thought process present Skin: COMMON NORMALS: no rashes or lesions noted and no wounds GENERAL SKIN EXAM: no rashes or lesions noted Course Vital Signs: Vital signs: Vital Signs Temperature 97.7 F 08/01/24 12:03 Pulse Rate 93 08/01/24 13:58 Respiratory Rate 16 08/01/24 13:58 Blood Pressure 134/80 08/01/24 13:58 Pulse Oximetry 94 08/01/24 13:58 Oxygen Delivery Me thod Room Air 08/01/24 12:03 MDM - Abdominal Pain Medical Decision Making Patient presents with flank pain CT shows left-sided kidney stone show on CT 3 mm should be of the past patient stable for discharge follow-up PCP return if worsening. Medical Records I reviewed the patient's medical records. Lab Data I reviewed the patient's lab results. 08/01/24 13:36 08/01/24 13:36 Labs/Radiology: Radiology Impressions Abdomen/Pelvis CT 08/01/24 13:30 IMPRESSION: 1. Minimal LEFT hydroureteronephrosis secondary to 3 mm calcification at the UV junction. 2. Additional nonobstructing LEFT renal calcifications. 3. Hepatic steatosis. 4. Prior cholecystectomy and appendectomy. Laboratory Results WBC 9.73 10^3/uL (3.29-11.43) 08/01/24 13:36 RBC 4.86 10^6/uL (3.85-5.65) 08/01/24 13:36 Hgb 14.70 g/dL (11.27-16.99) 08/01/24 13:36 Hct 44.4 % (37-53) 08/01/24 13:36 MCV 91.4 fl (82-101) 08/01/24 13:36 MCH 30.2 pg (27-33) 08/01/24 13:36 MCHC 33.1 g/dL (30-55) 08/01/24 13:36 RDW 12.4 % (12.1-15.1) 08/01/24 13:36 Plt Count 242 10^3/cmm (157-399) 08/01/24 13:36 MPV 9.3 fL (7.4-10.4) 08/01/24 13:36 Neut % (Auto) 58.3 % 08/01/24 13:36 Lymph % (Auto) 28.7 % 08/01/24 13:36 [place] % (Auto) 9.4 % 08/01/24 13:36 Eos % (Auto) 2.8 % 08/01/24 13:36 Baso % (Auto) 0.6 % 08/01/24 13:36 Neut # (Auto) 5.68 10^3/uL (1.8-7.7) 08/01/24 13:36 Lymph # (Auto) 2.8 10^3/uL (0.8-4.8) 08/01/24 13:36 [place] # (Auto) 0.9 10^3/uL (0.2-0.9) 08/01/24 13:36 Eos # (Auto) 0.3 10^3/uL (0.0-0.8) 08/01/24 13:36 Baso # (Auto) 0.1 10^3/uL (0.0-0.1) 08/01/24 13:36 Nucleated RBC % (auto) 0 % 08/01/24 13:36 Nucleated RBCs # 0.0 /100WBC 08/01/24 13:36 Sodium 141 mmol/L (136-145) 08/01/24 13:36 Potassium 3.8 mmol/L (3.5-5.1) 08/01/24 13:36 Chloride 106 mmol/L (98-107) 08/01/24 13:36 Carbon Dioxide 23 mmol/L (22-29) 08/01/24 13:36 Anion Gap 15.8 (5-19) 08/01/24 13:36 BUN 16 mg/dL (6-20) 08/01/24 13:36 Creatinine 0.9 mg/dL (0.7-1.2) 08/01/24 13:36 GFR Calculation 96.6 mL/min (90-130) 08/01/24 13:36 Glucose 94 mg/dL (65-115) 08/01/24 13:36 Calculated Osmolality 293 mOsm/kg (285-295) 08/01/24 13:36 Calcium 8.4 mg/dL (8.5-10.5) L 08/01/24 13:36 Total Bilirubin 0.2 mg/dL (0.15-1.2) 08/01/24 13:36 AST 65 U/L (0-40) H 08/01/24 13:36 ALT 128 U/L (0-41) H 08/01/24 13:36 Alkaline Phosphatase 92 U/L (40-130) 08/01/24 13:36 Total Protein 7.3 g/dL (6.6-8.7) 08/01/24 13:36 Albumin 4.4 g/dL (3.5-5.2) 08/01/24 13:36 Globulin 2.9 g/dL (1.3-4.6) 08/01/24 13:36 Lipase 27 U/L (13-60) 08/01/24 13:36 Urine Color Yellow (Yellow) 08/01/24 14:27 Urine Appearance Clear (CLEAR) 08/01/24 14:27 Urine pH 5.0 (5-7) 08/01/24 14: Ur Specific [place] 1.025 (1.005-1.030) 08/01/24 14: Urine Protein Negative (Negative) 08/01/24 14: Urine Glucose (UA) Negative (Normal) 08/01/24 14: Urine Ketones Negative (Negative) 08/01/24 14: Urine Blood 1+ (Negative) A 08/01/24 14: Urine Nitrate Negative (Negative) 08/01/24 14: Urine Bilirubin Negative (Negative) 08/01/24 14: Urine Urobilinogen 1.0 mg/dL (Negative) 08/01/24 14: Ur Leukocyte Esterase Negative (Negative) 08/01/24 14: Urine RBC 6-10 /hpf (0-2) 08/01/24 14: Urine WBC 0-5 /hpf (0-5) 08/01/24 14: Ur Squamous Epith Cells 0-5 /hpf (0-5) 08/01/24 14: Amorphous Sediment Not Reportable 08/01/24 14: Urine Bacteria None seen /hpf (NONE) 08/01/24 14: Hyaline Casts 0.40 /lpf 08/01/24 14:27 All radiology interpretation(s) finalized by discharge Discharge Plan Discharge Patient Disposition: Home Clinical Impression: Kidney stone Condition: Stable Prescriptions: New hydrocodone-acetaminophen 5-325 mg tablet 1 tab PO Q6H PRN (Reason: pain) Qty: 14 0RF ondansetron 4 mg tablet,disintegrating 4 mg PO Q6H PRN (Reason: nausea and vomiting) Qty: 14 0RF No Action nitroglycerin 0.3 mg tablet, sublingual 0.3 mg sublingual Q5M PRN (Reason: Chest Pain) Rx Instructions: do not exceed 3 doses per episode budesonide-formoterol [Symbicort] 160-4.5 mcg/actuation HFA aerosol inhaler 2 puff inhalation BID Qty: 10.2 3RF (DME) Soft collar See Rx Instructions .Route .MEDSUPPLY Qty: 1 0RF Rx Instructions: As directed methocarbamol 750 mg tablet 750 mg PO Q8H PRN (Reason: muscle spasm) 7 Days Qty: 21 0RF pantoprazole [Protonix] 40 mg tablet,delayed release (DR/EC) 40 mg PO PRN PRN (Reason: Pain) hydroxyzine HCl 25 mg tablet 25 mg PO Q8H PRN (Reason: anxiety) Qty: 15 0RF metoclopramide HCl [Reglan] 10 mg tablet 10 mg PO Q6H PRN (Reason: nausea and vomiting) Qty: 20 0RF acetaminophen 500 mg Tablet 1,000 mg PO Q6H PRN (Reason: Pain) metoprolol succinate 25 mg tablet extended release 24 hr 25 mg PO DAILY oxycodone-acetaminophen 7.5-325 mg tablet 1 tab PO Q4H PRN (Reason: Pain) albuterol sulfate [ProAir HFA] 90 mcg/actuation Hfa Aerosol Inhaler 1 puff INHALATION QID PRN (Reason: Shortness Of Breath Or Wheezing) ibuprofen 600 mg tablet 600 mg PO Q12H PRN (Reason: Pain) Discharge Orders: Discharge ED (Routine); Ordered 08/01/24 Ordered By: Eileen Adair Referrals: Mitch Jimenez MD [Primary Care Provider] - Discharge Diet: Advance as tolerated Discharge Activity: Resume usual activity Patient Instructions: Kidney Stones (ED), Opioid Safety Coding Level of Care Code ED Professor Of Psychology for Vernell Mccormack
[2024-08-01 13:50] LABS: Basophils # 0.1 10^3/uL (0.0-0.1); Basophils % 0.6 %; Eosinophils # 0.3 10^3/uL (0.0-0.8); Eosinophils % 2.8 %; Hematocrit 44.4 % (37-53); Lymphocytes # 2.8 10^3/uL (0.8-4.8); Lymphocytes % 28.7 %; Mean Corpuscular HGB Conc 33.1 g/dL (30-55); Mean Corpuscular Hemoglobin 30.2 pg (27-33); Mean Corpuscular Volume 91.4 fl (82-101); Mean Platelet Volume 9.3 fL (7.4-10.4); Monocytes # 0.9 10^3/uL (0.2-0.9); Monocytes % 9.4 %; Neutrophils # 5.68 10^3/uL (1.8-7.7); Neutrophils % 58.3 %; Nucleated Red Blood Cells % 0 %; Platelet Count 242 10^3/cmm (157-399); Red Blood Count 4.86 10^6/uL (3.85-5.65); Red Cell Distribution Width 12.4 % (12.1-15.1); White Blood Count 9.73 10^3/uL (3.29-11.43)
[2024-08-01 13:54] VITALS: RESP 19; O2SAT 100
[2024-08-01] MEDS: ondansetron 2 mg/ML SDV 2 mL 4 MG IVP (13:54)
[2024-08-01] MEDS: morphine 4 mg/mL SDV 1 mL IVP (13:54)
[2024-08-01] MEDS: LORazepam 2 mg/mL INJ 1 mL 1 MG IVP (13:55)
[2024-08-01 13:58] VITALS: BP 134/80; PULSE 93; RESP 16; O2SAT 94
[2024-08-01 14:08] LABS: Alanine Aminotransferase 128 U/L (0-41); Albumin Level 4.4 g/dL (3.5-5.2); Alkaline Phosphatase 92 U/L (40-130); Anion Gap 15.8 (5-19); Aspartate Amino Transferase 65 U/L (0-40); Blood Urea Nitrogen 16 mg/dL (6-20); Calcium 8.4 mg/dL (8.5-10.5); Carbon Dioxide 23 mmol/L (22-29); Chloride 106 mmol/L (98-107); Globulin 2.9 g/dL (1.3-4.6); Glomerular Filtration Rate 96.6 mL/min (90-130); Glucose 94 mg/dL (65-115); Lipase 27 U/L (13-60); Osmolality Calculated 293 mOsm/kg (285-295); Potassium 3.8 mmol/L (3.5-5.1); Sodium 141 mmol/L (136-145); Total Bilirubin 0.2 mg/dL (0.15-1.2); Total Protein 7.3 g/dL (6.6-8.7)
[2024-08-01 14:58] LABS: Bilirubin Urine Negative (Negative); Blood Urine 1+ (Negative); Glucose Urine UA Negative (Normal); Ketones Urine Negative (Negative); Leukocyte Esterase Urine Negative (Negative); Nitrate Urine Negative (Negative); Protein Urine Negative (Negative); Specific Gravity, Urine 1.025 (1.005-1.030); Urine Appearance Clear (CLEAR); Urine Color Yellow (Yellow)
[2024-08-01 15:01] LABS: Add Urine Microscopic? YES; Bacteria Urine None Seen /hpf; Squamous Epithelial Cell Urine 0-5 /hpf (0-5); WBC Urine 0-5 /hpf (0-5)
[2024-08-01 15:16] VITALS: BP 138/89; PULSE 91; O2SAT 92
--- NOTE | 2024-08-06 08:36 | DCPLANNER ---
Referral for urology sent to [facility] urology
== END 2024-08-01 15:18 | disposition home or self-care (01) ==
PROVIDERS: Emergency Provider Emergency Medicine; PCP Family Medicine
DX: N20.0 Calculus of kidney (principal); Z87.442 Personal history of urinary calculi; I10 Essential (primary) hypertension; Z86.711 Personal history of pulmonary embolism
CPT/HCPCS: 36415; 74176; 80053; 81001; 83690; 85025; 96374; 96375; 99285; J2060; J2270; J2405

== ENCOUNTER 2024-08-22 07:51 | Outpatient (RCR) | payer MEDICAID, SELFPAY | END 2024-09-17 23:59 | disposition home or self-care (01) | LOC: SPT 07:51 | PROVIDERS: Visit Provider Orthopaedic Surgery | DX: M54.2 Cervicalgia (principal); G89.29 Other chronic pain | CPT/HCPCS: 97110; 97161; 97530 ==

== ENCOUNTER 2024-09-22 08:48 | Emergency (ER) | payer MEDICAID, SELFPAY ==
[2024-09-22 08:57] VITALS: BP 146/75; PULSE 83; RESP 18; TEMP 36.4; O2SAT 96; BMI 34.2
[2024-09-22 09:45] VITALS: BP 124/77; PULSE 88; O2SAT 96
--- NOTE | 2024-09-22 09:45 | CTR_ITS ---
PROCEDURE INFORMATION: Exam: CT Abdomen And Pelvis Without Contrast Exam date and time: 09/22/2024 9:58 AM Age: 33 years old Clinical indication: Abdominal pain; Flank; Left; Additional info: Left flank pain TECHNIQUE: Imaging protocol: Computed tomography of the abdomen and pelvis without contrast. Radiation optimization: All CT scans at this facility use at least one of these dose optimization techniques: automated exposure control; mA and/or kV adjustment per patient size (includes targeted exams where dose is matched to clinical indication); or iterative reconstruction. COMPARISON: CT kidney stone [id number] 08/01/2024 1:37 PM RADIATION DOSE METRICS: Total DLP (mGy-cm): 1130.65 FINDINGS: Liver: There is a diffuse decrease in hepatic parenchymal density, consistent with fatty infiltration. Gallbladder and biliary ducts: There has been a cholecystectomy. There is no common bile duct dilation. Pancreas: The pancreas is normal. Spleen: The spleen is normal. Adrenal glands: The adrenal glands are normal. Kidneys and ureters: There are multiple bilateral renal collecting system calcifications. No additional calculi in the ureters or bladder. Stomach and bowel: There is moderately excessive colonic stool content. There is no evidence of intestinal perforation or obstruction. Appendix: There has been an appendectomy. Intraperitoneal space: Unremarkable. No free air. No significant fluid collection. Vasculature: Unremarkable.No abdominal aortic aneurysm. Lymph nodes: Unremarkable.No enlarged lymph nodes. Urinary bladder: The bladder is normal. Reproductive: Unremarkable as visualized. Bones/joints: There is mild left hydronephrosis with a 3 mm calculus mid left ureter at the level of the L3 vertebral body series 4, image 48. Soft tissues: There is a fat-containing umbilical hernia. CT/CT abdomen pelvis wo con [id number] IMPRESSION: 1. There is mild left hydronephrosis with a 3 mm calculus mid left ureter at the level of the L3 vertebral body series 4, image 48. 2. There is bilateral punctate nonobstructive nephrolithiasis.
[2024-09-22] MEDS: ketorolac 30 mg/mL INJ IVP (10:12)
[2024-09-22] MEDS: ondansetron 2 mg/ML SDV 2 mL 4 MG IVP (10:13)
[2024-09-22 10:16] LABS: Basophils # 0.1 10^3/uL (0.0-0.1); Basophils % 0.8 %; Eosinophils # 0.3 10^3/uL (0.0-0.8); Eosinophils % 3.4 %; Hematocrit 46.8 % (37-53); Lymphocytes # 2.9 10^3/uL (0.8-4.8); Mean Corpuscular HGB Conc 32.5 g/dL (30-55); Mean Corpuscular Hemoglobin 29.9 pg (27-33); Mean Corpuscular Volume 92.1 fl (82-101); Mean Platelet Volume 9.1 fL (7.4-10.4); Monocytes # 0.9 10^3/uL (0.2-0.9); Neutrophils # 4.77 10^3/uL (1.8-7.7); Neutrophils % 53.4 %; Nucleated Red Blood Cells % 0 %; Platelet Count 250 10^3/cmm (157-399); Red Blood Count 5.08 10^6/uL (3.85-5.65); Red Cell Distribution Width 12.6 % (12.1-15.1); White Blood Count 8.93 10^3/uL (3.29-11.43)
[2024-09-22] MEDS: morphine 4 mg/mL SDV 1 mL IVP (10:17)
[2024-09-22] MEDS: sodium chloride 0.9% 1,000 ML 999 ML IV (10:17)
[2024-09-22 10:18] VITALS: BP 106/62; PULSE 81; O2SAT 92
[2024-09-22 10:35] LABS: Blood Urea Nitrogen 12 mg/dL (6-20); Calcium 9.5 mg/dL (8.5-10.5); Carbon Dioxide 26 mmol/L (22-29); Chloride 95 mmol/L (98-107); Creatinine Clr Calc Pharmacy 138.2469; Glomerular Filtration Rate 96.6 mL/min (90-130); Glucose 112 mg/dL (65-115); Osmolality Calculated 293 mOsm/kg (285-295); Sodium 141 mmol/L (136-145)
[2024-09-22 10:36] LABS: Anion Gap 24.1 (5-19); Potassium 4.1 mmol/L (3.5-5.1)
[2024-09-22 11:12] VITALS: BP 116/79; PULSE 79; O2SAT 94
[2024-09-22 11:15] LABS: Bilirubin Urine Negative (Negative); Blood Urine 3+ (Negative); Glucose Urine UA Negative (Normal); Ketones Urine Negative (Negative); Leukocyte Esterase Urine 1+ (Negative); Nitrate Urine Negative (Negative); Protein Urine 2+ (Negative); Urine Appearance Turbid (CLEAR)
[2024-09-22 11:19] LABS: Add Urine Microscopic? YES; Hyaline Casts Urine 5.36 /lpf; RBC Urine >100 /hpf (0-2); Squamous Epithelial Cell Urine 0-5 /hpf (0-5)
[2024-09-22 11:28] LABS: Urine Color Orange (Yellow)
[2024-09-22 11:29] LABS: Add Urine Culture? Yes; Bacteria Urine 1+ /hpf; Specific Gravity, Urine 1.036 (1.005-1.030); UA Slide Review UA Slide Review Perf
[2024-09-22] MEDS: morphine 4 mg/mL SDV 1 mL 2 MG IVP (11:29)
--- NOTE | 2024-09-22 12:36 | ED_ITS ---
HPI - Back Pain/Injury 2 General: Chief Complaint: Back Pain/Injury Stated Complaint: pain in lower back Time Seen by Provider: 09/22/24 09:20 History of Present Illness: This patient is a 33-year-old white male who presents to the emergency department complaining of left flank pain. States this started around 130 this morning. He does have a history of kidney stones and states it feels like previous kidney stone. No fever. No dysuria. Related Data Home Medications Medication Instructions Recorded Confirmed nitroglycerin 0.3 mg sublingual 0.3 mg sublingual Q5M PRN Chest 06/08/21 09/22/24 tablet Pain pantoprazole 40 mg tablet,delayed 40 mg PO PRN PRN Acid Reflux 05/03/24 09/22/24 release (Protonix) albuterol sulfate 90 mcg/actuation 1 puff inhalation QID PRN 08/01/24 09/22/24 aerosol inhaler Shortness Of Breath Or Wheezing ibuprofen 600 mg tablet 600 mg PO Q12H PRN Pain 08/01/24 09/22/24 metoprolol succinate 25 mg 25 mg PO DAILY 08/01/24 09/22/24 tablet,extended release 24 hr budesonide-formoterol HFA 160 2 puff inhalation BID PRN 09/22/24 09/22/24 mcg-4.5 mcg/actuation aerosol Shortness Of Breath inhaler (Symbicort) tamsulosin 0.4 mg capsule 0.4 mg PO DAILY PRN urine flow 09/22/24 09/22/24 Previous Rx's Medication Instructions Recorded methocarbamol 750 mg tablet 750 mg PO Q8H PRN muscle spasm 7 05/08/24 days #21 tabs hydroxyzine HCl 25 mg tablet 25 mg PO Q8H PRN anxiety #15 tabs 05/11/24 Soft collar #1 ea 05/21/24 ondansetron 4 mg disintegrating 4 mg PO Q6H PRN nausea and 08/01/24 tablet vomiting #14 tabs ciprofloxacin HCl 500 mg tablet 500 mg PO BID #20 tabs 09/22/24 hydrocodone 5 mg-acetaminophen 325 1 tab PO Q4H PRN pain #20 tabs 09/22/24 mg tablet tamsulosin 0.4 mg capsule (Flomax) 0.4 mg PO DAILY #7 caps 01/05/25 Allergies Allergy/AdvReac Type Severity Reaction Status Date / Time Alpha-Gal Allergy ADR-Diarrhe Verified 08/01/24 12:06 (Qawnanvwy-Urlhw-7,3-Gala a clindamycin Allergy THROAT Verified 08/01/24 12:06 SWELLING AND ITCHY crab Allergy ALGY-Hives Verified 08/01/24 12:06 doxycycline Allergy RASH Verified 08/01/24 12:06 galcanezumab-gnlm Allergy ALGY-Rash Verified 08/01/24 12:06 [From Emgality Pen] mushroom Allergy ALGY-Hives Verified 08/01/24 12:06 Penicillins Allergy ALGY-Rash Verified 08/01/24 12:06 Review of Systems 2 General: Reports: 10 or more systems reviewed and unremarkable except in HPI and below : Reports: flank pain PFSH ED 2 PFSH: Medical History H/O coronary angiogram GERD (gastroesophageal reflux disease) Erectile dysfunction ADHD COVID Anxiety Hypercholesterolemia Pulmonary embolism Gastroenteritis Hypertension Left ureteral calculus Surgical History History of laparoscopic appendectomy 05/11/23 Dr. Maya H/O esophagogastroduodenoscopy (04/19/22) History of umbilical hernia repair (11/01/21) Recurrent repaired with with ultrapro mesh Status post laparoscopic cholecystectomy (11/01/21) History of umbilical hernia repair 2019 H/O neck surgery BIOPSY OF NECK SWOLLEN LYMPH NODE H/O hernia repair Hx of tonsillectomy Family History Mother , 48 Diabetes Cancer BREAST CAD (coronary artery disease) Hypertension Father Cancer CAD (coronary artery disease) Hypertension Diabetes Family/Other Anesthesia complication CAD (coronary artery disease) Chronic kidney disease (CKD) Dementia Diabetes Lung disease Stroke Suicide Other Hyperlipidemia Seizure Denies family history of Clotting disorder Bleeding disorder Social History Smoking and tobacco/nicotine status: never used tobacco/nicotine Alcohol intake: current Alcohol intake frequency: holidays/special occasions only Substance/Drug Use: never Marital status: Current occupational status: disabled Physical Exam 2 Const: COMMON NORMALS: patient oriented x3 and no limitations GENERAL APPEARANCE: cooperative HENMT: COMMON NORMALS: normocephalic, atraumatic, Normal nasal mucous membranes and turbinates present, moist oral mucous membranes and oropharynx normal HEAD & SCALP: normal to inspection, normocephalic and atraumatic F DONALDO & SINUS: normal facial exam NOSE: Normal nasal mucous membranes and turbinates present Eye: COMMON NORMALS: Equal, round and reactive pupils present, EOMs intact bilaterally and conjunctivae normal GENERAL EYE: appearance normal, both eyes and all related structures CONJUNCTIVA: Yes conjunctivae normal PUPIL: Yes Equal, round and reactive pupils present Neck/C-Spine: COMMON NORMALS: supple and no JVD Chest: COMMONS NORMALS: normal inspection of the chest Resp: COMMON NORMALS: normal respiratory effort and clear to auscultation bilaterally AUSCULTATION: clear to auscultation bilaterally Cardio: COMMON NORMALS: no JVD, regular rate, regular rhythm, No gallops present (Cardio), No murmurs present (Cardio) and No rub (Cardio) RATE: r egular rate RHYTHM: regular rhythm GI: COMMON NORMALS: Normal to inspection, nondistended, normoactive bowel sounds present, Soft to palpation and non-tender AUSCULTATION: Yes normoactive bowel sounds PALPATION: Yes Soft to palpation : COMMON NORMALS: Yes no CVA tenderness BLADDER/KIDNEY EXAM: Yes no CVA tenderness Back/Pelvis: COMMON NORMALS: no CVA tenderness and thoracic and lumbar spine normal to inspection Extremity: COMMON NORMALS: normal to inspection Neuro: COMMON NORMALS: patient oriented x3 and CN's II-XII intact bilaterally Psych: COMMON NORMALS: mental status grossly normal, Normal thought process present and cooperative THOUGHT PROCESS: Normal thought process present Skin: COMMON NORMALS: no rashes or lesions noted, turgor normal and no jaundice GENERAL SKIN EXAM: no rashes or lesions noted and turgor normal Course 2 Vital Signs: Vital signs: Vital Signs Temperature 97.6 F 09/22/24 08:57 Pulse Rate 79 09/22/24 11:12 Respiratory Rate 18 09/22/24 08:57 Blood Pressure 116/79 09/22/24 11:12 Pulse Oximetry 94 09/22/24 11:12 Oxygen Delivery Me thod Room Air 09/22/24 10:18 MDM - Back Pain/Injury Medical Decision Making CBC and BMP were normal. Urinalysis does reveal some bacteria and white blood cells. CT scan of the abdomen and pelvis was read by the radiologist. There is a 3 mm stone in the mid left ureter causing mild hydronephrosis. Patient was given IV fluids, morphine, Toradol and Zofran. He is feeling better. Also gave him 1 g of Rocephin IV. Patient was subsequently discharged in stable condition with prescriptions for hydrocodone, Flomax, ciprofloxacin. Recommended he follow-up with his primary care physician in 2 to 3 days if this is not resolved. Labs 09/22/24 10:09 09/22/24 10:09 Radiology Impressions Abdomen/Pelvis CT 09/22/24 09:45 IMPRESSION: 1. There is mild left hydronephrosis with a 3 mm calculus mid left ureter at the level of the L3 vertebral body series 4, image 48. 2. There is bilateral punctate nonobstructive nephrolithiasis. Laboratory Results WBC 8.93 10^3/uL (3.29-11.43) 09/22/24 10:09 RBC 5.08 10^6/uL (3.85-5.65) 09/22/24 10:09 Hgb 15.20 g/dL (11.27-16.99) 09/22/24 10:09 Hct 46.8 % (37-53) 09/22/24 10:09 MCV 92.1 fl (82-101) 09/22/24 10:09 MCH 29.9 pg (27-33) 09/22/24 10:09 MCHC 32.5 g/dL (30-55) 09/22/24 10:09 RDW 12.6 % (12.1-15.1) 09/22/24 10:09 Plt Count 250 10^3/cmm (157-399) 09/22/24 10:09 MPV 9.1 fL (7.4-10.4) 09/22/24 10:09 Neut % (Auto) 53.4 % 09/22/24 10:09 Lymph % (Auto) 32.0 % 09/22/24 10:09 [place] % (Auto) 10.0 % 09/22/24 10:09 Eos % (Auto) 3.4 % 09/22/24 10:09 Baso % (Auto) 0.8 % 09/22/24 10:09 Neut # (Auto) 4.77 10^3/uL (1.8-7.7) 09/22/24 10:09 Lymph # (Auto) 2.9 10^3/uL (0.8-4.8) 09/22/24 10:09 [place] # (Auto) 0.9 10^3/uL (0.2-0.9) 09/22/24 10:09 Eos # (Auto) 0.3 10^3/uL (0.0-0.8) 09/22/24 10:09 Baso # (Auto) 0.1 10^3/uL (0.0-0.1) 09/22/24 10:09 Nucleated RBC % (auto) 0 % 09/22/24 10:09 Nucleated RBCs # 0.0 /100WBC 09/22/24 10:09 Sodium 141 mmol/L (136-145) 09/22/24 10:09 Potassium 4.1 mmol/L (3.5-5.1) 09/22/24 10:09 Chloride 95 mmol/L (98-107) L 09/22/24 10:09 Carbon Dioxide 26 mmol/L (22-29) 09/22/24 10:09 Anion Gap 24.1 (5-19) H 09/22/24 10:09 BUN 12 mg/dL (6-20) 09/22/24 10:09 Creatinine 0.9 mg/dL (0.7-1.2) 09/22/24 10:09 GFR Calculation 96.6 mL/min (90-130) 09/22/24 10:09 Glucose 112 mg/dL (65-115) 09/22/24 10:09 Calculated Osmolality 293 mOsm/kg (285-295) 09/22/24 10:09 Calcium 9.5 mg/dL (8.5-10.5) 09/22/24 10:09 Urine Color [place] (Yellow) A 09/22/24 11:09 Urine Appearance [place] (CLEAR) A 09/22/24 11:09 Urine pH 5.0 (5-7) 09/22/24 11:09 Ur Specific [place] 1.036 (1.005-1.030) H 09/22/24 11:09 Urine Protein 2+ (Negative) A 09/22/24 11:09 Urine Glucose (UA) Negative (Normal) 09/22/24 11:09 Urine Ketones Negative (Negative) 09/22/24 11:09 Urine Blood 3+ (Negative) A 09/22/24 11:09 Urine Nitrate Negative (Negative) 09/22/24 11:09 Urine Bilirubin Negative (Negative) 09/22/24 11:09 Urine Urobilinogen 1.0 mg/dL (Negative) 09/22/24 11:09 Ur Leukocyte Esterase 1+ (Negative) A 09/22/24 11:09 Urine RBC >100 /hpf (0-2) H 09/22/24 11:09 Urine WBC 6-10 /hpf (0-5) 09/22/24 11:09 Ur Squamous Epith Cells 0-5 /hpf (0-5) 09/22/24 11:09 Amorphous Sediment Not Reportable 09/22/24 11:09 Urine Bacteria 1+ /hpf (NONE) H 09/22/24 11:09 Hyaline Casts 5.36 /lpf 09/22/24 11:09 All radiology interpretation(s) finalized by discharge Discharge Plan Discharge Patient Disposition: Home Clinical Impression: Calculus, ureteral, Acute UTI Condition: Stable Prescriptions: New hydrocodone-acetaminophen 5-325 mg tablet 1 tab PO Q4H PRN (Reason: pain) Qty: 20 0RF tamsulosin [Flomax] 0.4 mg capsule 0.4 mg PO DAILY Qty: 7 0RF ciprofloxacin HCl 500 mg tablet 500 mg PO BID Qty: 20 0RF Discontinued oxycodone-acetaminophen 7.5-325 mg tablet 1 tab PO Q4H PRN (Reason: Pain) No Action nitroglycerin 0.3 mg tablet, sublingual 0.3 mg sublingual Q5M PRN (Reason: Chest Pain) Rx Instructions: do not exceed 3 doses per episode (DME) Soft collar See Rx Instructions .Route .MEDSUPPLY Qty: 1 0RF Rx Instructions: As directed methocarbamol 750 mg tablet 750 mg PO Q8H PRN (Reason: muscle spasm) 7 Days Qty: 21 0RF pantoprazole [Protonix] 40 mg tablet,delayed release (DR/EC) 40 mg PO PRN PRN (Reason: Acid Reflux) hydroxyzine HCl 25 mg tablet 25 mg PO Q8H PRN (Reason: anxiety) Qty: 15 0RF metoprolol succinate 25 mg tablet extended release 24 hr 25 mg PO DAILY albuterol sulfate [ProAir HFA] 90 mcg/actuation Hfa Aerosol Inhaler 1 puff INHALATION QID PRN (Reason: Shortness Of Breath Or Wheezing) ibuprofen 600 mg tablet 600 mg PO Q12H PRN (Reason: Pain) ondansetron 4 mg tablet,disintegrating 4 mg PO Q6H PRN (Reason: nausea and vomiting) Qty: 14 0RF tamsulosin 0.4 mg capsule 0.4 mg PO DAILY PRN (Reason: urine flow) budesonide-formoterol [Symbicort] 160-4.5 mcg/actuation HFA aerosol inhaler 2 puff inhalation BID PRN (Reason: Shortness Of Breath) Discharge Orders: Discharge ED (Routine); Ordered 09/22/24 Ordered By: Ziggy Soto Referrals: Mitch Jimenez MD [Primary Care Provider] - Patient Instructions: Opioid Safety, Pain Management Coding Level of Care Code ED Green Building Design Specialist for Vernell Mccormack
== END 2024-09-22 12:46 | disposition home or self-care (01) ==
PROVIDERS: Emergency Provider Emergency Medicine; PCP Family Medicine
DX: N20.1 Calculus of ureter (principal); N39.0 Urinary tract infection, site not specified; I10 Essential (primary) hypertension; Z87.442 Personal history of urinary calculi
CPT/HCPCS: 74176; 80048; 81001; 85025; 87086; 96361; 96374; 96375; 96376; 99285; J1885; J2270; J2405; J7030

== ENCOUNTER 2024-09-29 09:52 | Emergency (ER) | payer MEDICAID, SELFPAY ==
[2024-09-29 11:20] VITALS: BP 137/89; PULSE 90; RESP 18; TEMP 36.3; O2SAT 97
[2024-09-29 11:31] LABS: Bilirubin Urine Negative (Negative); Blood Urine Negative (Negative); Glucose Urine UA Negative (Normal); Ketones Urine Negative (Negative); Leukocyte Esterase Urine Negative (Negative); Nitrate Urine Negative (Negative); Protein Urine Negative (Negative); Specific Gravity, Urine 1.021 (1.005-1.030); Urine Appearance Clear (CLEAR); Urine Color Yellow (Yellow); Urobilinogen Urine 0.2 mg/dL (Negative)
[2024-09-29 11:34] LABS: Add Urine Microscopic? YES; Bacteria Urine None Seen /hpf; Hyaline Casts Urine 0.81 /lpf; RBC Urine 0-2 /hpf (0-2); Squamous Epithelial Cell Urine 0-5 /hpf (0-5); WBC Urine 0-5 /hpf (0-5)
[2024-09-29 11:44] LABS: Basophils # 0.1 10^3/uL (0.0-0.1); Basophils % 0.5 %; Eosinophils # 0.1 10^3/uL (0.0-0.8); Eosinophils % 0.9 %; Hematocrit 45.9 % (37-53); Lymphocytes # 1.8 10^3/uL (0.8-4.8); Lymphocytes % 13.6 %; Mean Corpuscular HGB Conc 32.7 g/dL (30-55); Mean Corpuscular Hemoglobin 29.9 pg (27-33); Mean Corpuscular Volume 91.4 fl (82-101); Mean Platelet Volume 9.2 fL (7.4-10.4); Monocytes # 1.1 10^3/uL (0.2-0.9); Monocytes % 8.1 %; Neutrophils % 76.6 %; Nucleated Red Blood Cells % 0 %; Platelet Count 238 10^3/cmm (157-399); Red Blood Count 5.02 10^6/uL (3.85-5.65); Red Cell Distribution Width 12.5 % (12.1-15.1); White Blood Count 13.19 10^3/uL (3.29-11.43)
[2024-09-29 11:56] LABS: Alanine Aminotransferase 156 U/L (0-41); Albumin Level 4.5 g/dL (3.5-5.2); Alkaline Phosphatase 93 U/L (40-130); Aspartate Amino Transferase 85 U/L (0-40); Blood Urea Nitrogen 16 mg/dL (6-20); Calcium 9.7 mg/dL (8.5-10.5); Carbon Dioxide 23 mmol/L (22-29); Chloride 101 mmol/L (98-107); Globulin 2.8 g/dL (1.3-4.6); Glomerular Filtration Rate 69.3 mL/min (90-130); Glucose 133 mg/dL (65-115); Lipase 25 U/L (13-60); Osmolality Calculated 289 mOsm/kg (285-295); Sodium 138 mmol/L (136-145); Total Bilirubin 0.4 mg/dL (0.15-1.2); Total Protein 7.3 g/dL (6.6-8.7)
[2024-09-29 13:28] VITALS: BP 135/85; PULSE 101; RESP 18; O2SAT 94
--- NOTE | 2024-09-29 13:55 | ED_ITS ---
HPI - Male Genitourinary 2 General: Chief complaint: Urogenital-Male Stated complaint: left lower back pain Time Seen by Provider: 09/29/24 12:52 History of Present Illness: 33-year-old male with a history of kidne y stones reports that he started having pretty bad left sided flank pain early this morning. Patient was seen in the emergency department on September 22, about 1 week ago and diagnosed with a 3 mm left-sided ureterolith at the level of L3. Patient has a follow-up with urology but is not until October. Patient reports pretty significant pain. He is also noticed that he has intermittent episodes of urinary urgency but not much urine comes out. He wanted to make sure he did not have a UTI. He is on ciprofloxacin which was diagnosed on the and he has a few days left of it. He has not had any fever or chills. He has not had any hematuria. His pain fluctuates in intensity but is currently still pretty severe Related Data Home Medications Medication Instructions Recorded Confirmed nitroglycerin 0.3 mg sublingual 0.3 mg sublingual Q5M PRN Chest 06/08/21 09/29/24 tablet Pain pantoprazole 40 mg tablet,delayed 40 mg PO PRN PRN Acid Reflux 05/03/24 09/29/24 release (Protonix) albuterol sulfate 90 mcg/actuation 1 puff inhalation QID PRN 08/01/24 09/29/24 aerosol inhaler Shortness Of Breath Or Wheezing ibuprofen 600 mg tablet 600 mg PO Q12H PRN Pain 08/01/24 09/29/24 metoprolol succinate 25 mg 25 mg PO DAILY 08/01/24 09/29/24 tablet,extended release 24 hr budesonide-formoterol HFA 160 2 puff inhalation BID PRN 09/22/24 09/29/24 mcg-4.5 mcg/actuation aerosol Shortness Of Breath inhaler (Symbicort) camphor-menthol 0.2 %-3.5 % 1 applic topical DAILY PRN back 09/29/24 09/29/24 topical gel pain Previous Rx's Medication Instructions Recorded methocarbamol 750 mg tablet 750 mg PO Q8H PRN muscle spasm 7 05/08/24 days #21 tabs hydroxyzine HCl 25 mg tablet 25 mg PO Q8H PRN anxiety #15 tabs 05/11/24 Soft collar #1 ea 05/21/24 ondansetron 4 mg disintegrating 4 mg PO Q6H PRN nausea and 08/01/24 tablet vomiting #14 tabs ciprofloxacin HCl 500 mg tablet 500 mg PO BID #20 tabs 09/22/24 hydrocodone 5 mg-acetaminophen 325 1 tab PO Q4H PRN pain #20 tabs 09/22/24 mg tablet tamsulosin 0.4 mg capsule (Flomax) 0.4 mg PO DAILY #7 caps 09/22/24 Allergies Allergy/AdvReac Type Severity Reaction Status Date / Time Alpha-Gal Allergy ADR-Diarrhe Verified 09/29/24 11:25 (Autqpscgt-Lecvv-6,3-Gala a clindamycin Allergy THROAT Verified 09/29/24 11:25 SWELLING AND ITCHY crab Allergy ALGY-Hives Verified 09/29/24 11:25 doxycycline Allergy RASH Verified 09/29/24 11:25 galcanezumab-gnlm Allergy ALGY-Rash Verified 09/29/24 11:25 [From [facility] Pen] mushroom Allergy ALGY-Hives Verified 09/29/24 11:25 Penicillins Allergy ALGY-Rash Verified 09/29/24 11:25 Review of Systems 2 General: Reports: 10 or more systems reviewed and unremarkable except in HPI and below PFSH ED 2 PFSH: Medical History H/O coronary angiogram GERD (gastroesophageal reflux disease) Erectile dysfunction ADHD COVID Anxiety Hypercholesterolemia Pulmonary embolism Gastroenteritis Hypertension Left ureteral calculus Surgical History History of laparoscopic appendectomy 05/11/23 Dr. Maya H/O esophagogastroduodenoscopy (04/19/22) History of umbilical hernia repair (11/01/21) Recurrent repaired with with ultrapro mesh Status post laparoscopic cholecystectomy (11/01/21) History of umbilical hernia repair 2019 H/O neck surgery BIOPSY OF NECK SWOLLEN LYMPH NODE H/O hernia repair Hx of tonsillectomy Family History Mother , 48 Diabetes Cancer BREAST CAD (coronary artery disease) Hypertension Father Cancer CAD (coronary artery disease) Hypertension Diabetes Family/Other Anesthesia complication CAD (coronary artery disease) Chronic kidney disease (CKD) Dementia Diabetes Lung disease Stroke Suicide Other Hyperlipidemia Seizure Denies family history of Clotting disorder Bleeding disorder Social History Smoking and tobacco/nicotine status: never used tobacco/nicotine Alcohol intake: current Alcohol intake frequency: holidays/special occasions only Substance/Drug Use: never Marital status: Current occupational status: disabled Physical Exam 2 Narrative: EXAM NARRATIVE: Alert, awake, obese, cooperative. Patient does not appear to be agitated. Heart rate in the 90s. He does not have any classic CVA tenderness with percussion. Abdominal exam is benign. I did not elicit any lumbar paraspinal tenderness. Const: COMMON NORMALS: no limitations, alert and well nourished EXAM LIMITATIONS: no altered mental status HENMT: COMMON NORMALS: normocephalic, atraumatic and external ears normal H EAD & SCALP: normocephalic and atraumatic EXTERNAL EAR: Yes external ears normal MOUTH: no muffled voice Neck/C-Spine: GENERAL: Yes normal visual inspection and Yes trachea midline Resp: COMMON NORMALS: normal respiratory effort, No use of accessory muscles and clear to auscultation bilaterally AUSCULTATION: clear to auscultation bilaterally Cardio: COMMON NORMALS: regular rhythm RHYTHM: regular rhythm GI: COMMON NORMALS: Soft to palpation and non-tender PALPATION: Yes Soft to palpation and No Guarding due to palpation present (GI) Extremity: COMMON NORMALS: normal to inspection Neuro: COMMON NORMALS: moves all extremities, no focal motor deficits and no sensory deficits noted SENSORIUM/ORIENTATION: Yes alert SPEECH: speech normal Psych: COMMON NORMALS: mental status grossly normal, Normal thought process present, cooperative, normal affect and speech normal SPEECH: Yes normal speech THOUGHT PROCESS: Normal thought process present Skin: COMMON NORMALS: no rashes or lesions noted, turgor normal and no jaundice GENERAL SKIN EXAM: no rashes or lesions noted and turgor normal Course 2 Vital Signs: Vital signs: Vital Signs Temperature 97.4 F L 09/29/24 11:20 Pulse Rate 88 09/29/24 14:05 Respiratory Rate 18 09/29/24 14:05 Blood Pressure 116/100 09/29/24 14:05 Pulse Oximetry 96 09/29/24 14:05 Oxygen Delivery Me thod Room Air 09/29/24 14:05 MDM - Male Medical Decision Making Patient presents with urinary frequency/urgency as well as fluctuating levels of left flank pain. He had a 3 mm mid left ureteral stone on the fifth. He had some hydronephrosis at that time. He had a small stone still in the kidney on his CT scan at that time, on my review. Differential diagnosis would include renal colic, intermittently obstructive ureterolith, UTI, JYOTI. This does not seem to be musculoskeletal back pain nor does it seem to be enteral in nature. The patient has had numerous CT scans and x-rays. At this point I do not think that the benefits outweigh the risk to repeat the imaging unless the patient has UTI or renal failure. Update 1400 White blood cell count is 13, BUN is 16, creatinine slightly elevated to 1.2 from 0.9. Otherwise unremarkable. UA does not show any blood, protein, or signs of infection. There are a few hyaline cast. Urology is not available at this facility. Since the patient does not have a urologic emergency and the stone (assuming it is the same 1) is less than 5 mm, we do not have any indication for transfer and emergent urologic intervention. Therefore were going to focus on hydration and pain control. 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 Will provide some low-dose Toradol, Zofran, hydromorphone. UPDATE 1425 Patient feeling much better after his pain medication. He is up ambulatory in the room. He is already been on the phone with [facility] and is trying to arrange a working appointment with urology this week rather than waiting until October. We discussed his findings and plan. Patient is appropriate for discharge. He has an outpatient chronic opiate regimen for back pain. Lab Data 09/29/24 11:34 09/29/24 11:34 Laboratory Results WBC 13.19 10^3/uL (3.29-11.43) H 09/29/24 11:34 RBC 5.02 10^6/uL (3.85-5.65) 09/29/24 11:34 Hgb 15.00 g/dL (11.27-16.99) 09/29/24 11:34 Hct 45.9 % (37-53) 09/29/24 11:34 MCV 91.4 fl (82-101) 09/29/24 11:34 MCH 29.9 pg (27-33) 09/29/24 11:34 MCHC 32.7 g/dL (30-55) 09/29/24 11:34 RDW 12.5 % (12.1-15.1) 09/29/24 11:34 Plt Count 238 10^3/cmm (157-399) 09/29/24 11:34 MPV 9.2 fL (7.4-10.4) 09/29/24 11:34 Neut % (Auto) 76.6 % 09/29/24 11:34 Lymph % (Auto) 13.6 % 09/29/24 11:34 Cobb % (Auto) 8.1 % 09/29/24 11:34 Eos % (Auto) 0.9 % 09/29/24 11:34 Baso % (Auto) 0.5 % 09/29/24 11:34 Neut # (Auto) 10.10 10^3/uL (1.8-7.7) H 09/29/24 11:34 Lymph # (Auto) 1.8 10^3/uL (0.8-4.8) 09/29/24 11:34 Cobb # (Auto) 1.1 10^3/uL (0.2-0.9) H 09/29/24 11:34 Eos # (Auto) 0.1 10^3/uL (0.0-0.8) 09/29/24 11:34 Baso # (Auto) 0.1 10^3/uL (0.0-0.1) 09/29/24 11:34 Nucleated RBC % (auto) 0 % 09/29/24 11:34 Nucleated RBCs # 0.0 /100WBC 09/29/24 11:34 Sodium 138 mmol/L (136-145) 09/29/24 11:34 Potassium 4.0 mmol/L (3.5-5.1) 09/29/24 11:34 Chloride 101 mmol/L (98-107) 09/29/24 11:34 Carbon Dioxide 23 mmol/L (22-29) 09/29/24 11:34 Anion Gap 18.0 (5-19) 09/29/24 11:34 BUN 16 mg/dL (6-20) 09/29/24 11:34 Creatinine 1.2 mg/dL (0.7-1.2) 09/29/24 11:34 GFR Calculation 69.3 mL/min (90-130) L 09/29/24 11:34 Glucose 133 mg/dL (65-115) H 09/29/24 11:34 Calculated Osmolality 289 mOsm/kg (285-295) 09/29/24 11:34 Calcium 9.7 mg/dL (8.5-10.5) 09/29/24 11:34 Total Bilirubin 0.4 mg/dL (0.15-1.2) 09/29/24 11:34 AST 85 U/L (0-40) H 09/29/24 11:34 ALT 156 U/L (0-41) H 09/29/24 11:34 Alkaline Phosphatase 93 U/L (40-130) 09/29/24 11:34 Total Protein 7.3 g/dL (6.6-8.7) 09/29/24 11:34 Albumin 4.5 g/dL (3.5-5.2) 09/29/24 11:34 Globulin 2.8 g/dL (1.3-4.6) 09/29/24 11:34 Lipase 25 U/L (13-60) 09/29/24 11:34 Urine Color Yellow (Yellow) 09/29/24 11:26 Urine Appearance Clear (CLEAR) 09/29/24 11:26 Urine pH 5.0 (5-7) 09/29/24 11:26 Ur Specific [place] 1.021 (1.005-1.030) 09/29/24 11:26 Urine Protein Negative (Negative) 09/29/24 11:26 Urine Glucose (UA) Negative (Normal) 09/29/24 11:26 Urine Ketones Negative (Negative) 09/29/24 11:26 Urine Blood Negative (Negative) 09/29/24 11:26 Urine Nitrate Negative (Negative) 09/29/24 11:26 Urine Bilirubin Negative (Negative) 09/29/24 11:26 Urine Urobilinogen 0.2 mg/dL (Negative) 09/29/24 11:26 Ur Leukocyte Esterase Negative (Negative) 09/29/24 11:26 Urine RBC 0-2 /hpf (0-2) 09/29/24 11:26 Urine WBC 0-5 /hpf (0-5) 09/29/24 11:26 Ur Squamous Epith Cells 0-5 /hpf (0-5) 09/29/24 11:26 Amorphous Sediment Not Reportable 09/29/24 11:26 Urine Bacteria None seen /hpf (NONE) 09/29/24 11:26 Hyaline Casts 0.81 /lpf 09/29/24 11:26 No radiology studies performed this visit Discharge Plan Discharge Patient Disposition: Home Clinical Impression: Acute left flank pain, Ureterolithiasis Condition: Stable Prescriptions: No Action nitroglycerin 0.3 mg tablet, sublingual 0.3 mg sublingual Q5M PRN (Reason: Chest Pain) Rx Instructions: do not exceed 3 doses per episode (DME) Soft collar See Rx Instructions .Route .MEDSUPPLY Qty: 1 0RF Rx Instructions: As directed methocarbamol 750 mg tablet 750 mg PO Q8H PRN (Reason: muscle spasm) 7 Days Qty: 21 0RF pantoprazole [Protonix] 40 mg tablet,delayed release (DR/EC) 40 mg PO PRN PRN (Reason: Acid Reflux) hydroxyzine HCl 25 mg tablet 25 mg PO Q8H PRN (Reason: anxiety) Qty: 15 0RF metoprolol succinate 25 mg tablet extended release 24 hr 25 mg PO DAILY albuterol sulfate [ProAir HFA] 90 mcg/actuation Hfa Aerosol Inhaler 1 puff INHALATION QID PRN (Reason: Shortness Of Breath Or Wheezing) ibuprofen 600 mg tablet 600 mg PO Q12H PRN (Reason: Pain) ondansetron 4 mg tablet,disintegrating 4 mg PO Q6H PRN (Reason: nausea and vomiting) Qty: 14 0RF budesonide-formoterol [Symbicort] 160-4.5 mcg/actuation HFA aerosol inhaler 2 puff inhalation BID PRN (Reason: Shortness Of Breath) tamsulosin [Flomax] 0.4 mg capsule 0.4 mg PO DAILY Qty: 7 0RF ciprofloxacin HCl 500 mg tablet 500 mg PO BID Qty: 20 0RF hydrocodone-acetaminophen 5-325 mg tablet 1 tab PO Q4H PRN (Reason: pain) Qty: 20 0RF Biofreeze 0.2-3.5 % Gel 1 applic TOPICAL DAILY PRN (Reason: back pain ) Rx Instructions: rub in gently and completely Discharge Orders: Discharge ED (Routine); Ordered 09/29/24 Ordered By: Jm Kimball Referrals: Mitch Jimenez MD [Primary Care Provider] - Patient Instructions: Opioid Safety, Pain Management, How to Strain Your Urine (ED), Flank Pain (ED), Kidney Stones (ED) Activity Restrictions/Additional Instructions: Follow-up with [facility] as soon as possible. Return the emergency department if you have fever, dehydration, increasing pain, or new urgent symptoms. Coding Level of Care Code ED Application Architect Manager for Vernell Mccormack
[2024-09-29] MEDS: ondansetron 2 mg/ML SDV 2 mL 4 MG IVP (14:00)
[2024-09-29] MEDS: ketorolac 30 mg/mL INJ 10 MG IVP (14:02)
[2024-09-29] MEDS: HYDROmorphone 1 mg/mL INJ 1 mL IVP (14:04)
[2024-09-29 14:05] VITALS: BP 116/100; PULSE 88; RESP 18; O2SAT 96
[2024-09-29 14:57] VITALS: BP 124/81; PULSE 94; O2SAT 97
== END 2024-09-29 14:57 | disposition home or self-care (01) ==
PROVIDERS: Emergency Medicine; Emergency Provider Emergency Medicine; PCP Family Medicine
DX: N20.1 Calculus of ureter (principal); Z87.442 Personal history of urinary calculi; I10 Essential (primary) hypertension
CPT/HCPCS: 36415; 80053; 81001; 83690; 85025; 96374; 96375; 99284; J1171; J1885; J2405

== ENCOUNTER → 2024-10-08 15:39 | Outpatient (BNVA) | payer MEDICAID, SELFPAY | PROVIDERS: PCP Family Medicine; Visit Provider Orthopaedic Surgery | DX: Z98.1 Arthrodesis status (principal) | CPT/HCPCS: 72040; 72072; 99213 ==

== ENCOUNTER 2024-10-14 20:00 | Outpatient (CLI) | payer MEDICAID, SELFPAY | END 2024-10-14 20:01 | disposition home or self-care (01) | LOC: SLEEP 22:33 | PROVIDERS: PCP Family Medicine; Visit Provider Anesthesiology Pain Medicine | DX: G47.33 Obstructive sleep apnea (adult) (pediatric) (principal) | CPT/HCPCS: 95810 ==

== ENCOUNTER 2024-10-15 10:50 | Outpatient (CLI) | payer MEDICAID, SELFPAY ==
--- NOTE | 2024-10-15 11:00 | MR_ITS ---
WS: [id number] MRI THORACIC SPINE noncontrast HISTORY: back pain COMPARISON: 03/15/2019 TECHNIQUE: Multiplanar sequences are performed in sagittal and axial planes. Prior cervical fusion has been performed since 03/15/2019. Mild straightening of the normal thoracic s pine. Mild progression of degenerative disc space narrowing at T2-3 and T5-6. T1-2: Normal. T2-3: Increase in size of the central disc protrusion which now contacts the ventral cord without dis placement. T3-4: Normal. T4-5: Small central disc protrusion. Mild progression in size but no cord displacement. T5-6: Moderate central disc protrusion similar to the prior study. T6-7: Mild facet arthritis. T7-8: Mild facet arthritis. T8-9: Small central disc protrusion. T9-10: Small central disc protrusion with bilateral facet arthritis. Very mild foraminal narrowing. T10-11: Moderate bilateral facet joint arthritis. Mild foraminal stenosis. T11-12: Normal. MR/MR thoracic spin wo con* [id number] IMPRESSION: 1. Mild progression of central disc protrusions at T2-3 and T4-5. There is mil d encroachment upon the ventral cord but no deformity or displacement. 2. Moderate central disc protrusion is unchanged at T5-6 and small at T8-9 and T9-10. 3. Multilevel facet arthritis as above. 4. Cord signal is normal.
== END 2024-10-15 10:51 | disposition home or self-care (01) ==
LOC: RAD 10:52
PROVIDERS: PCP Family Medicine; Visit Provider Orthopaedic Surgery
DX: M51.24 Other intervertebral disc displacement, thoracic region (principal); R93.7 Abnormal findings on diagnostic imaging of other parts of musculoskeletal system; M47.894 Other spondylosis, thoracic region; M48.04 Spinal stenosis, thoracic region
CPT/HCPCS: 72146

== ENCOUNTER → 2024-10-17 14:49 | Outpatient (BNVA) | payer MEDICAID, SELFPAY | PROVIDERS: PCP Family Medicine; Referring Provider Family Medicine; Visit Provider Specialist | DX: G43.711 Chronic migraine without aura, intractable, with status migrainosus (principal) | CPT/HCPCS: 99214 ==

== ENCOUNTER → 2024-10-22 13:50 | Outpatient (BNVA) | payer MEDICAID, SELFPAY | PROVIDERS: PCP Family Medicine; Visit Provider Orthopaedic Surgery | DX: M54.9 Dorsalgia, unspecified (principal); Z09 Encounter for follow-up examination after completed treatment for conditions other than malignant neoplasm | CPT/HCPCS: 99213 ==

== ENCOUNTER → 2024-12-09 10:00 | Outpatient (BNVA) | payer MEDICAID, SELFPAY | PROVIDERS: PCP Family Medicine; Visit Provider Family Medicine | DX: I10 Essential (primary) hypertension (principal); T78.40XA Allergy, unspecified, initial encounter; T78.2XXA Anaphylactic shock, unspecified, initial encounter; J45.909 Unspecified asthma, uncomplicated; E78.00 Pure hypercholesterolemia, unspecified; G43.711 Chronic migraine without aura, intractable, with status migrainosus; R79.89 Other specified abnormal findings of blood chemistry | CPT/HCPCS: 80053; 80061; 82306; 82607; 82785; 83036; 84439; 84443; 85025; 85651; 86001; 86003; 86008; 86140 ==

== ENCOUNTER → 2025-02-06 08:46 | Outpatient (BNVA) | payer MEDICAID, SELFPAY | PROVIDERS: PCP Family Medicine; Visit Provider Orthopaedic Surgery | DX: Z98.1 Arthrodesis status (principal) | CPT/HCPCS: 72040; 99213 ==

== ENCOUNTER 2025-02-27 16:23 | Emergency (ER) | payer MEDICAID, SELFPAY ==
--- NOTE | 2025-02-27 16:23 | ECG_ITS ---
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 Measurements Intervals [place] Rate: 86 P: 30 AL: 120 QRS: 84 QRSD: 106 T: 38 QT: 360 QTc: 431 Interpretive Statements SINUS RHYTHM WITH SINUS ARRHYTHMIA INCOMPLETE RIGHT BUNDLE BRANCH BLOCK [90+ ms QRS DURATION, TERMINAL R IN V1/V2, 40+ ms S IN I/aVL/V4/V5/V6] Compared to ECG 05/11/2024 15:33:16 No significant changes Electronically Signed On 02-28-2025 14:51:53 CDT by Drew Howell M.D. [id number]
[2025-02-27 16:28] VITALS: BP 123/77; PULSE 91; RESP 16; TEMP 36.7; O2SAT 96
--- NOTE | 2025-02-27 16:59 | XRR_ITS ---
PROCEDURE INFORMATION: Exam: XR Chest Exam date and time: 02/27/2025 5:10 PM Age: 34 years old Clinical indication: Pain; Chest pressure; Prior surgery; Surgery date: 6+ months; Surgery type: Heart cath; Additional info: Chest pain TECHNIQUE: Imaging protocol: Radiologic exam of the chest. Views: 1 view. COMPARISON: CR XR chest 2V* [id number] 11/10/2022 11:03 AM FINDINGS: Lungs: Unremarkable. No consolidation. Pleural spaces: Unremarkable. No pleural effusion. No pneumothorax. Heart/Mediastinum: Unremarkable. No cardiomegaly. Bones/joints: Unremarkable. XR/XR chest 1V portable [id number] IMPRESSION: No acute findings.
[2025-02-27 17:29] LABS: Basophils # 0.1 10^3/uL (0.0-0.1); Basophils % 0.7 %; Eosinophils # 0.3 10^3/uL (0.0-0.8); Eosinophils % 2.4 %; Hematocrit 46.8 % (37-53); Lymphocytes # 3.7 10^3/uL (0.8-4.8); Mean Corpuscular HGB Conc 32.7 g/dL (30-55); Mean Corpuscular Hemoglobin 29.8 pg (27-33); Mean Corpuscular Volume 91.1 fl (82-101); Mean Platelet Volume 9.6 fL (7.4-10.4); Monocytes % 7.4 %; Neutrophils # 8.07 10^3/uL (1.8-7.7); Neutrophils % 61.2 %; Nucleated Red Blood Cells % 0 %; Platelet Count 266 10^3/cmm (157-399); Red Blood Count 5.14 10^6/uL (3.85-5.65); Red Cell Distribution Width 12.8 % (12.1-15.1); White Blood Count 13.17 10^3/uL (3.29-11.43)
--- NOTE | 2025-02-27 17:46 | ED_ITS ---
Documented by User: Tonio Nascimento, 02/28/25 08:09 HPI - Chest Pain 2 General: Chief Complaint: Chest Pain Stated Complaint: cp,sob Time Seen by Provider: 02/27/25 17:32 History of Present Illness: 34-year-old male presents emergency room complaining substernal chest pain shortness of breath for last 2 weeks. He states he gets episodes of sharp chest pain last 20-30 seconds at a time radiates around on the left side of his chest not into his neck back or arms. Does not worse when he takes a deep breath he does have sublingual nitro he has taken some occasionally without benefit. He notices that when he walks for distance he gets more short of breath than he would normally expect he has a history of previous PE associated with COVID infection he is on Eliquis for a time but has since stopped that he only takes aspirin daily. He has noticed that the symptom seems to be escalating since they first began 2 weeks ago. Associated symptoms: Reports dyspnea; Deny abdominal pain or fever(s) Related Data Home Medications ?Medication ?Instructions ?Recorded ?Confirmed nitroglycerin 0.3 mg sublingual 0.3 mg sublingual Q5M PRN Chest 06/08/21 02/06/25 tablet Pain albuterol sulfate 90 mcg/actuation 1 puff inhalation Q ID PRN 08/01/24 02/06/25 aerosol inhaler Shortness Of Breath Or Wheez ing ibuprofen 600 mg tablet 600 mg PO Q12H PRN Pain 07/1902/06/25 oxycodone-acetaminophen 7.5 mg-325 tab PO 10/17/24 mg tablet Previous Rx's ?Medication ?Instructions ?Recorded methocarbamol 750 mg tablet 750 mg PO Q8H PRN muscle s pasm 7 05/08/24 days #21 tabs ondansetron 4 mg disintegrating 4 mg PO Q6H PRN nausea and 08/01/24 tablet vomiting #14 tabs tamsulosin 0.4 mg capsule (Flomax) 0.4 mg PO DAILY #7 caps 09/22/24 budesonide-formoterol HFA 160 2 puff inhalation BID AL N 12/09/24 mcg-4.5 mcg/actuation aerosol Shortness Of Breath #10. 2 grams inhaler (Symbicort) epinephrine 0.3 mg/0.3 mL 0.3 mg (0.3 mL) IM Q15M PRN 12/09/24 injection, auto-injector anaphylaxis #2 ea hydroxyzine HCl 25 mg tablet 25 mg PO Q8H PRN anxiety, 12/09/24 allergies #60 tabs metoprolol succinate 25 mg 25 mg PO DAILY #90 tabs tablet,extended release 24 hr pantoprazole 40 mg tablet,delayed 40 mg PO PRN PRN Aci d Reflux #90 12/09/24 release (Protonix) tabs celecoxib 200 mg capsule (Celebrex) 200 mg PO BID 30 d ays #60 caps 02/06/25 Allergies Allergy/AdvReac Type Severity Reaction Status Date / Time amitriptyline Allergy Intermediate ADR-Itching Verified 02/27/25 16:31 Alpha-Gal Allergy ADR-Diarrhe Verified 02/27/25 16:31 (Dlnevzrak-Jrcdg-4,3-Gala a clindamycin Allergy THROAT Verified 02/27/25 16:31 SWELLING AND ITCHY crab Allergy ALGY-Hives Verified 02/27/25 16:31 doxycycline Allergy RASH Verified 02/27/25 16:31 [id number]-[id number] (From Allergy ALGY-Rash Verified 02/27/25 16:31 Emgality Pen) mushroom Allergy ALGY-Hives Verified 02/27/25 16:31 Penicillins Allergy ALGY-Rash Verified 02/27/25 16:31 Review of Systems 2 Const: Denies: fever(s) or chills Card: Reports: chest pain and dyspnea on exertion; Denies: swelling of feet/ankles or orthopnea Resp: Reports: dyspnea GI: Denies: abdominal pain : Denies: dysuria, urinary frequency or urinary urgency Musc: Denies: neck pain or back pain Skin/Breast: Denies: rash PFSH ED 2 PFSH: Medical History H/O coronary angiogram GERD (gastroesophageal reflux disease) Erectile dysfunction ADHD COVID Anxiety Hypercholesterolemia Pulmonary embolism Gastroenteritis Hypertension Left ureteral calculus Surgical History History of laparoscopic appendectomy 05/11/23 Dr. Maya H/O esophagogastroduodenoscopy (04/19/22) History of umbilical hernia repair (11/01/21) Recurrent repaired with with ultrapro mesh Status post laparoscopic cholecystectomy (11/01/21) History of umbilical hernia repair 2019 H/O neck surgery BIOPSY OF NECK SWOLLEN LYMPH NODE H/O hernia repair Hx of tonsillectomy Family History Mother , 48 Diabetes Cancer BREAST CAD (coronary artery disease) Hypertension Father Cancer CAD (coronary artery disease) Hypertension Diabetes Family/Other Anesthesia complication CAD (coronary artery disease) Chronic kidney disease (CKD) Dementia Diabetes Lung disease Stroke Suicide Other Hyperlipidemia Seizure Denies family history of Clotting disorder Bleeding disorder Social History Smoking and tobacco/nicotine status: never used tobacco/nicotine Alcohol intake: current Alcohol intake frequency: holidays/special occasions only Substance/Drug Use: never Marital status: Current occupational status: disabled Physical Exam 2 Const: GENERAL APPEARANCE: cooperative ORIENTATION/CONSCIOUSNESS: Yes awake, Yes oriented to person, Yes oriented to place and Yes oriented to time HENMT: COMMON NORMALS: normocephalic, atraumatic and hearing grossly normal bilaterally HEAD & SCALP: normocephalic and atraumatic Resp: COMMON NORMALS: normal respiratory effort, No retractions, No use of accessory muscles and clear to auscultation bilaterally AUSCULTATION: clear to auscultation bilaterally Cardio: COMMON NORMALS: regular rate, regular rhythm and No murmurs present (Cardio) RATE: regular rate RHYTHM: regular rhythm GI: COMMON NORMALS: Soft to palpation and No hepatosplenomegaly present A USCULTATION: Yes normoactive bowel sounds PALPATION: Yes Soft to palpation, No Tenderness to palpation present (GI), No Guarding due to palpation present (GI) and Yes No hepatosplenomegaly present Extremity: COMMON NORMALS: normal to inspection, capillary refill normal, no clubbing, cyanosis or edema, no calf tenderness and no pedal edema Neuro: SENSORIUM/ORIENTATION: Yes oriented to person, Yes oriented to place and Yes oriented to time Skin: COMMON NORMALS: no rashes or lesions noted GENERAL SKIN EXAM: no rashes or lesions noted Course 2 Vital Signs: Vital signs: Vital Signs Temperature 98.0 F 02/27/25 16:28 Pulse Rate 81 02/27/25 19:00 Respiratory Rate 16 02/27/25 16:28 Blood Pressure 138/99 02/27/25 19:00 Pulse Oximetry 95 02/27/25 19:00 Oxygen Delivery Me thod Room Air 02/27/25 18:35 MDM - Chest Pain Medical Decision Making Care signed out to Dr. Rod at change of shift. See final notes for diagnosis and disposition. 34-year-old male in with atypical sounding chest discomfort now that has resolved. The patient was turned over to me by the previous emergency department physician to follow-up on a second troponin and reexamine the patient and determine a diagnosis if possible and disposition. The patient reports that his pain spontaneously resolved he ate he has no symptoms currently does not desire admission to the hospital or any further workup at this point. I reviewed his electrocardiogram and emergency department course with and discharged him home for follow-up after counseling on blood sugar weight loss and the importance of regular checkups and evaluation. Lab Data 02/27/25 17:22 02/27/25 17:22 Radiology Impressions Chest X-Ray 02/27/25 16:59 IMPRESSION: No acute findings. Laboratory Results WBC 13.17 10^3/uL (3.29-11.43) H 02/27/25 17:22 RBC 5.14 10^6/uL (3.85-5.65) 02/27/25 17:22 Hgb 15.30 g/dL (11.27-16.99) 02/27/25 17:22 Hct 46.8 % (37-53) 02/27/25 17:22 MCV 91.1 fl (82-101) 02/27/25 17:22 MCH 29.8 pg (27-33) 02/27/25 17:22 MCHC 32.7 g/dL (30-55) 02/27/25 17:22 RDW 12.8 % (12.1-15.1) 02/27/25 17:22 Plt Count 266 10^3/cmm (157-399) 02/27/25 17:22 MPV 9.6 fL (7.4-10.4) 02/27/25 17:22 Neut % (Auto) 61.2 % 02/27/25 17:22 Lymph % (Auto) 28.0 % 02/27/25 17:22 Riley % (Auto) 7.4 % 02/27/25 17:22 Eos % (Auto) 2.4 % 02/27/25 17:22 Baso % (Auto) 0.7 % 02/27/25 17:22 Neut # (Auto) 8.07 10^3/uL (1.8-7.7) H 02/27/25 17:22 Lymph # (Auto) 3.7 10^3/uL (0.8-4.8) 02/27/25 17:22 Riley # (Auto) 1.0 10^3/uL (0.2-0.9) H 02/27/25 17:22 Eos # (Auto) 0.3 10^3/uL (0.0-0.8) 02/27/25 17:22 Baso # (Auto) 0.1 10^3/uL (0.0-0.1) 02/27/25 17:22 Nucleated RBC % (auto) 0 % 02/27/25 17:22 Nucleated RBCs # 0.0 /100WBC 02/27/25 17:22 D-Dimer <= 0.27 ug/mLFEU (0-0.59) 02/27/25 17:22 Sodium 141 mmol/L (136-145) 02/27/25 17:22 Potassium 3.7 mmol/L (3.5-5.1) 02/27/25 17:22 Chloride 104 mmol/L (98-107) 02/27/25 17:22 Carbon Dioxide 23 mmol/L (22-29) 02/27/25 17:22 Anion Gap 17.7 (5-19) 02/27/25 17:22 BUN 12 mg/dL (6-20) 02/27/25 17:22 Creatinine 0.8 mg/dL (0.7-1.2) 02/27/25 17:22 GFR Calculation 110.0 mL/min (90-130) 02/27/25 17:22 Glucose 144 mg/dL (65-115) H 02/27/25 17:22 Calculated Osmolality 294 mOsm/kg (285-295) 02/27/25 17:22 Calcium 9.4 mg/dL (8.5-10.5) 02/27/25 17:22 Total Bilirubin 0.3 mg/dL (0.15-1.2) 02/27/25 17:22 AST 40 U/L (0-40) 02/27/25 17:22 ALT 93 U/L (0-41) H 02/27/25 17:22 Alkaline Phosphatase 99 U/L (40-130) 02/27/25 17:22 Troponin T Baseline < 6 ng/L (0-15) 02/27/25 17:22 Troponin T 120 Minute < 6.0 ng/L (0-15) 02/27/25 19:10 Delta Troponin T 0 ABS# (0-10) 02/27/25 19:10 C-Reactive Protein 4.2 mg/L (0.0-4.9) 02/27/25 17:22 NT-Pro-B Natriuret Pep < 36 pg/mL (0-125) 02/27/25 17:22 Total Protein 7.0 g/dL (6.6-8.7) 02/27/25 17:22 Albumin 4.5 g/dL (3.5-5.2) 02/27/25 17:22 Globulin 2.5 g/dL (1.3-4.6) 02/27/25 17:22 EKG Data EKG 1: Interpretation: 02/27/2025 sinus arrhythmia incomplete bundle branch block years rate 86 AL interval [address] changes noted Discharge Plan Discharge Patient Disposition: Home Clinical Impression: Chest pain Condition: Stable Prescriptions: No Action nitroglycerin 0.3 mg tablet, sublingual 0.3 mg sublingual Q5M PRN (Reason: Chest Pain) Rx Instructions: do not exceed 3 doses per episode oxycodone-acetaminophen 7.5-325 mg tablet PO celecoxib [Celebrex] 200 mg capsule 200 mg PO BID 30 Days Qty: 60 0RF hydroxyzine HCl 25 mg tablet 25 mg PO Q8H PRN (Reason: anxiety, allergies) Qty: 60 2RF budesonide-formoterol [Symbicort] 160-4.5 mcg/actuation HFA aerosol inhaler 2 puff inhalation BID PRN (Reason: Shortness Of Breath) Qty: 10.2 5RF pantoprazole [Protonix] 40 mg tablet,delayed release (DR/EC) 40 mg PO PRN PRN (Reason: Acid Reflux) Qty: 90 3RF metoprolol succinate 25 mg tablet extended release 24 hr 25 mg PO DAILY Qty: 90 3RF epinephrine 0.3 mg/0.3 mL auto-injector 0.3 mg IM Q15M PRN (Reason: anaphylaxis) Qty: 2 1RF Rx Instructions: not to exceed 6 doses per episode methocarbamol 750 mg tablet 750 mg PO Q8H PRN (Reason: muscle spasm) 7 Days Qty: 21 0RF albuterol sulfate [ProAir HFA] 90 mcg/actuation Hfa Aerosol Inhaler 1 puff INHALATION QID PRN (Reason: Shortness Of Breath Or Wheezing) ibuprofen 600 mg tablet 600 mg PO Q12H PRN (Reason: Pain) ondansetron 4 mg tablet,disintegrating 4 mg PO Q6H PRN (Reason: nausea and vomiting) Qty: 14 0RF tamsulosin [Flomax] 0.4 mg capsule 0.4 mg PO DAILY Qty: 7 0RF Discharge Orders: Discharge ED (Routine); Ordered 02/27/25 Ordered By: James Rod Referrals: Fer Cespedes DO [Primary Care Provider, [facility]] Discharge Diet: Advance as tolerated Discharge Activity: Resume usual activity Patient Instructions: Opioid Safety, Pain Management Activity Restrictions/Additional Instructions: 1. Rest and take home prescriptions as directed. 2. Make a follow-up appointment with primary care next week for review of emergency department visit and follow-up and ongoing management. 3. Return to the emergency department for new or worsening symptoms Print Language: Maltese Coding Level of Care Code ED Hazardous Waste Remover for Chg Fwd Documented by User: James Rod DO 02/27/25 20:12 HPI - Chest Pain 2 General: Chief Complaint: Chest Pain Stated Complaint: cp,sob Time Seen by Provider: 02/27/25 17:32 Related Data Home Medications ?Medication ?Instructions ?Recorded ?Confirmed nitroglycerin 0.3 mg sublingual 0.3 mg sublingual Q5M PRN Chest 06/08/21 02/06/25 tablet Pain albuterol sulfate 90 mcg/actuation 1 puff inhalation Q ID PRN 08/01/24 02/06/25 aerosol inhaler Shortness Of Breath Or Wheez ing ibuprofen 600 mg tablet 600 mg PO Q12H PRN Pain 07/1902/06/25 oxycodone-acetaminophen 7.5 mg-325 tab PO 10/17/24 mg tablet Previous Rx's ?Medication ?Instructions ?Recorded methocarbamol 750 mg tablet 750 mg PO Q8H PRN muscle s pasm 7 05/08/24 days #21 tabs ondansetron 4 mg disintegrating 4 mg PO Q6H PRN nausea and 08/01/24 tablet vomiting #14 tabs tamsulosin 0.4 mg capsule (Flomax) 0.4 mg PO DAILY #7 caps 09/22/24 budesonide-formoterol HFA 160 2 puff inhalation BID AL N 12/09/24 mcg-4.5 mcg/actuation aerosol Shortness Of Breath #10. 2 grams inhaler (Symbicort) epinephrine 0.3 mg/0.3 mL 0.3 mg (0.3 mL) IM Q15M PRN 12/09/24 injection, auto-injector anaphylaxis #2 ea hydroxyzine HCl 25 mg tablet 25 mg PO Q8H PRN anxiety, 12/09/24 allergies #60 tabs metoprolol succinate 25 mg 25 mg PO DAILY #90 tabs tablet,extended release 24 hr pantoprazole 40 mg tablet,delayed 40 mg PO PRN PRN Aci d Reflux #90 12/09/24 release (Protonix) tabs celecoxib 200 mg capsule (Celebrex) 200 mg PO BID 30 d ays #60 caps 02/06/25 Allergies Allergy/AdvReac Type Severity Reaction Status Date / Time amitriptyline Allergy Intermediate ADR-Itching Verified 02/27/25 16:31 Alpha-Gal Allergy ADR-Diarrhe Verified 02/27/25 16:31 (Ipmfziorm-Ewoeb-4,3-Gala a clindamycin Allergy THROAT Verified 02/27/25 16:31 SWELLING AND ITCHY crab Allergy ALGY-Hives Verified 02/27/25 16:31 doxycycline Allergy RASH Verified 02/27/25 16:31 galcanezumab-gnlm (From Allergy ALGY-Rash Verified 02/27/25 16:31 Emgality Pen) mushroom Allergy ALGY-Hives Verified 02/27/25 16:31 Penicillins Allergy ALGY-Rash Verified 02/27/25 16:31 PFSH ED 2 PFSH: Medical History H/O coronary angiogram GERD (gastroesophageal reflux disease) Erectile dysfunction ADHD COVID Anxiety Hypercholesterolemia Pulmonary embolism Gastroenteritis Hypertension Left ureteral calculus Surgical History History of laparoscopic appendectomy 05/11/23 Dr. Maya H/O esophagogastroduodenoscopy (04/19/22) History of umbilical hernia repair (11/01/21) Recurrent repaired with with ultrapro mesh Status post laparoscopic cholecystectomy (11/01/21) History of umbilical hernia repair 2018 H/O neck surgery BIOPSY OF NECK SWOLLEN LYMPH NODE H/O hernia repair Hx of tonsillectomy Family History Mother , 48 Diabetes Cancer BREAST CAD (coronary artery disease) Hypertension Father Cancer CAD (coronary artery disease) Hypertension Diabetes Family/Other Anesthesia complication CAD (coronary artery disease) Chronic kidney disease (CKD) Dementia Diabetes Lung disease Stroke Suicide Other Hyperlipidemia Seizure Denies family history of Clotting disorder Bleeding disorder Social History Smoking and tobacco/nicotine status: never used tobacco/nicotine Alcohol intake: current Alcohol intake frequency: holidays/special occasions only Substance/Drug Use: never Marital status: Current occupational status: disabled Course 2 Vital Signs: Vital signs: Vital Signs Temperature 98.0 F 02/27/25 16:28 Pulse Rate 81 02/27/25 19:00 Respiratory Rate 16 02/27/25 16:28 Blood Pressure 138/99 02/27/25 19:00 Pulse Oximetry 95 02/27/25 19:00 Oxygen Delivery Oh thod Room Air 02/27/25 18:35 MDM - Chest Pain Medical Decision Making 34-year-old male in with atypical sounding chest discomfort now that has resolved. The patient was turned over to me by the previous emergency department physician to follow-up on a second troponin and reexamine the patient and determine a diagnosis if possible and disposition. The patient reports that his pain spontaneously resolved he ate he has no symptoms currently does not desire admission to the hospital or any further workup at this point. I reviewed his electrocardiogram and emergency department course with and discharged him home for follow-up after counseling on blood sugar weight loss and the importance of regular checkups and evaluation. Lab Data 02/27/25 17:22 02/27/25 17:22 Radiology Impressions Chest X-Ray 02/27/25 16:59 IMPRESSION: No acute findings. Laboratory Results WBC 13.17 10^3/uL (3.29-11.43) H 02/27/25 17:22 RBC 5.14 10^6/uL (3.85-5.65) 02/27/25 17:22 Hgb 15.30 g/dL (11.27-16.99) 02/27/25 17:22 Hct 46.8 % (37-53) 02/27/25 17:22 MCV 91.1 fl (82-101) 02/27/25 17:22 MCH 29.8 pg (27-33) 02/27/25 17: MCHC 32.7 g/dL (30-55) 02/27/25 17:22 RDW 12.8 % (12.1-15.1) 02/27/25 17:22 Plt Count 266 10^3/cmm (157-399) 02/27/25 17:22 MPV 9.6 fL (7.4-10.4) 02/27/25 17:22 Neut % (Auto) 61.2 % 02/27/25 17:22 Lymph % (Auto) 28.0 % 02/27/25 17:22 Riley % (Auto) 7.4 % 02/27/25 17:22 Eos % (Auto) 2.4 % 02/27/25 17:22 Baso % (Auto) 0.7 % 02/27/25 17:22 Neut # (Auto) 8.07 10^3/uL (1.8-7.7) H 02/27/25 17:22 Lymph # (Auto) 3.7 10^3/uL (0.8-4.8) 02/27/25 17:22 Riley # (Auto) 1.0 10^3/uL (0.2-0.9) H 02/27/25 17:22 Eos # (Auto) 0.3 10^3/uL (0.0-0.8) 02/27/25 17:22 Baso # (Auto) 0.1 10^3/uL (0.0-0.1) 02/27/25 17:22 Nucleated RBC % (auto) 0 % 02/27/25 17:22 Nucleated RBCs # 0.0 /100WBC 02/27/25 17:22 D-Dimer <= 0.27 ug/mLFEU (0-0.59) 02/27/25 17:22 Sodium 141 mmol/L (136-145) 02/27/25 17:22 Potassium 3.7 mmol/L (3.5-5.1) 02/27/25 17:22 Chloride 104 mmol/L (98-107) 02/27/25 17:22 Carbon Dioxide 23 mmol/L (22-29) 02/27/25 17:22 Anion Gap 17.7 (5-19) 02/27/25 17:22 BUN 12 mg/dL (6-20) 02/27/25 17:22 Creatinine 0.8 mg/dL (0.7-1.2) 02/27/25 17:22 GFR Calculation 110.0 mL/min (90-130) 02/27/25 17:22 Glucose 144 mg/dL (65-115) H 02/27/25 17:22 Calculated Osmolality 294 mOsm/kg (285-295) 02/27/25 17:22 Calcium 9.4 mg/dL (8.5-10.5) 02/27/25 17:22 Total Bilirubin 0.3 mg/dL (0.15-1.2) 02/27/25 17:22 AST 40 U/L (0-40) 02/27/25 17:22 ALT 93 U/L (0-41) H 02/27/25 17:22 Alkaline Phosphatase 99 U/L (40-130) 02/27/25 17:22 Troponin T Baseline < 6 ng/L (0-15) 02/27/25 17:22 Troponin T 120 Minute < 6.0 ng/L (0-15) 02/27/25 19:10 Delta Troponin T 0 ABS# (0-10) 02/27/25 19:10 C-Reactive Protein 4.2 mg/L (0.0-4.9) 02/27/25 17:22 NT-Pro-B Natriuret Pep < 36 pg/mL (0-125) 02/27/25 17:22 Total Protein 7.0 g/dL (6.6-8.7) 02/27/25 17:22 Albumin 4.5 g/dL (3.5-5.2) 02/27/25 17:22 Globulin 2.5 g/dL (1.3-4.6) 02/27/25 17:22 All radiology interpretation(s) finalized by discharge ED provider radiology interpretation(s): NO acute findings per radiology EKG Data EKG 1: Other EKG comments: EKG dated February 27 1921 hrs. reveals a sinus rhythm with an incomplete bundle branch block with normal QTc interval QRS measured at [address] ms[address] No concerns of ST elevation or significant depression or arrhythmia. Discharge Plan Discharge Patient Disposition: Home Clinical Impression: Chest pain Condition: Stable Prescriptions: No Action nitroglycerin 0.3 mg tablet, sublingual 0.3 mg sublingual Q5M PRN (Reason: Chest Pain) Rx Instructions: do not exceed 3 doses per episode oxycodone-acetaminophen 7.5-325 mg tablet PO celecoxib [Celebrex] 200 mg capsule 200 mg PO BID 30 Days Qty: 60 0RF hydroxyzine HCl 25 mg tablet 25 mg PO Q8H PRN (Reason: anxiety, allergies) Qty: 60 2RF budesonide-formoterol [Symbicort] 160-4.5 mcg/actuation HFA aerosol inhaler 2 puff inhalation BID PRN (Reason: Shortness Of Breath) Qty: 10.2 5RF pantoprazole [Protonix] 40 mg tablet,delayed release (DR/EC) 40 mg PO PRN PRN (Reason: Acid Reflux) Qty: 90 3RF metoprolol succinate 25 mg tablet extended release 24 hr 25 mg PO DAILY Qty: 90 3RF epinephrine 0.3 mg/0.3 mL auto-injector 0.3 mg IM Q15M PRN (Reason: anaphylaxis) Qty: 2 1RF Rx Instructions: not to exceed 6 doses per episode methocarbamol 750 mg tablet 750 mg PO Q8H PRN (Reason: muscle spasm) 7 Days Qty: 21 0RF albuterol sulfate [ProAir HFA] 90 mcg/actuation Hfa Aerosol Inhaler 1 puff INHALATION QID PRN (Reason: Shortness Of Breath Or Wheezing) ibuprofen 600 mg tablet 600 mg PO Q12H PRN (Reason: Pain) ondansetron 4 mg tablet,disintegrating 4 mg PO Q6H PRN (Reason: nausea and vomiting) Qty: 14 0RF tamsulosin [Flomax] 0.4 mg capsule 0.4 mg PO DAILY Qty: 7 0RF Discharge Orders: Discharge ED (Routine); Ordered 02/27/25 Ordered By: James Rod Referrals: Fer Cespedes DO [Primary Care Provider, [facility]] Discharge Diet: Advance as tolerated Discharge Activity: Resume usual activity Patient Instructions: Opioid Safety, Pain Management Activity Restrictions/Additional Instructions: 1. Rest and take home prescriptions as directed. 2. Make a follow-up appointment with primary care next week for review of emergency department visit and follow-up and ongoing management. 3. Return to the emergency department for new or worsening symptoms Print Language: Maltese Coding Level of Care Code ED Hazardous Waste Remover for Vernell Mccormack
[2025-02-27 18:07] LABS: Troponin(5th) Baseline < 6 ng/L (0-15)
[2025-02-27 18:16] LABS: Alanine Aminotransferase 93 U/L (0-41); Albumin Level 4.5 g/dL (3.5-5.2); Alkaline Phosphatase 99 U/L (40-130); Aspartate Amino Transferase 40 U/L (0-40); Blood Urea Nitrogen 12 mg/dL (6-20); C Reactive Protein 4.2 mg/L (0.0-4.9); Calcium 9.4 mg/dL (8.5-10.5); Carbon Dioxide 23 mmol/L (22-29); Chloride 104 mmol/L (98-107); Creatinine Clr Calc Pharmacy 156.7067; Globulin 2.5 g/dL (1.3-4.6); Glucose 144 mg/dL (65-115); NT Pro B Type Natriuretic Pept < 36 pg/mL (0-125); Osmolality Calculated 294 mOsm/kg (285-295); Sodium 141 mmol/L (136-145); Total Bilirubin 0.3 mg/dL (0.15-1.2)
[2025-02-27 18:18] LABS: Anion Gap 17.7 (5-19); Potassium 3.7 mmol/L (3.5-5.1)
[2025-02-27 18:24] LABS: D Dimer <= 0.27 ug/mLFEU (0-0.59)
[2025-02-27 18:35] VITALS: BP 143/93; PULSE 91; O2SAT 96
[2025-02-27 19:00] VITALS: BP 138/99; PULSE 81; O2SAT 95
--- NOTE | 2025-02-27 19:21 | ECG_ITS ---
[employer] Test Date: 2025-02-27 Pat Name: Dominic Cazares Department: Room: Gender: Male [employer]: : 1990 Requested By: Cathi Lance Order Number: [id number] Kim MD: Drew Howell M.D. Measurements Intervals [place] Rate: 73 P: 31 TX: 154 QRS: 85 QRSD: 106 T: 36 QT: 380 QTc: 421 Interpretive Statements SINUS RHYTHM INCOMPLETE RIGHT BUNDLE BRANCH BLOCK [90+ ms QRS DURATION, TERMINAL R IN V1/V2, 40+ ms S IN I/aVL/V4/V5/V6] Compared to ECG 05/11/2024 15:33:16 No significant changes Electronically Signed On 02-28-2025 15:03:36 CDT by Drew Howell M.D. [email or web address]
[2025-02-27 19:41] LABS: Troponin 5 2HR < 6.0 ng/L (0-15); Troponin 5 2HR Delta 0 ABS# (0-10)
--- NOTE | 2025-02-27 20:19 | PC.NURSE ---
After MD updated pt on discharge. Pt left the ED without discharge papers. Pt did not have an IV. All belongings taken with him.
== END 2025-02-27 20:21 | disposition home or self-care (01) ==
PROVIDERS: Emergency Medicine; Emergency Provider Family Medicine; PCP Family Medicine
DX: R07.2 Precordial pain (principal); I10 Essential (primary) hypertension; Z79.899 Other long term (current) drug therapy
CPT/HCPCS: 36415; 71045; 80053; 83880; 84484; 85025; 85378; 86140; 93005; 99285

== ENCOUNTER 2025-03-26 20:00 | Outpatient (CLI) | payer MEDICAID, SELFPAY | END 2025-03-26 20:01 | disposition home or self-care (01) | LOC: SLEEP 23:35 | PROVIDERS: PCP Family Medicine; Visit Provider Internal Medicine Pulmonary Disease | DX: G47.33 Obstructive sleep apnea (adult) (pediatric) (principal) | CPT/HCPCS: 95811 ==

== ENCOUNTER → 2025-03-27 07:40 | Outpatient (BNVA) | payer MEDICAID, SELFPAY | PROVIDERS: PCP Family Medicine; Visit Provider Podiatrist Foot & Ankle Surgery | DX: L60.0 Ingrowing nail (principal) | CPT/HCPCS: 11750; 99203; J9999 ==

== ENCOUNTER → 2025-04-08 08:57 | Outpatient (BNVA) | payer MEDICAID, SELFPAY | PROVIDERS: PCP Family Medicine; Visit Provider Podiatrist Foot & Ankle Surgery | DX: L60.0 Ingrowing nail (principal) | CPT/HCPCS: 99213 ==

== ENCOUNTER 2025-04-17 14:15 | Emergency (ER) | payer MEDICAID, SELFPAY ==
[2025-04-17 14:22] VITALS: BP 135/83; PULSE 82; RESP 16; TEMP 36.7; O2SAT 96; BMI 33.7
--- NOTE | 2025-04-17 15:59 | ED_ITS ---
HPI - Neck Pain/Injury General: Chief Complaint: Neck Pain/Injury Stated Complaint: Pain in neck Time Seen by Provider: 04/17/25 15:35 History of Present Illness: 34-year-old male presents emergency room complaining of neck pain this been worsening over the last couple of days he does not remember any precipitating event. He previously had a neck fusion with an anterior approach. She gets. Is a base of the skull radiating down the cervical spine to the middle of his back no pain radiating into his arms. No trauma. No fever sweats or chills. He has slightly decreased range of motion in his neck with flexion extension and rotation due to discomfort. Related Data Home Medications ?Medication ?Instructions ?Recorded ?Confirmed nitroglycerin 0.3 mg sublingual 0.3 mg sublingual Q5M PRN Chest 06/08/21 04/08/25 tablet Pain albuterol sulfate 90 mcg/actuation 1 puff inhalation Q ID PRN 08/01/24 04/08/25 aerosol inhaler Shortness Of Breath Or Wheez ing ibuprofen 600 mg tablet 600 mg PO Q12H PRN Pain 07/1904/08/25 Previous Rx's ?Medication ?Instructions ?Recorded methocarbamol 750 mg tablet 750 mg PO Q8H PRN muscle s pasm 7 05/08/24 days #21 tabs ondansetron 4 mg disintegrating 4 mg PO Q6H PRN nausea and 08/01/24 tablet vomiting #14 tabs tamsulosin 0.4 mg capsule (Flomax) 0.4 mg PO DAILY #7 caps 09/22/24 budesonide-formoterol HFA 160 2 puff inhalation BID NC N 12/09/24 mcg-4.5 mcg/actuation aerosol Shortness Of Breath #10. 2 grams inhaler (Symbicort) epinephrine 0.3 mg/0.3 mL 0.3 mg (0.3 mL) IM Q15M PRN 12/09/24 injection, auto-injector anaphylaxis #2 ea metoprolol succinate 25 mg 25 mg PO DAILY #90 tabs tablet,extended release 24 hr pantoprazole 40 mg tablet,delayed 40 mg PO PRN PRN Aci d Reflux #90 12/09/24 release (Protonix) tabs fluticasone propionate 50 1 spray intranasal BID #16 g rosetta 03/17/25 mcg/actuation nasal spray,suspension (Flonase Allergy Relief) hydroxyzine HCl 25 mg tablet 25 mg PO Q8H PRN anxiety, 03/17/25 allergies #60 tabs oxycodone-acetaminophen 7.5 mg-325 1 tab PO Q6H 30 day s #120 tabs 03/26/25 mg tablet silver sulfadiazine 1 % topical 1 applic topical BID 2 weeks #50 03/27/25 cream grams sulfamethoxazole 800 1 tab PO BID 7 days #14 tabs 03/27/25 mg-trimethoprim 160 mg tablet (Bactrim DS) prednisone 20 mg tablet 20 mg PO TID #15 tabs tizanidine 4 mg tablet 4 mg PO Q6H PRN muscle spast icity 04/17/25 #20 tabs Allergies Allergy/AdvReac Type Severity Reaction Status Date / Time amitriptyline Allergy Intermediate ADR-Itching Verified 04/08/25 08:58 Alpha-Gal Allergy ADR-Diarrhe Verified 04/08/25 08:58 ([id number]-4,3-Gala a clindamycin Allergy THROAT Verified 04/08/25 08:58 SWELLING AND ITCHY crab Allergy ALGY-Hives Verified 04/08/25 08:58 doxycycline Allergy RASH Verified 04/08/25 08:58 [id number] (From Allergy ALGY-Rash Verified 04/08/25 08:58 Emgality Pen) mushroom Allergy ALGY-Hives Verified 04/08/25 08:58 Penicillins Allergy ALGY-Rash Verified 04/08/25 08:58 Review of Systems Const: Denies: fever(s) or chills Card: Denies: chest pain Resp: Denies: dyspnea GI: Denies: abdominal pain : Denies: dysuria, urinary frequency or urinary urgency Musc: Denies: neck pain or back pain Skin/Breast: Denies: rash PFSH ED PFSH: Medical History H/O coronary angiogram GERD (gastroesophageal reflux disease) Erectile dysfunction ADHD COVID Anxiety Hypercholesterolemia Pulmonary embolism Gastroenteritis Hypertension Left ureteral calculus Surgical History History of laparoscopic appendectomy 05/11/23 Dr. Maya H/O esophagogastroduodenoscopy (04/19/22) History of umbilical hernia repair (11/01/21) Recurrent repaired with with ultrapro mesh Status post laparoscopic cholecystectomy (11/01/21) History of umbilical hernia repair 2019 H/O neck surgery BIOPSY OF NECK SWOLLEN LYMPH NODE H/O hernia repair Hx of tonsillectomy Family History Mother , 48 Diabetes Cancer BREAST CAD (coronary artery disease) Hypertension Father Cancer CAD (coronary artery disease) Hypertension Diabetes Family/Other Anesthesia complication CAD (coronary artery disease) Chronic kidney disease (CKD) Dementia Diabetes Lung disease Stroke Suicide Other Hyperlipidemia Seizure Denies family history of Clotting disorder Bleeding disorder Social History Smoking and tobacco/nicotine status: never used tobacco/nicotine Alcohol intake: current Alcohol intake frequency: holidays/special occasions only Substance/Drug Use: never Marital status: Current occupational status: disabled Physical Exam Const: COMMON NORMALS: no acute distress GENERAL APPEARANCE: cooperative and comfortable ORIENTATION/CONSCIOUSNESS: Yes awake, Yes oriented to person, Yes oriented to place and Yes oriented to time HENMT: COMMON NORMALS: normocephalic, atraumatic and hearing grossly normal bilaterally HEAD & SCALP: normocephalic and atraumatic Resp: COMMON NORMALS: normal respiratory effort, No retractions, No use of accessory muscles and clear to auscultation bilaterally AUSCULTATION: clear to auscultation bilaterally Cardio: COMMON NORMALS: regular rate, regular rhythm and No murmurs present (Cardio) RATE: regular rate RHYTHM: regular rhythm Extremity: COMMON NORMALS: normal to inspection, capillary refill normal, no clubbing, cyanosis or edema, no calf tenderness and no pedal edema Neuro: SENSORIUM/ORIENTATION: Yes oriented to person, Yes oriented to place and Yes oriented to time Skin: COMMON NORMALS: no rashes or lesions noted GENERAL SKIN EXAM: no rashes or lesions noted Course Vital Signs: Vital signs: Vital Signs Temperature 98.0 F 04/17/25 14:22 Pulse Rate 81 04/17/25 18:10 Respiratory Rate 16 04/17/25 18:10 Blood Pressure 126/71 04/17/25 18:10 Pulse Oximetry 93 07/31/25 18:10 Oxygen Delivery Me thod Room Air 04/17/25 14:22 MDM - Neck Pain/Injury Medical Decision Making Patient has neck pain does not have really meningeal like symptoms will pain radiates out into his shoulders. He is not having any weakness in his arms but does have pain with radiation. At times it will send shooting pain also to his fingertips. Discharge patient home on steroid taper as well as tizanidine have him follow-up with Dr. Delgado as soon as he is able. Avoid any heavy lifting or working above shoulder level Lab Data Laboratory Results POC Glucose 123 mg/dL (70-110) H 04/17/25 17:07 No radiology studies performed this visit Discharge Plan Discharge Patient Disposition: Home Clinical Impression: Disc disorder of cervical region Condition: Stable Prescriptions: New tizanidine 4 mg tablet 4 mg PO Q6H PRN (Reason: muscle spasticity) Qty: 20 0RF Rx Instructions: do not exceed 3 doses per 24 hrs prednisone 20 mg tablet 20 mg PO TID Qty: 15 0RF Rx Instructions: 1 p.o. 3 times daily x3 days, 1 p.o. twice daily x2 days, 1 p.o. daily x2 days No Action nitroglycerin 0.3 mg tablet, sublingual 0.3 mg sublingual Q5M PRN (Reason: Chest Pain) Rx Instructions: do not exceed 3 doses per episode sulfamethoxazole-trimethoprim [Bactrim DS] 800-160 mg tablet 1 tab PO BID 7 Days Qty: 14 0RF Rx Instructions: Drink plenty of water with this medication. silver sulfadiazine 1 % cream 1 applic topical BID 14 Days Qty: 50 2RF Rx Instructions: apply a 1.5 mm thickness budesonide-formoterol [Symbicort] 160-4.5 mcg/actuation HFA aerosol inhaler 2 puff inhalation BID PRN (Reason: Shortness Of Breath) Qty: 10.2 5RF pantoprazole [Protonix] 40 mg tablet,delayed release (DR/EC) 40 mg PO PRN PRN (Reason: Acid Reflux) Qty: 90 3RF metoprolol succinate 25 mg tablet extended release 24 hr 25 mg PO DAILY Qty: 90 3RF epinephrine 0.3 mg/0.3 mL auto-injector 0.3 mg IM Q15M PRN (Reason: anaphylaxis) Qty: 2 1RF Rx Instructions: not to exceed 6 doses per episode fluticasone propionate [Flonase Allergy Relief] 50 mcg/actuation spray,suspension 1 spray intranasal BID Qty: 16 3RF Rx Instructions: administer into each nostril hydroxyzine HCl 25 mg tablet 25 mg PO Q8H PRN (Reason: anxiety, allergies) Qty: 60 2RF methocarbamol 750 mg tablet 750 mg PO Q8H PRN (Reason: muscle spasm) 7 Days Qty: 21 0RF oxycodone-acetaminophen 7.5-325 mg tablet 1 tab PO Q6H 30 Days Qty: 120 0RF albuterol sulfate [ProAir HFA] 90 mcg/actuation Hfa Aerosol Inhaler 1 puff INHALATION QID PRN (Reason: Shortness Of Breath Or Wheezing) ibuprofen 600 mg tablet 600 mg PO Q12H PRN (Reason: Pain) ondansetron 4 mg tablet,disintegrating 4 mg PO Q6H PRN (Reason: nausea and vomiting) Qty: 14 0RF tamsulosin [Flomax] 0.4 mg capsule 0.4 mg PO DAILY Qty: 7 0RF Discharge Orders: Discharge ED (Routine); Ordered 04/17/25 Ordered By: Tonio Nascimento Referrals: Fer Cespedes DO [Primary Care Provider, Family Practice] Discharge Diet: Usual diet Discharge Activity: Resume usual activity Patient Instructions: Opioid Safety, Pain Management, Patient Portal & Dale Instructions Activity Restrictions/Additional Instructions: Thank you for choosing [facility] for your healthcare needs today. It is very important that you follow up as instructed or that you return to the Emergency Department should you have concerns or if your condition changes or worsens in any way. You were seen in the emergency room with neck pain. You are given pain medications here and discharged home with tizanidine and a steroid taper. Continue the oxycodone you have been prescribed in the past. Follow-up with Dr. Delgado if pain persists. Print Language: Prydeinig Coding Level of Care Code ED Supervisor [employer] for Vernell Mccormack
[2025-04-17] MEDS: orphenadrine 30 mg/mL Inj 2 mL 60 MG IVP (16:06)
[2025-04-17] MEDS: methylPREDNISolone sod succ 125 mg/2 mL INJ IVP (16:06)
[2025-04-17] MEDS: morphine 4 mg/mL SDV 1 mL IVP (16:06)
[2025-04-17] MEDS: HYDROmorphone 0.5 MG/0.5 ML INJ IVP (17:30)
[2025-04-17 18:10] VITALS: BP 126/71; PULSE 81; RESP 16; O2SAT 93
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
--- OUTSIDE RECORDS SUMMARY | 2025-04-18 06:26 | XMS_ITS | Patient Health Record ---
Author Organization [facility] Address [address] [place] [address] Care Team Providers Care Corn Sheller Name Role Phone Mitch Jimenez MD Primary Care Provider CARMELO Clay Unavailable [phone] JAZMIN, LEIA Unavailable [phone] Allergies Allergen (clinical drug ingredient) Drug/Non Drug Allergy documented on EMR Reaction Allergy Type Onset Date Status mushrooms (uncoded) Unknown Allergy Active crab allergenic extract Crab (Diagnostic) Unknown Drug All ergy Active galcanezumab Emgality Unknown Drug Allergy Acti ve clindamycin Clindamycin Unknown Drug Allergy Act betsy doxycycline Doxycycline Unknown Drug Allergy Act betsy Penicillin Unknown Drug Allergy Active Results Component Value Reference Range Notes Uric Acid Reviewed date:09/04/2024 08:43:22 AM Interpretation: Performing Lab: Notes/Report: Uric Acid 7.9 3.5-7.2 MG/DL [address]: [address] [address] CLIA ID [id number] Basic Metabolic Panel Reviewed date:09/04/2024 08:43:18 AM Interpretation: Performing Lab: Notes/Report: Testing performed at [facility], [address] [place] [address] [place] [id number]. CLIA ID#: [id number] B-muleot-g-benzoquinone imine (NAPQI) is a metabolite of acetaminophen, NAPQI concentrations of apparoximately 10 mg/L correlation to toxic levels of acetaminophen demonstrates a greater than or equil to 10% change in results. NAPQI concentrations greater than this may lead to falsely depressed results for patient samples. Calculation performed from GFR calculator provided by the [employer]. Glomerular Filtration rate(GRF) is the best overall index of kidney function. Normal GFR varies according to age,sex, body size, and declines with age. The National Kid[employer] recommends using the CKD-EPI Creatinine Equation(2020) to estimate GFR. Testing performed at: [address], [place] [address] CLIA ID [id number] Use of this assay is not recommended for patients undergoing treatment with phenindione, due to the potential for falsely depressed results. Sodium 144 136-145 MMOL/L Potassium 3.8 3.5-5.1 MMOL/L Chloride 106 98-107 MMOL/L CO2 29.8 20.0-31.0 MMOL/L Glucose Serum 93 71-110 MG/DL BUN 16 7-21 MG/DL Creat .97 .57-1.17 MG/DL GFR 105.0 Anion Gap 12 5-15 BUN/Creat Ratio 16.5 12.0-20.0 % Calcium 10.3 8.7-10.4 MG/DL Osmo Serum,Calculated 299 280-300 MOSM/KG Urinalysis, Routine Reviewed date:09/30/2024 01:21:32 PM Interpretation: Performing Lab: Notes/Report: Urine-Color yellow Appearance clear Glucose - Bilirubin - Ketones - Specific [place] 1.030 Occult Blood - pH 6.0 Urine Protein - Urobilinogen,Semi-Qn - Nitrite, Urine - WBC Esterase - Urinalysis, Routine Reviewed date:08/20/2024 09:05:11 AM Interpretation: Performing Lab: Notes/Report: Urine-Color yellow Appearance clear Glucose - Bilirubin - Ketones - Specific [place] 1.020 Occult Blood - pH 6.0 Urine Protein - Urobilinogen,Semi-Qn - Nitrite, Urine - WBC Esterase - Urinalysis Gross Exam - Reason For Referral No Information Medications Medication SIG (Take, Route, Frequency, Duration) Notes Start Date End Date Status Methocarbamol 750 MG 1 tablet Orally stephan ry 4 hrs Active Metoprolol Tartrate 25 MG 1 tablet with food Orally Twice a day Active Pantoprazole Sodium 40 MG 1 packet 1/2 t o 1 hour before morning meal mixed with apple juice or applesauce Orally Once a day Active oxyCODONE HCl 5 MG 1 tablet as needed O rally every 6 hrs Active Social History Tobacco Use: Social History Observation Description Date Details (start date - stop date) Never Smoker NA - NA Tobacco Control (Standard) Question Answer Notes Tobacco use: Nonsmoker Section Notes: occasionally drinks alcohol occasionally drinks alcohol occasionally drinks alcohol Problems Problem Type SNOMED Code ICD Code Onset Dates Problem Status W/U Status Risk Notes Problem Nephrolithiasis (N20.0) Active confirmed Problem Recurrent nephrolithiasis (2863617905735489) Recurrent nephrolithiasis (N20.0) Active confirmed Problem Calculus of kidn ey and ureter (N20.2) Active confirmed Vital Signs Heart Rate 78 /min 11/27/2024 Temperature 97.9 degrees Fahrenheit 08/20/2024 Height-cm 177.8 cm 11/27/2024 Blood pressure diastolic 72 mm Hg 11/27/2024 Weight-kg 112.49 kg 11/27/2024 Height 70 in 11/27/2024 Blood pressure systolic 120 mm Hg 11/27/2024 Weight 248 lbs 11/27/2024 BMI 35.58 kg/m2 11/27/2024 Encounters Encounter Location Date Provider Diagnosis [facility] [address] [facility] [address] [place] [address] 08/20/2024 LEIA WU Calculus of kidney a nd ureter N20.2 [facility] [address] [place] [address] 09/30/2024 LEIA WU Calculus of kidney a nd ureter N20.2 [facility] [address] [place] [address] 11/27/2024 LEIA WU Recurrent nephrolithiasis N20.0 [facility] [address] [place] [address] 08/06/2024 CARMELO RAMIREZ [facility] [address] [facility] [address] [place] [address] 09/30/2024 LEIA WU [facility] [address] [place] [address] 10/01/2024 LEIA WU Assessments Encounter Date Diagnosis (ICD Code) Assessment Notes Treatment Notes Treatment Clinical Notes Section Notes 08/20/2024 Calculus of kidney and ureter (ICD-10 - N20.2) 09/30/2024 Calculus of kidney and ureter (ICD-10 - N20.2) 11/27/2024 Recurrent nephrolithiasis (ICD-10 - N20.0) We have extensively reviewed renal stone prevention strategies based on his Litholink results including aggressive, hydration, avoidance of stone promoting fluids, avoidance of high salt diets, and recommend starting MoonStone nutrition as his dietary citrate intake is still not quite adequate. He has also stopped his topamax which should also help prevent future stones. Will have him RTC in 1 year with surveillance KUB and UA. 08/20/2024 Other Pt passed urete ral stone and all symptoms resolved. UA clear. Pt with h/o recurrent stones. I independantly reviewed his imaging from [facility]. He has 4 stones, two punctate, and two 2-3mm left upper pole stones remaining in left kidney. They are too small to see on flouro, but we will start surveillance and he is interested in ESWL in the future should they become visible. He notes frustration that he is following all the prevention recommendations from Dr. Fine but still having stones. Recommend metabolic urine analysis and he is agreeable. RTC in 2-3m with litholink. 09/30/2024 Other Reviewed ER records from [facility] from both visit dates. I have independently reviewed CT imaging, along with radiologic report. I reviewed images and discussed findings with patient in the exam room. Currently doing well with pain control and he would like to continue the trial of passage for now. Importance of hydration, as well as, use of Flomax and strainers reinforced. Understands the favorable chances of passing a stone this size, but it is certainly possible and we will allow for a 2week trial prior to obtaining CT. We also reviewed surgical options including ureteroscopy versus ESWL and patient will call back sooner if he desires to proceed with that but otherwise continue trial of passage. Plan Of Treatment Pending Test Test Name Order Date STONE ANALYSIS W/ IMAGE (71717) 11/28/[address] [place] [id number] 09/30/19 25 Basic Metabolic Panel 08/22/2024 Uric Acid 08/22/2024 Next Appt Details Provider Name:LEIA MOODY, 11/27/2025 10:00:00 AM, [address] [place], [address], Insurance Providers Payer Name Payer Address Payer Phone Subscriber Number Group Number Insured Name Patient Relationship to Insured Coverage Start Date Coverage End Date [facility] [address] [address] [place], [place] [phone] [id number] Dominic Krishnan Self - patient is the insured Medical (General) History Medical History History ICD Code Anxiety Depression Hypertension Kidney stone Kidney disease Surgical History Surgery Date(Month/Year) neck fusion Cholecystectomy hernia repair X 3 Appendectomy
--- OUTSIDE RECORDS SUMMARY | 2025-04-18 06:27 | XMS_ITS | Patient Health Record ---
Author Organization [facility] Address [address] [place] [address] Care Team Providers Care Boomswing Operator Name Role Phone Dr Fer Cespedes DO Primary Care Provider Gloria Strauss Unavailable [phone] Allergies Allergen (clinical drug ingredient) Drug/Non Drug Allergy documented on EMR Reaction Allergy Type Onset Date Status galcanezumab Emgality Unknown Drug Allergy Acti ve clindamycin Clindamycin Unknown Drug Allergy Act betsy doxycycline Doxycycline Unknown Drug Allergy Act betsy Penicillin Unknown Drug Allergy Active Reason For Referral Reason chronic back pain Diagnosis 1 Other chronic pain ( G89.29) Referring Provider First Name Fer Referring Provider Last Name Rubina [facility] Referred Provider Gloria Hager Referred Address [address] [facility] [place],[address] Referred Provider Specialty Gastroentero logy Referral Priority Routine Reason Eval and treat Diagnosis 1 Other chronic pain ( G89.29) Referring Provider First Name Fer Referring Provider Last Name Rubina Referring Provider [facility] icine Referred Organization [facility] Referred Provider Javier Rodriguez Referred Address [address],[facility],[address],[place] Referred Provider Specialty Pain Medicin e General Notes Leia Asencio 03:47:59 PM >mailing npp, scheduled pt Referral Priority Routine Medications Medication SIG (Take, Route, Frequency, Duration) Notes Start Date End Date Status Tamsulosin HCl 0.4 MG Capsule 1 capsule Orally Once a day Active Pantoprazole Sodium 40 MG Tablet Delayed Release 1 tablet 1/2 to 1 hour before morning meal Orally Once a day Active Nitroglycerin 0.4 MG Tablet Sublingual 1 tablet under the tongue and allow to dissolve as needed. Take every 5 minutes up to 3 times if chest pain persists Sublingual as needed Active Symbicort 160-4.5 MCG/ACT Aerosol as directed Inhalation as needed Active Metoprolol Tartrate 50 MG Tablet 1 tablet with food Orally Twice a day Active Ibuprofen 200 MG Tablet 1 tablet with fo od or milk as needed Orally Three times a day Active oxyCODONE-Acetaminophen 7.5-325 MG Tablet 1 tablet as needed Orally every 6 hrs Active Social History Tobacco Use: Social History Observation Description Date Details (start date - stop date) Never Smoker NA - NA Social History Drug/Alcohol: Social Info Question Answer Notes AUDIT-C (Standard) Did you have a drink containing alcohol in the past year? No Points 0 Interpretation Negative Tobacco Use: Social Info Question Answer Notes Tobacco Control (Standard) Tobacco use: Nonsmoker Additional Details Category Social Info Options Details Drugs/Alcohol: Do you smoke marijuana? De nies Problems Problem Type SNOMED Code ICD Code Onset Dates Problem Status W/U Status Risk Notes Problem Chronic pain (12759118) Other chronic pain (G89.29) Active confirmed Problem Cervical spondylosis without myelopathy (251024174) Other spondylosis with radiculopathy, cervical region (M47.22) Active confirmed Problem Essential hypertension (46906657) Essential hypertension (I10) Active confirmed Problem Anxiety (73622348) Anxiety (F41.9) Active confi rmed Problem Obesity (258900251) Obesity (BMI 30-39.9) (E66.9) Active confirmed Problem Chronic depression (879017783) Chronic depression (F32.9) Active confirmed Problem Chronic diarrhea (746398603) Chronic diarrhea (K52.9) Active confirmed Problem Morbid obesity (628877373) Morbid obesity (E66.01) Active confirmed Problem Gastroesophageal reflux disease (663208193) GERD (gastroesophage al reflux disease) (K21.9) Active confirmed Problem Degeneration of intervertebral disc (62689271) Multilevel degenerative disc disease (M53.9) Active confirmed Vital Signs Heart Rate 82 /min 01/15/2025 Temperature 98.0 degrees Fahrenheit 01/15/2025 Respiratory Rate 20 /min 01/15/2025 Height-cm 167.64 cm 01/15/2025 Oximetry 97 % 01/15/2025 Blood pressure diastolic 94 mm Hg 01/15/2025 Weight-kg 114.31 kg 01/15/2025 Height 66 in 01/15/2025 Blood pressure systolic 140 mm Hg 01/15/2025 Weight 252.00 lbs 01/15/2025 BMI 40.67 kg/m2 01/15/2025 Encounters Encounter Location Date Provider Diagnosis [facility] [address] [place] [address] 01/15/2025 Vincenthelioharvey [place] Chronic diarrhea K52.9 ; GERD (gastroesophageal reflux disease) K21.9 ; Anxiety F41.9 ; Chronic depression F32.9 ; Essential hypertension I10 ; Multilevel degenerative disc disease M53.9 and Morbid obesity E66.01 Assessments Encounter Date Diagnosis (ICD Code) Assessment Notes Treatment Notes Treatment Clinical Notes Section Notes 01/15/2025 Chronic diarrhea (ICD-10 - K52.9) 01/15/2025 GERD (gastroesophagea l reflux disease) (ICD-10 - K21.9) 01/15/2025 Anxiety (ICD-10 - F41.9) 01/15/2025 Chronic depression (ICD-10 - F32.9) 01/15/2025 Essential hypertension (ICD-10 - I10) 01/15/2025 Multilevel degenerative disc disease (ICD-10 - M53.9) 01/15/2025 Morbid obesity (ICD-10 - E66.01) 01/15/2025 Other The patient appears to have functional diarrhea. He has no alarm symptoms. Dietary modifications to minimize diarrhea was discussed with the patient. The patient may use Imodium A-D 1 to 2 tablets on as-needed basis up to 6 tablets a day if 3 or more loose stools a day. The patient is advised to observe antireflux precautions and continue current PPI therapy. Will see the patient back in the clinic on as-needed basis. He is advised to call if he has acute GI complaints or concerns. Plan Of Treatment Next Appt Details Provider Name:Alma Rosa Metcalf, 05/16/2025 09:00:00 AM, [address], [place], [address], Insurance Providers Payer Name Payer Address Payer Phone Subscriber Number Group Number Insured Name Patient Relationship to Insured Coverage Start Date Coverage End Date [place] [address] [place] [id number] Dominic Krishnan Self - patient is the insured Medical (General) History Medical History History ICD Code chicken pox whooping cough diphtheria pneumonia arthritis bladder infection migraines hernia back trouble hypertension asthma bronchitis anxiety depression fatty liver GERD kidney stones sleep apnea Surgical History Surgery Date(Month/Year) hernia repair x3 cholecystectomy appendectomy heart cath neck fusion tonsillectomy lymph node removal(neck)
--- NOTE | 2025-04-24 07:17 | DCPLANNER ---
messaged ortho for er f/u
== END 2025-04-17 18:09 | disposition home or self-care (01) ==
PROVIDERS: Emergency Provider Family Medicine; PCP Family Medicine
DX: M50.90 Cervical disc disorder, unspecified, unspecified cervical region (principal); I10 Essential (primary) hypertension
CPT/HCPCS: 36416; 82962; 96374; 96375; 99284; J1171; J1885; J2270; J2360; J2919

== ENCOUNTER 2025-04-20 07:02 | Emergency (ER) | payer MEDICAID, SELFPAY ==
--- OUTSIDE RECORDS SUMMARY | 2023-08-26 06:45 | XMS_ITS | Continuity of Care Document ---
Author Organization [facility] Address [id number] [address] Phone Care Team Providers Care Workers Compensation Claims Specialist Name Role Phone Enmanuel Steen DDS Unavailable Unavailable Allergies, Adverse Reactions, Alerts Substance Reaction Status Criticality mushroom Active No Information crab Active No Information clindamycin Active No Information doxycycline Active No Information PENICILLIN Active No Information Medications Medication Instructions Dosage Effective Dates (start - stop) Status Comments Kapspargo Sprinkle 25 mg capsule,extended release take 1 capsule by oral route every day 25 MG - Active oxycodone-acetamino phen 7.5 mg-325 mg tablet take 1 tablet by oral route every 6 hours as needed 1.00 tablet - Active tamsulosin 0.4 mg capsule take 1 capsule by oral route every day 1/2 hour following the same meal each day 0.4 MG - Active Procedures Procedure Date Panoramic Film Extraction, Erupted Tooth Or Exposed Myra t (Elevati Extraction, Erupted Tooth Or Exposed Myra t (Elevati Limited Oral Evaluation Problem Focused Advance Directives Directive Yes / No Effective Date File Name No Information Encounters Encounter Description Practice Location Reason(s) For Visit Diagnoses Date Provider Providers Copied on Encounter [facility], [id number], [id number], [place] tel:[phone] Encounter for dental exam and cleaning w/o abnormal findings Celsa Singer. [address], [place], [address], [place]. tel:[phone] Referring Provider: Enmanuel Steen [address], [place], [address]. tel:[phone] Family History Family Member Type Diagnosis Age At Onset No Information Payers Payer name Insurance type Covered republican ID Ranjana cole(s) D Medicaid [id number] Social History Type Description Quantity Date Captured Comments Alcohol Use Details Caffeine Use Details Unknown Tobacco Use Status Current non-smoker Smoking Status Never smoker Non-Smoking Tobacco Use Details : No Details Available : No Details Available Sex Male Gender Identity Male Chief Complaint And Reason For Visit No Information Reason For Referral Reason For Referral No Information History Of Present Illness Encounter Date Complaint History Of Prese nt Illness No Information Functional Status Date Functional Assessmen t No Information Instructions Date Instruction Additional Infor mation No Information Assessments Type Assessment Date No Information Patient Care Teams Name Effective Dates (start - stop) Status Members No Information
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
--- OUTSIDE RECORDS SUMMARY | 2025-04-20 07:07 | XMS_ITS | Patient Health Record ---
Author Organization [facility] Address [address] [place] [address] Care Team Providers Care Speech Correction Assistant Name Role Phone Mitch Jimenez MD Primary Care Provider Alejo RAMIREZ CARMELO Unavailable [phone] LEIA WU Unavailable [phone] Allergies Allergen (clinical drug ingredient) Drug/Non Drug [...] Active Results Component Value Reference Range Notes Basic Metabolic Panel Reviewed date:09/04/2024 08:43:18 AM Interpretation: Performing Lab: Notes/Report: Use of this assay is not recommended for patients undergoing treatment with phenindione, due to the potential for falsely depressed results. Testing performed at: [address] [address] CLIA ID [id number] Calculation performed from GFR calculator provided by the National [employer]. Glomerular Filtration rate(GRF) is the best overall index of kidney function. Normal GFR varies according to age,sex, body size, and declines with age. The National Kidney Foundation recommends using the CKD-EPI Creatinine Equation(2020) to estimate GFR. M-llesjx-y-benzoquinone imine (NAPQI) is a metabolite of acetaminophen, NAPQI concentrations of apparoximately 10 mg/L correlation to toxic levels of acetaminophen demonstrates a greater than or equil to 10% change in results. NAPQI concentrations greater than this may lead to falsely depressed results for patient samples. Testing performed at [facility], [address] [place] [address] [address] [address]. CLIA ID#: [id number] Sodium 144 136-145 MMOL/L Potassium 3.8 3.5-5.1 MMOL/L Chloride 106 98-107 MMOL/L CO2 29.8 20.0-31.0 MMOL/L Glucose Serum 93 71-110 MG/DL BUN 16 7-21 MG/DL Creat .97 .57-1.17 MG/DL GFR 105.0 Anion Gap 12 5-15 BUN/Creat Ratio 16.5 12.0-20.0 % Calcium 10.3 8.7-10.4 MG/DL Osmo Serum,Calculated 299 280-300 MOSM/KG Uric Acid Reviewed date:09/04/2024 08:43:22 AM Interpretation: Performing Lab: Notes/Report: Uric Acid 7.9 3.5-7.2 MG/DL Testing perfor med at: [address] [place] [address] CLIA ID [id number] Urinalysis, Routine Reviewed date:08/20/2024 09:05:11 AM Interpretation: Performing Lab: Notes/Report: Urine-Color yellow Appearance clear Glucose - Bilirubin - Ketones - Specific [place] 1.020 Occult Blood - pH 6.0 Urine Protein - Urobilinogen,Semi-Qn - Nitrite, Urine - WBC Esterase - Urinalysis Gross Exam - Urinalysis, Routine Reviewed date:09/30/2024 01:21:32 PM Interpretation: Performing Lab: Notes/Report: Urine-Color yellow Appearance clear Glucose - Bilirubin - Ketones - Specific [place] 1.030 Occult Blood - pH 6.0 Urine Protein - Urobilinogen,Semi-Qn - Nitrite, Urine - WBC Esterase - Reason For Referral No Information Medications [...] Nephrolithiasis (N20.0) Active confirmed Problem Recurrent nephrolithiasis (8374247313981308) Recurrent nephrolithiasis (N20.0) Active confirmed Problem Calculus [...] Provider Diagnosis [facility] [address] [facility] [address] [place] [address] 08/20/2024 LEIA WU Calculus of kidney a nd ureter N20.2 [facility] [address] [place] [address] 09/30/2024 LEIA WU Calculus of kidney a nd ureter N20.2 [facility] [address] [place] [address] 11/27/2024 LEIA WU Recurrent nephrolithiasis N20.0 [facility] [address] [place] [address] 08/06/2024 CARMELO RAMIREZ [facility] [address] [facility] [address] [place] [address] 09/30/2024 LEIA WU [facility], [facility] [address] [place] [address] 10/01/2024 LEIA WU Assessments Encounter Date Diagnosis (ICD Code) Assessment Notes Treatment Notes Treatment Clinical Notes Section Notes 09/30/2024 Calculus of kidney and ureter (ICD-10 [...] year with surveillance KUB and UA. 08/20/2024 Calculus of kidney and ureter (ICD-10 - N20.2) 08/20/2024 Other Pt passed urete ral stone and all symptoms resolved. UA clear. Pt with h/o recurrent stones. I independantly reviewed his imaging from [facility]. He has 4 stones, two punctate, and [...] litholink. 09/30/2024 Other Reviewed ER records from [facility] from both visit dates. I have independently [...] Name Order Date STONE ANALYSIS W/ IMAGE (95614) 11/28/[address] [place] [address] 09/30/19 25 Basic Metabolic Panel 08/22/2024 Uric Acid 08/22/2024 Next Appt Details Provider Name:LEIA MOODY, 11/27/2025 10:00:00 AM, [address] [place], [address], Insurance Providers Payer Name Payer Address Payer Phone Subscriber Number Group Number Insured Name Patient Relationship to Insured Coverage Start Date Coverage End Date [facility] [address] [address] [place], [place] [id number] Dominic Krishnan Self - patient is the insured Medical (General) History Medical History History ICD Code Anxiety Depression Hypertension Kidney stone Kidney disease Surgical History Surgery Date(Month/Year) neck fusion Cholecystectomy hernia repair X 3 Appendectomy
--- OUTSIDE RECORDS SUMMARY | 2025-04-20 07:07 | XMS_ITS | Patient Health Record ---
Author Organization [facility] Address [address] [facility] [place] [address] Care Team Providers Care Instant Powder Supervisor Name Role Phone Dr Fer Cespedes DO Primary Care Provider Gloria Strauss Unavailable [phone] Allergies Allergen (clinical drug ingredient) Drug/Non Drug [...] Referring Provider Last Name Rubina [facility] Referred Provider Gloria Hager Referred Address [address] [facility] [place],[address] Referred Provider Specialty Gastroentero logy Referral Priority Routine Reason Eval and treat Diagnosis 1 Other chronic pain ( G89.29) Referring Provider First Name Fer Referring Provider Last Name Rubina Referring Provider [facility] icine Referred Organization [facility] Referred Provider Javier Rodriguez Referred Address [address],[facility],[place],[address],[place] Referred Provider Specialty Pain Medicin e General [...] W/U Status Risk Notes Problem Chronic pain (59269441) Other chronic pain (G89.29) Active confirmed Problem Cervical spondylosis without myelopathy (185594547) Other spondylosis with radiculopathy, cervical region (M47.22) Active confirmed Problem Essential hypertension (77742653) Essential hypertension (I10) Active confirmed Problem Anxiety (05464966) Anxiety (F41.9) Active confi rmed Problem Obesity (746718760) Obesity (BMI 30-39.9) (E66.9) Active confirmed Problem Chronic depression (033427040) Chronic depression (F32.9) Active confirmed Problem Chronic diarrhea (631433412) Chronic diarrhea (K52.9) Active confirmed Problem Morbid obesity (589950853) Morbid obesity (E66.01) Active confirmed Problem Gastroesophageal reflux disease (951608366) GERD (gastroesophage al reflux disease) (K21.9) Active confirmed Problem Degeneration of intervertebral disc (01514350) Multilevel degenerative disc disease (M53.9) Active confirmed [...] 01/15/2025 Encounters Encounter Location Date Provider Diagnosis [facility] [address] [place] [address] 01/15/2025 Vincenthelioharvey [place] Chronic diarrhea K52.9 ; [...] Metcalf, 05/16/2025 09:00:00 AM, [address], [place], [address], Insurance Providers Payer Name Payer Address Payer Phone Subscriber Number Group Number Insured Name Patient Relationship to Insured Coverage Start Date Coverage End Date [place] Medicaid [address] [place] [id number] [phone] [id number] Dominic Krishnan Self - patient is the [...]
[2025-04-20 07:08] VITALS: BP 135/77; PULSE 73; RESP 17; TEMP 36.6; O2SAT 98; BMI 34.7
[2025-04-20 07:13] VITALS: BP 135/77; PULSE 73; RESP 17; O2SAT 98
--- NOTE | 2025-04-20 07:14 | ED_ITS ---
HPI - Recheck/Abnormal Lab/Rx 2 General: Chief Complaint: Recheck/Abnormal Lab/Rx Stated Complaint: high blood sugar Time Seen by Provider: 04/20/25 07:05 Source: patient Mode of arrival: ambulatory Limitations: no limitations History of Present Illness: 34-year-old male states that he is predi abetic states blood sugars at 300 this morning at 2 AM. He states over last few days he has felt warm all over as well denies being out in the heat he denies any vomiting denies any pain anywhere denies any worse improved factors Related Data Home Medications ?Medication ?Instructions ?Recorded ?Confirmed nitroglycerin 0.3 mg sublingual 0.3 mg sublingual Q5M PRN Chest 06/08/21 04/08/25 tablet Pain albuterol sulfate 90 mcg/actuation 1 puff inhalation Q ID PRN 08/01/24 04/08/25 aerosol inhaler Shortness Of Breath Or Wheez ing ibuprofen 600 mg tablet 600 mg PO Q12H PRN Pain 07/1904/08/25 Previous Rx's ?Medication ?Instructions ?Recorded methocarbamol 750 mg tablet 750 mg PO Q8H PRN muscle s pasm 7 05/08/24 days #21 tabs ondansetron 4 mg disintegrating 4 mg PO Q6H PRN nausea and 08/01/24 tablet vomiting #14 tabs tamsulosin 0.4 mg capsule (Flomax) 0.4 mg PO DAILY #7 caps 09/22/24 budesonide-formoterol HFA 160 2 puff inhalation BID ND N 12/09/24 mcg-4.5 mcg/actuation aerosol Shortness Of Breath #10. 2 grams inhaler (Symbicort) epinephrine 0.3 mg/0.3 mL 0.3 mg (0.3 mL) IM Q15M PRN 12/09/24 injection, auto-injector anaphylaxis #2 ea metoprolol succinate 25 mg 25 mg PO DAILY #90 tabs tablet,extended release 24 hr pantoprazole 40 mg tablet,delayed 40 mg PO PRN PRN Aci d Reflux #90 12/09/24 release (Protonix) tabs fluticasone propionate 50 1 spray intranasal BID #16 g rosetta 03/17/ mcg/actuation nasal spray,suspension (Flonase Allergy Relief) hydroxyzine HCl 25 mg tablet 25 mg PO Q8H PRN anxiety, 03/17/25 allergies #60 tabs oxycodone-acetaminophen 7.5 mg-325 1 tab PO Q6H 30 day s #120 tabs 03/26/25 mg tablet silver sulfadiazine 1 % topical 1 applic topical BID 2 weeks #50 03/27/25 cream grams sulfamethoxazole 800 1 tab PO BID 7 days #14 tabs 03/27/25 mg-trimethoprim 160 mg tablet (Bactrim DS) prednisone 20 mg tablet 20 mg PO TID #15 tabs tizanidine 4 mg tablet 4 mg PO Q6H PRN muscle spast icity 04/17/25 #20 tabs Allergies Allergy/AdvReac Type Severity Reaction Status Date / Time amitriptyline Allergy Intermediate ADR-Itching Verified 04/08/25 08:58 Alpha-Gal Allergy ADR-Diarrhe Verified 04/08/25 08:58 (Zbzidagrf-Udcqk-7,3-Gala a clindamycin Allergy THROAT Verified 04/08/25 08:58 SWELLING AND ITCHY crab Allergy ALGY-Hives Verified 04/08/25 08:58 doxycycline Allergy RASH Verified 04/08/25 08:58 [id number] (From Allergy ALGY-Rash Verified 04/08/25 08:58 Emgality Pen) mushroom Allergy ALGY-Hives Verified 04/08/25 08:58 Penicillins Allergy ALGY-Rash Verified 04/08/25 08:58 Review of Systems 2 Const: Denies: fever(s), chills, body aches or change in appetite ENMT: Denies: throat pain or dental pain Card: Denies: chest pain Resp: Denies: dyspnea GI: Denies: abdominal pain, nausea, vomiting or diarrhea Musc: Denies: neck pain or back pain Skin/Breast: Denies: rash Neuro: Denies: headache(s) PFSH ED 2 PFSH: Medical History H/O coronary angiogram GERD (gastroesophageal reflux disease) Erectile dysfunction ADHD COVID Anxiety Hypercholesterolemia Pulmonary embolism Gastroenteritis Hypertension Left ureteral calculus Surgical History History of laparoscopic appendectomy 05/11/23 Dr. Maya H/O esophagogastroduodenoscopy (04/19/22) History of umbilical hernia repair (11/01/21) Recurrent repaired with with ultrapro mesh Status post laparoscopic cholecystectomy (11/01/21) History of umbilical hernia repair 2019 H/O neck surgery BIOPSY OF NECK SWOLLEN LYMPH NODE H/O hernia repair Hx of tonsillectomy Family History Mother , 48 Diabetes Cancer BREAST CAD (coronary artery disease) Hypertension Father Cancer CAD (coronary artery disease) Hypertension Diabetes Family/Other Anesthesia complication CAD (coronary artery disease) Chronic kidney disease (CKD) Dementia Diabetes Lung disease Stroke Suicide Other Hyperlipidemia Seizure Denies family history of Clotting disorder Bleeding disorder Social History Smoking and tobacco/nicotine status: never used tobacco/nicotine Alcohol intake: current Alcohol intake frequency: holidays/special occasions only Substance/Drug Use: never Marital status: Current occupational status: disabled Physical Exam 2 Const: COMMON NORMALS: no acute distress, patient oriented x3 and healthy appearing HENMT: COMMON NORMALS: normocephalic and atraumatic HEAD & SCALP: n ormocephalic and atraumatic Eye: COMMON NORMALS: conjunctivae normal CONJUNCTIVA: Yes conjunctivae normal Neck/C-Spine: COMMON NORMALS: full ROM and supple Chest: COMMONS NORMALS: normal inspection of the chest and normal palpation of entire chest wall Resp: COMMON NORMALS: normal respiratory effort, No retractions, No use of accessory muscles and clear to auscultation bilaterally AUSCULTATION: clear to auscultation bilaterally Cardio: COMMON NORMALS: regular rate, regular rhythm and No murmurs present (Cardio) RATE: regular rate RHYTHM: regular rhythm GI: COMMON NORMALS: Normal to inspection, nondistended, normoactive bowel sounds present, Soft to palpation, non-tender and no masses PALPATION: Yes Soft to palpation Extremity: COMMON NORMALS: normal to inspection and full ROM Neuro: COMMON NORMALS: patient oriented x3, moves all extremities and no focal motor deficits Psych: COMMON NORMALS: mental status grossly normal, Normal thought process present and cooperative THOUGHT PROCESS: Normal thought process present Skin: COMMON NORMALS: no rashes or lesions noted and no wounds GENERAL SKIN EXAM: no rashes or lesions noted Course 2 Vital Signs: Vital signs: Vital Signs Temperature 97.9 F 04/20/25 07:08 Pulse Rate 73 04/20/25 07:13 Respiratory Rate 17 04/20/25 07:13 Blood Pressure 135/77 04/20/25 07:13 Pulse Oximetry 98 04/20/25 07:13 Oxygen Delivery Me thod Room Air 04/20/25 07:08 MDM - Recheck/Abnormal Lab/Rx Medical Decision Making Patient presents here with hyperglycemia overnight his blood sugar here is normal blood work is normal no signs of infection he stable for discharge he is follow-up with PCP return if worsening. Medical Records I reviewed the patient's medical records. Lab Data I reviewed the patient's lab results. 04/20/25 07:20 04/20/25 07:20 Laboratory Results WBC 15.84 10^3/uL (3.29-11.43) H 04/20/25 07:20 RBC 4.79 10^6/uL (3.85-5.65) 04/20/25 07:20 Hgb 14.40 g/dL (11.27-16.99) 04/20/25 07:20 Hct 44.5 % (37-53) 04/20/25 07:20 MCV 92.9 fl (82-101) 04/20/25 07:20 MCH 30.1 pg (27-33) 04/20/25 07:20 MCHC 32.4 g/dL (30-55) 04/20/25 07:20 RDW 13.0 % (12.1-15.1) 04/20/25 07:20 Plt Count 260 10^3/cmm (157-399) 04/20/25 07:20 MPV 9.2 fL (7.4-10.4) 04/20/25 07:20 Neut % (Auto) 71.4 % 04/20/25 07:20 Lymph % (Auto) 19.9 % 04/20/25 07:20 Rush % (Auto) 6.3 % 04/20/25 07:20 Eos % (Auto) 0.1 % 04/20/25 07:20 Baso % (Auto) 0.3 % 04/20/25 07:20 Neut # (Auto) 11.31 10^3/uL (1.8-7.7) H 04/20/25 07:20 Lymph # (Auto) 3.2 10^3/uL (0.8-4.8) 04/20/25 07:20 Rush # (Auto) 1.0 10^3/uL (0.2-0.9) H 04/20/25 07:20 Eos # (Auto) 0.0 10^3/uL (0.0-0.8) 04/20/25 07:20 Baso # (Auto) 0.1 10^3/uL (0.0-0.1) 04/20/25 07:20 Nucleated RBC % (auto) 0 % 04/20/25 07:20 Nucleated RBCs # 0.0 /100WBC 04/20/25 07:20 Sodium 137 mmol/L (136-145) 04/20/25 07:20 Potassium 3.6 mmol/L (3.5-5.1) 04/20/25 07:20 Chloride 99 mmol/L (98-107) 04/20/25 07:20 Carbon Dioxide 24 mmol/L (22-29) 04/20/25 07:20 Anion Gap 17.6 (5-19) 04/20/25 07:20 BUN 18 mg/dL (6-20) 04/20/25 07:20 Creatinine 0.9 mg/dL (0.7-1.2) 04/20/25 07:20 GFR Calculation 96.0 mL/min (90-130) 04/20/25 07:20 Glucose 175 mg/dL (65-115) H 04/20/25 07:20 POC Glucose 116 mg/dL (70-110) H 04/20/25 08:18 Calculated Osmolality 290 mOsm/kg (285-295) 04/20/25 07:20 Calcium 9.3 mg/dL (8.5-10.5) 04/20/25 07:20 Total Bilirubin 0.3 mg/dL (0.15-1.2) 04/20/25 07:20 AST 20 U/L (0-40) 04/20/25 07:20 ALT 58 U/L (0-41) H 04/20/25 07:20 Alkaline Phosphatase 86 U/L (40-130) 04/20/25 07:20 Total Protein 7.4 g/dL (6.6-8.7) 04/20/25 07:20 Albumin 4.2 g/dL (3.5-5.2) 04/20/25 07:20 Globulin 3.2 g/dL (1.3-4.6) 04/20/25 07:20 TSH 1.55 uIU/mL (0.27-4.20) 04/20/25 07:20 No radiology studies performed this visit Discharge Plan Discharge Patient Disposition: Home Clinical Impression: Hyperglycemia Condition: Stable Prescriptions: No Action nitroglycerin 0.3 mg tablet, sublingual 0.3 mg sublingual Q5M PRN (Reason: Chest Pain) Rx Instructions: do not exceed 3 doses per episode sulfamethoxazole-trimethoprim [Bactrim DS] 800-160 mg tablet 1 tab PO BID 7 Days Qty: 14 0RF Rx Instructions: Drink plenty of water with this medication. silver sulfadiazine 1 % cream 1 applic topical BID 14 Days Qty: 50 2RF Rx Instructions: apply a 1.5 mm thickness budesonide-formoterol [Symbicort] 160-4.5 mcg/actuation HFA aerosol inhaler 2 puff inhalation BID PRN (Reason: Shortness Of Breath) Qty: 10.2 5RF pantoprazole [Protonix] 40 mg tablet,delayed release (DR/EC) 40 mg PO PRN PRN (Reason: Acid Reflux) Qty: 90 3RF metoprolol succinate 25 mg tablet extended release 24 hr 25 mg PO DAILY Qty: 90 3RF epinephrine 0.3 mg/0.3 mL auto-injector 0.3 mg IM Q15M PRN (Reason: anaphylaxis) Qty: 2 1RF Rx Instructions: not to exceed 6 doses per episode fluticasone propionate [Flonase Allergy Relief] 50 mcg/actuation spray,suspension 1 spray intranasal BID Qty: 16 3RF Rx Instructions: administer into each nostril hydroxyzine HCl 25 mg tablet 25 mg PO Q8H PRN (Reason: anxiety, allergies) Qty: 60 2RF methocarbamol 750 mg tablet 750 mg PO Q8H PRN (Reason: muscle spasm) 7 Days Qty: 21 0RF oxycodone-acetaminophen 7.5-325 mg tablet 1 tab PO Q6H 30 Days Qty: 120 0RF albuterol sulfate [ProAir HFA] 90 mcg/actuation Hfa Aerosol Inhaler 1 puff INHALATION QID PRN (Reason: Shortness Of Breath Or Wheezing) ibuprofen 600 mg tablet 600 mg PO Q12H PRN (Reason: Pain) ondansetron 4 mg tablet,disintegrating 4 mg PO Q6H PRN (Reason: nausea and vomiting) Qty: 14 0RF tamsulosin [Flomax] 0.4 mg capsule 0.4 mg PO DAILY Qty: 7 0RF tizanidine 4 mg tablet 4 mg PO Q6H PRN (Reason: muscle spasticity) Qty: 20 0RF Rx Instructions: do not exceed 3 doses per 24 hrs prednisone 20 mg tablet 20 mg PO TID Qty: 15 0RF Rx Instructions: 1 p.o. 3 times daily x3 days, 1 p.o. twice daily x2 days, 1 p.o. daily x2 days Discharge Orders: Discharge ED (Routine); Ordered 04/20/25 Ordered By: Eileen Adair Referrals: Fer Cespedes DO [Primary Care Provider, [facility]] Discharge Diet: Advance as tolerated Discharge Activity: Resume usual activity Patient Instructions: Diabetic Hyperglycemia (ED) Print Language: Hong Konger Coding Level of Care Code ED Asset Protection Manager for Vernell Mccormack
[2025-04-20 07:24] LABS: Hematocrit 44.5 % (37-53); Hemoglobin 14.40 g/dL (11.27-16.99); Mean Corpuscular HGB Conc 32.4 g/dL (30-55); Mean Corpuscular Hemoglobin 30.1 pg (27-33); Mean Corpuscular Volume 92.9 fl (82-101); Nucleated Red Blood Cells % 0 %; Platelet Count 260 10^3/cmm (157-399); Red Blood Count 4.79 10^6/uL (3.85-5.65); White Blood Count 15.84 10^3/uL (3.29-11.43)
[2025-04-20 07:54] LABS: Alanine Aminotransferase 58 U/L (0-41); Albumin Level 4.2 g/dL (3.5-5.2); Alkaline Phosphatase 86 U/L (40-130); Aspartate Amino Transferase 20 U/L (0-40); Blood Urea Nitrogen 18 mg/dL (6-20); Calcium 9.3 mg/dL (8.5-10.5); Carbon Dioxide 24 mmol/L (22-29); Creatinine Clr Calc Pharmacy 137.8248; Globulin 3.2 g/dL (1.3-4.6); Glucose 175 mg/dL (65-115); Thyroid Stimulating Hormone 1.55 uIU/mL (0.27-4.20); Total Protein 7.4 g/dL (6.6-8.7)
[2025-04-20 08:11] LABS: Anion Gap 17.6 (5-19); Chloride 99 mmol/L (98-107); Osmolality Calculated 290 mOsm/kg (285-295); Potassium 3.6 mmol/L (3.5-5.1); Sodium 137 mmol/L (136-145)
[2025-04-20 08:36] VITALS: BP 148/84; PULSE 70; O2SAT 95
== END 2025-04-20 08:37 | disposition home or self-care (01) ==
PROVIDERS: Emergency Provider Emergency Medicine; PCP Family Medicine
DX: R73.9 Hyperglycemia, unspecified (principal); I10 Essential (primary) hypertension
CPT/HCPCS: 36416; 80053; 82962; 84443; 85025; 99283

== ENCOUNTER → 2025-04-29 13:23 | Outpatient (BNVA) | payer MEDICAID, SELFPAY | PROVIDERS: PCP Family Medicine; Visit Provider Dermatology | DX: L64.8 Other androgenic alopecia (principal); L21.8 Other seborrheic dermatitis; L73.9 Follicular disorder, unspecified; S60.561A Insect bite (nonvenomous) of right hand, initial encounter; X58.XXXA Exposure to other specified factors, initial encounter | CPT/HCPCS: 99204 ==

== ENCOUNTER 2025-04-30 21:10 | Emergency (ER) | payer MEDICAID, SELFPAY ==
[2025-04-30 21:15] VITALS: BP 139/83; PULSE 80; RESP 18; TEMP 36.5; O2SAT 97; BMI 34.7
--- NOTE | 2025-04-30 21:21 | XRR_ITS ---
PROCEDURE INFORMATION: Exam: XR Right Shoulder Exam date and time: 04/30/2025 11:08 PM Age: 34 years old Clinical indication: Injury or trauma; Fall; Blunt trauma (contusions or hematomas); Shoulder; Right TECHNIQUE: Imaging protocol: Radiologic exam of the right shoulder. Views: 2 or more views. COMPARISON: CR XR chest 1V portable [id number] 02/27/2025 5:10 PM FINDINGS: Bones/joints: Normal. Soft tissues: Normal. XR/XR shoulder RT min 2V* [id number] IMPRESSION: No acute findings.
--- NOTE | 2025-04-30 21:21 | XRR_ITS ---
PROCEDURE INFORMATION: Exam: XR Left Ankle Exam date and time: 04/30/2025 11:19 PM Age: 34 years old Clinical indication: Injury or trauma; Fall; Blunt trauma; Ankle; Left; Additional info: Fall/injury TECHNIQUE: Imaging protocol: Radiologic exam of the left ankle. Views: 3 or more views. COMPARISON: CR (LOW EXM, ) 04/30/2025 11:16 PM FINDINGS: Bones/joints: Small calcified heel spur. Soft tissues: Distal Achilles tendon degenerative calcification. XR/XR ankle LT min 3V* [id number] IMPRESSION: No acute findings. Consider further evaluation with a CT if concern for fracture or dislocation remains.
--- NOTE | 2025-04-30 21:21 | XRR_ITS ---
PROCEDURE INFORMATION: Exam: XR Left Foot Exam date and time: 04/30/2025 11:16 PM Age: 34 years old Clinical indication: Injury or trauma; Fall; Blunt trauma; Foot; Left; Additional info: Fall/injury TECHNIQUE: Imaging protocol: Radiologic exam of the left foot. Views: 3 or more views. COMPARISON: [place] [id number] ORTH 12/24/2018 9:56 AM FINDINGS: Bones/joints: Distal Achilles tendon degenerative calcification. Soft tissues: Normal. XR/XR foot LT min 3V* [id number] IMPRESSION: 1. Negative for fracture dislocation, consider further evaluation with a CT concern for fracture or dislocation remains. 2. Distal Achilles tendon degenerative calcification.
--- NOTE | 2025-05-01 00:10 | ED_ITS ---
HPI - Fall General: Chief Complaint: Fall Stated Complaint: fall off deck shoulder injyr Time Seen by Provider: 04/30/25 23:56 Source: patient Mode of arrival: ambulatory Limitations: no limitations History of Present Illness: Patient is a 34-year-old male who presents to the ED today for evaluation following a fall. Patient states he tripped over a toy and fell, twisting his left foot and ankle. He has been ambulatory on the extremity but he states with a limp. He states after twisting the left foot and ankle, he then fell onto his right shoulder and is hurting here as well. Denies striking his head or LOC. He has no back pain. He has no midline/cervical neck pain. MD complaint: fall Onset (ago): hour(s) Fall from: standing Fall witnessed: no Place fall occurred: home Loss of consciousness: None Prolonged down time: no Symptoms prior to fall: none Context: tripped/slipped Location of injury - extremities: Right: shoulder Associated symptoms-after fall: Reports no associated symptoms; Denies chest pain, difficulty walking or neck pain Related Data Home Medications ?Medication ?Instructions ?Recorded ?Confirmed nitroglycerin 0.3 mg sublingual 0.3 mg sublingual Q5M PRN Chest 06/08/21 04/23/25 tablet Pain albuterol sulfate 90 mcg/actuation 1 puff inhalation Q ID PRN 08/01/24 04/23/25 aerosol inhaler Shortness Of Breath Or Wheez ing ibuprofen 600 mg tablet 600 mg PO Q12H PRN Pain 07/1904/23/25 Previous Rx's ?Medication ?Instructions ?Recorded methocarbamol 750 mg tablet 750 mg PO Q8H PRN muscle s pasm 7 05/08/24 days #21 tabs ondansetron 4 mg disintegrating 4 mg PO Q6H PRN nausea and 08/01/24 tablet vomiting #14 tabs tamsulosin 0.4 mg capsule (Flomax) 0.4 mg PO DAILY #7 caps 09/22/24 budesonide-formoterol HFA 160 2 puff inhalation BID W[place] N 12/09/24 mcg-4.5 mcg/actuation aerosol Shortness Of Breath #10. 2 grams inhaler (Symbicort) epinephrine 0.3 mg/0.3 mL 0.3 mg (0.3 mL) IM Q15M PRN 12/09/24 injection, auto-injector anaphylaxis #2 ea metoprolol succinate 25 mg 25 mg PO DAILY #90 tabs tablet,extended release 24 hr pantoprazole 40 mg tablet,delayed 40 mg PO PRN PRN Aci d Reflux #90 12/09/24 release (Protonix) tabs fluticasone propionate 50 1 spray intranasal BID #16 g rosetta 03/17/25 mcg/actuation nasal spray,suspension (Flonase Allergy Relief) doxycycline hyclate 100 mg tablet 100 mg PO BID 10 day s #20 tabs 04/23/25 pregabalin 25 mg capsule (Lyrica) 25 mg PO BID PRN Hea dache, muscle 04/23/25 spasms #60 caps oxycodone-acetaminophen 7.5 mg-325 1 tab PO Q6H 30 day s #120 tabs 04/28/25 mg tablet tirzepatide (weight loss) 2.5 2.5 mg (0.5 mL) SUBCUT . q7days #2 04/28/25 mg/0.5 mL subcutaneous pen mL injector (Zepbound) Allergies Allergy/AdvReac Type Severity Reaction Status Date / Time amitriptyline Allergy Intermediate ADR-Itching Verified 04/23/25 10:47 Alpha-Gal Allergy ADR-Diarrhe Verified 04/23/25 10:47 (Ednegufbf-Sgqxw-3,3-Gala a clindamycin Allergy THROAT Verified 04/23/25 10:47 SWELLING AND ITCHY crab Allergy ALGY-Hives Verified 04/23/25 10:47 doxycycline Allergy RASH Verified 04/23/25 10:47 galcanezumab-gnlm (From Allergy ALGY-Rash Verified 04/23/25 10:47 Emgality Pen) mushroom Allergy ALGY-Hives Verified 04/23/25 10:47 Penicillins Allergy ALGY-Rash Verified 04/23/25 10:47 Review of Systems Card: Denies: chest pain Resp: Denies: dyspnea Musc: Reports: joint pain (R shoulder, L foot/ankle) and joint swelling (lateral L ankle); Denies: neck pain or back pain Neuro: Denies: numbness in extremities, weakness in extremities, sensory changes or difficulty walking PFSH ED PFSH: Medical History H/O coronary angiogram GERD (gastroesophageal reflux disease) Erectile dysfunction ADHD COVID Anxiety Hypercholesterolemia Pulmonary embolism Gastroenteritis Hypertension Left ureteral calculus Surgical History History of laparoscopic appendectomy 05/11/23 Dr. Maya H/O esophagogastroduodenoscopy (04/19/22) History of umbilical hernia repair (11/01/21) Recurrent repaired with with ultrapro mesh Status post laparoscopic cholecystectomy (11/01/21) History of umbilical hernia repair 2019 H/O neck surgery BIOPSY OF NECK SWOLLEN LYMPH NODE H/O hernia repair Hx of tonsillectomy Family History Mother , 48 Diabetes Cancer BREAST CAD (coronary artery disease) Hypertension Father Cancer CAD (coronary artery disease) Hypertension Diabetes Family/Other Anesthesia complication CAD (coronary artery disease) Chronic kidney disease (CKD) Dementia Diabetes Lung disease Stroke Suicide Other Hyperlipidemia Seizure Denies family history of Clotting disorder Bleeding disorder Social History Smoking and tobacco/nicotine status: never used tobacco/nicotine Alcohol intake: current Alcohol intake frequency: holidays/special occasions only Substance/Drug Use: never Marital status: Current occupational status: disabled Physical Exam Const: COMMON NORMALS: no acute distress, patient oriented x3, no limitations, alert and well nourished GENERAL APPEARANCE: cooperative HENMT: COMMON NORMALS: normocephalic and atraumatic HEAD & SCALP: normal to inspection, normocephalic and atraumatic Neck/C-Spine: COMMON NORMALS: full ROM CERVICAL SPINE: Yes cervical ROM normal and No Cervical spine tenderness Chest: COMMONS NORMALS: normal inspection of the chest and normal palpation of entire chest wall Resp: COMMON NORMALS: normal respiratory effort and clear to auscultation bilaterally AUSCULTATION: clear to auscultation bilaterally Cardio: COMMON NORMALS: regular rate and regular rhythm RATE: regular rate RHYTHM: regular rhythm Back/Pelvis: COMMON NORMALS: thoracic and lumbar spine normal to inspection and no thoracic nor lumbar tenderness Extremity: COMMON NORMALS: capillary refill normal GENERAL: Yes normal exam except as noted RIGHT UPPER EXTREMITY: Yes shoulder joint (TTP R shoulder w/o palpable deformity or crepitus) Right shoulder: Yes Right shoulder joint ROM exam (limited due to discomfort) and Yes Right shoulder joint neurovascular exam (normal) LEFT LOWER EXTREMITY: Yes ankle joint (TTP/edema lateral L ankle ) Left ankle: Yes neurovascular exam (normal) and Yes foot & digits (mild tenderness lateral L foot w/o obvious edema or deformity) Left foot and digits: Yes neurovascular exam (normal) Neuro: COMMON NORMALS: patient oriented x3, moves all extremities, no focal motor deficits and no sensory deficits noted SENSORIUM/ORIENTATION: Yes alert Course Vital Signs: Vital signs: Vital Signs Temperature 97.7 F 04/30/25 21:15 Pulse Rate 80 04/30/25 21:15 Respiratory Rate 18 04/30/25 21:15 Blood Pressure 139/83 04/30/25 21:15 Pulse Oximetry 97 04/30/25 21:15 Oxygen Delivery Me thod Room Air 04/30/25 21:15 MDM - Fall Medical Decision Making XR imaging of the left foot and ankle as well as the right shoulder obtained and are all unremarkable. Will place ankle in an DONALDO wrap and give crutches per patient request. Discussed conservative therapy. Recommend follow-up with primary care in 1 to 2 weeks if symptoms are not improving. Return to ED precautions discussed. Medical Records I reviewed the patient's medical records. Lab Data Radiology Impressions Ankle X-Ray 04/30/25 21:21 IMPRESSION: No acute findings. Consider further evaluation with a CT if concern for fracture or dislocation remains. Foot X-Ray 04/30/25 21:21 IMPRESSION: 1. Negative for fracture dislocation, consider further evaluation with a CT concern for fracture or dislocation remains. 2. Distal Achilles tendon degenerative calcification. Shoulder X-Ray 04/30/25 21:21 IMPRESSION: No acute findings. All radiology interpretation(s) finalized by discharge Discharge Plan Discharge Patient Disposition: Home Clinical Impression: Fall on same level from tripping Injury of right shoulder Qualifiers: Encounter type: initial encounter Qualified Code(s): S49.91XA - Unspecified injury of right shoulder and upper arm, initial encounter Left ankle sprain Qualifiers: Encounter type: initial encounter Involved ligament of ankle: unspecified ligament Qualified Code(s): S93.402A - Sprain of unspecified ligament of left ankle, initial encounter Condition: Stable Prescriptions: No Action nitroglycerin 0.3 mg tablet, sublingual 0.3 mg sublingual Q5M PRN (Reason: Chest Pain) Rx Instructions: do not exceed 3 doses per episode pregabalin [Lyrica] 25 mg capsule 25 mg PO BID PRN (Reason: Headache, muscle spasms) Qty: 60 0RF doxycycline hyclate 100 mg tablet 100 mg PO BID 10 Days Qty: 20 0RF budesonide-formoterol [Symbicort] 160-4.5 mcg/actuation HFA aerosol inhaler 2 puff inhalation BID PRN (Reason: Shortness Of Breath) Qty: 10.2 5RF pantoprazole [Protonix] 40 mg tablet,delayed release (DR/EC) 40 mg PO PRN PRN (Reason: Acid Reflux) Qty: 90 3RF metoprolol succinate 25 mg tablet extended release 24 hr 25 mg PO DAILY Qty: 90 3RF epinephrine 0.3 mg/0.3 mL auto-injector 0.3 mg IM Q15M PRN (Reason: anaphylaxis) Qty: 2 1RF Rx Instructions: not to exceed 6 doses per episode fluticasone propionate [Flonase Allergy Relief] 50 mcg/actuation spray,suspension 1 spray intranasal BID Qty: 16 3RF Rx Instructions: administer into each nostril methocarbamol 750 mg tablet 750 mg PO Q8H PRN (Reason: muscle spasm) 7 Days Qty: 21 0RF Zepbound 2.5 mg/0.5 mL pen injector 2.5 mg SUBCUT .q7days Qty: 2 3RF oxycodone-acetaminophen 7.5-325 mg tablet 1 tab PO Q6H 30 Days Qty: 120 0RF albuterol sulfate [ProAir HFA] 90 mcg/actuation Hfa Aerosol Inhaler 1 puff INHALATION QID PRN (Reason: Shortness Of Breath Or Wheezing) ibuprofen 600 mg tablet 600 mg PO Q12H PRN (Reason: Pain) ondansetron 4 mg tablet,disintegrating 4 mg PO Q6H PRN (Reason: nausea and vomiting) Qty: 14 0RF tamsulosin [Flomax] 0.4 mg capsule 0.4 mg PO DAILY Qty: 7 0RF Discharge Orders: Discharge ED (Routine); Ordered 05/01/25 Ordered By: Leelee Silva Referrals: Fer Cespedes DO [Primary Care Provider, [facility]] Patient Instructions: Patient Portal & Dale Instructions Activity Restrictions/Additional Instructions: As we discussed, we obtained x-ray imaging of your right shoulder as well as your left foot and ankle here in the emergency department today. These did not show any fractures. We discussed conservative therapies at home for treatment of your injuries. If symptoms do not begin to improve on their own over the next 1 to 2 weeks, I recommend following up with primary care for further care. Print Language: Bengali Coding Level of Care Code ED Textiles Printer for Vernell Mccormack
== END 2025-05-01 00:32 | disposition home or self-care (01) ==
PROVIDERS: Emergency Provider Physician Assistant; PCP Family Medicine
DX: S49.91XA Unspecified injury of right shoulder and upper arm, initial encounter (principal); S93.402A Sprain of unspecified ligament of left ankle, initial encounter; W01.0XXA Fall on same level from slipping, tripping and stumbling without subsequent striking against object, initial encounter; I10 Essential (primary) hypertension
CPT/HCPCS: 73030; 73610; 73630; 99284; E0114

== ENCOUNTER 2025-05-10 09:20 | Emergency (ER) | payer MEDICAID, SELFPAY ==
--- OUTSIDE RECORDS SUMMARY | 2025-05-10 09:25 | XMS_ITS | Patient Health Record ---
Author Organization [facility] Address [address] [place], [place] [address] Care Team Providers Care Strawhat Blocking Operator Name Role Phone RubinaFer tran DO Primary Care Provider Unavail able Georgina SIMPSON, David Unavailable [phone] Tony SIMPSON, Mitch Unavailable [phone] Tony HERNANDEZ, Jennifer Unavailable [phone] Allergies Allergen (clinical drug ingredient) Drug/Non Drug Allergy documented on EMR Reaction Allergy Type Onset Date Status mushrooms (uncoded) Unknown Allergy Active penicillin hives Drug Allergy Active Results Component Value Reference Range Notes Embedded PDF Reviewed date:07/22/2024 07:42:07 AM Interpretation: Performing Lab: Notes/Report: [place], [address] [address] [email or web address], [facility] [address] [address], , L ab Director: Deepika Aguero MD, CLIA ID# [id number] [employer] Results Reviewed date:07/22/2024 07:43:05 AM Interpretation: Performing Lab:[id number] [place], [address] [address] [employer] [facility] [address] Deepika Aguero MD Notes/Report: [facility], [address] [address] [employer] [facility] [address], [place] [address], , L ab Director: Deepika Agueor MD, CLIA ID# [id number] Oxycodone Quantification positive-343.812 50 ng/mL Noroxycodone Quantification positive-749.660 50 ng/mL Oxymorphone Quantification positive-1020.111 50 ng/mL Phencyclidine Quantification negative 10 ng/mL 2-methyl AP-237 Quantification negative 10 ng/mL Brorphine Quantification negative 15 ng/mL Metonitazene Quantification negative 5 ng/mL 8-aminoclonazolam Quantification negative 10 ng/mL Etizolam Quantification negative 10 ng/mL Alpha-hydroxyetizolam Quantification negative 10 n g/mL Flualprazolam Quantification negative 10 ng/mL Flubromazolam Quantification negative 10 ng/mL AOX511 metabolite Quantification negative 10 ng/mL TCO900 metabolite Quantification negative 10 ng/mL RCS4 metabolite Quantification negative 10 ng/mL XLR11/UR144 metabolite negative 10 ng/mL 5F-ADB-M7 negative 10 ng/mL XE-YOOARSKR-B8 negative 10 ng/mL VDCK-AFUNXFIA-Y9 negative 10 ng/mL Eutylone Quantification negative 10 ng/mL Methylone Quantification negative 3 ng/mL Xylazine Quantification negative 10 ng/mL 4-hydroxy Xylazine Quantification negative 10 ng/m L Mitragynine (Kratom alkaloid) Quantification negative 1 ng/mL 9-ZQ-Rddnkottyom (Kratom alk aloid) Quantification negative 1 ng/mL [...] Reason For Referral Reason CPAP Titration Study (38249) Diagnosis 1 Obstructive sleep ap jaden (adult) (pediatric) (G47.33) Referral Organization [facility] Referring Provider First Name David Referring Provider Last Name Georgina Referring Provider Speciality Pain Manag ement Referred Provider Lab, Sleep General Notes Leeanne Burns 01:53:26 PM > Faxed to [facility] scheduling and sleep lab, Leeanne [...] Notes Problem High risk drug monitoring status (734727699) intermediate (current) use of opiate analgesic (Z79.891) Active confirmed Problem Hypersomnia (10062328) Hypersomnia, unspecified (G47.10) Active confirmed Problem Obstructive sleep apnea syndrome (disorder) (52587940) Obstructive sleep apnea (adult) (pediatric) (G47.33) Active confirmed Problem Sleep disorder (22015294) Other sleep disorders (G47.8) Active confirmed Problem Chronic pain (93254293) Other chronic pain (G89.29) Active confirmed Problem Thoracic spondylosis without myelopathy (263791093) Spondylosis without myelopathy or radiculopathy, thoracic region (M47.814) Active confirmed Problem Cervicalgia (74682149) Cervicalgia (M54.2) Active confirmed Problem Pain in thoracic spine (443406723) Pain in thoracic spine (M54.6) Active confirmed Problem Long-term current use of drug therapy (009991351) Other half-way (current) drug therapy (Z79.899) Active confirmed Problem Myalgia (56179843) Myalgia of auxiliary muscles, head and neck (M79.12) Active confirmed Problem Muscle pain (91953665) Myalgia, other site (M79.18) Active confirmed Vital Signs Temperature 98.2 degrees Fahrenheit 01/02/2025 Blood pressure diastolic 77 mm Hg 01/02/2025 Oximetry 97 % 01/02/2025 Height 70 in 01/02/2025 Blood pressure systolic 126 mm Hg 01/02/2025 Weight 251.4 lbs 01/02/2025 BMI 36.07 kg/m2 01/02/2025 Encounters Encounter Location Date Provider Diagnosis [facility] [address] [place], [place] [id number] 05/23/2024 Jennifer Jimenez Other chronic pain G89.29 ; Pain in thoracic spine M54.6 ; Cervicalgia M54.2 and Hypersomnia, unspecified G47.10 [facility], [facility] [address] [place] [id number] 07/18/2024 David Erickson Other chronic pain G89.29 ; Pain in thoracic spine M54.6 ; Myalgia, other site M79.18 ; Hypersomnia, unspecified G47.10 and 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 Z79.891 [facility], [address] [id number] 08/27/2024 David Erickson Other chronic pain G89.29 ; Pain in thoracic spine M54.6 ; Myalgia, other site M79.18 and Hypersomnia, unspecified G47.10 [facility], [address] [id number] 11/12/2024 David Erickson Other chronic pain G89.29 ; Pain in thoracic spine M54.6 ; Myalgia, other site M79.18 and Hypersomnia, unspecified G47.10 [facility], [address] [id number] 12/03/2024 David Erickson Pain in thoracic spine M54.6 ; Cervicalgia M54.2 ; Other chronic pain G89.29 ; Myalgia, other site M79.18 and Obstructive sleep apnea (adult) (pediatric) G47.33 [facility], [facility] [address] [place] [id number] 01/02/2025 David Erickson Other chronic pain G89.29 ; Cervicalgia M54.2 ; Myalgia, other site M79.18 and Obstructive sleep apnea (adult) (pediatric) G47.33 Assessments Encounter Date Diagnosis (ICD Code) Assessment Notes Treatment Notes Treatment Clinical Notes Section Notes 12/03/2024 Cervicalgia (ICD-10 - M54.2) Chronic axial [...] flooding. Plan to continue oral opioid medication. 11/12/2024 Other chronic pain (ICD-10 - G89.29) Patient reports that taking his pain medication allows him to provide care for his family. Plan to continue oral opioid medication management. 08/27/2024 Other chronic pain (ICD-10 - G89.29) [...] M54.6) Chronic axial thoracic spine pain. 05/23/2024 Cervicalgia (ICD-10 - M54.2) Cervical axial spine pain and associated myofascial pain syndrome. Multilevel disc disease with cervical spinal cord contact or indentation. Referral to Dr. Delgado resulted in cervical fusion / fixation. Plan to obtain Operative Note from [facility]. 07/18/2024 Myalgia, other site (ICD-10 - M79.18) Patient reports continued spasms below his shoulder blades. He would like to continue the methocarbamol that Dr. Delgado prescribed for him following cervical spine surgery. Plan methocarbamol 750 mg BID for spasms. 08/27/2024 Pain in thoracic spine (ICD-10 - M54.6) Chronic axial thoracic spine pain. 08/27/2024 Myalgia, other site (ICD-10 - M79.18) Patient reports improvement in spasms with use of methocarbamol. Plan to continue. 11/12/2024 Pain in thoracic spine (ICD-10 - [...] use of methocarbamol. Plan to continue. 12/03/2024 Myalgia, other site (ICD-10 - M79.18) Patient reports some improvement in spasms with use of methocarbamol. Plan to continue. 01/02/2025 Obstructive sleep apnea (adult) (pediatric) (ICD-10 - G47.33) Plan to continue to restrict opioid use in relation to sleep for safety concerns. 11/12/2024 Myalgia, other site (ICD-10 - M79.18) Patient reports improvement in spasms with use of methocarbamol. Plan to continue. 08/27/2024 Hypersomnia, unspecified (ICD-10 - G47.10) Patient [...] opioids within four hours of planned sleep. 05/23/2024 Hypersomnia, unspecified (ICD-10 - G47.10) Patient [...] within four hours of planned sleep. 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 Patient requested visit with Dr. Erickson to discuss findings. Plan to continue to restrict opioid use in relation to sleep for safety concerns: patient has verbalized understanding to hold short-acting opioids within four hours of planned sleep. 12/03/2024 Obstructive sleep apnea (adult) (pediatric) (ICD-10 - G47.33) Patient recently comnpleted a sleep study. The network/telecom engineer diagnosed the patient as having sleep apnea. The network/telecom engineer recommended patient get a CPAP device with autoregulation from 6 to 16 cm of water pressure or a CPAP titration study and CPAP device programmed to meet the patient's needs based upon the titration study. Plan to follow network/telecom engineer recommendations. Attempt at ordering a CPAP device [...] clinic is closing due to Dr. Erickson's mcfp; see scanned document. Terminal prescriptions were given [...] End Date [place] [employer] [address] [place] [address] [phone] [id number] Dominic Krishnan Self - patient is the [...] Dr. Nikita Garcia2018 Hernia repair, performed at [facility] by Dr. Jack Lema, 10/2019 Cardiac catherization, performed at [facility] by Dr. Patel, 08/25/21 Hernia repair and cholecystectomy, perfo rmed at [facility] by Dr. Monroe, 11/02/21 Appendectomy, performed at [facility], 05/12/23 C4-5, C5-6 ACDFF, performed at [facility] by Dr Rupert Delgado, 05/06/24
--- OUTSIDE RECORDS SUMMARY | 2025-05-10 09:25 | XMS_ITS | Patient Health Record ---
Author Organization [facility] Address [address] [place] [address] Care Team Providers Care Machine Brush Maker Name Role Phone Mitch Jimenez MD Primary Care Provider CARMELO Clay Unavailable [phone] LEIA WU Unavailable [phone] Allergies Allergen (clinical drug ingredient) Drug/Non Drug [...] Active Results Component Value Reference Range Notes Urinalysis, Routine Reviewed date:08/20/2024 09:05:11 AM Interpretation: Performing Lab: Notes/Report: Urine-Color yellow Appearance clear Glucose - Bilirubin - Ketones - Specific Cinebar 1.020 Occult Blood - pH 6.0 Urine Protein - Urobilinogen,Semi-Qn - Nitrite, Urine - WBC Esterase - Urinalysis Gross Exam - Urinalysis, Routine Reviewed date:09/30/2024 01:21:32 PM Interpretation: Performing Lab: Notes/Report: Urine-Color yellow Appearance clear Glucose - Bilirubin - Ketones - Specific Cinebar 1.030 Occult Blood - pH 6.0 Urine Protein - Urobilinogen,Semi-Qn - Nitrite, Urine - WBC Esterase - Basic Metabolic Panel Reviewed date:09/04/2024 08:43:18 AM Interpretation: Performing Lab: Notes/Report: Use of this assay is not recommended for patients undergoing treatment with phenindione, due to the potential for falsely depressed results. Testing performed at: [address] [place] [address] CLIA ID [id number] Calculation performed from GFR calculator provided by the National [employer]. Glomerular Filtration rate(GRF) is the best overall index of kidney function. Normal GFR varies according to age,sex, body size, and declines with age. The National Kidney Foundation recommends using the CKD-EPI Creatinine Equation(2020) to estimate GFR. G-pzfqza-z-benzoquinone imine (NAPQI) is a metabolite of acetaminophen, NAPQI concentrations of apparoximately 10 mg/L correlation to toxic levels of acetaminophen demonstrates a greater than or equil to 10% change in results. NAPQI concentrations greater than this may lead to falsely depressed results for patient samples. Testing performed at [facility], [address] [place] [address] [place] [address]. CLIA ID#: [id number] Sodium 144 136-145 MMOL/L Potassium 3.8 3.5-5.1 [...] 7.9 3.5-7.2 MG/DL Testing perfor med at: [address] [place] [address] CLIA ID [id number] Reason For Referral No Information Medications Medication [...] Status W/U Status Risk Notes Problem Nephrolithiasis (27766052) Nephrolithiasis (N20.0) Active confirmed Problem Recurrent nephrolithiasis (3152547829299793) Recurrent nephrolithiasis (N20.0) Active confirmed Problem Calculus of kidney and ureter (885828497) Calculus of kidney and ureter (N20.2) Active confirmed Vital Signs Heart Rate 78 /min 11/27/2024 Temperature 97.9 degrees Fahrenheit 08/20/2024 Height-cm 177.8 cm 11/27/2024 Blood pressure diastolic 72 mm Hg 11/27/2024 Weight-kg 112.49 kg 11/27/2024 Height 70 in 11/27/2024 Blood pressure systolic 120 mm Hg 11/27/2024 Weight 248 lbs 11/27/2024 BMI 35.58 kg/m2 11/27/2024 Encounters Encounter Location Date Provider Diagnosis [facility] [address] [place] [address] 08/20/2024 LEIA WU Calculus of kidney a nd ureter N20.2 [facility] [address] [place] [address], [place] [address] 09/30/2024 LEIA WU Calculus of kidney a nd ureter N20.2 [facility] [address] [place] [address] 11/27/2024 LEIA WU Recurrent nephrolithiasis N20.0 [facility] [address] [place] [address] 08/06/2024 CARMELO RAMIREZ [facility] [address] [place] [address] 09/30/2024 LEIA WU [facility], [facility] [address] [place] [address] 10/01/2024 LEIA WU Assessments Encounter Date Diagnosis [...] 1 year with surveillance KUB and UA. 09/30/2024 Calculus of kidney and ureter (ICD-10 - N20.2) 08/20/2024 Other Pt passed urete ral stone and all symptoms resolved. UA clear. Pt with h/o recurrent stones. I independantly reviewed his imaging from [facility]. He has 4 stones, two punctate, [...] litholink. 09/30/2024 Other Reviewed ER records from [facility] from both visit dates. I have [...] Name Order Date STONE ANALYSIS W/ IMAGE (09439) 11/28/[address] [place] [address] 09/30/19 25 Basic Metabolic Panel 08/22/2024 Uric Acid 08/22/2024 Next Appt Details Provider Name:LEIA MOODY, 11/27/2025 10:00:00 AM, [address] [place], [address], Insurance Providers Payer Name Payer Address Payer Phone Subscriber Number Group Number Insured Name Patient Relationship to Insured Coverage Start Date Coverage End Date [facility] [address] [address] [place], [place] [id number] Dominic Krishnan Self - patient is the insured Medical (General) History Medical History History ICD Code Anxiety Depression Hypertension Kidney stone Kidney disease Surgical History Surgery Date(Month/Year) neck fusion Cholecystectomy hernia repair X 3 Appendectomy
--- OUTSIDE RECORDS SUMMARY | 2025-05-10 09:25 | XMS_ITS | Patient Health Record ---
Author Organization [facility] Address [address] [place] [address] Care Team Providers Care Web Master Name Role Phone Dr Fer Cespedes DO Primary Care Provider Gloria Strauss Unavailable [phone] Allergies Allergen (clinical drug ingredient) Drug/Non Drug [...] Referring Provider Last Name Rubina [facility] Referred Organization [facility] Referred Provider Gloria Hager Referred Address [address] [facility] [place],[address],[place] Referred Provider Specialty Gastroentero logy Referral Priority Routine Reason Eval and treat Diagnosis 1 Other chronic pain ( G89.29) Referring Provider First Name Fer Referring Provider Last Name Rubina Referring Provider [facility] icine Referred Organization [facility] Referred Provider Javier Rodriguez Referred Address [address],[facility],[place],[address],[place] Referred Provider Specialty Pain Medicin e General [...] W/U Status Risk Notes Problem Chronic pain (19361583) Other chronic pain (G89.29) Active confirmed Problem Chronic pain syndrome (333983332) Chronic pain syndrome (G89.4) Active confirmed Problem Cervical spondylosis without myelopathy (860694411) Other spondylosis with radiculopathy, cervical region (M47.22) Active confirmed Problem Essential hypertension (85688890) Essential hypertension (I10) Active confirmed Problem Anxiety (52600576) Anxiety (F41.9) Active confi rmed Problem Obesity (003981466) Obesity (BMI 30-39.9) (E66.9) Active confirmed Problem Chronic depression (108942419) Chronic depression (F32.9) Active confirmed Problem Chronic diarrhea (977443196) Chronic diarrhea (K52.9) Active confirmed Problem Morbid obesity (317007376) Morbid obesity (E66.01) Active confirmed Problem Gastroesophageal reflux disease (900098703) GERD (gastroesophage al reflux disease) (K21.9) Active confirmed Problem Degeneration of intervertebral disc (09405450) Multilevel degenerative disc disease (M53.9) Active confirmed [...] Encounter Location Date Provider Diagnosis [facility] [address] [place] [address] 01/15/2025 Gloria Hager Chronic diarrhea K52.9 ; GERD (gastroesophageal reflux [...] Metcalf, 05/16/2025 09:00:00 AM, [address], [place], [address], Insurance Providers Payer Name Payer Address Payer Phone Subscriber Number Group Number Insured Name Patient Relationship to Insured Coverage Start Date Coverage End Date [place] Medicaid [address] [place] [id number] Dominic Krishnan Self - patient is the [...]
[2025-05-10 09:29] VITALS: BP 139/99; PULSE 79; RESP 18; TEMP 36.8; O2SAT 98
--- NOTE | 2025-05-10 09:44 | XRR_ITS ---
PROCEDURE INFORMATION: Exam: XR Left Knee Exam date and time: 05/10/2025 9:53 AM Age: 34 years old Clinical indication: Pain; Knee; Left TECHNIQUE: Imaging protocol: Radiologic exam of the left knee. Views: 3 views. COMPARISON: CR (LOW EXM, ) 04/30/2025 11:19 PM FINDINGS: Bones/joints: No acute fracture. No dislocation. Small suprapatellar osteophytes. No significant joint effusion. Soft tissues: Normal. XR/XR knee LT 3V* 69534 IMPRESSION: No acute fracture or dislocation.
[2025-05-10 09:53] LABS: Hematocrit 45.0 % (37-53); Hemoglobin 15.10 g/dL (11.27-16.99); Mean Corpuscular HGB Conc 33.6 g/dL (30-55); Mean Corpuscular Hemoglobin 30.4 pg (27-33); Mean Corpuscular Volume 90.7 fl (82-101); Nucleated Red Blood Cells % 0 %; Platelet Count 262 10^3/cmm (157-399); Red Blood Count 4.96 10^6/uL (3.85-5.65); White Blood Count 12.20 10^3/uL (3.29-11.43)
[2025-05-10 10:19] VITALS: BP 139/99; PULSE 76; RESP 16; O2SAT 98
[2025-05-10 10:24] VITALS: BP 139/99; PULSE 76; RESP 16; O2SAT 98
--- NOTE | 2025-05-10 10:25 | ED_ITS ---
HPI - Extremity Problem 2 General: Chief complaint: Extremity Problem,Nontraumatic Stated complaint: L Leg Sharp Pain Time Seen by Provider: 05/10/25 09:43 History of Present Illness: 34-year-old male presents to the emergen cy room complaining of left knee pain. About a week ago he injured the knee he had it x-rayed it is reported to him as negative despite this he continues to have pain and discomfort particularly with walking he can partially bear weight. No fever sweats chills no other injury Related Data Home Medications ?Medication ?Instructions ?Recorded ?Confirmed nitroglycerin 0.3 mg sublingual 0.3 mg sublingual Q5M PRN Chest 06/08/21 04/23/25 tablet Pain albuterol sulfate 90 mcg/actuation 1 puff inhalation Q ID PRN 08/01/24 04/23/25 aerosol inhaler Shortness Of Breath Or Wheez ing Previous Rx's ?Medication ?Instructions ?Recorded methocarbamol 750 mg tablet 750 mg PO Q8H PRN muscle s pasm 7 05/08/24 days #21 tabs ondansetron 4 mg disintegrating 4 mg PO Q6H PRN nausea and 08/01/24 tablet vomiting #14 tabs tamsulosin 0.4 mg capsule (Flomax) 0.4 mg PO DAILY #7 caps 09/22/24 budesonide-formoterol HFA 160 2 puff inhalation BID NC N 12/09/24 mcg-4.5 mcg/actuation aerosol Shortness Of Breath #10. 2 grams inhaler (Symbicort) epinephrine 0.3 mg/0.3 mL 0.3 mg (0.3 mL) IM Q15M PRN 12/09/24 injection, auto-injector anaphylaxis #2 ea metoprolol succinate 25 mg 25 mg PO DAILY #90 tabs tablet,extended release 24 hr pantoprazole 40 mg tablet,delayed 40 mg PO PRN PRN Aci d Reflux #90 12/09/24 release (Protonix) tabs fluticasone propionate 50 1 spray intranasal BID #16 g rosetta 03/17/25 mcg/actuation nasal spray,suspension (Flonase Allergy Relief) doxycycline hyclate 100 mg tablet 100 mg PO BID 10 day s #20 tabs 04/23/25 pregabalin 25 mg capsule (Lyrica) 25 mg PO BID PRN Hea dache, muscle 04/23/25 spasms #60 caps oxycodone-acetaminophen 7.5 mg-325 1 tab PO Q6H 30 day s #120 tabs 04/28/25 mg tablet tirzepatide (weight loss) 2.5 2.5 mg (0.5 mL) SUBCUT . q7days #2 04/28/25 mg/0.5 mL subcutaneous pen mL injector (Zepbound) diclofenac sodium 75 mg 75 mg PO Q12H PRN pain #20 t abs 05/10/25 tablet,delayed release Allergies Allergy/AdvReac Type Severity Reaction Status Date / Time amitriptyline Allergy Intermediate ADR-Itching Verified 04/23/25 10:47 Alpha-Gal Allergy ADR-Diarrhe Verified 04/23/25 10:47 (Khexunjaw-[id number]-7,3-Gala a clindamycin Allergy THROAT Verified 04/23/25 10:47 SWELLING AND ITCHY crab Allergy ALGY-Hives Verified 04/23/25 10:47 doxycycline Allergy RASH Verified 04/23/25 10:47 [id number] (From Allergy ALGY-Rash Verified 04/23/25 10:47 Emgality Pen) mushroom Allergy ALGY-Hives Verified 04/23/25 10:47 Penicillins Allergy ALGY-Rash Verified 04/23/25 10:47 PFSH ED 2 PFSH: Medical History H/O coronary angiogram GERD (gastroesophageal reflux disease) Erectile dysfunction ADHD COVID Anxiety Hypercholesterolemia Pulmonary embolism Gastroenteritis Hypertension Left ureteral calculus Surgical History History of laparoscopic appendectomy 05/11/23 Dr. Maya H/O esophagogastroduodenoscopy (04/19/22) History of umbilical hernia repair (11/01/21) Recurrent repaired with with ultrapro mesh Status post laparoscopic cholecystectomy (11/01/21) History of umbilical hernia repair 2019 H/O neck surgery BIOPSY OF NECK SWOLLEN LYMPH NODE H/O hernia repair Hx of tonsillectomy Family History Mother , 48 Diabetes Cancer BREAST CAD (coronary artery disease) Hypertension Father Cancer CAD (coronary artery disease) Hypertension Diabetes Family/Other Anesthesia complication CAD (coronary artery disease) Chronic kidney disease (CKD) Dementia Diabetes Lung disease Stroke Suicide Other Hyperlipidemia Seizure Denies family history of Clotting disorder Bleeding disorder Social History Smoking and tobacco/nicotine status: never used tobacco/nicotine Alcohol intake: current Alcohol intake frequency: holidays/special occasions only Substance/Drug Use: never Marital status: Current occupational status: disabled Physical Exam 2 Extremity: OTHER: Examination of the left knee mild laxity anterior cruciate collateral ligaments intact. Minimal joint effusion Course 2 Vital Signs: Vital signs: Vital Signs Temperature 98.2 F 05/10/25 09:29 Pulse Rate 76 05/10/25 10:24 Respiratory Rate 16 05/10/25 10:24 Blood Pressure 139/99 05/10/25 10:24 Pulse Oximetry 98 05/10/25 10:24 Oxygen Delivery Me thod Room Air 05/10/25 09:29 MDM - Extremity (Nontraumatic) Medical Decision Making X-ray negative discharge patient home knee immobilizer crutches refer to Ortho diclofenac as needed Medical Records I reviewed the patient's medical records. Lab Data I reviewed the patient's lab results. 05/10/25 09:48 Radiology Impressions Knee X-Ray 05/10/25 09:44 IMPRESSION: No acute fracture or dislocation. Laboratory Results WBC 12.20 10^3/uL (3.29-11.43) H 05/10/25 09:48 RBC 4.96 10^6/uL (3.85-5.65) 05/10/25 09:48 Hgb 15.10 g/dL (11.27-16.99) 05/10/25 09:48 Hct 45.0 % (37-53) 05/10/25 09:48 MCV 90.7 fl (82-101) 05/10/25 09:48 MCH 30.4 pg (27-33) 05/10/25 09:48 MCHC 33.6 g/dL (30-55) 05/10/25 09:48 RDW 12.9 % (12.1-15.1) 05/10/25 09:48 Plt Count 262 10^3/cmm (157-399) 05/10/25 09:48 MPV 9.4 fL (7.4-10.4) 05/10/25 09:48 Neut % (Auto) 70.5 % 05/10/25 09:48 Lymph % (Auto) 20.6 % 05/10/25 09:48 Lares % (Auto) 7.8 % 05/10/25 09:48 Eos % (Auto) 0.3 % 05/10/25 09:48 Baso % (Auto) 0.5 % 05/10/25 09:48 Neut # (Auto) 8.60 10^3/uL (1.8-7.7) H 05/10/25 09:48 Lymph # (Auto) 2.5 10^3/uL (0.8-4.8) 05/10/25 09:48 Lares # (Auto) 1.0 10^3/uL (0.2-0.9) H 05/10/25 09:48 Eos # (Auto) 0.0 10^3/uL (0.0-0.8) 05/10/25 09:48 Baso # (Auto) 0.1 10^3/uL (0.0-0.1) 05/10/25 09:48 Nucleated RBC % (auto) 0 % 05/10/25 09:48 Nucleated RBCs # 0.0 /100WBC 05/10/25 09:48 C-Reactive Protein 4.9 mg/L (0.0-4.9) 05/10/25 09:48 All radiology interpretation(s) finalized by discharge Discharge Plan Discharge Patient Disposition: Home Clinical Impression: Left knee sprain Condition: Stable Prescriptions: New diclofenac sodium 75 mg tablet,delayed release (DR/EC) 75 mg PO Q12H PRN (Reason: pain) Qty: 20 0RF Discontinued ibuprofen 600 mg tablet 600 mg PO Q12H PRN (Reason: Pain) No Action nitroglycerin 0.3 mg tablet, sublingual 0.3 mg sublingual Q5M PRN (Reason: Chest Pain) Rx Instructions: do not exceed 3 doses per episode pregabalin [Lyrica] 25 mg capsule 25 mg PO BID PRN (Reason: Headache, muscle spasms) Qty: 60 0RF doxycycline hyclate 100 mg tablet 100 mg PO BID 10 Days Qty: 20 0RF budesonide-formoterol [Symbicort] 160-4.5 mcg/actuation HFA aerosol inhaler 2 puff inhalation BID PRN (Reason: Shortness Of Breath) Qty: 10.2 5RF pantoprazole [Protonix] 40 mg tablet,delayed release (DR/EC) 40 mg PO PRN PRN (Reason: Acid Reflux) Qty: 90 3RF metoprolol succinate 25 mg tablet extended release 24 hr 25 mg PO DAILY Qty: 90 3RF epinephrine 0.3 mg/0.3 mL auto-injector 0.3 mg IM Q15M PRN (Reason: anaphylaxis) Qty: 2 1RF Rx Instructions: not to exceed 6 doses per episode fluticasone propionate [Flonase Allergy Relief] 50 mcg/actuation spray,suspension 1 spray intranasal BID Qty: 16 3RF Rx Instructions: administer into each nostril methocarbamol 750 mg tablet 750 mg PO Q8H PRN (Reason: muscle spasm) 7 Days Qty: 21 0RF Zepbound 2.5 mg/0.5 mL pen injector 2.5 mg SUBCUT .q7days Qty: 2 3RF oxycodone-acetaminophen 7.5-325 mg tablet 1 tab PO Q6H 30 Days Qty: 120 0RF albuterol sulfate [ProAir HFA] 90 mcg/actuation Hfa Aerosol Inhaler 1 puff INHALATION QID PRN (Reason: Shortness Of Breath Or Wheezing) ondansetron 4 mg tablet,disintegrating 4 mg PO Q6H PRN (Reason: nausea and vomiting) Qty: 14 0RF tamsulosin [Flomax] 0.4 mg capsule 0.4 mg PO DAILY Qty: 7 0RF Discharge Orders: Discharge ED (Routine); Ordered 05/10/25 Ordered By: Tonio Nascimento Referrals: Fer Cespedes DO [Primary Care Provider, Family Practice] Discharge Diet: Usual diet Discharge Activity: Limit activity as instructed Patient Instructions: Opioid Safety, Pain Management, Patient Portal & Dale Instructions Activity Restrictions/Additional Instructions: Thank you for choosing [facility] for your healthcare needs today. It is very important that you follow up as instructed or that you return to the Emergency Department should you have concerns or if your condition changes or worsens in any way. You were seen emergency room with complaints of continued left knee pain after a fall nearly a week ago. Repeat x-ray did not show any signs of fracture. You may need further evaluation including advanced imaging. Will recommend that you use a knee brace and nonweightbearing on crutches give your prescription for diclofenac to use instead of ibuprofen. global product manager will make arrangements for you to follow-up with orthopedics Print Language: Amharic Coding Level of Care Code ED Monitoring Manager for Vernell Mccormack
--- NOTE | 2025-05-12 10:19 | DCPLANNER ---
messaged ortho for er f/u
== END 2025-05-10 10:39 | disposition home or self-care (01) ==
PROVIDERS: Emergency Provider Family Medicine; PCP Family Medicine
DX: S83.92XA Sprain of unspecified site of left knee, initial encounter (principal); X58.XXXA Exposure to other specified factors, initial encounter
CPT/HCPCS: 36415; 73562; 85025; 86140; 99284

== ENCOUNTER → 2025-05-13 08:36 | Outpatient (BNVA) | payer MEDICAID, SELFPAY | PROVIDERS: PCP Family Medicine; Visit Provider Orthopaedic Surgery | DX: M25.562 Pain in left knee (principal) | CPT/HCPCS: 99214 ==

== ENCOUNTER 2025-05-30 09:41 | Outpatient (CLI) | payer MEDICAID, SELFPAY ==
--- NOTE | 2025-05-30 10:15 | MR_ITS ---
WS: [id number] MRI LEFT KNEE HISTORY: Left Knee Pain COMPARISON: Radiograph 05/10/2025 Anterior cruciate ligament: Intact. Posterior cruciate ligament: Intact. Medial collateral ligament: Intact. Posterior lateral corner structures: Small amount of fluid involving the distal biceps femoris tendon at the fibular head attachment. No full-thickness tear. The remaining posterolateral corner structures appear to be intact. Medial menisci: Intact. Normal signal, size and shape. Lateral meniscus: Intact. Normal signal, size and shape. Extensor mechanism: Distal quadriceps tendon and patellar tendons are intact. Fluid and soft tissue: No joint effusion. Tiny Bassett's cyst. Osseous and articular structures: Patellofemoral compartment: Normal. Medial compartment: Minimal narrowing of the medial compartment. Mild thinning and fissuring of the cartilage along the weightbearing surface of the femoral condyle. No underlying marrow edema. Lateral compartment: Mild narrowing of the lateral compartment. No full- thickness cartilage defects. Focal marrow edema involving the anterior to posterior tibial metaphysis. Subtle low signal in the posterior metaphysis is highly suspicious for nondisplaced fracture. No displacement. MR/MR knee LT wo con* [id number] IMPRESSION: 1. Acute marrow edema involving the lateral tibial metaphysis extending anteri or to posterior. Subtle area of low signal in the posterior metaphysis consiste nt with trabecular injury. 2. Increased signal in the biceps femoris tendon at the fibular head insertion consistent with a mild sprain. 3. No meniscal tear.
== END 2025-05-30 09:42 | disposition home or self-care (01) ==
LOC: RAD 09:42
PROVIDERS: PCP Family Medicine; Visit Provider Orthopaedic Surgery
DX: M25.462 Effusion, left knee (principal)
CPT/HCPCS: 73721

== ENCOUNTER → 2025-06-16 08:23 | Outpatient (BNVA) | payer MEDICAID, SELFPAY | PROVIDERS: PCP Family Medicine; Visit Provider Orthopaedic Surgery | DX: S76.311A Strain of muscle, fascia and tendon of the posterior muscle group at thigh level, right thigh, initial encounter (principal); S76.312A Strain of muscle, fascia and tendon of the posterior muscle group at thigh level, left thigh, initial encounter; X58.XXXA Exposure to other specified factors, initial encounter | CPT/HCPCS: 99213 ==

== ENCOUNTER → 2025-07-29 08:33 | Outpatient (BNVA) | payer MEDICAID, SELFPAY | PROVIDERS: PCP Family Medicine; Visit Provider Orthopaedic Surgery | DX: Z47.89 Encounter for other orthopedic aftercare (principal); M54.2 Cervicalgia; Z98.1 Arthrodesis status | CPT/HCPCS: 72040; 99213 ==